=== PATIENT | male | born 1945 | race Caucasian/White ===

== ENCOUNTER → 2018-11-08 | Outpatient (CLI) | payer MEDICARE, SELFPAY ==
[2018-11-08 08:32] LABS: Hematocrit 43.3 % (40-54); Hemoglobin 13.7 g/dL (13.0-16.5); Mean Corp Hgb Conc 31.6 g/dL (32-36); Mean Corpuscular Hgb 28.1 pg (27.0-32.0); Mean Corpuscular Volume 88.9 fL (80-94); Mean Platelet Vol. 10.3 fl (6.2-12.0); Platelet Count 269 K/mm3 (150-450); RBC Distribution Width CV 13.2 % (11.6-14.6); RBC Distribution Width SD 42.9 fl (35.1-43.9); Red Blood Count 4.87 M/mm3 (4.6-6.2); White Blood Count 6.1 K/mm3 (4.4-11.0)
[2018-11-08 09:14] LABS: ALB/GLOB Ratio 0.8 RATIO (0.9-2.4); AST(SGOT) 11 U/L (15-37); Alanine Aminotransfer ALT/SGPT 16 U/L (16-61); Albumin, Serum 3.6 g/dL (3.2-5.0); Alkaline Phosphatase 157 U/L (45-117); Anion Gap 8 (5-15); BUN 9 mg/dL (7-18); BUN/Creat Ratio 9.4 RATIO (10-20); Chloride 104 mmol/L (98-107); Cholesterol 100 mg/dL (200); Creatinine, Serum 0.95 mg/dL (0.70-1.30); EST Glomerular Filtration Rate 82 mL/min (>60); Est Glom Filt Rate - Afr Amer 99 mL/min (>60); Globulin 4.6 g/dL (2.2-4.2); Glucose 142 mg/dL (74-106); High Density Lipoprotein 36 mg/dL; Protein, Total 8.2 g/dL (6.4-8.2); Sodium Level 141 mmol/L (136-145); Thyroid Stim Hormone (TSH) 1.64 uIU/mL (0.358-3.74); Triglycerides 124 mg/dL; Very Low Density Lipoprotein 25 mg/dL (5-40)
== END | disposition home or self-care (01) ==
LOC: LAB 07:23
PROVIDERS: Family Provider Family Medicine; PCP Family Medicine; Referring Provider Family Medicine; Visit Provider Family Medicine
DX: E78.00 Pure hypercholesterolemia, unspecified (principal); I10 Essential (primary) hypertension; Z93.2 Ileostomy status
CPT/HCPCS: 36415; 80053; 80061; 84153; 84443; 85027; G0103

== ENCOUNTER → 2018-11-21 | Outpatient (CLI) | payer MEDICARE, SELFPAY | END | disposition home or self-care (01) | LOC: LAB 09:51 | PROVIDERS: Family Provider Family Medicine; PCP Family Medicine; Referring Provider Family Medicine; Visit Provider Family Medicine | DX: R73.09 Other abnormal glucose (principal) | CPT/HCPCS: 36415; 83036 ==

== ENCOUNTER 2018-12-11 16:12 | Observation (INO) | payer MEDICARE, SELFPAY ==
[2018-12-11 16:13] VITALS: BP 163/94; PULSE 89; RESP 16; TEMP 36.3; O2SAT 99; BMI 27.3
--- NOTE | 2018-12-11 16:36 | CT_ITS ---
STUDY: CT ABDOMEN AND PELVIS WITH CONTRAST REASON FOR EXAM: Male, 73 years old. Pain and blood in colostomy status post partial colectomy RADIATION DOSAGE (If Supplied By Facility): CTDIvol = ( 18.95 ) mGy, DLP = ( 1312.91 ) mGycm TECHNIQUE: Transaxial images were obtained from the dome of the diaphragm to the symphysis pubis without oral contrast. 100mL IV/Oral Isovue 300 was administered. Sagittal and coronal images were reconstructed. Individualized dose optimization techniques were used for this CT. COMPARISON: March 22, 2017 FINDINGS: There is minor interstitial thickening at the lung bases.. The visualized portions of the heart are within normal limits. Normal liver. Normal gallbladder and extrahepatic biliary system. Normal spleen. Atrophic fatty infiltrated pancreas is noted. Normal bilateral adrenal glands. Normal right kidney. Normal left kidney. Normal visualized stomach. There are multiple distended loops of small bowel without transition point most consistent with ileus. Postsurgical changes status post subtotal colectomy stoma formation in the right lower quadrant. Atherosclerotic changes of the aorta without evidence for aneurysm. Normal inferior vena cava. Normal retroperitoneum. Normal urinary bladder. Small fat-containing right umbilical hernia. Lumbar spine demonstrates mild spondylosis. Right hip prosthesis is noted CT/Abdomen/Pelvis WITH Contrast IMPRESSION: Postsurgical changes status post subtotal colectomy with stoma formation in the right lower quadrant. Diffuse ileus pattern. Radionuclide tagged to red blood cell study would be helpful for further evaluation of GI bleed if clinically warranted Electronically Signed: James Alcantar MD at 19:19 EDT , Service support ,
[2018-12-11 16:53] LABS: Absolute Lymphocyte Count 0.39 X10^3/uL (0.83-4.51); Basophil# 0.03 X10^3/uL; Basophil% 0.4 % (0-1); Eosinophil# 0.01 X10^3/uL; Eosinophils% 0.1 % (0-5); Hematocrit 44.5 % (40-54); Hemoglobin 14.3 g/dL (13.0-16.5); Lymphocyte # 0.39 X10^3/ul (4.0); Mean Corp Hgb Conc 32.1 g/dL (32-36); Mean Corpuscular Hgb 28.1 pg (27.0-32.0); Mean Corpuscular Volume 87.6 fL (80-94); Mean Platelet Vol. 9.5 fl (6.2-12.0); Monocyte% 5.1 % (0-10); NRBC Flagged by Analyzer 0 % (0-5); Neutrophil # 6.96 X10^3/uL (2.7-7.7); POSITIVE DIFFERENTIAL YES; Platelet Count 260 K/mm3 (150-450); RBC Distribution Width SD 41.7 fl (35.1-43.9); Red Blood Count 5.08 M/mm3 (4.6-6.2); White Blood Count 7.8 K/mm3 (4.4-11.0)
[2018-12-11 16:56] LABS: International Normalized Ratio 1.2; Prothrombin Time (Protime)PT. 14.5 SECONDS (11.7-14.9)
[2018-12-11 16:57] LABS: Partial Thromboplast Time 31.1 Seconds (24.1-36.2)
--- NOTE | 2018-12-11 17:13 | ED.VISSUMM ---
- ER Visit Summary Date of Service: 12/11/18 Chief Complaint: Blood in colostomy bag History of Present Illness: The patient is a 73 M presenting with blood in colostomy bag. Patient noticed this today. He states earlier today he had mild diffuse abdominal pain. He has nausea with no vomiting. Denies fever. He is on aspirin, no other anticoagulants. He has a history of partial colectomy secondary to perforated bowel. Denies other complaints. Physical Examination: Vitals are stable. Patient is afebrile. Alert no acute distress. HEENT exam is unremarkable. Neck is supple. Lungs are clear and equal bilaterally. Heart is regular rate and rhythm. Abdomen is soft mild diffuse tenderness with no guarding or rebound. Colostomy, blood in colostomy bag. Extremities are unremarkable. Skin is warm and dry. No focal neurologic deficit. Remainder of exam is unremarkable. Emergency Department Course and Treatment: Patient was given Zofran IV. CBC, chemistries unremarkable other than glucose 186. INR 1.2. CT abdomen pelvis with IV and oral contrast shows postsurgical changes status post subtotal colectomy with stoma formation in the right lower quadrant. Diffuse ileus pattern. Radionuclide tagged to red blood cell study would be helpful for further evaluation of GI bleed if clinically warranted. Discussed with Dr. Estrella and the hospitalist. Patient will be admitted. Disposition: Admission Impression: GI bleed This note was generated with [employer] dictation software. It may contain incorrect words, spelling, and punctuation that were not noted in review of the chart prior to signing ED Disposition - Plan for ED Patient: Referrals: Dustin Thacker MD [Primary Care Provider] -
[2018-12-11 17:16] LABS: Anion Gap 7 (5-15); BUN 10 mg/dL (7-18); BUN/Creat Ratio 9.3 RATIO (10-20); Calcium,Total 9.2 mg/dL (8.5-10.1); Chloride 98 mmol/L (98-107); Creatinine, Serum 1.08 mg/dL (0.70-1.30); EST Glomerular Filtration Rate 71 mL/min (>60); Est Glom Filt Rate - Afr Amer 86 mL/min (>60); Estimated Creatinine Clearance 65.86 ml/min; Glucose 186 mg/dL (74-106); Potassium 3.7 mmol/L (3.5-5.1); Sodium Level 135 mmol/L (136-145)
[2018-12-11 17:27] LABS: Differential Indicated SCAN CRITERIA MET
[2018-12-11 17:29] LABS: Platelet Estimate ADEQUATE (ADEQ); Red Cell Morphology NORM C+C NORMAL (NORM C&C)
[2018-12-11] MEDS: Ondansetron 4 MG/2 ML Vial IV (19:12)
[2018-12-11 19:13] VITALS: RESP 17
[2018-12-11 19:26] VITALS: BP 133/70; PULSE 88; RESP 17
--- NOTE | 2018-12-11 20:27 | PCM.HP.STD ---
Problem List (1) GI bleed Status: Acute (2) Severe malnutrition Status: Inactive History of Present Illness Date of Admission: 12/11/18 Chief Complaint: Blood in colostomy. The patient is a 73 year old M with a significant history of CAD status post stent; congestive heart failure; Parkinson disease; colectomy with colostomy who presented to emergency department because of blood in his colostomy. His symptoms started on the same day of presentation. His symptoms started with right lower quadrant abdominal pain. His colostomy is located at his right lower quadrant too. He describes his pain as a pressure-like with intensity 5 out of 10. There are no aggravating or ameliorating factor to his pain. His pain is constant. Associated with symptoms is poor appetite. Before hospitalization he had a decreased output in his colostomy but he attributed that to decrease intake. At the emergency department he noticed an increase in the output in his colostomy bag after he is received IVF with contrast for CT. Emergency department doctor discussed the case with Dr. Estrella General surgery who recommended that lactic acid should be checked. Past Medical History Past Medical History (Chronic Problems): Chronic Problems Parkinsons disease (Chronic) Left inguinal hernia (Chronic) Hypertension (Chronic) Dysphagia (Chronic) Insomnia (Chronic) Thrombocytosis (Chronic) Anemia in chronic illness (Chronic) Hyperlipidemia (Chronic) History of colectomy (Chronic) for toxic megacolon Failure to thrive (Chronic) History of coronary artery bypass graft x 6 (Chronic) CAD (coronary artery disease) (Chronic) Allergies No Known Allergies Allergy (Verified 12/11/18 16:13) Home Medications: Ambulatory Orders Medication Instructions Recorded Nitroglycerin (INPATIENT USE) 0.4 mg SUBLINGUAL Q5M PRN 06/25/14 [Nitrostat] Metoprolol Tartrate 50 mg PO BID 06/02/16 Acetaminophen [Tylenol] 500 mg GT Q6H PRN PRN 03/20/17 Carbidopa/Levodopa 25/100 [Sinemet 2 tablet PO TIDAC 03/20/17 25/100] Aspirin [Aspirin, Baby] 81 mg PO QHS 12/11/18 Atorvastatin Calcium [Lipitor] 20 mg PO QHS 12/11/18 Furosemide [Lasix] 40 mg PO DAILY 12/11/18 Potassium Chloride 15 ml PO DAILY 12/11/18 Surgical History: coronary bypass surgery - X 6., herniorrhaphy, total hip arthroplasty - Right., - - Exploratory lap with 8 foot bowel resection, ileostomy. Psychiatric History: Depression Lives: Spouse/ Significant Other Smoking Status: Never smoker Tobacco Use: Non-smoker - *Family History Maternal History Items: Cancer - Pancreatic CA 60s. Paternal History Items: Heart Disease Sibling History Items: Heart Disease Review of Systems Constitutional: Reports: Anorexia. Denies: Chills, Fever, Weight Change HEENT: Denies: Head Aches, Sinus Congestion, Sinus Drainage Cardiovascular: Denies: Chest Pain, Palpitations Respiratory: Denies: Cough, Shortness of breath at rest, Sputum production Gastrointestinal: Reports: Abdominal Pain. Denies: Nausea, Vomiting Genitourinary: Denies: Dysuria Musculoskeletal: Denies: Joint Pain, Joint Tenderness Skin: Denies: Rash, Wounds Neurological: Denies: Numbness, Tingling, Focal weakness Psychiatric: Denies: Anxiety, Depression, Homicidal Ideations, Suicidal Ideations Hematologic/ Lymphatic: Denies: Easy Bruising, Easy Bleeding VTE Information - Inpt Only VTE Present on Admission: No VTE Mechan Device Prophylaxis: SCD's VTE Pharm Prophylaxis ordered?: No Patient Problems: Active and Suspected Problems GI bleed (Acute) - Physical Exam General: Alert, Oriented x3, Cooperative HEENT: Atraumatic, PERRLA, EOMI, Normocephalic Neck: Supple, No JVD, Negative Carotid Bruits Lungs: Clear to auscultation, Normal air movement Cardiovascular: Regular rate, No murmurs Abdomen: Bowel Sounds Present, Soft, Tender - Right lower quadrant, - - Colostomy with liquid green stool with no gross blood seen. Extremities: No edema, Capillary Refill Less than 3 Seconds Skin: No rashes, No breakdown Musculoskeletal: No Tenderness to Palpation of Joints or Extremities Neurological: Cranial nerves II-XII grossly intact Psych/Mental Status: Normal Affect, Appropriate Vital Signs Temp Pulse Resp BP Pulse Ox 97.4 F L 88 17 133/70 H 99 12/11/18 16:13 12/11/18 19:26 12/11/18 19:26 12/11/18 19:26 12/11/18 16:13 Oxygen Delivery Method Room Air Weight: 91.4 kg Body Mass Index (BMI) 27.3 Laboratory Tests Past 24 Hrs 12/11/18 12/11/18 12/11/18 16:36 16:36 16:36 WBC 7.8 RBC 5.08 Hgb 14.3 Hct 44.5 MCV 87.6 MCH 28.1 MCHC 32.1 RDW Std Deviation 41.7 RDW Coeff of Jed 13.0 Plt Count 260 MPV 9.5 Immature Gran % (Auto) 0.400 Neut % (Auto) 89.0 H Lymph % (Auto) 5.0 L [place] % (Auto) 5.1 Eos % (Auto) 0.1 Baso % (Auto) 0.4 Absolute Neuts (auto) 7.0 Absolute Lymphs (auto) 0.39 L Nucleated RBC % 0 Platelet Estimate ADEQUATE RBC Morphology NORM C+C PT 14.5 INR 1.2 APTT 31.1 Sodium 135 L Potassium 3.7 Chloride 98 Carbon Dioxide 30.0 Anion Gap 7 BUN 10 Creatinine 1.08 Estim Creat Clear Calc 65.86 Est GFR (MDRD) Af Amer 86 Est GFR (MDRD) Non-Af 71 BUN/Creatinine Ratio 9.3 L Glucose 186 H Calcium 9.2 Assessment/Plan All Active Problems GI bleed (Acute) CAP (community acquired pneumonia) (Ruled-out) Abdominal pain (Acute) Dehydration (Acute) Toxic megacolon (Resolved) Bowel perforation (Resolved) Aspiration pneumonia (Resolved) HCAP (healthcare-associated pneumonia) (Resolved) Left inguinal hernia (Resolved) The patient is a 73 year old M with a significant history of CAD status post stent; congestive heart failure; Parkinson disease; colectomy with colostomy who presented to emergency department because of blood in his colostomy and also with right lower quadrant pain and found to have an ileus on CT of abdomen and pelvis Acute GI bleed We will keep patient n.p.o. Because of his history of Parkinson's disease we will give his medications including Sinemet. He reported he takes medication with applesauce. Will allow n.p.o.; but meds to be given with applesauce. Hold aspirin. No chemical thromboprophylaxis. Protonix 40 mg IV twice daily. H&H every [address] Estrella consult Ileus N.p.o. as above General surgery consult. PRN morphine for pain Noted to have lactic acid of 2.8 which trended down to 2.0. Hypertension On presentation his blood pressure was not within goal Metoprolol and Lasix continued Trend blood pressure and adjust blood pressure medications Parkinson's disease Carbidopa levodopa continued Hyperlipidemia Lipitor continued DVT prophylaxis SCD Code Visit Inpatient E&M: 21572 Init Hosp L3
[2018-12-11 21:26] LABS: Lactic Acid 2.8 mmol/L (0.4-2.0)
--- NOTE | 2018-12-11 21:27 | ED.RN ---
notified Dr. Mueller of lactic acid 2.8
[2018-12-11 21:36] VITALS: BMI 27.2
[2018-12-11 21:57] VITALS: BMI 27.3
[2018-12-11 22:07] VITALS: BP 123/69; PULSE 89; RESP 20; TEMP 37.3; O2SAT 98
[2018-12-11 22:22] LABS: Hemoglobin A1c 7.8 % (4.2-6.3)
[2018-12-11 23:20] VITALS: PULSE 87
[2018-12-11] MEDS: Atorvastatin Calcium 20 MG Tablet PO (23:20)
[2018-12-11] MEDS: Metoprolol Tartrate 50 MG Tablet PO (23:20)
[2018-12-11] MEDS: 0.9% NaCl Peripheral Flush Adult/Peds IV (23:23)
[2018-12-12 00:11] LABS: Bedside Glucose 153 mg/dL (70-110)
[2018-12-12 00:38] LABS: Hematocrit 43.3 % (40-54)
[2018-12-12 00:53] LABS: Reflex Lactate? Y
[2018-12-12 02:50] VITALS: BP 112/76; PULSE 90; RESP 16; TEMP 36.8; O2SAT 96
[2018-12-12] MEDS: Carbidopa/Levodopa 25/100 Tablet PO ×2 (06:16→12:05)
[2018-12-12 06:35] LABS: Hematocrit 46.7 % (40-54)
[2018-12-12 06:36] LABS: Bedside Glucose 173 mg/dL (70-110)
[2018-12-12 07:43] VITALS: O2SAT 95
[2018-12-12 09:21] VITALS: BP 118/68; PULSE 79; RESP 18; TEMP 36.5; O2SAT 97
[2018-12-12 09:33] VITALS: PULSE 79
[2018-12-12] MEDS: Furosemide 40 MG Tablet PO (09:33)
[2018-12-12] MEDS: Metoprolol Tartrate 50 MG Tablet PO (09:33)
--- NOTE | 2018-12-12 10:21 | PN_ITS ---
Patient Problems: Active and Suspected Problems GI bleed (Acute) Subjective: No further bleeding. Had blood in colostomy, no clots. No prior episode of LGIB. Vitals/I&O's: Vital Signs Temp Pulse Resp BP Pulse Ox 36.5 C L 79 18 118/68 97 12/12/18 09:21 12/12/18 09:33 12/12/18 09:21 12/12/18 09:21 12/12/18 09:21 Oxygen Delivery Method Room Air Weight: 88.7 kg Body Mass Index (BMI) 27.2 Intake and Output for Last 24 Hours 12/10/18 12/11/18 12/12/18 23:59 23:59 23:59 Intake Total 110 / 110 Output Total 1475 / 1475 Balance 110 / -390 -1475 / -1475 General: Alert, No apparent distress HEENT: Atraumatic, Normocephalic Oral: Moist Mucosa, No Gingival or Mucosal Lesions/ Ulcerations Neck: No Nodes, Thyroid Normal Size and Texture Lungs: Clear to auscultation, Normal air movement, No rhonchi, No wheeze, No rales Cardiovascular: Regular rate, Regular Rhythm, Normal S1, Normal S2, No murmurs Abdomen: Bowel Sounds Present, Soft, Non Tender, Non-Distended, - - colostomy in RLQ with dark liquid stool Extremities: No edema, No Calf Tenderness Skin: No rashes, No breakdown Psych/Mental Status: Normal Affect, Appropriate Laboratory Results 12/11/18 16:36: WBC 7.8, RBC 5.08, Hgb 14.3, Hct 44.5, MCV 87.6, MCH 28.1, MCHC 32.1, RDW Std Deviation 41.7, RDW Coeff of Jed 13.0, Plt Count 260, MPV 9.5, Immature Gran % (Auto) 0.400, Neut % (Auto) 89.0 H, Lymph % (Auto) 5.0 L, [place] % (Auto) 5.1, Eos % (Auto) 0.1, Baso % (Auto) 0.4, Absolute Neuts (auto) 7.0, Absolute Lymphs (auto) 0.39 L, Nucleated RBC % 0, Platelet Estimate ADEQUATE, RBC Morphology NORM C+C 12/11/18 16:36: PT 14.5, INR 1.2, APTT 31.1 12/11/18 16:36: Sodium 135 L, Potassium 3.7, Chloride 98, Carbon Dioxide 30.0, Anion Gap 7, BUN 10, Creatinine 1.08, Estim Creat Clear Calc 65.86, Est GFR (MDRD) Af Amer 86, Est GFR (MDRD) Non-Af 71, BUN/Creatinine Ratio 9.3 L, Glucose 186 H, Calcium 9.2 12/11/18 16:36: Hemoglobin A1c 7.8 H 12/11/18 20:46: Lactic Acid 2.8 H 12/12/18 00:04: POC Glucose 153 H 12/12/18 00:21: Hgb 14.0, Hct 43.3 12/12/18 01:22: Lactic Acid 2.0 12/12/18 06:22: POC Glucose 173 H 12/12/18 06:24: Hgb 15.0, Hct 46.7 Current Medications Acetaminophen (Tylenol) 500 mg PO Q6H PRN PRN PRN Reason: MILD PAIN (-06/04) Atorvastatin Calcium (Lipitor) 20 mg PO QHS [facility] Last Admin: 12/11/18 23:20 Dose: 20 mg Documented by: Carbidopa/Levodopa (Sinemet) 2 tablet PO TIDAC [facility] Last Admin: 12/12/18 06:16 Dose: 2 tablet Documented by: Dextrose (D50w Syringe) 0 gm IV X1 PRN; Protocol PRN Reason: Hypoglycemia Furosemide (Lasix) 40 mg PO DAILY [facility] Last Admin: 12/12/18 09:33 Dose: 40 mg Documented by: Glucagon () 1 mg IM .X1 PRN PRN Reason: Hypoglycemia Pantoprazole Sodium 40 mg/ (Sodium Chloride) 110 mls @ 330 mls/hr IV Q12 [facility] Last Infusion: 12/11/18 23:49 Dose: Infused Documented by: Metoprolol Tartrate (Lopressor (Beta Alpesh)) 50 mg PO BID [facility] Last Admin: 12/12/18 09:33 Dose: 50 mg Documented by: Morphine Sulfate () 2 mg IV Q3H PRN PRN PRN Reason: moderate to severe pain Ondansetron HCl (Zofran) 4 mg IV Q8H PRN PRN PRN Reason: NAUSEA/VOMITING Potassium Chloride (Potassium Chl Soln) 20 meq GT LUNCH SOCO Sodium Chloride () 10 - 40 ml IV UD PRN PRN Reason: SALINE FLUSH Last Admin: 12/11/18 23:23 Dose: 10 ml Documented by: Medical Necessity - Tobacco Use Smoking Status: Never smoker Tobacco Use: Non-smoker Assessment/Plan All Active Problems GI bleed (Acute) CAP (community acquired pneumonia) (Ruled-out) Abdominal pain (Acute) Dehydration (Acute) Toxic megacolon (Resolved) Bowel perforation (Resolved) Aspiration pneumonia (Resolved) HCAP (healthcare-associated pneumonia) (Resolved) Left inguinal hernia (Resolved) 1. 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 * Question if he had a transient bleed from his stoma 2. Ileus * noted on CT * appears to be asymptomatic at this time. 3. lactic acidosis * resolved * unclear etiology 4. DM2 * fair control * A1c on 12/11 was 7.8 * add SSI * consider metformin on DC 5. Parkinson's dz * continue carbidopa/levo 6. VTE prophylaxis: SSI. Code Visit Inpatient E&M: 34251 Subs Hosp L2
--- NOTE | 2018-12-12 10:30 | CASEMGMT ---
RN DELGADO Face to Face with patient for initial transition planning/care coordination assessment. RN CM introduced self and role at [facility]. Patient sitting in chair, alert and oriented. Patient willing to participate in assessment and is able to answer all questions appropriately. Care providers, pharmacy, and demographics verified. Patient wishes to discharge home, denies need for home health at this time. Patient states he has no further needs or concerns at this time. CM to follow for discharge planning needs that may arise. PCP: Kirstie Specialists: none Preferred Pharmacy: [facility] Insurance: [facility] Prescription Benefit: yes Living Will/HPOA: yes, Adele Thompson LNOK: Living Arrangements: [facility] step to enter the home. Patient is independent at home. Transportation: DME/HHC: Patient has shower chair, cane, walker, grab bars, and raised toilet at home. Patient has had [facility] HHC in the past. Disposition Plan: Patient to discharge home with family support and follow-up plans in place. Katya DEAL, RN, CM
[2018-12-12] MEDS: Insulin Lispro 100 UNIT/ML INSULN.PEN SC (12:14)
[2018-12-12] MEDS: 0.9% NaCl Peripheral Flush Adult/Peds IV (12:16)
[2018-12-12 12:24] LABS: Hematocrit 47.7 % (40-54); Hemoglobin 15.2 g/dL (13.0-16.5)
--- NOTE | 2018-12-12 13:18 | CON.PCM_ITS ---
Reason for Consult Date of Consultation: 12/12/18 Reason for Consultation: blood in stoma bag History of Present Illness: The patient is a 73 year old M I am seeing for surgical consultation in conjunction with Dr. Kimmie Estrella. Patient has history of [place] syndrome for which he previously underwent exploratory laparotomy and subtotal colectomy with right lower quadrant end ileostomy at [facility] in [place]. Patient recalls that he has about 5-8 inches of remaining sigmoid stump with the rest of the colon removed. Patient states he had been doing well from a GI standpoint since that surgery. He states yesterday he developed some mild bloating in his lower abdomen but no other complaints at that time. Notes when his went to empty his stoma bag after 3 pm yesterday afternoon he was noted to have a small amount of blood in the back, both some fresher-appearing blood as well as some clots, prompting him to go to the emergency department. He had a CBC in the emergency department which was unremarkable. CT scan showed postsurgical changes status post subtotal colectomy with stoma formation in the right lower quadrant, and diffuse ileus pattern. He was admitted for further evaluation. General surgery was consulted. Patient had lactic acid level of 2.8 on 12/11 which has since decreased to 2.0. Patient's past medical history in addition to above mentioned [place] syndrome and subtotal colectomy is significant for coronary artery disease, history CABG x 6, hypertension, Parkinson's disease. Patient resting comfortably in bed at time of visit today. He notes no further blood in his stoma output and states the abdominal bloating/pressure has mostly resolved. Had some mild nausea earlier without emesis. Denies new complaints today. Past Medical History Past Medical History (Chronic Problems): Chronic Problems Parkinsons disease (Chronic) Left inguinal hernia (Chronic) Hypertension (Chronic) Dysphagia (Chronic) Insomnia (Chronic) Thrombocytosis (Chronic) Anemia in chronic illness (Chronic) Hyperlipidemia (Chronic) History of colectomy (Chronic) for toxic megacolon Failure to thrive (Chronic) History of coronary artery bypass graft x 6 (Chronic) CAD (coronary artery disease) (Chronic) Allergies No Known Allergies Allergy (Verified 12/11/18 16:13) Home Medications: Ambulatory Orders Medication Instructions Recorded Nitroglycerin (INPATIENT USE) 0.4 mg SUBLINGUAL Q5M PRN 06/25/14 [Nitrostat] Metoprolol Tartrate 50 mg PO BID 06/02/16 Acetaminophen [Tylenol] 500 mg GT Q6H PRN PRN 03/20/17 Carbidopa/Levodopa 25 [Sinemet 2 tablet PO TIDAC 03/20/17] Aspirin [Aspirin, Baby] 81 mg PO QHS 12/11/18 Atorvastatin Calcium [Lipitor] 20 mg PO QHS 12/11/18 Furosemide [Lasix] 40 mg PO DAILY 12/11/18 Potassium Chloride 15 ml PO DAILY 12/11/18 Surgical History: coronary bypass surgery - X 6., herniorrhaphy, total hip arthroplasty - Right., - - Exploratory lap with 8 foot bowel resection, ileostomy. Psychiatric History: Depression Lives: Spouse/ Significant Other Smoking Status: Never smoker Tobacco Use: Non-smoker - *Family History Maternal History Items: Cancer - Pancreatic CA 60s. Paternal History Items: Heart Disease Sibling History Items: Heart Disease Review of Systems Constitutional: Denies: Anorexia, Chills, Fever, Malaise, Weakness Eyes: Denies: Vision Change HEENT: Denies: Difficulty Hearing, Difficulty Swallowing, Visual Changes Cardiovascular: Denies: Chest Pain, Chest Pressure Respiratory: Denies: Cough, Shortness of Breath Gastrointestinal: Reports: Hematochezia - notes history of blood with stoma output and some abdominal bloating, Nausea. Denies: Abdominal Pain, Vomiting Skin: Denies: Skin Changes Hematologic/ Lymphatic: Denies: Easy Bruising, Easy Bleeding Patient Problems: Active and Suspected Problems GI bleed (Acute) - Physical Exam General: Alert, Oriented x3, Cooperative, No apparent distress HEENT: Atraumatic, PERRLA Oral: Moist Mucosa Neck: Supple Lungs: Clear to auscultation, Normal air movement Cardiovascular: Regular rate, Regular Rhythm Abdomen: Bowel Sounds Present, Soft, Non Tender, - - stoma present in right lower quadrant with green stool in stoma bag, no obvious blood noted Extremities: No clubbing, No cyanosis, No edema Skin: No rashes, No breakdown Musculoskeletal: No Tenderness to Palpation of Joints or Extremities Psych/Mental Status: Normal Affect, Appropriate Vital Signs Temp Pulse Resp BP Pulse Ox 97.7 F L 79 18 118/68 97 12/12/18 09:21 12/12/18 09:33 12/12/18 09:21 12/12/18 09:21 12/12/18 09:21 Oxygen Delivery Method Room Air Weight: 195 lb 8.8 oz Body Mass Index (BMI) 27.2 Intake and Output for Last 24 Hours 12/10/18 12/11/18 12/12/18 23:59 23:59 23:59 Intake Total 110 / 110 Output Total 1475 / 1475 Balance 110 / -390 -1475 / -1475 Laboratory Tests Past 24 Hrs 12/11/18 12/11/18 12/11/18 16:36 16:36 16:36 WBC 7.8 RBC 5.08 Hgb 14.3 Hct 44.5 MCV 87.6 MCH 28.1 MCHC 32.1 RDW Std Deviation 41.7 RDW Coeff of Jed 13.0 Plt Count 260 MPV 9.5 Immature Gran % (Auto) 0.400 Neut % (Auto) 89.0 H Lymph % (Auto) 5.0 L [place] % (Auto) 5.1 Eos % (Auto) 0.1 Baso % (Auto) 0.4 Absolute Neuts (auto) 7.0 Absolute Lymphs (auto) 0.39 L Nucleated RBC % 0 Platelet Estimate ADEQUATE RBC Morphology NORM C+C PT 14.5 INR 1.2 APTT 31.1 Sodium 135 L Potassium 3.7 Chloride 98 Carbon Dioxide 30.0 Anion Gap 7 BUN 10 Creatinine 1.08 Estim Creat Clear Calc 65.86 Est GFR (MDRD) Af Amer 86 Est GFR (MDRD) Non-Af 71 BUN/Creatinine Ratio 9.3 L Glucose 186 H Hemoglobin A1c Lactic Acid Calcium 9.2 12/11/18 12/11/18 12/12/18 16:36 20:46 00:21 WBC RBC Hgb 14.0 Hct 43.3 MCV MCH MCHC RDW Std Deviation RDW Coeff of Jed Plt Count MPV Immature Gran % (Auto) Neut % (Auto) Lymph % (Auto) [place] % (Auto) Eos % (Auto) Baso % (Auto) Absolute Neuts (auto) Absolute Lymphs (auto) Nucleated RBC % Platelet Estimate RBC Morphology PT INR APTT Sodium Potassium Chloride Carbon Dioxide Anion Gap BUN Creatinine Estim Creat Clear Calc Est GFR (MDRD) Af Amer Est GFR (MDRD) Non-Af BUN/Creatinine Ratio Glucose Hemoglobin A1c 7.8 H Lactic Acid 2.8 H Calcium 12/12/18 12/12/18 12/12/18 01:22 06:24 12:10 WBC RBC Hgb 15.0 15.2 Hct 46.7 47.7 MCV MCH MCHC RDW Std Deviation RDW Coeff of Jed Plt Count MPV Immature Gran % (Auto) Neut % (Auto) Lymph % (Auto) [place] % (Auto) Eos % (Auto) Baso % (Auto) Absolute Neuts (auto) Absolute Lymphs (auto) Nucleated RBC % Platelet Estimate RBC Morphology PT INR APTT Sodium Potassium Chloride Carbon Dioxide Anion Gap BUN Creatinine Estim Creat Clear Calc Est GFR (MDRD) Af Amer Est GFR (MDRD) Non-Af BUN/Creatinine Ratio Glucose Hemoglobin A1c Lactic Acid 2.0 Calcium POC Glucose 12/12/18 12/12/18 06:22 00:04 POC Glucose 173 H 153 H Assessment/Plan All Active Problems GI bleed (Acute) CAP (community acquired pneumonia) (Ruled-out) Abdominal pain (Acute) Dehydration (Acute) Toxic megacolon (Resolved) Bowel perforation (Resolved) Aspiration pneumonia (Resolved) HCAP (healthcare-associated pneumonia) (Resolved) Left inguinal hernia (Resolved) I have reviewed my findings with Dr. Estrella, who will also independently evaluate the patient and give further recommendations Blood in stoma, resolved. H/H stable. Suspect stomal irritation. History of subtotal colectomy with approximately 8 inches of remaining sigmoid stump per patient. CT findings suggestive of diffuse ileus, patient currently asymptomatic. Will continue to monitor
[2018-12-12 13:35] LABS: Bedside Glucose 178 mg/dL (70-110)
--- NOTE | 2018-12-12 15:07 | CHAPLAIN ---
Type of Pastoral Visit _x__ Initial Visit ___ Follow-up Visit ___ On-call Visit ___ General Patient Visit ___ Spiritual Assessment ___ Family Conference ___ Bereavement ___ Rapid Response ___ Code Blue ___ Other (describe below) Pastoral Care Referral From _x__ Patient ___ Family ___ Nurse ___ Physician ___ Endless Track Vehicle Supervisor ___ Rfid Systems Engineer ___ Other (describe below) Sacrament/Intervention _x__ Active listening ___ Anointing ___ Protestant ___ Bereavement ___ Communion ___ Leslie exploration ___ _x__ Life review _x__ Prayer ___ Reconciliation ___ Sacrament of Sick _x__ Supportive presence ___ Wedding ___ Other (describe below) Pastoral Comments
--- NOTE | 2018-12-12 17:01 | DCINST_ITS ---
- Discharge Diagnoses Current Active Problems: Current Active and Chronic Problems GI bleed (Acute) You will use the following diet at home:: No restrictions Your food should be the consistency of: Regular Your liquids should be the consistency of: Regular/Thin Call your doctor if you observe: - - recurrent blood in stool Allergies/Adverse Reactions: Allergies No Known Allergies Allergy (Verified 12/11/18 16:13) Medications to take at Discharge Nitroglycerin (INPATIENT USE) [Nitrostat] 0.4 mg SUBLINGUAL Q5M PRN 06/25/14 Metoprolol Tartrate 50 mg PO BID 06/02/16 Acetaminophen [Tylenol] 500 mg GT Q6H PRN PRN 03/20/17 Carbidopa/Levodopa 25/100 [Sinemet 25/100] 2 tablet PO TIDAC 03/20/17 Aspirin [Aspirin, Baby] 81 mg PO QHS 12/11/18 Atorvastatin Calcium [Lipitor] 20 mg PO QHS 12/11/18 Furosemide [Lasix] 40 mg PO DAILY 12/11/18 Potassium Chloride 15 ml PO DAILY 12/11/18 Primary Care Physician: Dustin Thacker MD [Primary Care Provider] - Within 2 Weeks Test Results: Test results from this visit will be discussed in further detail at your follow- up appointment, if applicable. Proposed Discharge Date: 12/12/18
--- NOTE | 2018-12-12 17:03 | DS.PCM_ITS ---
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 Resolve spontaneously. Hemoglobin remained stable. Seen by general surgery felt that the bleeding was related with mucosal bleeding. No intervention is warranted at this time. Patient stable to return home. [] Patient Problems: Active and Suspected Problems GI bleed (Acute) - Physical Exam Vital Signs Temp Pulse Resp BP Pulse Ox 36.5 C L 79 18 118/68 97 12/12/18 09:21 12/12/18 09:33 12/12/18 09:21 12/12/18 09:21 12/12/18 09:21 Oxygen Delivery Method Room Air Weight: 88.7 kg Body Mass Index (BMI) 27.2 Intake and Output for Last 24 Hours 12/10/18 12/11/18 12/12/18 23:59 23:59 23:59 Intake Total 110 / 110 110 / 110 Output Total 1800 / 1800 Balance 110 / -390 -1690 / -1690 Laboratory Tests Past 24 Hrs 12/11/18 12/11/18 12/11/18 16:36 16:36 16:36 WBC 7.8 RBC 5.08 Hgb 14.3 Hct 44.5 MCV 87.6 MCH 28.1 MCHC 32.1 RDW Std Deviation 41.7 RDW Coeff of Jed 13.0 Plt Count 260 MPV 9.5 Immature Gran % (Auto) 0.400 Neut % (Auto) 89.0 H Lymph % (Auto) 5.0 L [place] % (Auto) 5.1 Eos % (Auto) 0.1 Baso % (Auto) 0.4 Absolute Neuts (auto) 7.0 Absolute Lymphs (auto) 0.39 L Nucleated RBC % 0 Platelet Estimate ADEQUATE RBC Morphology NORM C+C PT 14.5 INR 1.2 APTT 31.1 Sodium 135 L Potassium 3.7 Chloride 98 Carbon Dioxide 30.0 Anion Gap 7 BUN 10 Creatinine 1.08 Estim Creat Clear Calc 65.86 Est GFR (MDRD) Af Amer 86 Est GFR (MDRD) Non-Af 71 BUN/Creatinine Ratio 9.3 L Glucose 186 H Hemoglobin A1c Lactic Acid Calcium 9.2 12/11/18 12/11/18 12/12/18 16:36 20:46 00:21 WBC RBC Hgb 14.0 Hct 43.3 MCV MCH MCHC RDW Std Deviation RDW Coeff of Jed Plt Count MPV Immature Gran % (Auto) Neut % (Auto) Lymph % (Auto) [place] % (Auto) Eos % (Auto) Baso % (Auto) Absolute Neuts (auto) Absolute Lymphs (auto) Nucleated RBC % Platelet Estimate RBC Morphology PT INR APTT Sodium Potassium Chloride Carbon Dioxide Anion Gap BUN Creatinine Estim Creat Clear Calc Est GFR (MDRD) Af Amer Est GFR (MDRD) Non-Af BUN/Creatinine Ratio Glucose Hemoglobin A1c 7.8 H Lactic Acid 2.8 H Calcium 12/12/18 12/12/18 12/12/18 01:22 06:24 12:10 WBC RBC Hgb 15.0 15.2 Hct 46.7 47.7 MCV MCH MCHC RDW Std Deviation RDW Coeff of Jed Plt Count MPV Immature Gran % (Auto) Neut % (Auto) Lymph % (Auto) [place] % (Auto) Eos % (Auto) Baso % (Auto) Absolute Neuts (auto) Absolute Lymphs (auto) Nucleated RBC % Platelet Estimate RBC Morphology PT INR APTT Sodium Potassium Chloride Carbon Dioxide Anion Gap BUN Creatinine Estim Creat Clear Calc Est GFR (MDRD) Af Amer Est GFR (MDRD) Non-Af BUN/Creatinine Ratio Glucose Hemoglobin A1c Lactic Acid 2.0 Calcium POC Glucose 12/12/18 12/12/18 12/12/18 12:11 06:22 00:04 POC Glucose 178 H 173 H 153 H Discharge Diet: No Restrictions Call your doctor if you observe: - - recurrent blood in stool Home Medications: Medications to take at Discharge Nitroglycerin (INPATIENT USE) [Nitrostat] 0.4 mg SUBLINGUAL Q5M PRN 06/25/14 Metoprolol Tartrate 50 mg PO BID 06/02/16 Acetaminophen [Tylenol] 500 mg GT Q6H PRN PRN 03/20/17 Carbidopa/Levodopa 25/100 [Sinemet 25/100] 2 tablet PO TIDAC 03/20/17 Aspirin [Aspirin, Baby] 81 mg PO QHS 12/11/18 Atorvastatin Calcium [Lipitor] 20 mg PO QHS 12/11/18 Furosemide [Lasix] 40 mg PO DAILY 12/11/18 Potassium Chloride 15 ml PO DAILY 12/11/18 Primary Care Physician: Dustin Thacker MD [Primary Care Provider] - Within 2 Weeks Disposition: Home Minutes spent on discharge:: 26 Patient Condition:: Good Medical Necessity - Tobacco Use Smoking Status: Never smoker Tobacco Use: Non-smoker Meaningful Use Info Meaningful Use Diagnoses (Choose all that apply): None applicable Code Visit OBSV E&M: 16800 Observation care discharge
[2018-12-12 17:13] VITALS: BP 121/70; PULSE 84; RESP 18; TEMP 36.7; O2SAT 95
== END 2018-12-12 17:30 | disposition home or self-care (01) ==
LOC: ED 16:39 → MS3 12-12 00:02
PROVIDERS: Admitting Provider Hospitalist; Emergency Provider Emergency Medicine; Family Provider Family Medicine; PCP Family Medicine; Referring Provider Hospitalist
DX: K92.2 Gastrointestinal hemorrhage, unspecified (principal); G20 Parkinson's disease; E78.5 Hyperlipidemia, unspecified; I25.10 Atherosclerotic heart disease of native coronary artery without angina pectoris; D63.8 Anemia in other chronic diseases classified elsewhere; I50.9 Heart failure, unspecified; I11.0 Hypertensive heart disease with heart failure; K56.7 Ileus, unspecified; E11.9 Type 2 diabetes mellitus without complications; E87.2 Acidosis; Z95.1 Presence of aortocoronary bypass graft; Z79.899 Other long term (current) drug therapy; Z79.82 Long term (current) use of aspirin; Z93.3 Colostomy status; Z90.49 Acquired absence of other specified parts of digestive tract
CPT/HCPCS: 36415; 74177; 80048; 82962; 83036; 83605; 85014; 85018; 85025; 85610; 85730; 96365; 96366; 96375; 97162; 97165; 99218; 99284; Q9967; A4216; G0378; J2405

== ENCOUNTER → 2019-03-26 07:20 | Outpatient (CLI) | payer MEDICARE, SELFPAY ==
[2019-03-26 08:12] LABS: Hematocrit 42.5 % (40-54); Hemoglobin 13.2 g/dL (13.0-16.5); Mean Corp Hgb Conc 31.1 g/dL (32-36); Mean Corpuscular Hgb 27.7 pg (27.0-32.0); Mean Corpuscular Volume 89.1 fL (80-94); Mean Platelet Vol. 9.8 fl (6.2-12.0); Platelet Count 269 K/mm3 (150-450); RBC Distribution Width CV 13.4 % (11.6-14.6); RBC Distribution Width SD 43.8 fl (35.1-43.9); Red Blood Count 4.77 M/mm3 (4.6-6.2); White Blood Count 5.7 K/mm3 (4.4-11.0)
[2019-03-26 08:36] LABS: Hemoglobin A1c 7.1 % (4.2-6.3)
[2019-03-26 08:45] LABS: ALB/GLOB Ratio 0.8 RATIO (0.9-2.4); AST(SGOT) 15 U/L (15-37); Alanine Aminotransfer ALT/SGPT 22 U/L (16-61); Albumin, Serum 3.7 g/dL (3.2-5.0); Alkaline Phosphatase 126 U/L (45-117); Anion Gap 2 (5-15); BUN 10 mg/dL (7-18); BUN/Creat Ratio 10.8 RATIO (10-20); Calcium,Total 9.1 mg/dL (8.5-10.1); Chloride 103 mmol/L (98-107); Cholesterol 90 mg/dL (200); Creatinine, Serum 0.93 mg/dL (0.70-1.30); EST Glomerular Filtration Rate 84 mL/min (>60); Est Glom Filt Rate - Afr Amer 102 mL/min (>60); Globulin 4.4 g/dL (2.2-4.2); Glucose 133 mg/dL (74-106); High Density Lipoprotein 35 mg/dL; Potassium 4.1 mmol/L (3.5-5.1); Protein, Total 8.1 g/dL (6.4-8.2); Sodium Level 137 mmol/L (136-145); Triglycerides 97 mg/dL; Very Low Density Lipoprotein 19 mg/dL (5-40)
== END ==
PROVIDERS: Family Provider Family Medicine; PCP Family Medicine; Referring Provider Family Medicine; Visit Provider Family Medicine
DX: E11.9 Type 2 diabetes mellitus without complications (principal); I25.10 Atherosclerotic heart disease of native coronary artery without angina pectoris
CPT/HCPCS: 36415; 80053; 80061; 83036; 85027

== ENCOUNTER → 2019-10-05 | Outpatient (CLI) | payer MEDICARE, SELFPAY ==
[2019-10-05 07:51] LABS: Hematocrit 44.8 % (40-54); Hemoglobin 13.9 g/dL (13.0-16.5); Mean Corpuscular Hgb 27.9 pg (27.0-32.0); Mean Platelet Vol. 9.4 fl (6.2-12.0); Platelet Count 276 K/mm3 (150-450); RBC Distribution Width CV 13.5 % (11.6-14.6); RBC Distribution Width SD 43.8 fl (35.1-43.9); Red Blood Count 4.98 M/mm3 (4.6-6.2)
[2019-10-05 08:20] LABS: Hemoglobin A1c 6.3 % (3.8-5.6)
[2019-10-05 08:28] LABS: Anion Gap 4 (5-15); BUN 11 mg/dL (7-18); BUN/Creat Ratio 10.8 RATIO (10-20); Calcium,Total 9.3 mg/dL (8.5-10.1); Chloride 103 mmol/L (98-107); Cholesterol 103 mg/dL (200); Creatinine, Serum 1.02 mg/dL (0.70-1.30); EST Glomerular Filtration Rate 76 mL/min (>60); Est Glom Filt Rate - Afr Amer 92 mL/min (>60); Glucose 142 mg/dL (74-106); High Density Lipoprotein 37 mg/dL; Potassium 4.1 mmol/L (3.5-5.1); Sodium Level 137 mmol/L (136-145); Thyroid Stim Hormone (TSH) 1.83 uIU/mL (0.358-3.74); Triglycerides 125 mg/dL; Very Low Density Lipoprotein 25 mg/dL (5-40)
== END | disposition home or self-care (01) ==
LOC: LAB 07:30
PROVIDERS: PCP Family Medicine; Referring Provider Family Medicine; Visit Provider Family Medicine
DX: E11.9 Type 2 diabetes mellitus without complications (principal); I25.10 Atherosclerotic heart disease of native coronary artery without angina pectoris
CPT/HCPCS: 36415; 80048; 80061; 83036; 84443; 85027

== ENCOUNTER → 2020-06-30 07:24 | Outpatient (CLI) | payer MEDICARE, SELFPAY ==
[2020-06-30 08:08] LABS: Hematocrit 43.2 % (40-54); Hemoglobin 13.9 g/dL (13.0-16.5); Mean Corp Hgb Conc 32.2 g/dL (32-36); Mean Platelet Vol. 9.6 fl (6.2-12.0); Platelet Count 260 K/mm3 (150-450); RBC Distribution Width CV 13.2 % (11.6-14.6); RBC Distribution Width SD 43.6 fl (35.1-43.9); White Blood Count 5.8 K/mm3 (4.4-11.0)
[2020-06-30 08:26] LABS: Hemoglobin A1c 6.3 % (3.8-5.6)
[2020-06-30 08:49] LABS: AST(SGOT) 16 U/L (15-37); Alanine Aminotransfer ALT/SGPT 23 U/L (16-61); Albumin, Serum 3.8 g/dL (3.2-5.0); Alkaline Phosphatase 106 U/L (45-117); Anion Gap 6 (5-15); BUN 9 mg/dL (7-18); BUN/Creat Ratio 9.9 RATIO (10-20); Calcium,Total 8.9 mg/dL (8.5-10.1); Chloride 102 mmol/L (98-107); Cholesterol 100 mg/dL (200); EST Glomerular Filtration Rate 87 mL/min (>60); Est Glom Filt Rate - Afr Amer 105 mL/min (>60); Glucose 125 mg/dL (74-106); High Density Lipoprotein 40 mg/dL; PSA,Total- Diagnostic 0.77 ng/mL (0.0-4.0); Phosphorus 3.2 mg/dL (2.5-4.9); Potassium 3.9 mmol/L (3.5-5.1); Protein, Total 7.8 g/dL (6.4-8.2); Sodium Level 138 mmol/L (136-145); Thyroid Stim Hormone (TSH) 1.76 uIU/mL (0.358-3.74); Triglycerides 96 mg/dL; Very Low Density Lipoprotein 19 mg/dL (5-40)
[2020-06-30 09:37] LABS: Vitamin D,25 Hydroxy 24.4 ng/mL
== END ==
PROVIDERS: PCP Family Medicine; Referring Provider Family Medicine; Visit Provider Family Medicine
DX: Z00.00 Encounter for general adult medical examination without abnormal findings (principal); E11.9 Type 2 diabetes mellitus without complications; E55.9 Vitamin D deficiency, unspecified; E78.00 Pure hypercholesterolemia, unspecified; Z12.5 Encounter for screening for malignant neoplasm of prostate
CPT/HCPCS: 36415; 80053; 80061; 82306; 83036; 83735; 84100; 84153; 84443; 85027

== ENCOUNTER 2020-11-22 17:13 | Observation (INO) | payer MEDICARE, SELFPAY ==
[2020-11-22] VITALS (10 sets, daily range): BP systolic 125–165; BP diastolic 69–88; PULSE 81–98; RESP 14–18; TEMP 36.6–37.1; O2SAT 96–100; BMI 24.4; BMI 25.6
--- NOTE | 2020-11-22 17:50 | EKG12_ITS ---
Test Reason : ABD PAIN Blood Pressure : / mmHG Vent. Rate : 071 BPM Atrial Rate : 071 BPM P-R Int : 162 ms QRS Dur : 134 ms QT Int : 438 ms P-R-T Axes : 074 075 033 degrees QTc Int : 475 ms Sinus rhythm with occasional Premature ventricular complexes Right bundle branch block Abnormal ECG Confirmed by PATRICIA VALENTINE, CELIA ([id number]), slot editor OZZY NEVAREZ ([id number]) on 11/24/2020 12:33:02 PM Referred By: FADY Confirmed By:CELIA GOMEZ MD
[2020-11-22 18:18] LABS: Absolute Neutrophil Count 10.2 X10^3/uL (2.0-7.7); Basophil# 0.05 X10^3/uL; Basophil% 0.4 % (0-1); Eosinophil# 0.07 X10^3/uL; Eosinophils% 0.6 % (0-5); Hematocrit 43.2 % (40-54); Hemoglobin 14.4 g/dL (13.0-16.5); Lymphocyte % 5.9 % (19-41); Mean Corp Hgb Conc 33.3 g/dL (32-36); Mean Corpuscular Hgb 29.3 pg (27.0-32.0); Mean Corpuscular Volume 87.8 fL (80-94); Mean Platelet Vol. 9.9 fl (6.2-12.0); Monocyte# 0.71 X10^3/uL; NRBC Flagged by Analyzer 0 % (0-5); Neutrophil # 10.24 X10^3/uL (2.7-7.7); Neutrophil % 86.5 % (47-70); Platelet Count 254 K/mm3 (150-450); RBC Distribution Width CV 13.2 % (11.6-14.6); RBC Distribution Width SD 42.6 fl (35.1-43.9); Red Blood Count 4.92 M/mm3 (4.6-6.2); White Blood Count 11.8 K/mm3 (4.4-11.0)
--- NOTE | 2020-11-22 18:24 | EDS_ITS ---
HPI HPI - GI History of Present Illness Chief Complaint: Abd Pain Informant: patient and spouse/S.O. Abdominal Pain/Flank Pain Onset: Hours (First noted at 12 noon) Context: Sudden Onset Timing: Continuous Quality: Aching Location: RLQ (Per ) Current Severity: Gone Maximum Severity: Mild Worsened by: Nothing Relieved by: Nothing Nausea/Vomiting/Emesis GI Symptom: Positive for Nausea; Negative for Vomiting Diarrhea/Melena/Hematochezia GI Symptom: Positive for Hematochezia (Per ileostomy) Onset: Hours (First noted at 12 noon) Stool Quality: Positive for - (Bloody mucus from ileostomy. There is no stool.) Severity: Mild Associated Symptoms Associated Symptoms: Negative for Dysuria, Frequency and Hematuria Narrative Narrative: Patient is an elderly male. He has history of coronary disease, hypertension, hypercholesterolemia, Parkinson disease who presents because of bright red blood noted in the ileostomy bag. Patient is on a baby aspirin. He is on no anticoagulant. He has no history of GI bleed. He denies vomiting. He denies abdominal distention or discomfort. He does report bruising easily. He denies blood in his urine. Denies bleeding from his gums. He denies chest pain, dyspnea, Lee exertion. He denies orthostatic symptoms. Prior similar symptoms: No Recent Illness/Hospitalization: No PFSH PFSH Medical History Diabetes Home Medications nitroglycerin 0.4 mg SUBLINGUAL Q5M PRN 06/25/14 [History Last Taken Unknown] metoprolol tartrate 50 mg PO BID 06/02/16 [History Last Taken 12/11/18] acetaminophen 500 mg G-TUBE Q6H PRN PRN 03/20/17 [History Last Taken 12/11/18] carbidopa-levodopa 2 tab PO TIDAC 03/20/17 [History Last Taken 12/11/18] aspirin 81 mg PO QHS 12/11/18 [History Last Taken 12/10/18] atorvastatin 20 mg PO QHS 12/11/18 [History Last Taken 12/10/18] furosemide 40 mg PO DAILY 12/11/18 [History Last Taken 12/11/18] potassium chloride 15 ml PO DAILY 12/11/18 [History Last Taken 09/16/19] cholecalciferol (vitamin D3) [Vitamin D3] 25 mcg PO DAILY 11/22/20 [History Last Taken Unknown] metformin 500 mg PO BID 11/22/20 [History Last Taken Unknown] Allergy/AdvReac Type Severity Reaction Status Date / Time No Known Allergies Allergy Verified 12/11/18 16:13 Surgical History H/O hernia repair History of cholecystectomy History of colostomy History of total right hip replacement Hx of CABG Social History (Updated 11/22/20 @ 18:[address] Phill Tan MD) household members: spouse housing: house Smoking Status: Never smoker alcohol intake: current alcohol intake frequency: holidays/special occasions only substance use type: does not use ROS ROS ED Constitutional Constitutional ED: Denies chills, fever(s), subjective or sweats ENT ENT ED: Denies rhinorrhea or sore throat Cardiovascular Cardiovascular: Denies chest pain, orthopnea, palpitations or racing heartbeat Respiratory/Chest Respiratory/Chest: Denies cough, dyspnea, dyspnea on exertion or orthopnea Gastrointestinal Gastrointestinal: Reports abdominal pain, nausea and other Details: Blood from ileostomy ; Denies constipation, diarrhea, melena or vomiting Genitourinary Genitourinary ED: Denies dysuria, hematuria or urinary frequency Musculoskeletal Musculoskeletal: Denies arthralgias, myalgias or neck pain Integumentary Denies rash Neurologic Neurologic: Denies headache(s) or weakness Hematologic/Lymphatic Hematologic/Lymphatic: Reports easy bruising; Denies easy bleeding or lymphadenopathy EXAM Physical Exam Const Vital Signs: 11/22/20 17:14 11/22/20 17:48 Temperature 98.8 F 98.8 F Temperature Source Temporal Temporal Pulse Rate 86 86 Respiratory Rate 18 18 Blood Pressure 152/85 H 152/88 H Blood Pressure Mean 107 109 Pulse Ox 100 100 Oxygen Delivery Method Room Air Room Air Positive well nourished and well developed General Appearance ED: well developed and NAD HEENT Reports TM's clear and moist mucous membranes normocephalic and atraumatic Tympanic Membrane ED: Yes TM's clear Eyes PERRL and EOMs intact bilaterally General Eye ED: Negative for pale conjunctiva or scleral icterus Neck no lymphadenopathy, supple and no JVD Resp normal respiratory effort and clear to auscultation bilaterally Cardio regular rate, regular rhythm, S1 normal heart sound and no murmurs GI non-tender, non-distended and no masses Auscultation: hyperactive bowel sounds; Negative for normoactive bowel sounds Palpation: soft Back/Spine no CVA tenderness Cervical Spine: Negative for cervical spine tenderness Thoracic Spine / Upper Back: Negative for thoracic spinal tenderness Lumbar Spine / Lower Back: Negative for lumbar spinal tenderness Extremity full ROM General Extremety ED: Negative for edema or tenderness General Extremity: Negative for edema Neuro CN's II-XII intact bilaterally and no sensory deficits noted Sensorium / Orientation: alert, oriented to person, oriented to place and oriented to time Motor Exam: strength 5/5 throughout Psych mental status grossly normal and thought process normal Skin no wounds Lesions: no lesions Rashes: no rashes MDM MDM MDM Narrative Medical decision making narrative: Patient has a GI bleed. Coags were obtained since he is complaining of bruising easily. CBC to assess H&H. Electrolyte panel to assess BUN to creatinine ratio and renal function. Type and screen was ordered. EKG to rule out cardiac ischemia. Patient was informed he will require admission to the hospital. Lab Data Attestation: I reviewed the patient's lab results. Labs: Laboratory Results - last 24 hr 11/22/20 11/22/20 11/22/20 18:00 18:00 18:00 WBC 11.8 H RBC 4.92 Hgb 14.4 Hct 43.2 MCV 87.8 MCH 29.3 MCHC 33.3 RDW Std Deviation 42.6 RDW Coeff of Jed 13.2 Plt Count 254 MPV 9.9 Immature Gran % (Auto) 0.600 Neut % (Auto) 86.5 H Lymph % (Auto) 5.9 L [place] % (Auto) 6.0 Eos % (Auto) 0.6 Baso % (Auto) 0.4 Absolute Neuts (auto) 10.2 H Absolute Lymphs (auto) 0.70 L Nucleated RBC % 0 PT 13.8 INR 1.1 APTT 28.3 Sodium 133 L Potassium 4.0 Chloride 95 L Carbon Dioxide 31.0 Anion Gap 7 BUN 11 Creatinine 0.88 Estim Creat Clear Calc 78.38 Est GFR (MDRD) Af Amer 108 Est GFR (MDRD) Non-Af 89 BUN/Creatinine Ratio 12.5 Glucose 129 H Lactic Acid Calcium 9.3 Total Bilirubin 0.90 AST 15 ALT 10 L Alkaline Phosphatase 79 Total Protein 7.9 Albumin 4.1 Globulin 3.8 Albumin/Globulin Ratio 1.1 11/22/20 18:00 WBC RBC Hgb Hct MCV MCH MCHC RDW Std Deviation RDW Coeff of Jed Plt Count MPV Immature Gran % (Auto) Neut % (Auto) Lymph % (Auto) [place] % (Auto) Eos % (Auto) Baso % (Auto) Absolute Neuts (auto) Absolute Lymphs (auto) Nucleated RBC % PT INR APTT Sodium Potassium Chloride Carbon Dioxide Anion Gap BUN Creatinine Estim Creat Clear Calc Est GFR (MDRD) Af Amer Est GFR (MDRD) Non-Af BUN/Creatinine Ratio Glucose Lactic Acid 1.4 Calcium Total Bilirubin AST ALT Alkaline Phosphatase Total Protein Albumin Globulin Albumin/Globulin Ratio EKG Initial EKG: Attestation: I personally reviewed and interpreted this EKG as follows: Interpretation: Sinus Rhythm (Sinus rhythm with premature ventricular beats noted. Ventricular rate is 71. AL interval is 262 ms per cures duration 134 ms and correct morphology is consistent with right bundle branch block. QT interval is 438 ms. [place] is normal.) Discharge Plan Dx/Rx/DC Orders Clinical Impression: GI bleed Disposition Disposition: Acute Care Hospital [facility]
[2020-11-22 18:30] LABS: International Normalized Ratio 1.1; Prothrombin Time (Protime)PT. 13.8 SECONDS (11.7-14.9)
[2020-11-22 18:31] LABS: Partial Thromboplast Time 28.3 Seconds (24.1-36.2)
[2020-11-22 18:36] LABS: ALB/GLOB Ratio 1.1 RATIO (0.9-2.4); AST(SGOT) 15 U/L (15-37); Alanine Aminotransfer ALT/SGPT 10 U/L (16-61); Albumin, Serum 4.1 g/dL (3.2-5.0); Alkaline Phosphatase 79 U/L (45-117); Anion Gap 7 (5-15); BUN 11 mg/dL (7-18); BUN/Creat Ratio 12.5 RATIO (10-20); Calcium,Total 9.3 mg/dL (8.5-10.1); Chloride 95 mmol/L (98-107); Creatinine, Serum 0.88 mg/dL (0.70-1.30); EST Glomerular Filtration Rate 89 mL/min (>60); Est Glom Filt Rate - Afr Amer 108 mL/min (>60); Estimated Creatinine Clearance 78.38 ml/min; Globulin 3.8 g/dL (2.2-4.2); Glucose 129 mg/dL (74-106); Protein, Total 7.9 g/dL (6.4-8.2); Sodium Level 133 mmol/L (136-145)
[2020-11-22 18:42] LABS: Lactic Acid 1.4 mmol/L (0.4-1.9)
--- NOTE | 2020-11-22 18:59 | CT_ITS ---
INDICATION: pain and gi bleed EXAMINATION: CT Abdomen And Pelvis W/ Contrast Injection TECHNIQUE: Helically acquired images were obtained of the abdomen and pelvis after IV contrast. A radiation dose optimization technique was used for this scan. IV Contrast dosage and agent: IV 100mL [id number] Oral contrast: None. COMPARISON: 12/11/2018. FINDINGS: Visualized lung bases: Unremarkable Liver: Unremarkable Gallbladder: Few small intraluminal stones seen. Spleen: Unremarkable Pancreas: Unremarkable Adrenal Glands: Unremarkable Kidneys: Unremarkable Vasculature: Moderate aortoiliac atherosclerotic disease. GI Tract: Postsurgical changes status post subtotal colectomy with stoma formation in the right lower quadrant. Similar appearance of multiple distended loops of small bowel without transition point most consistent with ileus. Lymphadenopathy: None Peritoneum: No ascites. Bladder: Unremarkable Reproductive organs: The prostate is moderately enlarged. Bones/Soft tissues: Small fat-containing right umbilical hernia. Lumbar spine spondylosis. Right hip prosthesis. CT/Abdomen/Pelvis W IV Cont ONLY IMPRESSION: Postsurgical changes status post subtotal colectomy with stoma formation in the right lower quadrant with diffuse ileus, similar in appearance to prior CT on 12/11/2018. Radionuclide tagged to red blood cell study would be a more sensitive examination for GI bleed. Moderate prostatomegaly. Correlate with PSA levels. Cholelithiasis. Electronically Signed: Cristo Shah MD at 20:46 EDT Tel , Service support ,
--- NOTE | 2020-11-22 19:26 | PCM.HP.STD ---
HPI - General General Date of Admission: 11/22/20 Date of Service: 11/22/20 Chief Complaint: RLQ abdominal pain, bleeding. 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 He ended up taking nap following and attempted to go out with his lateral in the day. Upon returning home his took down his ostomy and they noted dark-bright red blood and mucus with no food outpatient ongoing without marked nausea or emesis or abdominal distention sensation. He rates is pain as 7/10 in severity since onset and notes it has continued unabated. Work-up in the ED included T 98.8, HR 86, BP 152/88, RR 18, 100% on RA, CBC w/ WBC 11.8, Hgb 14.4, Plts 254 with L shift and lymphopenia, unremarkable coags, CMP w/ Na 133, Chl 95, glucose 129, LA 1.4, unremarkable hepatic profile otherwise, rapid COVID negative, pending T+S, EKG was sinus rhythm with PVCs with no acute evidence of ischemia, pending CT A/P per Dr. Goff, General surgery request prior to consideration of admission [facility]. [facility] Medical History (Updated 11/22/20 @ 19:[address] Concetta Rose MD) CAD (coronary artery disease) Depression Diabetes GI bleed Hyperlipidemia Hypertension Parkinsons disease Home Medications nitroglycerin 0.4 mg SUBLINGUAL Q5M PRN 06/25/14 [History Last Taken Unknown] metoprolol tartrate 50 mg PO BID 06/02/16 [History Last Taken 12/11/18] acetaminophen 500 mg G-TUBE Q6H PRN PRN 03/20/17 [History Last Taken 12/11/18] carbidopa-levodopa 2 tab PO TIDAC 03/20/17 [History Last Taken 12/11/18] aspirin 81 mg PO QHS 12/11/18 [History Last Taken 12/10/18] atorvastatin 20 mg PO QHS 12/11/18 [History Last Taken 12/10/18] furosemide 40 mg PO DAILY 12/11/18 [History Last Taken 12/11/18] potassium chloride 15 ml PO DAILY 12/11/18 [History Last Taken 12/11/18] cholecalciferol (vitamin D3) [Vitamin D3] 25 mcg PO DAILY 11/22/20 [History Last Taken Unknown] metformin 500 mg PO BID 11/22/20 [History Last Taken Unknown] Allergy/AdvReac Type Severity Reaction Status Date / Time No Known Allergies Allergy Verified 12/11/18 16:13 Family History (Updated 11/22/20 @ 19:[address] Concetta Rose MD) Father Heart disease Mother Cancer Pancreatic cancer in her 60s. Surgical History (Updated 11/22/20 @ 19:[address] Concetta Rose MD) H/O hernia repair History of cholecystectomy History of colectomy History of colostomy History of total right hip replacement Hx of CABG Social History (Updated 11/22/20 @ 18:[address] Phill Tan MD) household members: spouse housing: house Smoking Status: Never smoker alcohol intake: current alcohol intake frequency: holidays/special occasions only substance use type: does not use ROS ROS Narrative Admission Review of Systems: CONSTITUTIONAL: No weight loss, fever, chills, + weakness or fatigue. HEENT: Eyes: No visual loss, blurred vision, double vision or yellow sclerae. Ears, Nose, Throat: No hearing loss, sneezing, congestion, runny nose or sore throat. SKIN: No rash or itching, lesions, wounds. CARDIOVASCULAR: No chest pain, chest pressure or chest discomfort, palpitations, edema, orthopnea, syncopal events. RESPIRATORY: No shortness of breath, cough or sputum, wheezing, hemoptysis. GASTROINTESTINAL: + Right lower quadrant pain around the patient's colostomy, mucous and blood out of the ostomy, lack of any food output, anorexia, No nausea, vomiting. GENITOURINARY: No dysuria, frequency, urgency or retention. NEUROLOGICAL: + Parkinson's disease. No headache, dizziness, syncope, paralysis, ataxia, numbness or tingling in the extremities, focal weakness, change in bowel or bladder control, seizure. MUSCULOSKELETAL: + muscle, back pain, joint pain or stiffness. HEMATOLOGIC: + anemia, bleeding or bruising. LYMPHATICS: No enlarged nodes. No history of splenectomy. PSYCHIATRIC: + history of depression or anxiety. ENDOCRINOLOGIC: No reports of sweating, cold or heat intolerance. No polyuria or polydipsia. ALLERGIES: No history of asthma, hives, eczema or rhinitis. Vital Signs Vital Signs Vital Signs: 11/22/20 17:14 11/22/20 17:48 Temperature 98.8 F 98.8 F Temperature Source Temporal Temporal Pulse Rate 86 86 Respiratory Rate 18 18 Blood Pressure 152/85 H 152/88 H Blood Pressure Mean 107 109 Pulse Ox 100 100 Oxygen Delivery Method Room Air Room Air Weight Weight: 180 lb Body Mass Index (BMI) 24.4 Physical Exam Narrative Physical Examination: General: Awake, alert, oriented x 3 and cooperative, seated upright in the ED bed, mildly uncomfortable appearing, no acute distress. Skin: Normal color, normal turgor, no icterus, no cyanosis. HEENT: AT/NC, EOMI, PERRLA, dry MM, no carotid bruits or JVD noted. Lungs: Mildly diminished, decreased effort, greater decreased bases, no rales, ronchi or wheezing. Heart: Regular rate and rhythm; no gallop, rub audible. Abdomen: Soft, right lower quadrant generalized discomfort with palpation, no specific rebound or guarding, inferior to the colostomy laterally a moderate bulge with tenderness with palpation, no obvious other distention, decreased bowel sounds, difficult assess HSM secondary to pain and ostomy but no obvious finding. Extremities: No cyanosis, clubbing, or edema. Neurological: Patient awake, alert, oriented x 3, cognitive function intact; pupils equally reactive to light and accommodation, cranial nerves II-XII grossly normal, moving all 4 extremities, no focal deficits, strength moderately to severely global decrease secondary to acute presentation, evident tremors consistent with patient underlying history of Parkinson's disease. Psychiatric: Affect appears fatigued, flat affect, mildly uncomfortable appearing, no acute evidence of depressive or anxiety feelings. Results Lab / Micro Data Result Diagrams: 11/22/20 18:00 11/22/20 18:00 Labs: Laboratory Results - last 24 hr 11/22/20 18:00: WBC 11.8 H, RBC 4.92, Hgb 14.4, Hct 43.2, MCV 87.8, MCH 29.3, MCHC 33.3, RDW Std Deviation 42.6, RDW Coeff of Jed 13.2, Plt Count 254, MPV 9.9, Immature Gran % (Auto) 0.600, Neut % (Auto) 86.5 H, Lymph % (Auto) 5.9 L, [place] % (Auto) 6.0, Eos % (Auto) 0.6, Baso % (Auto) 0.4, Absolute Neuts (auto) 10.2 H, Absolute Lymphs (auto) 0.70 L, Nucleated RBC % 0 11/22/20 18:00: PT 13.8, INR 1.1, APTT 28.3 11/22/20 18:00: Sodium 133 L, Potassium 4.0, Chloride 95 L, Carbon Dioxide 31.0, Anion Gap 7, BUN 11, Creatinine 0.88, Estim Creat Clear Calc 78.38, Est GFR (MDRD) Af Amer 108, Est GFR (MDRD) Non-Af 89, BUN/Creatinine Ratio 12.5, Glucose 129 H, Calcium 9.3, Total Bilirubin 0.90, AST 15, ALT 10 L, Alkaline Phosphatase 79, Total Protein 7.9, Albumin 4.1, Globulin 3.8, Albumin/Globulin Ratio 1.1 11/22/20 18:00: Lactic Acid 1.4 Micro: Microbiology 11/22/20 18:10 Nasal Secretion SARS-CoV-2 Antigen (Rapid) - Final Assessment & Plan Assessment/Plan (1) GI bleed: QUALIFIERS: GI bleed type/associated pathology: unspecified gastrointestinal hemorrhage type Qualified Code(s): K92.2 - Gastrointestinal hemorrhage, unspecified PLAN: The patient is a 75 y/o M w/ PMHx: CAD s/p CABG x 6 02/2004, HTN, HLD, Parkinson's disease, 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 1. Acute GI Bleed w/ resultant Acute Blood Loss complicated by underlying chronic anemia: Given patient presentation, prior surgical intervention and concern for additional ongoing process per discussion with general surgery will obtain CT abdomen and pelvis prior to consideration for admission. If patient is appropriate for admission, will admit to medical surgical floor, maintain on IV fluids, obtain serial H&H's, type and screen already performed per ED, maintain on IV PPI, general surgery would continue to follow. 2. History of toxic megacolon with bowel perforation: Patient status post colectomy with eventual right lower quadrant colostomy at [facility] March 2011, complicates presentation as noted above. 3. CAD: Status post CABG x6 02/2004, no PCI concurrent history, holding aspirin given presentation, continue atorvastatin, metoprolol, not on BEHZAD inhibitor or ARB, hold parameters as needed. 4. Hypertension: Continue home regimen including metoprolol, Lasix with hold parameters as needed, PRN hydralazine. 5. Hyperlipidemia: Continue patient on statin therapy. 6. Diabetes mellitus type II: Hold oral home regimen, given presentation n.p.o. status, accu checks w/ ISS every 6 hours while n.p.o. 7. Parkinson's disease: We will continue patient home Sinemet regimen, maintain on fall precautions, PT/OT/case management consultation for discharge planning. 8. DVT prophylaxis: SCDs, defer chemoprophylaxis given acute presentation as noted above. Charges/Coding Visit Charges OBSV E&M: 42527 Initial observation care L3
[2020-11-22] MEDS: Morphine 4 MG/ML Syringe IV (19:53)
--- NOTE | 2020-11-22 20:25 | CON.PCM.SX_ITS ---
Assessment & Plan Assessment/Plan (1) Parastomal hernia with obstruction, without gangrene: PLAN: Patient's parastomal hernia was able to be reduced with conscious sedation in the ER. Patient taught procedure well. Patient did have stool from the ileostomy no gross blood. Did discuss with the patient and his that he would be at risk of having a recurrent parastomal hernia so he does notice a bulge to let us know. Also discussed surgery to relocate the hernia can still have a higher risk of herniation. No plans for surgery currently. Okay for clears patient is stable overnight plan advance diet morning and DC home. Erika Goff M.D. Pager: [phone] [facility] [address] [place] [address], Outpatient [place], [address] [place] [address] Office: [phone] HPI Consult Data Date of Consult: 11/23/20 HPI Narrative HPI Narrative: TOSHIA SCOTT, is a 75 M who presents to the ER due to blood per ileostomy new at noon and no stool. Patient also had a new lump near the ostomy. Patient does state there is off-and-on pain currently does admit to pain near the ostomy. Patient CT abdomen pelvis did show incarceration of a separate loop of small bowel and a parastomal hernia. Patient denies any nausea or vomiting. Patient last had food at lunch had something to drink at 4:00. Patient previously had a total colectomy due to toxic megacolon at [facility] in about 2014. [facility] Medical History CAD (coronary artery disease) Depression Diabetes GI bleed Hyperlipidemia Hypertension Parkinsons disease Home Medications nitroglycerin 0.4 mg SUBLINGUAL Q5M PRN 06/25/14 [History Last Taken Unknown] metoprolol tartrate 50 mg PO BID 06/02/16 [History Last Taken 12/11/18] acetaminophen 500 mg G-TUBE Q6H PRN PRN 03/20/17 [History Last Taken 12/11/18] carbidopa-levodopa 2 tab PO TIDAC 03/20/17 [History Last Taken 12/11/18] aspirin 81 mg PO QHS 12/11/18 [History Last Taken 12/10/18] atorvastatin 20 mg PO QHS 12/11/18 [History Last Taken 12/10/18] furosemide 40 mg PO DAILY 12/11/18 [History Last Taken 12/11/18] potassium chloride 15 ml PO DAILY 12/11/18 [History Last Taken 12/11/18] cholecalciferol (vitamin D3) [Vitamin D3] 25 mcg PO DAILY 11/22/20 [History Last Taken Unknown] metformin 500 mg PO BID 11/22/20 [History Last Taken Unknown] Allergy/AdvReac Type Severity Reaction Status Date / Time No Known Allergies Allergy Verified 12/11/18 16:13 Family History (Updated 11/22/20 @ 19:[address] Concetta Rose MD) Father Heart disease Mother Cancer Pancreatic cancer in her 60s. 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 Social History (Updated 11/22/20 @ 18:[address] Phill Tan MD) household members: spouse housing: house Smoking Status: Never smoker alcohol intake: current alcohol intake frequency: holidays/special occasions only substance use type: does not use ROS ROS Narrative Review of Systems: CONSTITUTIONAL: No fever, chills, + weakness or fatigue. HEENT: No blurred vision SKIN: No rash or itching CARDIOVASCULAR: No chest pain RESPIRATORY: No shortness of breath, cough GASTROINTESTINAL: + Right lower quadrant pain around the patient's colostomy, mucous and blood out of the ostomy, lack of any food output, anorexia, No nausea, vomiting. GENITOURINARY: No dysuria NEUROLOGICAL: + Parkinson's disease. No headache MUSCULOSKELETAL: +back pain HEMATOLOGIC: + anemia, bleeding or bruising. PSYCHIATRIC: + history of depression or anxiety. Physical Exam Const alert, oriented x3 and no apparent distress HEENT normocephalic and head/scalp atraumatic Resp normal respiratory effort Cardio regular rate GI soft to palpation; Negative for non-distended GI Narrative: Parastomal hernia on exam?bloody drainage from ileostomy, unable to reduce just with morphine. Patient did receive conscious sedation per the ER doctor and where the able to get the bowel to reduce. And did have output of stool. No further bleeding seen. Palpation: tender RLQ; Negative for guarding Extremity no clubbing, cyanosis or edema Neuro CN's II-XII intact bilaterally Psych mental status grossly normal Lab / Micro Data Result Diagrams: 11/23/20 05:46 11/23/20 05:46 Labs: Laboratory Results - last 24 hr 11/22/20 18:00: WBC 11.8 H, RBC 4.92, Hgb 14.4, Hct 43.2, MCV 87.8, MCH 29.3, MCHC 33.3, RDW Std Deviation 42.6, RDW Coeff of Jed 13.2, Plt Count 254, MPV 9.9, Immature Gran % (Auto) 0.600, Neut % (Auto) 86.5 H, Lymph % (Auto) 5.9 L, [place] % (Auto) 6.0, Eos % (Auto) 0.6, Baso % (Auto) 0.4, Absolute Neuts (auto) 10.2 H, Absolute Lymphs (auto) 0.70 L, Nucleated RBC % 0 11/22/20 18:00: PT 13.8, INR 1.1, APTT 28.3 11/22/20 18:00: Sodium 133 L, Potassium 4.0, Chloride 95 L, Carbon Dioxide 31.0, Anion Gap 7, BUN 11, Creatinine 0.88, Estim Creat Clear Calc 78.38, Est GFR (MDRD) Af Amer 108, Est GFR (MDRD) Non-Af 89, BUN/Creatinine Ratio 12.5, Glucose 129 H, Calcium 9.3, Total Bilirubin 0.90, AST 15, ALT 10 L, Alkaline Phosphatase 79, Total Protein 7.9, Albumin 4.1, Globulin 3.8, Albumin/Globulin Ratio 1.1 11/22/20 18:00: Lactic Acid 1.4 11/22/20 18:00: Blood Type O POSITIVE, Antibody Screen NEGATIVE Micro: Microbiology 11/22/20 18:10 Nasal Secretion SARS-CoV-2 Antigen (Rapid) - Final Charges/Coding Visit Charges Inpatient E&M: 42140 Init Hosp L3
[2020-11-22] MEDS: 0.9% Saline Lock 10 ML Syringe IV (22:05)
[2020-11-22] MEDS: 0.9% Normal Saline 1,000 ML 100 ML IV (22:05)
[2020-11-22] MEDS: Metoprolol Tartrate 50 MG Tablet PO (22:06)
[2020-11-22] MEDS: Atorvastatin Calcium 20 MG Tablet PO (22:06)
[2020-11-22 22:15] LABS: Bedside Glucose 134 mg/dL (70-110)
[2020-11-22 22:32] LABS: Hematocrit 45.6 % (40-54); Hemoglobin 14.9 g/dL (13.0-16.5)
[2020-11-23] VITALS (12 sets, daily range): BP systolic 74–131; BP diastolic 42–64; PULSE 66–100; RESP 16; TEMP 36.7–37.4; O2SAT 94–98
[2020-11-23 03:14] LABS: Hematocrit 44.3 % (40-54); Hemoglobin 14.5 g/dL (13.0-16.5)
[2020-11-23 06:34] LABS: Absolute Neutrophil Count 15.7 X10^3/uL (2.0-7.7); Basophil# 0.05 X10^3/uL; Basophil% 0.3 % (0-1); Hematocrit 44.1 % (40-54); Hemoglobin 14.7 g/dL (13.0-16.5); Lymphocyte % 1.8 % (19-41); Mean Corp Hgb Conc 33.3 g/dL (32-36); Mean Corpuscular Hgb 29.6 pg (27.0-32.0); Mean Corpuscular Volume 88.7 fL (80-94); Monocyte# 0.97 X10^3/uL; Monocyte% 5.7 % (0-10); NRBC Flagged by Analyzer 0 % (0-5); Neutrophil # 15.67 X10^3/uL (2.7-7.7); Neutrophil % 91.9 % (47-70); POSITIVE DIFFERENTIAL YES; POSITIVE MORPHOLOGY YES; Platelet Count 240 K/mm3 (150-450); RBC Distribution Width CV 13.4 % (11.6-14.6); RBC Distribution Width SD 43.6 fl (35.1-43.9); Red Blood Count 4.97 M/mm3 (4.6-6.2)
[2020-11-23 06:35] LABS: Bedside Glucose 153 mg/dL (70-110)
[2020-11-23] MEDS: Carbidopa/Levodopa 25/100 Tablet PO ×2 (06:36→10:41)
[2020-11-23] MEDS: Acetaminophen 325 MG Tablet 650 MG PO ×2 (06:36→10:37)
[2020-11-23] MEDS: Insulin Lispro 100 UNIT/ML INSULN.PEN SC ×2 (06:36→12:05)
[2020-11-23 06:38] LABS: Differential Indicated SCAN CRITERIA MET
[2020-11-23 07:18] LABS: AST(SGOT) 13 U/L (15-37); Alanine Aminotransfer ALT/SGPT 18 U/L (16-61); Albumin, Serum 3.4 g/dL (3.2-5.0); Alkaline Phosphatase 68 U/L (45-117); Anion Gap 7 (5-15); BUN 10 mg/dL (7-18); BUN/Creat Ratio 13.4 RATIO (10-20); Calcium,Total 8.5 mg/dL (8.5-10.1); Chloride 101 mmol/L (98-107); Creatinine, Serum 0.75 mg/dL (0.70-1.30); EST Glomerular Filtration Rate 108 mL/min (>60); Est Glom Filt Rate - Afr Amer 131 mL/min (>60); Estimated Creatinine Clearance 68.98 ml/min; Globulin 3.3 g/dL (2.2-4.2); Glucose 152 mg/dL (74-106); Protein, Total 6.7 g/dL (6.4-8.2); Sodium Level 134 mmol/L (136-145)
--- NOTE | 2020-11-23 07:51 | PCM.PN.SRG ---
Subjective Subjective Patient is having good output from his ileostomy. Denies abdominal pain. Patient white blood count is elevated at 17. Objective Data Objective Data Vital Signs: Vital Signs Temp Pulse Resp BP Pulse Ox 99.4 F H 100 16 131/54 H 95 11/23/20 03:13 11/23/20 03:13 11/23/20 03:13 11/23/20 03:13 11/23/20 03:13 Oxygen Flow Rate (L/min) [4] 15 Oxygen Flow Rate (L/min) [1 ( 15 Initial Baseline)] Oxygen Delivery Method [4] Non-Rebreather Oxygen Delivery Method [3] Non-Rebreather Oxygen Delivery Method [1 ( Non-Rebreather Initial Baseline)] Oxygen Delivery Method Room Air Weight: 183 lb 6.793 oz Body Mass Index (BMI) 25.6 Intake & Output: Intake and Output for Last 24 Hours 11/21/20 11/22/20 11/23/20 23:59 23:59 23:59 Intake Total 610 / 810 350 / 350 Output Total 1525 / 1525 Balance 610 / -40 -1175 / -1175 Lab / Micro Data Result Diagrams: 11/23/20 05:46 11/23/20 05:46 Labs: Laboratory Results - last 24 hr 11/22/20 18:00: WBC 11.8 H, RBC 4.92, Hgb 14.4, Hct 43.2, MCV 87.8, MCH 29.3, MCHC 33.3, RDW Std Deviation 42.6, RDW Coeff of Jed 13.2, Plt Count 254, MPV 9.9, Immature Gran % (Auto) 0.600, Neut % (Auto) 86.5 H, Lymph % (Auto) 5.9 L, [place] % (Auto) 6.0, Eos % (Auto) 0.6, Baso % (Auto) 0.4, Absolute Neuts (auto) 10.2 H, Absolute Lymphs (auto) 0.70 L, Nucleated RBC % 0 11/22/20 18:00: PT 13.8, INR 1.1, APTT 28.3 11/22/20 18:00: Sodium 133 L, Potassium 4.0, Chloride 95 L, Carbon Dioxide 31.0, Anion Gap 7, BUN 11, Creatinine 0.88, Estim Creat Clear Calc 78.38, Est GFR (MDRD) Af Amer 108, Est GFR (MDRD) Non-Af 89, BUN/Creatinine Ratio 12.5, Glucose 129 H, Calcium 9.3, Total Bilirubin 0.90, AST 15, ALT 10 L, Alkaline Phosphatase 79, Total Protein 7.9, Albumin 4.1, Globulin 3.8, Albumin/Globulin Ratio 1.1 11/22/20 18:00: Lactic Acid 1.4 11/22/20 18:00: Blood Type O POSITIVE, Antibody Screen NEGATIVE 11/22/20 22:03: POC Glucose 134 H 11/22/20 22:16: Hgb 14.9, Hct 45.6 11/23/20 02:55: Hgb 14.5, Hct 44.3 11/23/20 05:46: WBC 17.0 H, RBC 4.97, Hgb 14.7, Hct 44.1, MCV 88.7, MCH 29.6, MCHC 33.3, RDW Std Deviation 43.6, RDW Coeff of Jed 13.4, Plt Count 240, MPV 10.0, Immature Gran % (Auto) 0.300, Neut % (Auto) 91.9 H, Lymph % (Auto) 1.8 L, [place] % (Auto) 5.7, Eos % (Auto) 0.0, Baso % (Auto) 0.3, Absolute Neuts (auto) 15.7 H, Absolute Lymphs (auto) 0.30 L, Nucleated RBC % 0 11/23/20 05:46: Sodium 134 L, Potassium 4.0, Chloride 101, Carbon Dioxide 26.0, Anion Gap 7, BUN 10, Creatinine 0.75, Estim Creat Clear Calc 68.98, Est GFR (MDRD) Af Amer 131, Est GFR (MDRD) Non-Af 108, BUN/Creatinine Ratio 13.4, Glucose 152 H, Calcium 8.5, Total Bilirubin 1.20 H, AST 13 L, ALT 18, Alkaline Phosphatase 68, Total Protein 6.7, Albumin 3.4, Globulin 3.3, Albumin/Globulin Ratio 1.0 11/23/20 06:26: POC Glucose 153 H Micro: Microbiology 11/22/20 18:10 Nasal Secretion SARS-CoV-2 Antigen (Rapid) - Final Radiography Diagnostic Testing: Radiology Impression Abdomen/Pelvis CT 11/22/20 18:59 IMPRESSION: Postsurgical changes status post subtotal colectomy with stoma formation in the right lower quadrant with diffuse ileus, similar in appearance to prior CT on 12/11/2018. Radionuclide tagged to red blood cell study would be a more sensitive examination for GI bleed. Moderate prostatomegaly. Correlate with PSA levels. Cholelithiasis. Electronically Signed: Cristo Shah MD at 20:46 EDT Tel , Service support , Physical Exam Const no apparent distress Resp normal respiratory effort Cardio regular rate GI soft to palpation GI Narrative: Ileostomy with good output, ileostomy easily irritated superiorly but does appear to be viable. No peristomal hernia on exam. Inspection: Negative for abdominal distention Palpation: tender other (Near ileostomy) Assessment & Plan Assessment/Plan (1) Parastomal hernia with obstruction, without gangrene: PLAN: Will advance patient's diet. However would like a repeat CBC prior to DC later today-patient is able to tolerate diet. Good output from ileostomy. Some irritation to the ileostomy superiorly recommend the stoma appliance be made a little bit bigger than previously to the second [place] instead of the first until this area has been able to adequately heal. Erika Goff M.D. Pager: [phone] [facility] [address] [place] [address], [facility], [address] [place] [address] Office: [phone] Charges/Coding Visit Charges Inpatient E&M: 04072 Subs Hosp L3
[2020-11-23] MEDS: 0.9% Normal Saline 1,000 ML 100 ML IV (08:38)
[2020-11-23] MEDS: 0.9% Normal Saline 1,000 ML 999 ML IV ×2 (10:38→13:41)
[2020-11-23] MEDS: Furosemide 40 MG Tablet PO (10:41)
[2020-11-23 11:51] LABS: Bedside Glucose 191 mg/dL (70-110)
--- NOTE | 2020-11-23 12:14 | PCM.DC ---
Discharge Instructions Diet Discharge Diet: Light diet - advance as tolerated Activity Discharge Activity: Return to Normal Activity Dressing / Incision Call your doctor if you observe: Inability to have a bowel movement, Shortness of breath, Dizziness, Chest pain and Uncontrolled pain Follow Up Care Test Results: Test results from this visit will be discussed in further detail at your follow-up appointment, if applicable. Discharge Plan Admission Admit Date/Time: 11/22/20 19:49 Primary Reason for Your Visit: Parastomal hernia with obstruction Attending Provider: Jade Phillip Primary Care Provider: Dustin Thacker Consulting Providers: Erika Goff Discharge Orders/Prescriptions Prescriptions: Continued nitroglycerin 0.4 MG tablet 0.4 mg sublingual Q5M PRN (Reason: Chest Pain) RF: 0 metoprolol tartrate 75 MG tablet 50 mg PO BID RF: 0 acetaminophen 500 MG tablet 500 mg G-tube Q6H PRN PRN (Reason: Pain) RF: 0 carbidopa-levodopa 1 TABLET tablet 2 tab PO TIDAC RF: 0 furosemide 40 MG tablet 40 mg PO DAILY RF: 0 atorvastatin 20 MG tablet 20 mg PO QHS RF: 0 aspirin 81 MG tablet,chewable 81 mg PO QHS RF: 0 potassium chloride 20 MEQ/15 ML liquid 15 ml PO DAILY RF: 0 metformin 500 mg tablet 500 mg PO BID RF: 0 cholecalciferol (vitamin D3) [Vitamin D3] 25 mcg (1,000 unit) Tablet 25 mcg PO DAILY RF: 0 Referrals / Follow Up: Dustin Thacker MD [Primary Care Provider] - In 1 Week Erika Goff MD [STAFF PHYSICIAN] - In 1 Week Disposition Disposition (needs filled in before D/C Order can be placed): Home, Self Care
--- NOTE | 2020-11-23 12:18 | DS.PCM_ITS ---
Documented by User: Maria Del Rosario Kang NP, [employer]ATOR-C 11/23/20 12:30 Providers Date of Admission: 11/22/20 Date of Discharge: 11/23/20 Primary Care Physician: Dr. Dustin Thacker MD Consultations 11/22/20 21:38 Consult: General Surgery Routine Consulting Provider: Erika Goff Reason for Consult: GI bleed EMERGENT Consult: No MD Notified: Yes Date Notified: 11/22/20 Time Notified: 19:49 Method of Notification: called Reason For Visit: GI BLEED Diagnosis Discharge Diagnosis (1) Parastomal hernia with obstruction, without gangrene: Status: Resolved Code(s): K43.3 - Parastomal hernia with obstruction, without gangrene Medications at Discharge Home Medications nitroglycerin 0.4 mg SUBLINGUAL Q5M PRN 06/25/14 metoprolol tartrate 50 mg PO BID 06/02/16 acetaminophen 500 mg G-TUBE Q6H PRN PRN 03/20/17 carbidopa-levodopa 2 tab PO TIDAC 03/20/17 aspirin 81 mg PO QHS 12/11/18 atorvastatin 20 mg PO QHS 12/11/18 furosemide 40 mg PO DAILY 12/11/18 potassium chloride 15 ml PO DAILY 12/11/18 cholecalciferol (vitamin D3) [Vitamin D3] 25 mcg PO DAILY 11/22/20 metformin 500 mg PO BID 11/22/20 Hospital Course Operations None Procedures None Summary of Care Provided Minutes Spent on Discharge: 35 Hospital Course: Patient is a 75-year-old male admitted 11/22/2020 due to abdominal pain. 1. Parastomal hernia with obstruction, associated GI bleed-hernia reduced in ER by general surgery. Patient tolerating advanced diet. Ileostomy with good output, no gross blood. Patient taught procedure to reduce hernia if he does have recurrence or instructed to return if unable to self reduce. Follow-up with primary surgeon or Dr. Goff for routine follow up. 2. Leukocytosis-suspect reactive. No evidence of infection. 3. 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 4. CAD with history of CABG-on aspirin, statin, metoprolol. 5. Hypertension-stable, continue metoprolol. 6. Hyperlipidemia-continue statin. 7. Type 2 diabetes mellitus-continue home regimen. 8. Parkinson's disease-on Sinemet. Patient seen and examined prior to discharge. Physical assessment as noted below. Patient is stable for discharge with follow up recommendations as noted above. This patient was seen by CHRISSY Byers under the supervision of Dr. Phillip. Physical Exam Const alert, oriented x3 and no apparent distress Orientation / Consciousness: awake, oriented to person, oriented to place and oriented to time HEENT normocephalic and moist oral mucous membranes Eyes PERRL, EOMs intact bilaterally and conjunctivae normal Neck no lymphadenopathy Resp normal respiratory effort and clear to auscultation bilaterally Cardio regular rate, regular rhythm and no murmurs Peripheral Pulses: pulses 2+ throughout GI normal to inspection, nondistended, normoactive bowel sounds, non-tender and no n-distended GI Narrative: Ileostomy intact, good output. Generalized tenderness related to hernia reduction. Extremity normal to inspection Skin no rashes or lesions noted Lesions: no lesions Rashes: no rashes Trauma: no lacerations or abrasions Neuro CN's II-XII intact bilaterally, no focal motor deficits, no sensory deficits noted and deep tendon reflexes 2+ bilaterally Psych mental status grossly normal and affect normal Weight / BMI Weight Weight: 183 lb 6.793 oz Body Mass Index (BMI) 25.6 ABG / Lab / Microbiology Data Result Diagrams: 11/23/20 12:30 11/23/20 05:46 Laboratory: Laboratory Results - last 24 hr 11/22/20 18:00: WBC 11.8 H, RBC 4.92, Hgb 14.4, Hct 43.2, MCV 87.8, MCH 29.3, MCHC 33.3, RDW Std Deviation 42.6, RDW Coeff of Jed 13.2, Plt Count 254, MPV 9 .9, Immature Gran % (Auto) 0.600, Neut % (Auto) 86.5 H, Lymph % (Auto) 5.9 L, Coleman % (Auto) 6.0, Eos % (Auto) 0.6, Baso % (Auto) 0.4, Absolute Neuts (auto) 10.2 H, Absolute Lymphs (auto) 0.70 L, Nucleated RBC % 0 11/22/20 18:00: PT 13.8, INR 1.1, APTT 28.3 11/22/20 18:00: Sodium 133 L, Potassium 4.0, Chloride 95 L, Carbon Dioxide 31.0, Anion Gap 7, BUN 11, Creatinine 0.88, Estim Creat Clear Calc 78.38, Est GFR (M DRD) Af Amer 108, Est GFR (MDRD) Non-Af 89, BUN/Creatinine Ratio 12.5, Glucose 129 H, Calcium 9.3, Total Bilirubin 0.90, AST 15, ALT 10 L, Alkaline Phosphatase 79, Total Protein 7.9, Albumin 4.1, Globulin 3.8, Albumin/Globulin Ratio 1.1 11/22/20 18:00: Lactic Acid 1.4 11/22/20 18:00: Blood Type O POSITIVE, Antibody Screen NEGATIVE 11/22/20 22:03: POC Glucose 134 H 11/22/20 22:16: Hgb 14.9, Hct 45.6 11/23/20 02:55: Hgb 14.5, Hct 44.3 11/23/20 05:46: WBC 17.0 H, RBC 4.97, Hgb 14.7, Hct 44.1, MCV 88.7, MCH 29.6, MCHC 33.3, RDW Std Deviation 43.6, RDW Coeff of Jed 13.4, Plt Count 240, MPV 10.0, Immature Gran % (Auto) 0.300, Neut % (Auto) 91.9 H, Lymph % (Auto) 1.8 L, Coleman % (Auto) 5.7, Eos % (Auto) 0.0, Baso % (Auto) 0.3, Absolute Neuts (auto) 15.7 H, Absolute Lymphs (auto) 0.30 L, Nucleated RBC % 0 11/23/20 05:46: Sodium 134 L, Potassium 4.0, Chloride 101, Carbon Dioxide 26.0, Anion Gap 7, BUN 10, Creatinine 0.75, Estim Creat Clear Calc 68.98, Est GFR (MDRD) Af Amer 131, Est GFR (MDRD) Non-Af 108, BUN/Creatinine Ratio 13.4, Glucose 152 H, Calcium 8.5, Total Bilirubin 1.20 H, AST 13 L, ALT 18, Alkaline Phosphatase 68, Total Protein 6.7, Albumin 3.4, Globulin 3.3, Albumin/Globulin Ratio 1.0 11/23/20 06:26: POC Glucose 153 H 11/23/20 11:35: POC Glucose 191 H Microbiology: Microbiology 11/22/20 18:10 Nasal Secretion SARS-CoV-2 Antigen (Rapid) - Final Radiography Diagnostic Testing: Radiology Impression Abdomen/Pelvis CT 11/22/20 18:59 IMPRESSION: Postsurgical changes status post subtotal colectomy with stoma formation in the right lower quadrant with diffuse ileus, similar in appearance to prior CT on 12/11/2018. Radionuclide tagged to red blood cell study would be a more sensitive examination for GI bleed. Moderate prostatomegaly. Correlate with PSA levels. Cholelithiasis. Electronically Signed: Cristo Shah MD at 20:46 EDT Tel , Service support , D/C Instructions Discharge Diet: Light diet - advance as tolerated Call your doctor if you observe: Inability to have a bowel movement, Shortness of breath, Dizziness, Chest pain and Uncontrolled pain Meaningful Use Info Meaningful Use Diagnoses (Choose all that apply): None applicable Discharge Plan Admission Admit Date/Time: 11/22/20 19:49 Primary Reason for Your Visit: Parastomal hernia with obstruction Attending Provider: Jade Phillip Primary Care Provider: Dustin Thacker Consulting Providers: Erika Goff Discharge Orders/Prescriptions Prescriptions: Continued nitroglycerin 0.4 MG tablet 0.4 mg sublingual Q5M PRN (Reason: Chest Pain) RF: 0 metoprolol tartrate 75 MG tablet 50 mg PO BID RF: 0 acetaminophen 500 MG tablet 500 mg G-tube Q6H PRN PRN (Reason: Pain) RF: 0 carbidopa-levodopa 1 TABLET tablet 2 tab PO TIDAC RF: 0 furosemide 40 MG tablet 40 mg PO DAILY RF: 0 atorvastatin 20 MG tablet 20 mg PO QHS RF: 0 aspirin 81 MG tablet,chewable 81 mg PO QHS RF: 0 potassium chloride 20 MEQ/15 ML liquid 15 ml PO DAILY RF: 0 metformin 500 mg tablet 500 mg PO BID RF: 0 cholecalciferol (vitamin D3) [Vitamin D3] 25 mcg (1,000 unit) Tablet 25 mcg PO DAILY RF: 0 Referrals / Follow Up: Dustin Thacker MD [Primary Care Provider] - In 1 Week Erika Goff MD [STAFF PHYSICIAN] - In 1 Week Disposition Disposition (needs filled in before D/C Order can be placed): Home, Self Care Documented by User: Dr. Jade Phillip DO 11/23/20 15:45 Providers Date of Admission: 11/22/20 Reason For Visit: GI BLEED Medications at Discharge Home Medications nitroglycerin 0.4 mg SUBLINGUAL Q5M PRN 06/25/14 metoprolol tartrate 50 mg PO BID 06/02/16 acetaminophen 500 mg G-TUBE Q6H PRN PRN 03/20/17 carbidopa-levodopa 2 tab PO TIDAC 03/20/17 aspirin 81 mg PO QHS 12/11/18 atorvastatin 20 mg PO QHS 12/11/18 furosemide 40 mg PO DAILY 12/11/18 potassium chloride 15 ml PO DAILY 12/11/18 cholecalciferol (vitamin D3) [Vitamin D3] 25 mcg PO DAILY 11/22/20 metformin 500 mg PO BID 11/22/20 Hospital Course Summary of Care Provided Minutes Spent on Discharge: 39 Hospital Course: Mr. Thompson is a 75-year-old white male presented to the emergency department at [facility] on 11/22/2020 with a chief complaint of right lower quadrant abdominal pain and bleeding. The patient evid ently developed right lower quadrant abdominal pain that he described aching and focal to that region with decreased output from his ostomy and a small bulge noted inferior and lateral of his ostomy. He took a nap and attempted to go out with his later in the day but upon returning home his took down his ostomy and they noted some bright red blood and mucus with no food output from his ostomy site. On presentation he denied any nausea or emesis and had no significant abdominal distention noted. He was rating his pain is 7 out of 10 and the symptoms have been constant. His vital signs were stable in the emergency room. His CBC showed a leukocytosis with a left shift. His coags were normal. His CMP was unremarkable and he had a normal lactic acid. A CT of his abdomen pelvis was performed and showed incarceration of a separate loop of small bowel and a parastomal hernia. This was reduced with conscious sedation in the emergency department by general surgery. After reduction the patient did have stool from the ileostomy site with no gross blood. The general surgeon did discuss with the patient and his that he would be at increased risk for recurrent parastomal hernias and if his bulging recurs that this needs to be addressed. No surgical plans were made. His hemoglobin remained stable throughout his course. He was tolerating oral diet prior to discharge. Orthostatic vitals were accessed and were positive he was given hydration with repeat of orthostatic vitals which remained positive but the patient remained asymptomatic throughout the entire course. I suspect his orthostasis is most likely related to his advanced Parkinson's. He is able to be discharged home in stable condition on 11/23/2020. We recommend he follow-up with his PCP in [address] Goldberg for his parastomal hernia. Discharge diagnoses: Incarcerated small bowel Parastomal hernia History of toxic megacolon with bowel perforation status post colectomy and ileostomy placement March 2011 at [facility] Leukocytosis-resolving Mild hyponatremia CAD Hypertension Hyperlipidemia DM-2 Parkinson's disease Physical Exam Const alert, oriented x3 and no apparent distress Constitutional Narrative: Normal weight elderly white male lying in bed, appears older than stated age, nontoxic-appearing, bradykinesia is noted General Appearance: cooperative, comfortable, well kempt, well developed and appears older than stated age Orientation / Consciousness: awake Exam Limitations: no limitations HEENT normocephalic, head/scalp atraumatic, hearing grossly normal bilaterally and moist oral mucous membranes Eyes PERRL, EOMs intact bilaterally and conjunctivae normal Neck no lymphadenopathy, supple and no JVD Neck Narrative: Trachea midline, no thyroid enlargement noted Resp normal respiratory effort, no retractions, no use of accessory muscles and clear to auscultation bilaterally Auscultation: Negative for crackles, rales, rhonchi or wheezes Cardio regular rate, regular rhythm, S1 normal heart sound, S2 normal heart sound, no murmurs, no rub, no gallops, no clicks and no JVD GI normal to inspection, nondistended, normoactive bowel sounds, soft to palpation, non-tender and non-distended GI Narrative: Right lower quadrant ostomy noted-bag in place with good stool output, no blood noted Extremity no clubbing, cyanosis or edema Skin no rashes or lesions noted, no wounds, skin turgor normal and no jaundice Skin Narrative: Skin is pale Neuro oriented x3 and CN's II-XII intact bilaterally Neuro Narrative: Bradykinesia Sensorium / Orientation: awake and alert Psych Psych Narrative: Affect is flat with masked facies but pleasant and appropriately interactive ABG / Lab / Microbiology Data Result Diagrams: 11/23/20 12:30 11/23/20 05:46 Discharge Plan Admission Admit Date/Time: 11/22/20 19:49 Primary Reason for Your Visit: Parastomal hernia with obstruction Attending Provider: Jade Phillip Primary Care Provider: Dustin Thacker Consulting Providers: Erika Goff Discharge Orders/Prescriptions Prescriptions: Continued nitroglycerin 0.4 MG tablet 0.4 mg sublingual Q5M PRN (Reason: Chest Pain) RF: 0 metoprolol tartrate 75 MG tablet 50 mg PO BID RF: 0 acetaminophen 500 MG tablet 500 mg G-tube Q6H PRN PRN (Reason: Pain) RF: 0 carbidopa-levodopa 1 TABLET tablet 2 tab PO TIDAC RF: 0 furosemide 40 MG tablet 40 mg PO DAILY RF: 0 atorvastatin 20 MG tablet 20 mg PO QHS RF: 0 aspirin 81 MG tablet,chewable 81 mg PO QHS RF: 0 potassium chloride 20 MEQ/15 ML liquid 15 ml PO DAILY RF: 0 metformin 500 mg tablet 500 mg PO BID RF: 0 cholecalciferol (vitamin D3) [Vitamin D3] 25 mcg (1,000 unit) Tablet 25 mcg PO DAILY RF: 0 Referrals / Follow Up: Dustin Thacker MD [Primary Care Provider] - In 1 Week Erika Goff MD [STAFF PHYSICIAN] - In 1 Week Disposition Disposition (needs filled in before D/C Order can be placed): Home, Self Care Charges/Coding Visit Charges Inpatient E&M: 27201 Disch Hosp
[2020-11-23 12:39] LABS: Absolute Lymphocyte Count 0.45 X10^3/uL (0.83-4.51); Absolute Neutrophil Count 12.2 X10^3/uL (2.0-7.7); Basophil# 0.04 X10^3/uL; Basophil% 0.3 % (0-1); Eosinophil# 0.01 X10^3/uL; Eosinophils% 0.1 % (0-5); Hematocrit 43.1 % (40-54); Hemoglobin 13.9 g/dL (13.0-16.5); Lymphocyte # 0.45 X10^3/ul (0.83-4.51); Lymphocyte % 3.4 % (19-41); Mean Corp Hgb Conc 32.3 g/dL (32-36); Mean Corpuscular Hgb 29.4 pg (27.0-32.0); Mean Corpuscular Volume 91.1 fL (80-94); Mean Platelet Vol. 9.6 fl (6.2-12.0); Monocyte# 0.64 X10^3/uL; Monocyte% 4.8 % (0-10); NRBC Flagged by Analyzer 0 % (0-5); Neutrophil % 91.2 % (47-70); POSITIVE DIFFERENTIAL YES; Platelet Count 218 K/mm3 (150-450); RBC Distribution Width CV 13.6 % (11.6-14.6); RBC Distribution Width SD 45.3 fl (35.1-43.9); Red Blood Count 4.73 M/mm3 (4.6-6.2); White Blood Count 13.4 K/mm3 (4.4-11.0)
[2020-11-23 12:40] LABS: Differential Indicated SCAN CRITERIA MET
== END 2020-11-23 16:15 | disposition home or self-care (01) ==
LOC: ED 18:46 → MS3 20:23
PROVIDERS: Nurse Practitioner Family; Admitting Provider Family Medicine; Emergency Provider Emergency Medicine; PCP Family Medicine; Referring Provider Family Medicine; Visit Provider Internal Medicine
DX: K43.3 Parastomal hernia with obstruction, without gangrene (principal); G20 Parkinson's disease; I10 Essential (primary) hypertension; I25.10 Atherosclerotic heart disease of native coronary artery without angina pectoris; E78.5 Hyperlipidemia, unspecified; E11.9 Type 2 diabetes mellitus without complications; Z95.1 Presence of aortocoronary bypass graft; Z93.3 Colostomy status; Z79.899 Other long term (current) drug therapy; Z79.82 Long term (current) use of aspirin; Z79.84 Long term (current) use of oral hypoglycemic drugs
CPT/HCPCS: 36415; 74177; 80053; 82962; 83605; 85014; 85018; 85025; 85610; 85730; 86850; 86900; 86901; 87426; 93005; 96361; 96365; 96366; 96375; 97162; 97165; 99152; 99218; 99251; 99285; J7030; J7040; Q9967; A4216; G0378; G0463

== ENCOUNTER 2020-12-06 19:17 | Emergency (ER) | payer MEDICARE, SELFPAY ==
[2020-12-06 19:18] VITALS: BP 123/84; PULSE 78; RESP 20; TEMP 36.2; O2SAT 100; BMI 25.1
--- NOTE | 2020-12-06 21:14 | EX.ED.DYSGE1 ---
HPI History of Present Illness Chief Complaint: General Illness Informant: patient and spouse/S.O. Narrative Narrative: Patient had an episode of shaking earlier this evening. He states it was like his Parkinson's but it seemed to be more. They checked his temperature several times during this and he did not ever have a fever. It seems to be better now. He did just start Nuplazid as a new medicine on Tuesday. But he had no symptoms other than this but they are not sure of the origin of. They called their neurologist who recommended he come to the emergency department to be evaluated. He feels well now. He has not had any symptoms of infections. He was recently in with a parastomal hernia but that is doing well and is draining normally and does not hurt at all. He has no cough or congestion or difficulty urinating. No rashes. PFSH PFSH Medical History CAD (coronary artery disease) Depression Diabetes GI bleed Hyperlipidemia Hypertension Parkinsons disease Home Medications nitroglycerin 0.4 mg SUBLINGUAL Q5M PRN 06/25/14 [History Last Taken Unknown] metoprolol tartrate 50 mg PO BID 06/02/16 [History Last Taken 12/11/18] acetaminophen 500 mg G-TUBE Q6H PRN PRN 03/20/17 [History Last Taken 12/11/18] carbidopa-levodopa 2 tab PO TIDAC 03/20/17 [History Last Taken 12/11/18] aspirin 81 mg PO QHS 12/11/18 [History Last Taken 12/10/18] atorvastatin 20 mg PO QHS 12/11/18 [History Last Taken 12/10/18] furosemide 40 mg PO DAILY 12/11/18 [History Last Taken 12/11/18] potassium chloride 15 ml PO DAILY 12/11/18 [History Last Taken 12/11/18] cholecalciferol (vitamin D3) [Vitamin D3] 25 mcg PO DAILY 11/22/20 [History Last Taken Unknown] metformin 500 mg PO BID 11/22/20 [History Last Taken Unknown] Allergy/AdvReac Type Severity Reaction Status Date / Time No Known Allergies Allergy Verified 12/03/20 12:57 Family History Father Heart disease Mother Cancer Pancreatic cancer in her 60s. 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 Social History household members: spouse housing: house Smoking Status: Never smoker alcohol intake: current alcohol intake frequency: holidays/special occasions only substance use type: does not use ROS ROS ED Constitutional Constitutional ED: Reports subjective; Denies fever(s) Eyes Eyes: Denies change in vision ENT ENT ED: Denies rhinorrhea or sore throat Cardiovascular Cardiovascular: Denies chest pain or palpitations Respiratory/Chest Respiratory/Chest: Denies cough, dyspnea or sputum Gastrointestinal Gastrointestinal: Denies abdominal pain, diarrhea, nausea or vomiting Genitourinary Genitourinary ED: Denies dysuria, hematuria or urinary frequency Musculoskeletal Musculoskeletal: Denies arthralgias or myalgias Integumentary Denies rash Neurologic Neurologic: Denies headache(s), paresthesias or weakness Endocrine Endocrinology: Denies polyuria Allergic/Immunologic Allergic/Immunologic ED: Denies mouth swelling or urticaria EXAM Physical Exam Const Vital Signs: 12/06/20 19:18 12/06/20 21:00 Temperature 97.2 F L Temperature Source Temporal Pulse Rate 78 Respiratory Rate 20 H Respiratory Pattern Normal Blood Pressure 123/84 H Blood Pressure Mean 97 Pulse Ox 100 Oxygen Delivery Method Room Air Positive well developed Constitutional Narrative: Patient is awake alert and good informant. General Appearance ED: well developed and NAD HEENT Reports moist mucous membranes Negative for trauma or tenderness Eyes Negative for EOMs intact bilaterally Neck no lymphadenopathy Resp normal respiratory effort and clear to auscultation bilaterally Auscultation: Negative for rales, rhonchi or wheezes Cardio regular rate, regular rhythm and no murmurs GI normal to inspection, nondistended, normoactive bowel sounds and non-tender Palpation: soft Back/Spine no CVA tenderness Extremity normal to inspection General Extremety ED: Negative for edema or tenderness General Extremity: Negative for edema Neuro oriented x3 Sensorium / Orientation: alert Psych mental status grossly normal Skin no rashes or lesions noted and no wounds MDM MDM MDM Narrative Medical decision making narrative: Patient CBC, electrolytes, urinalysis, chest x-ray, Covid show no acute process. Patient's had no further symptoms. He and his would like to go home. I think this is a reasonable option. We still discussed returning if he develops fevers or any other concerning symptoms. They will follow up with their private physician and neurologist. Lab Data Attestation: I reviewed the patient's lab results. Labs: Laboratory Results - last 24 hr 12/06/20 12/06/20 12/06/20 21:36 21:36 21:42 WBC 8.6 RBC 4.49 L Hgb 12.9 L Hct 41.3 MCV 92.0 MCH 28.7 MCHC 31.2 L RDW Std Deviation 44.5 H RDW Coeff of Jed 13.2 Plt Count 299 MPV 9.0 Immature Gran % (Auto) 0.800 Neut % (Auto) 81.9 H Lymph % (Auto) 8.4 L [place] % (Auto) 7.3 Eos % (Auto) 1.0 Baso % (Auto) 0.6 Absolute Neuts (auto) 7.0 Absolute Lymphs (auto) 0.72 L Nucleated RBC % 0 Sodium 139 Potassium 4.1 Chloride 102 Carbon Dioxide 31.0 Anion Gap 6 BUN 11 Creatinine 0.82 Estim Creat Clear Calc 84.12 Est GFR (MDRD) Af Amer 117 Est GFR (MDRD) Non-Af 97 BUN/Creatinine Ratio 13.3 Glucose 115 H Calcium 9.0 Urine Color Yellow Urine Clarity Clear Urine pH 6.5 Ur Specific [place] 1.010 Urine Protein Negative Urine Glucose (UA) Normal Urine Ketones Negative Urine Occult Blood Negative Urine Nitrite Negative Urine Bilirubin Negative Urine Urobilinogen Normal Ur Leukocyte Esterase Negative Urine RBC 0 SEEN Urine WBC 0 SEEN Ur Squamous Epith Cells 0 SEEN Urine Bacteria 0 SEEN Urine Mucus 0 SEEN Radiography Diagnostic Testing: Radiology Impression Chest X-Ray 12/06/20 21:52 IMPRESSION: No acute abnormal cardiopulmonary finding. Electronically Signed: Ubaldo Khan MD at 22:27 EDT Tel , Service support , Discharge Plan Triage Chief Complaint: General Illness ED Provider: Eddi Vides Dx/Rx/DC Orders Clinical Impression: History of tremor Instructions: ED FUO Adult Prescriptions: No Action nitroglycerin 0.4 MG tablet 0.4 mg sublingual Q5M PRN (Reason: Chest Pain) RF: 0 metoprolol tartrate 75 MG tablet 50 mg PO BID RF: 0 acetaminophen 500 MG tablet 500 mg G-tube Q6H PRN PRN (Reason: Pain) RF: 0 carbidopa-levodopa 1 TABLET tablet 2 tab PO TIDAC RF: 0 furosemide 40 MG tablet 40 mg PO DAILY RF: 0 atorvastatin 20 MG tablet 20 mg PO QHS RF: 0 aspirin 81 MG tablet,chewable 81 mg PO QHS RF: 0 potassium chloride 20 MEQ/15 ML liquid 15 ml PO DAILY RF: 0 metformin 500 mg tablet 500 mg PO BID RF: 0 cholecalciferol (vitamin D3) [Vitamin D3] 25 mcg (1,000 unit) Tablet 25 mcg PO DAILY RF: 0 Primary Care Provider: Dustin Thacker Referrals: Dustin Thacker MD [Primary Care Provider] - 3-5 Days if not improving Disposition Disposition: Home, Self Care
[2020-12-06 21:44] LABS: Absolute Lymphocyte Count 0.72 X10^3/uL (0.83-4.51); Basophil# 0.05 X10^3/uL; Basophil% 0.6 % (0-1); Eosinophil# 0.09 X10^3/uL; Hematocrit 41.3 % (40-54); Hemoglobin 12.9 g/dL (13.0-16.5); Lymphocyte # 0.72 X10^3/ul (0.83-4.51); Lymphocyte % 8.4 % (19-41); Mean Corp Hgb Conc 31.2 g/dL (32-36); Mean Corpuscular Hgb 28.7 pg (27.0-32.0); Monocyte# 0.63 X10^3/uL; Monocyte% 7.3 % (0-10); NRBC Flagged by Analyzer 0 % (0-5); Neutrophil # 7.02 X10^3/uL (2.7-7.7); Neutrophil % 81.9 % (47-70); Platelet Count 299 K/mm3 (150-450); RBC Distribution Width CV 13.2 % (11.6-14.6); RBC Distribution Width SD 44.5 fl (35.1-43.9); Red Blood Count 4.49 M/mm3 (4.6-6.2); White Blood Count 8.6 K/mm3 (4.4-11.0)
[2020-12-06 21:49] LABS: Bacteria 0 SEEN /hpf (None Seen); Mucous, Urine 0 SEEN /hpf (<or=2+); Red Blood Cells-Urine 0 SEEN /hpf (0-5); Squamous Epithelial Cells - UA 0 SEEN /hpf (0-5); White Blood Cells 0 SEEN /hpf (0-5)
--- NOTE | 2020-12-06 21:52 | RAD_ITS ---
STUDY: X-RAY CHEST REASON FOR EXAM: Male, 75 years old. Fever TECHNIQUE: Portable, upright, AP chest radiograph COMPARISON: 05/28/2016 FINDINGS: Sternal wires noted. The lungs are clear and expanded. There is no demonstrated pleural abnormality. Normal size heart. Normal mediastinum and del. Normal visualized pulmonary arteries. Normal visualized aortic arch and descending thoracic aorta. There are diffuse degenerative changes of the visualized thoracic spine. Normal visualized ribs, clavicles, and shoulders. There is no demonstrated abnormality of the visualized soft tissue structures of the upper abdomen. RAD/Chest 1 View (Portable) IMPRESSION: No acute abnormal cardiopulmonary finding. Electronically Signed: Ubaldo Khan MD at 22:27 EDT Tel , Service support ,
[2020-12-06 21:56] LABS: Color, Urine Yellow (Yellow); Glucose, Dipstick Normal (Normal); Ketone-Dipstick Negative (Negative); Leukocyte Esterase-Dipstick Negative /ul (Negative); Nitrite-Dipstick Negative (Negative); Occult Blood-Urine Negative /ul (Negative); Protein-Dipstick Negative (Negative); Urine Bilirubin Dipstick Negative (Negative); Urine Clarity Clear (Clear); Urine Urobilinogen Normal (Normal); Urine pH 6.5 (5.0 - 8.0)
[2020-12-06 22:03] LABS: Anion Gap 6 (5-15); BUN 11 mg/dL (7-18); BUN/Creat Ratio 13.3 RATIO (10-20); Chloride 102 mmol/L (98-107); Creatinine, Serum 0.82 mg/dL (0.70-1.30); EST Glomerular Filtration Rate 97 mL/min (>60); Est Glom Filt Rate - Afr Amer 117 mL/min (>60); Estimated Creatinine Clearance 84.12 ml/min; Glucose 115 mg/dL (74-106); Potassium 4.1 mmol/L (3.5-5.1); Sodium Level 139 mmol/L (136-145)
== END 2020-12-06 23:29 | disposition home or self-care (01) ==
PROVIDERS: Emergency Provider Emergency Medicine; PCP Family Medicine
DX: G20 Parkinson's disease (principal); I25.10 Atherosclerotic heart disease of native coronary artery without angina pectoris; E11.9 Type 2 diabetes mellitus without complications; E78.5 Hyperlipidemia, unspecified; I10 Essential (primary) hypertension; Z79.84 Long term (current) use of oral hypoglycemic drugs; Z79.899 Other long term (current) drug therapy
CPT/HCPCS: 71045; 80048; 81001; 85025; 87426; 99282; A4216

== ENCOUNTER 2021-07-04 07:24 | Outpatient (CLI) | payer MEDICARE, SELFPAY ==
[2021-07-04 07:47] LABS: Hematocrit 42.8 % (40-54); Mean Corp Hgb Conc 32.7 g/dL (32-36); Mean Corpuscular Volume 88.8 fL (80-94); Mean Platelet Vol. 9.4 fl (6.2-12.0); Platelet Count 239 K/mm3 (150-450); RBC Distribution Width CV 13.5 % (11.6-14.6); RBC Distribution Width SD 43.9 fl (35.1-43.9); Red Blood Count 4.82 M/mm3 (4.6-6.2); White Blood Count 5.8 K/mm3 (4.4-11.0)
[2021-07-04 08:12] LABS: ALB/GLOB Ratio 1.1 RATIO (0.9-2.4); AST(SGOT) 11 U/L (15-37); Alanine Aminotransfer ALT/SGPT 24 U/L (16-61); Alkaline Phosphatase 76 U/L (45-117); Anion Gap 4 (5-15); BUN 11 mg/dL (7-18); BUN/Creat Ratio 11.8 RATIO (10-20); Calcium,Total 9.1 mg/dL (8.5-10.1); Chloride 103 mmol/L (98-107); Cholesterol 92 mg/dL (200); Creatinine, Serum 0.93 mg/dL (0.70-1.30); EST Glomerular Filtration Rate 83 mL/min (>60); Est Glom Filt Rate - Afr Amer 101 mL/min (>60); Globulin 3.8 g/dL (2.2-4.2); Glucose 111 mg/dL (74-106); High Density Lipoprotein 39 mg/dL; Potassium 4.2 mmol/L (3.5-5.1); Protein, Total 7.8 g/dL (6.4-8.2); Sodium Level 138 mmol/L (136-145); Thyroid Stim Hormone (TSH) 1.69 uIU/mL (0.358-3.74); Triglycerides 91 mg/dL; Very Low Density Lipoprotein 18 mg/dL (5-40)
== END 2021-07-04 23:59 | disposition home or self-care (01) ==
LOC: LAB 07:26
PROVIDERS: PCP Family Medicine; Referring Provider Family Medicine; Visit Provider Family Medicine
DX: E11.9 Type 2 diabetes mellitus without complications (principal); E78.00 Pure hypercholesterolemia, unspecified; I10 Essential (primary) hypertension; Z12.5 Encounter for screening for malignant neoplasm of prostate
CPT/HCPCS: 36415; 80053; 80061; 84153; 84443; 85027; G0103

== ENCOUNTER 2021-08-17 16:37 | Emergency (ER) | payer MEDICARE, SELFPAY ==
[2021-08-17 16:38] VITALS: BP 160/94; BP 164/79; PULSE 80; PULSE 90; RESP 16; TEMP 36.6; O2SAT 96; BMI 25.7
--- NOTE | 2021-08-17 17:03 | CT_ITS ---
STUDY: CT ABDOMEN AND PELVIS WITH CONTRAST REASON FOR EXAM: Male, 75 years old. Pain, blood in stool RADIATION DOSAGE (If Supplied By Facility): CTDIvol = ( 18.53 ) mGy, DLP = ( 1312.33 ) mGycm TECHNIQUE: Transaxial images were obtained from the dome of the diaphragm to the symphysis pubis without oral contrast. IV 100mL Isovue-300 was administered. Sagittal and coronal images were reconstructed. Individualized dose optimization techniques were used for this CT. COMPARISON: 11/22/2020 FINDINGS: Minimal bibasilar dependent atelectasis. Coronary artery calcifications. Unremarkable liver, spleen, pancreas, adrenals, and bilateral kidneys. Tiny layering stones in the gallbladder. Status post near total colectomy and right-sided ileostomy. Para-ostomal hernia is noted containing fecaloid material. Small bowel loops proximal to the hernia are somewhat fluid-filled and dilated, suspicious for partial small bowel obstruction. No free air or free fluid. No adenopathy. Vascular calcification. No abdominal aortic aneurysm. Sections through the pelvis demonstrate an enlarged prostate. Correlation with rectal examination and serum PSA levels recommended. Urinary bladder incompletely distended. Fat-containing inguinal hernias, larger on the right. Multilevel thoracolumbar spondylosis. Old compression fracture of L2 noted. 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 Status post right total hip arthroplasty. CT/Abdomen/Pelvis W IV Cont ONLY IMPRESSION: Status post near-total colectomy and right-sided ileostomy. Findings suggestive of partial small bowel obstruction secondary to a paraostomal hernia. Electronically Signed: Matthias Coffey MD at 18:35 EDT ,
--- NOTE | 2021-08-17 17:06 | EDS_ITS ---
HPI History of Present Illness Chief Complaint: GI Bleed Informant: patient and spouse/S.O. Narrative Narrative: Patient presents with decreased ostomy output and some bleeding. and patient states he had the same issue occur back in October. He was seen prior to me back then. I then did conscious sedation on this patient. He states that this is the exact same thing that happened. He had normal ostomy output this morning. But he has not had ostomy after lunch or dinner. He has mild discomfort at the area but no real pain. No fevers or chills. No nausea or vomiting. He has also noted some blood coming from the ostomy. Only anticoagulation is aspirin. 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 They have discussed reversing this but was told that he would likely have stool urgency and may be incontinence so he is happy with the ostomy. [facility] Medical History CAD (coronary artery disease) Depression Diabetes GI bleed Hyperlipidemia Hypertension Parkinsons disease Home Medications nitroglycerin 0.4 mg SUBLINGUAL Q5M PRN 06/25/14 [History Last Taken Unknown] acetaminophen 500 mg PO DAILY 03/20/17 [History Last Taken 12/11/18] atorvastatin 20 mg PO QHS 12/11/18 [History Last Taken 12/10/18] furosemide 40 mg PO DAILY 12/11/18 [History Last Taken 12/11/18] potassium chloride 15 ml PO DAILY 12/11/18 [History Last Taken 12/11/18] cholecalciferol (vitamin D3) [Vitamin D3] 25 mcg PO DAILY 11/22/20 [History Last Taken Unknown] metformin 500 mg PO BID 11/22/20 [History Last Taken Unknown] aspirin 81 mg PO DAILY 08/17/21 [History Last Taken Unknown] carbidopa-levodopa 2 tab PO TID 08/17/21 [History Last Taken Unknown] metoprolol tartrate 50 mg PO BID 08/17/21 [History Last Taken Unknown] quetiapine 25 mg PO QHS 08/17/21 [History Last Taken Unknown] Allergy/AdvReac Type Severity Reaction Status Date / Time No Known Allergies Allergy Verified 08/17/21 16:40 Family History Father Heart disease Mother Cancer Pancreatic cancer in her 60s. 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 Social History household members: spouse housing: house Smoking Status: Never smoker alcohol intake: current alcohol intake frequency: holidays/special occasions only substance use type: does not use ROS ROS ED Constitutional Constitutional ED: Denies chills or fever(s) ENT ENT ED: Denies rhinorrhea Cardiovascular Cardiovascular: Denies chest pain or palpitations Respiratory/Chest Respiratory/Chest: Denies cough or dyspnea Gastrointestinal Gastrointestinal: Reports other Details: See history of present illness peer ; Denies diarrhea, nausea or vomiting Genitourinary Genitourinary ED: Denies hematuria Musculoskeletal Musculoskeletal: Denies arthralgias Integumentary Denies rash Neurologic Neurologic: Denies headache(s) Endocrine Endocrinology: Denies polydipsia or polyuria Allergic/Immunologic Allergic/Immunologic ED: Denies mouth swelling or urticaria EXAM Physical Exam Const Vital Signs: 08/17/21 16:38 08/17/21 18:26 Temperature 97.8 F Temperature Source Temporal Pulse Rate 80 82 Respiratory Rate 16 16 Blood Pressure 164/79 H 143/75 H Blood Pressure Mean 107 97 Pulse Ox 96 98 Oxygen Delivery Method Room Air Room Air Positive well nourished and well developed General Appearance ED: well developed and NAD HEENT Reports moist mucous membranes Eyes General Eye ED: Negative for pale conjunctiva or scleral icterus Neck no JVD Chest Wall inspection of chest normal Resp normal respiratory effort and clear to auscultation bilaterally Cardio regular rate GI normal to inspection, nondistended, normoactive bowel sounds and non-tender GI Narrative: Bowel sounds are mildly increased. Abdomen is not distended. Ostomy looks healthy. But there is some blood and small amounts of stool in the bag. No significant stool amount. When I feel around the base of the ostomy it does feel firm and full. But I do not express any stool. This really does not cause him any notable discomfort. Auscultation: hyperactive bowel sounds Palpation: soft Back/Spine no CVA tenderness Extremity General Extremety ED: Negative for tenderness Neuro oriented x3 Neuro Narrative: Mild flat affect consistent with Parkinson's. Sensorium / Orientation: alert Psych mental status grossly normal Skin no rashes or lesions noted MDM MDM MDM Narrative Medical decision making narrative: We had initially discussed trying to gently open the ostomy to see if stool came out based on the 's history. However, I then recalled this patient and the unique presentation. 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 For this reason we are doing CT scan and further work- up at this time. We had attempt to reduce this hernia a little bit at the bedside. But I did not seem to get any motion while doing this. There was no discomfort at all. Patient then went to the bathroom to urinate. While he was there he thinks it opened up because the bag is now full of stool. In the meantime I have talked to Dr. Kincaid on for surgery. He came down to see the patient and stated that his hernia is now reduced. He is okay with him going home. I discussed this again with the patient and his . The firm area that I had felt is now resolved so I think the hernia is reduced. They are comfortable going home and we discussed specific reasons to return. They will follow-up with her surgeon to consider outpatient revision in the future Lab Data Attestation: I reviewed the patient's lab results. Labs: Laboratory Results - last 24 hr 08/17/21 08/17/21 08/17/21 17:07 17:07 17:07 WBC 11.0 RBC 4.76 Hgb 13.8 Hct 43.1 MCV 90.5 MCH 29.0 MCHC 32.0 RDW Std Deviation 43.6 RDW Coeff of Jed 13.2 Plt Count 240 MPV 10.2 Immature Gran % (Auto) 0.400 Neut % (Auto) 88.8 H Lymph % (Auto) 4.5 L Hardy % (Auto) 5.5 Eos % (Auto) 0.3 Baso % (Auto) 0.5 Absolute Neuts (auto) 9.8 H Absolute Lymphs (auto) 0.50 L Nucleated RBC % 0 Differential Comment SCANNED PT 14.3 INR 1.1 APTT 28.1 Sodium 138 Potassium 4.1 Chloride 102 Carbon Dioxide 30.0 Anion Gap 6 BUN 12 Creatinine 0.94 Estim Creat Clear Calc 73.38 Est GFR (MDRD) Af Amer 100 Est GFR (MDRD) Non-Af 82 BUN/Creatinine Ratio 12.7 Glucose 163 H Lactic Acid Calcium 9.2 Total Bilirubin 0.80 AST 14 L ALT 8 L Alkaline Phosphatase 87 Total Protein 7.9 Albumin 3.9 Globulin 4.0 Albumin/Globulin Ratio 1.0 08/17/21 17:07 WBC RBC Hgb Hct MCV MCH MCHC RDW Std Deviation RDW Coeff of Jed Plt Count MPV Immature Gran % (Auto) Neut % (Auto) Lymph % (Auto) Hardy % (Auto) Eos % (Auto) Baso % (Auto) Absolute Neuts (auto) Absolute Lymphs (auto) Nucleated RBC % Differential Comment PT INR APTT Sodium Potassium Chloride Carbon Dioxide Anion Gap BUN Creatinine Estim Creat Clear Calc Est GFR (MDRD) Af Amer Est GFR (MDRD) Non-Af BUN/Creatinine Ratio Glucose Lactic Acid 2.1 H* Calcium Total Bilirubin AST ALT Alkaline Phosphatase Total Protein Albumin Globulin Albumin/Globulin Ratio Radiography Diagnostic Testing: Clinical Impression(s) from Imaging Studies Abdomen/Pelvis CT 08/17/21 17:03 IMPRESSION: Status post near-total colectomy and right-sided ileostomy. Findings suggestive of partial small bowel obstruction secondary to a paraostomal hernia. Electronically Signed: Matthias Coffey MD at 18:35 EDT , Discharge Plan Triage Chief Complaint: GI Bleed ED Provider: Eddi Vides Dx/Rx/DC Orders Clinical Impression: Parastomal hernia, Blood in stool Instructions: ED Lower GI Bleeding (Stable) Prescriptions: No Action nitroglycerin 0.4 MG tablet 0.4 mg sublingual Q5M PRN (Reason: Chest Pain) RF: 0 acetaminophen 500 MG tablet 500 mg PO DAILY RF: 0 furosemide 40 MG tablet 40 mg PO DAILY RF: 0 atorvastatin 20 MG tablet 20 mg PO QHS RF: 0 potassium chloride 20 MEQ/15 ML liquid 15 ml PO DAILY RF: 0 metformin 500 mg tablet 500 mg PO BID RF: 0 cholecalciferol (vitamin D3) [Vitamin D3] 25 mcg (1,000 unit) Tablet 25 mcg PO DAILY RF: 0 quetiapine 25 mg Tablet 25 mg PO QHS RF: 0 metoprolol tartrate 50 mg Tablet 50 mg PO BID RF: 0 carbidopa-levodopa 25-100 mg Tablet 2 tab PO TID RF: 0 aspirin 81 mg Capsule 81 mg PO DAILY RF: 0 Primary Care Provider: Dustin Thacker Referrals: Dustin Thacker MD [Primary Care Provider] - Erika Goff MD [STAFF PHYSICIAN] - As soon as possible Disposition Disposition: Home, Self Care
[2021-08-17 17:39] LABS: AST(SGOT) 14 U/L (15-37); Alanine Aminotransfer ALT/SGPT 8 U/L (16-61); Albumin, Serum 3.9 g/dL (3.2-5.0); Alkaline Phosphatase 87 U/L (45-117); Anion Gap 6 (5-15); BUN 12 mg/dL (7-18); BUN/Creat Ratio 12.7 RATIO (10-20); Calcium,Total 9.2 mg/dL (8.5-10.1); Chloride 102 mmol/L (98-107); Creatinine, Serum 0.94 mg/dL (0.70-1.30); EST Glomerular Filtration Rate 82 mL/min (>60); Est Glom Filt Rate - Afr Amer 100 mL/min (>60); Estimated Creatinine Clearance 73.38 ml/min; Glucose 163 mg/dL (74-106); Potassium 4.1 mmol/L (3.5-5.1); Protein, Total 7.9 g/dL (6.4-8.2); Sodium Level 138 mmol/L (136-145)
[2021-08-17 17:45] LABS: Absolute Neutrophil Count 9.8 X10^3/uL (2.0-7.7); Basophil# 0.05 X10^3/uL; Basophil% 0.5 % (0-1); Eosinophil# 0.03 X10^3/uL; Eosinophils% 0.3 % (0-5); Hematocrit 43.1 % (40-54); Hemoglobin 13.8 g/dL (13.0-16.5); Lymphocyte % 4.5 % (19-41); Mean Corpuscular Volume 90.5 fL (80-94); Mean Platelet Vol. 10.2 fl (6.2-12.0); Monocyte# 0.61 X10^3/uL; Monocyte% 5.5 % (0-10); NRBC Flagged by Analyzer 0 % (0-5); Neutrophil # 9.77 X10^3/uL (2.7-7.7); Neutrophil % 88.8 % (47-70); POSITIVE DIFFERENTIAL YES; Platelet Count 240 K/mm3 (150-450); RBC Distribution Width CV 13.2 % (11.6-14.6); RBC Distribution Width SD 43.6 fl (35.1-43.9); Red Blood Count 4.76 M/mm3 (4.6-6.2)
[2021-08-17 17:52] LABS: Differential Indicated SCAN CRITERIA MET
[2021-08-17 18:26] VITALS: BP 143/75; PULSE 82; RESP 16; O2SAT 98
[2021-08-17 18:27] LABS: Differential Comment SCANNED; Lactic Acid 2.1 mmol/L (0.4-1.9)
[2021-08-17 18:30] LABS: International Normalized Ratio 1.1; Prothrombin Time (Protime)PT. 14.3 SECONDS (11.7-14.9)
[2021-08-17 18:31] LABS: Partial Thromboplast Time 28.1 Seconds (24.1-36.2)
[2021-08-17 19:49] VITALS: BP 153/77; PULSE 92; RESP 16; O2SAT 96
[2021-08-17 21:19] LABS: Reflex Lactate? Y
== END 2021-08-17 19:50 | disposition home or self-care (01) ==
PROVIDERS: Emergency Provider Emergency Medicine; PCP Family Medicine; Visit Provider Emergency Medicine
DX: K43.5 Parastomal hernia without obstruction or gangrene (principal); G20 Parkinson's disease; E11.9 Type 2 diabetes mellitus without complications; K92.1 Melena; I25.10 Atherosclerotic heart disease of native coronary artery without angina pectoris; F32.A Depression, unspecified; Z87.19 Personal history of other diseases of the digestive system; E78.5 Hyperlipidemia, unspecified; I10 Essential (primary) hypertension; Z79.82 Long term (current) use of aspirin; Z79.84 Long term (current) use of oral hypoglycemic drugs; Z79.899 Other long term (current) drug therapy; Z95.1 Presence of aortocoronary bypass graft
CPT/HCPCS: 74177; 80053; 83605; 85025; 85610; 85730; 99284; Q9967; A4216

== ENCOUNTER → 2022-01-23 | Outpatient (CLI) | payer MEDICARE, SELFPAY ==
[2022-01-23 08:23] LABS: Hemoglobin 14.5 g/dL (13.0-16.5); Mean Corpuscular Hgb 30.2 pg (27.0-32.0); Mean Corpuscular Volume 91.7 fL (80-94); Mean Platelet Vol. 9.8 fl (6.2-12.0); Platelet Count 215 K/mm3 (150-450); RBC Distribution Width CV 13.5 % (11.6-14.6); RBC Distribution Width SD 46.1 fl (35.1-43.9); White Blood Count 5.3 K/mm3 (4.4-11.0)
[2022-01-23 16:49] LABS: ALB/GLOB Ratio 1.1 RATIO (0.9-2.4); AST(SGOT) 16 U/L (15-37); Alanine Aminotransfer ALT/SGPT 28 U/L (16-61); Albumin, Serum 3.9 g/dL (3.2-5.0); Alkaline Phosphatase 90 U/L (45-117); Anion Gap 6 (5-15); BUN 15 mg/dL (7-18); BUN/Creat Ratio 17.5 RATIO (10-20); Calcium,Total 9.1 mg/dL (8.5-10.1); Chloride 102 mmol/L (98-107); Creatinine, Serum 0.86 mg/dL (0.70-1.30); EST Glomerular Filtration Rate 92 mL/min (>60); Est Glom Filt Rate - Afr Amer 111 mL/min (>60); Globulin 3.6 g/dL (2.2-4.2); Glucose 110 mg/dL (74-106); Protein, Total 7.5 g/dL (6.4-8.2); Sodium Level 139 mmol/L (136-145); Thyroid Stim Hormone (TSH) 1.52 uIU/mL (0.358-3.74)
[2022-01-23 20:43] LABS: Hemoglobin A1c 6.4 % (3.8-5.6)
== END | disposition home or self-care (01) ==
LOC: LAB 07:48
PROVIDERS: PCP Family Medicine; Referring Provider Family Medicine; Visit Provider Family Medicine
DX: E11.9 Type 2 diabetes mellitus without complications (principal); I25.10 Atherosclerotic heart disease of native coronary artery without angina pectoris; E78.5 Hyperlipidemia, unspecified
CPT/HCPCS: 36415; 80053; 83036; 84443; 85027

== ENCOUNTER 2022-02-01 07:05 | Emergency (ER) | payer MEDICARE, SELFPAY ==
[2022-02-01 07:06] VITALS: BP 153/88; PULSE 78; RESP 16; TEMP 36.4; O2SAT 97; BMI 25.4
--- NOTE | 2022-02-01 07:27 | EDS_ITS ---
HPI HPI - GI History of Present Illness Chief Complaint: Abd Pain Narrative Narrative: 76-year-old female presents with his because of pain in his right lower quadrant of his abdomen with history of colostomy. They state that the patient has had previous bowel obstruction within the last year in which Dr. Nelson Bean was able to untwist his ostomy. They were told that if he gets more frequent obstructions, that he may need revision of his ostomy. Colostomy was originally placed remotely secondary to perforated viscus. Patient noticed pain in his right lower quadrant of his abdomen and around 2 or 3:00 this morning, 4 to 5 hours ago. While he is due for an ostomy bag change, they noticed a small amount of stool, less air and dark red blood in the ostomy bag. This feels similar to when he had a previous bowel obstruction. He denies any fevers or chills. No nausea or vomiting, no dysuria or hematuria. No other symptoms. [facility] Medical History CAD (coronary artery disease) Depression Diabetes GI bleed Hyperlipidemia Hypertension Parkinsons disease Home Medications nitroglycerin 0.4 mg sublingual tablet 0.4 mg sublingual Q5M PRN Chest Pain 06/25/14 [History Last Taken Unknown] acetaminophen 500 mg tablet 500 mg PO DAILY 03/20/17 [History Last Taken 11/26 09/13] atorvastatin 20 mg tablet 20 mg PO QHS cholesterol 12/11/18 [History Last Taken 12/10/18] furosemide 40 mg tablet 40 mg PO DAILY fluid 12/11/18 [History Last Taken 12/11/18] potassium chloride 20 mEq/15 mL oral liquid 15 ml PO DAILY supplement 12/11/18 [History Last Taken 12/11/18] cholecalciferol (vitamin D3) 25 mcg (1,000 unit) tablet (Vitamin D3) 25 mcg PO DAILY 11/22/20 [History Last Taken Unknown] metformin 500 mg tablet 500 mg PO BID 11/22/20 [History Last Taken Unknown] aspirin 81 mg capsule 81 mg PO DAILY 08/17/21 [History Last Taken Unknown] carbidopa 25 mg-levodopa 100 mg tablet 2 tab PO TID 08/17/21 [History Last Taken Unknown] metoprolol tartrate 50 mg tablet 50 mg PO BID 08/17/21 [History Last Taken Unknown] quetiapine 25 mg tablet 25 mg PO QHS 08/17/21 [History Last Taken Unknown] Allergy/AdvReac Type Severity Reaction Status Date / Time No Known Allergies Allergy Verified 02/01/22 07:08 Family History Father Heart disease Mother Cancer Pancreatic cancer in her 60s. 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 Social History household members: spouse housing: house Smoking Status: Never smoker alcohol intake: current alcohol intake frequency: holidays/special occasions only substance use type: does not use ROS ROS ED ROS Narrative Constitutional: No fever, no chills. HEENT: No sore throat. No neck pain. No loss of vision. No rhinorrhea. Cardiovascular: No chest pain. No palpitations. No pedal edema. Respiratory: No cough, no shortness of breath. Abdominal: Right lower quadrant abdominal pain. No nausea. No vomiting. Less air in ostomy and only small amount of stool with dark red blood. Genitourinary: No dysuria. No hematuria. Musculoskeletal: No myalgias. No arthralgias. Neurologic: No headaches. No dizziness. No lightheadedness. Skin: No rash. No change in color. Psychiatric: No depression. No anxiety. EXAM Physical Exam Narrative Exam Narrative: Afebrile. Vital signs noted. HEENT: Normocephalic. Atraumatic. PERRL, EOMI. Neck soft and supple. No point tenderness or step off. Cardiovascular: Regular rate and rhythm. No murmurs, rubs, or gallops appreciated. Respiratory: No tachypnea. Lungs clear to auscultation bilaterally. Gastrointestinal: Abdomen soft, mild tenderness to palpation in right lower quadrant near her ostomy site, with normoactive bowel sounds. No rebound or guarding. Noted colostomy bag with small amount of dark red blood and small piece of brown stool, minimal air contained within. No active hemorrhage. Neurological: Awake. Alert. Nonfocal, nonlateralizing. Skin: No rash. Normal color. No pallor. Musculoskeletal: No pedal edema. Full range of motion extremities. Const Vital Signs: 02/01/22 07:06 Temperature 97.6 F L Temperature Source Temporal Pulse Rate 78 Respiratory Rate 16 Blood Pressure 153/88 H Blood Pressure Mean 109 Pulse Ox 97 Oxygen Delivery Method Room Air MDM MDM MDM Narrative Medical decision making narrative: Comprehensive work-up was pursued. I will obtain CBC and CMP and bolused the patient IV fluids in preparation for CT of the abdomen and pelvis with IV contrast. Med review of the patient's record, in August of this year he was diagnosed with parastomal hernia. It was reduced and he was reportedly taught how to attempt to reduce it to himself but was told to come to the emergency department if he was unsuccessful. Dr. Goff had recommended that he see a hernia specialist closer to [facility]. Patient has slightly elevated white count of 12.7. Hemoglobin normal at 14.3, hematocrit 44.4, platelet count normal at 210. Glucose appropriately elevated at 141 with a normal anion gap of 5. Other electrolytes grossly unremarkable. CT of the abdomen pelvis shows ostomy in mid right lower quadrant with parastomal hernia. There is a dilated small bowel loop adjacent/herniated with more proximal simple bowel loops slightly dilated. I discussed the patient with Dr. Kincaid who has seen the patient in the emergency department and reduce the hernia. There is now output from his stoma. It was felt that the patient can follow-up with Dr. Goff as an outpatient and can arrange to see a hernia specialist should he require revision/repair. Patient is feeling improved. I feel he can be discharged safely home with follow-up. Return instructions to the emergency department were reviewed. Disposition is discharged home in stable condition. Lab Data Attestation: I reviewed the patient's lab results. Labs: Laboratory Results - last 24 hr 02/01/22 02/01/22 07:30 07:30 WBC 12.7 H RBC 4.86 Hgb 14.3 Hct 44.4 MCV 91.4 MCH 29.4 MCHC 32.2 RDW Std Deviation 44.5 H RDW Coeff of Jed 13.3 Plt Count 210 MPV 10.0 Immature Gran % (Auto) 0.400 Neut % (Auto) 90.8 H Lymph % (Auto) 3.8 L Gaston % (Auto) 4.2 Eos % (Auto) 0.5 Baso % (Auto) 0.3 Absolute Neuts (auto) 11.6 H Absolute Lymphs (auto) 0.49 L Nucleated RBC % 0 Sodium 138 Potassium 4.7 Chloride 103 Carbon Dioxide 30.0 Anion Gap 5 BUN 15 Creatinine 0.92 Estim Creat Clear Calc 73.80 Est GFR (MDRD) Af Amer 102 Est GFR (MDRD) Non-Af 85 BUN/Creatinine Ratio 16.3 Glucose 141 H Calcium 9.4 Total Bilirubin 1.00 AST 23 ALT 25 Alkaline Phosphatase 86 Total Protein 7.6 Albumin 3.9 Globulin 3.7 Albumin/Globulin Ratio 1.1 Radiography Diagnostic Testing: Clinical Impression(s) from Imaging Studies Abdomen/Pelvis CT 02/01/22 07:27 IMPRESSION: Ostomy seen in the mid right lower quadrant containing slightly dilated small bowel loops. Small bowel loops proximal to this are slightly dilated. Small layering gallstones in the gallbladder lumen. Electronically Signed: Daryn Zambrano MD at 8:53 EST , Discharge Plan Triage Chief Complaint: Abd Pain ED Provider: Marques Sen Dx/Rx/DC Orders Clinical Impression: Abdominal pain, Parastomal hernia Instructions: ED Hernia (Adult) Prescriptions: No Action nitroglycerin 0.4 MG tablet 0.4 mg sublingual Q5M PRN (Reason: Chest Pain) Label Comments: CHEST PAIN acetaminophen 500 MG tablet 500 mg PO DAILY furosemide 40 MG tablet 40 mg PO DAILY atorvastatin 20 MG tablet 20 mg PO QHS potassium chloride 20 MEQ/15 ML liquid 15 ml PO DAILY metformin 500 mg tablet 500 mg PO BID Label Comments: Take 1 tablet by mouth 2 times a Day cholecalciferol (vitamin D3) [Vitamin D3] 25 mcg (1,000 unit) Tablet 25 mcg PO DAILY quetiapine 25 mg Tablet 25 mg PO QHS metoprolol tartrate 50 mg Tablet 50 mg PO BID carbidopa-levodopa 25-100 mg Tablet 2 tab PO TID aspirin 81 mg Capsule 81 mg PO DAILY Primary Care Provider: Dustin Thacker Referrals: Dustin Thacker MD [Primary Care Provider] - Erika Goff MD [Med Staff - Active Staff] - As soon as possible Activity Restrictions/Additional Instructions: Extra strength Tylenol as needed for analgesia as directed. Follow-up with Dr. Goff as soon as possible. Call the office today for an appointment. Disposition Disposition: Home, Self Care Discharge Date/Time: 02/01/22 09:57
--- NOTE | 2022-02-01 07:27 | CT_ITS ---
STUDY: CT ABDOMEN AND PELVIS WITH CONTRAST REASON FOR EXAM: Male, 76 years old. Abdominal Pain. History of colostomy. Colostomy is not draining. Prior hernia repair. RADIATION DOSAGE (If Supplied By Facility): CTDIvol = ( 14.79 ) mGy, DLP = ( 1076.08 ) mGycm TECHNIQUE: Transaxial images were obtained from the dome of the diaphragm to the symphysis pubis without oral contrast. IV 100mL Isovue-300 was administered. Sagittal and coronal images were reconstructed. Individualized dose optimization techniques were used for this CT. COMPARISON: Comparison is made with prior study dated 08/17/2021. FINDINGS: Stable minimal linear atelectasis and/or scarring at the lung bases. Coronary artery calcification. Prior CABG. There is decreased attenuation of the liver consistent with steatosis. There is evidence of a small layering gallstones along the dependent portion of the gallbladder lumen. Normal spleen. Normal pancreas. Normal bilateral adrenal glands. Normal right kidney. Normal left kidney. Normal visualized stomach. Normal small intestine. An ostomy is seen in the right anterior mid abdomen. There is evidence of herniation of a fluid-filled small bowel loop within the stoma. There is a mild degree of small bowel dilatation proximal to the stoma. The patient is status post total colectomy. There is non-visualization of the appendix. There is diffuse atherosclerotic calcification of the abdominal aorta and its major visceral branches, without a demonstrated aneurysm. Normal inferior vena cava. Normal retroperitoneum. Normal urinary bladder. Stable prostatic enlargement with indentation at the bladder base. Small bilateral renal arteries containing fat is slightly worse on the right side. There are degenerative changes of the visualized lumbar spine. Stable loss of height of the superior endplate of the L2 vertebrae. The patient is status post right total hip replacement. There is deformity of the left femoral neck. CT/Abdomen/Pelvis W IV Cont ONLY IMPRESSION: Ostomy seen in the mid right lower quadrant containing slightly dilated small bowel loops. Small bowel loops proximal to this are slightly dilated. Small layering gallstones in the gallbladder lumen. Electronically Signed: Daryn Zambrano MD at 8:53 EST ,
[2022-02-01 07:44] LABS: Absolute Lymphocyte Count 0.49 X10^3/uL (0.83-4.51); Absolute Neutrophil Count 11.6 X10^3/uL (2.0-7.7); Basophil# 0.04 X10^3/uL; Basophil% 0.3 % (0-1); Eosinophil# 0.06 X10^3/uL; Eosinophils% 0.5 % (0-5); Hematocrit 44.4 % (40-54); Hemoglobin 14.3 g/dL (13.0-16.5); Lymphocyte # 0.49 X10^3/ul (0.83-4.51); Lymphocyte % 3.8 % (19-41); Mean Corp Hgb Conc 32.2 g/dL (32-36); Mean Corpuscular Hgb 29.4 pg (27.0-32.0); Mean Corpuscular Volume 91.4 fL (80-94); Monocyte# 0.53 X10^3/uL; Monocyte% 4.2 % (0-10); NRBC Flagged by Analyzer 0 % (0-5); Neutrophil # 11.56 X10^3/uL (2.7-7.7); Neutrophil % 90.8 % (47-70); POSITIVE DIFFERENTIAL YES; Platelet Count 210 K/mm3 (150-450); RBC Distribution Width CV 13.3 % (11.6-14.6); RBC Distribution Width SD 44.5 fl (35.1-43.9); Red Blood Count 4.86 M/mm3 (4.6-6.2); White Blood Count 12.7 K/mm3 (4.4-11.0)
[2022-02-01] MEDS: 0.9% Normal Saline 1,000 ML 1000 ML IV (07:44)
[2022-02-01 08:08] LABS: ALB/GLOB Ratio 1.1 RATIO (0.9-2.4); AST(SGOT) 23 U/L (15-37); Alanine Aminotransfer ALT/SGPT 25 U/L (16-61); Albumin, Serum 3.9 g/dL (3.2-5.0); Alkaline Phosphatase 86 U/L (45-117); Anion Gap 5 (5-15); BUN 15 mg/dL (7-18); BUN/Creat Ratio 16.3 RATIO (10-20); Calcium,Total 9.4 mg/dL (8.5-10.1); Chloride 103 mmol/L (98-107); Creatinine, Serum 0.92 mg/dL (0.70-1.30); EST Glomerular Filtration Rate 85 mL/min (>60); Est Glom Filt Rate - Afr Amer 102 mL/min (>60); Globulin 3.7 g/dL (2.2-4.2); Glucose 141 mg/dL (74-106); Potassium 4.7 mmol/L (3.5-5.1); Protein, Total 7.6 g/dL (6.4-8.2); Sodium Level 138 mmol/L (136-145)
== END 2022-02-01 09:57 | disposition home or self-care (01) ==
PROVIDERS: Emergency Provider Emergency Medicine; PCP Family Medicine; Visit Provider Emergency Medicine
DX: K43.5 Parastomal hernia without obstruction or gangrene (principal); Z93.3 Colostomy status; E11.9 Type 2 diabetes mellitus without complications; R10.31 Right lower quadrant pain; I25.10 Atherosclerotic heart disease of native coronary artery without angina pectoris; E78.5 Hyperlipidemia, unspecified; I10 Essential (primary) hypertension
CPT/HCPCS: 74177; 80053; 85025; 96360; 99283; J7030; Q9967; A4216

== ENCOUNTER 2022-05-05 02:19 | Emergency (ER) | payer MEDICARE, SELFPAY ==
[2022-05-05 02:20] VITALS: BP 160/61; PULSE 68; RESP 17; TEMP 37.9; O2SAT 97; BMI 25.9
[2022-05-05 03:14] VITALS: O2SAT 95
--- NOTE | 2022-05-05 03:14 | RAD_ITS ---
EXAM: XR CHEST, 2 VIEWS CLINICAL INDICATION: cough fever cough fever TECHNIQUE: Frontal and lateral views of the chest. This report was created using [employer] report generation technology. COMPARISON: 05/08/2020. FINDINGS: LUNGS AND PLEURAL SPACES: Unremarkable. No consolidation or edema. No pneumothorax. No effusion. HEART: Unremarkable. Cardiac silhouette not enlarged. MEDIASTINUM: Central airways and mediastinal contour are unremarkable. BONES/JOINTS: There are sternotomy wires. SOFT TISSUES: Unremarkable. VASCULATURE: There is atherosclerotic calcification of the aortic arch. RAD/Chest PA and Lateral IMPRESSION: No acute findings in the chest. Electronically Signed: Carson Jaquez MD at 4:17 EST Reading Location ID and State: [facility] / [place] , Service support ,
--- NOTE | 2022-05-05 03:14 | EKG12_ITS ---
Test Reason : DYSRHYTHMIA Blood Pressure : / mmHG Vent. Rate : 083 BPM Atrial Rate : 083 BPM P-R Int : 204 ms QRS Dur : 132 ms QT Int : 394 ms P-R-T Axes : 022 082 017 degrees QTc Int : 462 ms Normal sinus rhythm Right bundle branch block Abnormal ECG Confirmed by PATRICIA VALENTINE, CELIA ([id number]), visual effects editor OZZY NEVAREZ ([id number]) on 05/07/2022 11:16:23 AM Referred By: BB Confirmed By:CELIA GOMEZ MD
--- NOTE | 2022-05-05 03:16 | EX.ED.DYSGE1 ---
HPI History of Present Illness Chief Complaint: General Illness Informant: patient and spouse/S.O. Onset/Context/Timing Onset: Hours (1) Context: - (awoke w/ sx) Timing: Continuous Narrative Narrative: Patient awoke with a fever and feeling weak. He has had a mild nonproductive cough. He denies any other new symptoms. No sick contacts that he knows of. He was vaccinated against COVID but not influenza. He denies any issues urinating, dyspnea, GI symptoms, sore throat, headache, neck stiffness or pain. No confusion. No recent chemotherapy or travel out of the area. [facility] Medical History CAD (coronary artery disease) Depression Diabetes GI bleed Hyperlipidemia Hypertension Parkinsons disease Home Medications nitroglycerin 0.4 mg sublingual tablet 0.4 mg sublingual Q5M PRN Chest Pain 06/25/14 [History Last Taken Unknown] acetaminophen 500 mg tablet 500 mg PO DAILY 03/20/17 [History Last Taken 12/11/18] atorvastatin 20 mg tablet 20 mg PO QHS cholesterol 12/11/18 [History Last Taken 12/10/18] furosemide 40 mg tablet 40 mg PO DAILY fluid 12/11/18 [History Last Taken 12/11/18] potassium chloride 20 mEq/15 mL oral liquid 15 ml PO DAILY supplement 12/11/18 [History Last Taken 12/11/18] cholecalciferol (vitamin D3) 25 mcg (1,000 unit) tablet (Vitamin D3) 25 mcg PO DAILY 11/22/20 [History Last Taken Unknown] metformin 500 mg tablet 500 mg PO BID 11/22/20 [History Last Taken Unknown] aspirin 81 mg capsule 81 mg PO DAILY 08/17/21 [History Last Taken Unknown] carbidopa 25 mg-levodopa 100 mg tablet 2 tab PO TID 08/17/21 [History Last Taken Unknown] metoprolol tartrate 50 mg tablet 50 mg PO BID 08/17/21 [History Last Taken Unknown] quetiapine 25 mg tablet 25 mg PO QHS 08/17/21 [History Last Taken Unknown] Allergy/AdvReac Type Severity Reaction Status Date / Time No Known Allergies Allergy Verified 05/05/22 02:27 Family History Father Heart disease Mother Cancer Pancreatic cancer in her 60s. 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 Social History household members: spouse housing: house Smoking Status: Never smoker alcohol intake: current alcohol intake frequency: holidays/special occasions only substance use type: does not use ROS ROS ED Constitutional Constitutional ED: Reports chills, fever(s) and weakness Eyes Eyes: Denies change in vision or diplopia ENT ENT ED: Denies rhinorrhea or sore throat Cardiovascular Cardiovascular: Reports leg edema and other Details: Leg edema no worse than usual ; Denies chest pain or palpitations Respiratory/Chest Respiratory/Chest: Reports cough; Denies dyspnea or sputum Gastrointestinal Gastrointestinal: Denies abdominal pain, diarrhea, nausea or vomiting Genitourinary Genitourinary ED: Denies dysuria or hematuria Musculoskeletal Musculoskeletal: Denies back pain or neck pain Integumentary Denies abscess or rash Neurologic Neurologic: Denies headache(s), paresthesias or weakness Psychiatric Psychiatric: Denies anxiety or suicidal thoughts EXAM Physical Exam Const Vital Signs: 05/05/22 02:20 05/05/22 03:14 05/05/22 05:16 Temperature 100.3 F H 99.1 F Temperature Source Temporal Oral Pulse Rate 68 78 Respiratory Rate 17 18 Respiratory Effort Respiratory Pattern Blood Pressure 160/61 H 136/63 H Blood Pressure Mean 94 87 Pulse Ox 97 95 93 Oxygen Delivery Method Room Air Room Air 05/05/22 05:16 05/05/22 05:20 Temperature 99.1 F Temperature Source Oral Pulse Rate Respiratory Rate Respiratory Effort Normal Non-Labored Respiratory Pattern Normal Blood Pressure Blood Pressure Mean Pulse Ox Oxygen Delivery Method Positive well nourished and well developed General Appearance ED: well developed and NAD HEENT Reports moist mucous membranes HEENT Narrative: Posterior oropharynx clear normocephalic and atraumatic Eyes PERRL and EOMs intact bilaterally Neck full ROM, no lymphadenopathy and supple Resp normal respiratory effort and clear to auscultation bilaterally Cardio regular rate, regular rhythm and no murmurs GI non-tender and non-distended Auscultation: normoactive bowel sounds Palpation: soft Back/Spine no CVA tenderness General Back: other FROM Extremity normal to inspection General Extremety ED: Yes edema; Negative for pulses abnormal or tenderness General Extremity: edema bilateral lower extremity Details: mild; Negative for pulses abnormal Neuro oriented x3, CN's II-XII intact bilaterally and no sensory deficits noted Sensorium / Orientation: awake and alert Motor Exam: strength 5/5 throughout Skin no rashes or lesions noted and no wounds MDM MDM MDM Narrative Medical decision making narrative: Patient's work-up is negative including labs, urinalysis, chest x-ray, swabs for COVID, and influenza. We gave him Tylenol to bring his temperature down, which was successful and as a result he was less weak and able to walk with little assistance. He is not hypoxic, his vital signs are normal, and he felt better and is ambulatory. We did blood cultures because I ordered a septic work-up, there is no specific reason for him to have bacteremia, nor do I think he needs antibiotics right now. His white blood count is in the normal range at 9.1, there is a trend toward leftward shift there is no significant bandemia, he has no chest pain to suggest myocarditis, and at this time I think it would be safe to assume with the normal work-up and lack of other symptoms that this is viral in etiology unless these cultures come back positive, I would not treat him with antibiotics. Discharged home to follow-up with his doctor, he is comfortable with that plan. Lab Data Attestation: I reviewed the patient's lab results. Labs: Laboratory Results - last 24 hr 05/05/22 05/05/22 05/05/22 03:00 03:00 03:00 WBC 9.1 RBC 4.76 Hgb 14.2 Hct 43.5 MCV 91.4 MCH 29.8 MCHC 32.6 RDW Std Deviation 44.5 H RDW Coeff of Jed 13.3 Plt Count 209 MPV 9.8 Immature Gran % (Auto) 0.400 Neut % (Auto) 89.2 H Lymph % (Auto) 3.0 L [place] % (Auto) 5.8 Eos % (Auto) 1.1 Baso % (Auto) 0.5 Absolute Neuts (auto) 8.1 H Absolute Lymphs (auto) 0.27 L Nucleated RBC % 0 PT 13.7 INR 1.1 APTT 27.2 Sodium 139 Potassium 3.9 Chloride 101 Carbon Dioxide 31.0 Anion Gap 7 BUN 20 H Creatinine 1.02 Estim Creat Clear Calc 66.57 Est GFR (MDRD) Af Amer 91 Est GFR (MDRD) Non-Af 75 BUN/Creatinine Ratio 19.6 Glucose 142 H Lactic Acid Calcium 9.2 Total Bilirubin 0.80 AST 13 L ALT 18 Alkaline Phosphatase 84 Total Protein 8.0 Albumin 4.2 Globulin 3.8 Albumin/Globulin Ratio 1.1 Urine Color Urine Clarity Urine pH Ur Specific Duarte Urine Protein Urine Glucose (UA) Urine Ketones Urine Occult Blood Urine Nitrite Urine Bilirubin Urine Urobilinogen Ur Leukocyte Esterase Urine RBC Urine WBC Ur Squamous Epith Cells Urine Bacteria Urine Mucus 05/05/22 05/05/22 03:00 05:13 WBC RBC Hgb Hct MCV MCH MCHC RDW Std Deviation RDW Coeff of Jed Plt Count MPV Immature Gran % (Auto) Neut % (Auto) Lymph % (Auto) [place] % (Auto) Eos % (Auto) Baso % (Auto) Absolute Neuts (auto) Absolute Lymphs (auto) Nucleated RBC % PT INR APTT Sodium Potassium Chloride Carbon Dioxide Anion Gap BUN Creatinine Estim Creat Clear Calc Est GFR (MDRD) Af Amer Est GFR (MDRD) Non-Af BUN/Creatinine Ratio Glucose Lactic Acid 1.5 Calcium Total Bilirubin AST ALT Alkaline Phosphatase Total Protein Albumin Globulin Albumin/Globulin Ratio Urine Color Yellow Urine Clarity Clear Urine pH 5.0 Ur Specific Duarte 1.020 Urine Protein 30 H Urine Glucose (UA) Normal Urine Ketones 5 H Urine Occult Blood Negative Urine Nitrite Negative Urine Bilirubin Negative Urine Urobilinogen 1 H Ur Leukocyte Esterase 25 H Urine RBC 0-5 SEEN Urine WBC 0 SEEN Ur Squamous Epith Cells 0 SEEN Urine Bacteria 0 SEEN Urine Mucus 0 SEEN Radiography Chest X-Ray - ED: 2 View, Read by ED Physician, No Acute Disease and No Infiltrates Diagnostic Testing: Clinical Impression(s) from Imaging Studies Chest X-Ray 05/05/22 03:14 IMPRESSION: No acute findings in the chest. Electronically Signed: Carson Jaquez MD at 4:17 EST Reading Location ID and State: [facility] / [place] , Service support , Rhythm Strip Rhythm Strip: Sinus Rhythm Rate: 83 Ectopy: None EKG Initial EKG: Attestation: I personally reviewed and interpreted this EKG as follows: Interpretation: Sinus Rhythm, No Acute Injury Pattern and RBBB Prior EKG tracings: available for review Prior: Unchanged Discharge Plan Triage Chief Complaint: General Illness ED Provider: Grey Small Dx/Rx/DC Orders Clinical Impression: Fever Instructions: ED FUO Adult Prescriptions: No Action nitroglycerin 0.4 MG tablet 0.4 mg sublingual Q5M PRN (Reason: Chest Pain) Label Comments: CHEST PAIN acetaminophen 500 MG tablet 500 mg PO DAILY furosemide 40 MG tablet 40 mg PO DAILY atorvastatin 20 MG tablet 20 mg PO QHS potassium chloride 20 MEQ/15 ML liquid 15 ml PO DAILY metformin 500 mg tablet 500 mg PO BID Label Comments: Take 1 tablet by mouth 2 times a Day cholecalciferol (vitamin D3) [Vitamin D3] 25 mcg (1,000 unit) Tablet 25 mcg PO DAILY quetiapine 25 mg Tablet 25 mg PO QHS metoprolol tartrate 50 mg Tablet 50 mg PO BID carbidopa-levodopa 25-100 mg Tablet 2 tab PO TID aspirin 81 mg Capsule 81 mg PO DAILY Primary Care Provider: Dustin Thacker Referrals: Dustin Thacker MD [Primary Care Provider] - 3-5 Days if not improving Activity Restrictions/Additional Instructions: Although we are not seeing high levels of COVID or influenza right now, it is possible to test too early and get a false negative test. If you are still feeling poorly and having fevers in 2 or 3 days, consider retesting at least for COVID. Disposition Disposition: Home, Self Care
[2022-05-05] MEDS: Acetaminophen 500 MG Tablet 1000 MG PO (03:27)
[2022-05-05] MEDS: 0.9% Normal Saline 1,000 ML 150 ML IV (03:28)
[2022-05-05 03:33] LABS: Absolute Lymphocyte Count 0.27 X10^3/uL (0.83-4.51); Absolute Neutrophil Count 8.1 X10^3/uL (2.0-7.7); Basophil# 0.05 X10^3/uL; Basophil% 0.5 % (0-1); Eosinophils% 1.1 % (0-5); Hematocrit 43.5 % (40-54); Hemoglobin 14.2 g/dL (13.0-16.5); Lymphocyte # 0.27 X10^3/ul (0.83-4.51); Mean Corp Hgb Conc 32.6 g/dL (32-36); Mean Corpuscular Hgb 29.8 pg (27.0-32.0); Mean Corpuscular Volume 91.4 fL (80-94); Mean Platelet Vol. 9.8 fl (6.2-12.0); Monocyte# 0.53 X10^3/uL; Monocyte% 5.8 % (0-10); NRBC Flagged by Analyzer 0 % (0-5); Neutrophil # 8.14 X10^3/uL (2.7-7.7); Neutrophil % 89.2 % (47-70); POSITIVE DIFFERENTIAL YES; Platelet Count 209 K/mm3 (150-450); RBC Distribution Width CV 13.3 % (11.6-14.6); RBC Distribution Width SD 44.5 fl (35.1-43.9); Red Blood Count 4.76 M/mm3 (4.6-6.2); White Blood Count 9.1 K/mm3 (4.4-11.0)
[2022-05-05 03:34] LABS: Differential Indicated SCAN CRITERIA MET
[2022-05-05 03:41] LABS: International Normalized Ratio 1.1; Partial Thromboplast Time 27.2 Seconds (24.1-36.2); Prothrombin Time (Protime)PT. 13.7 SECONDS (11.7-14.9)
[2022-05-05 03:57] LABS: Lactic Acid 1.5 mmol/L (0.4-1.9)
[2022-05-05 04:17] LABS: ALB/GLOB Ratio 1.1 RATIO (0.9-2.4); AST(SGOT) 13 U/L (15-37); Alanine Aminotransfer ALT/SGPT 18 U/L (16-61); Albumin, Serum 4.2 g/dL (3.2-5.0); Alkaline Phosphatase 84 U/L (45-117); Anion Gap 7 (5-15); BUN 20 mg/dL (7-18); BUN/Creat Ratio 19.6 RATIO (10-20); Calcium,Total 9.2 mg/dL (8.5-10.1); Chloride 101 mmol/L (98-107); Creatinine, Serum 1.02 mg/dL (0.70-1.30); EST Glomerular Filtration Rate 75 mL/min (>60); Est Glom Filt Rate - Afr Amer 91 mL/min (>60); Estimated Creatinine Clearance 66.57 ml/min; Globulin 3.8 g/dL (2.2-4.2); Glucose 142 mg/dL (74-106); Potassium 3.9 mmol/L (3.5-5.1); Sodium Level 139 mmol/L (136-145)
[2022-05-05 05:16] VITALS: BP 136/63; PULSE 78; RESP 18; TEMP 37.3; O2SAT 93
[2022-05-05 05:18] LABS: Color, Urine Yellow (Yellow); Glucose, Dipstick Normal (Normal); Ketone-Dipstick 5 mg/dl (Negative); Leukocyte Esterase-Dipstick 25 /ul (Negative); Nitrite-Dipstick Negative (Negative); Occult Blood-Urine Negative /ul (Negative); Protein-Dipstick 30 mg/dl (Negative); Urine Bilirubin Dipstick Negative (Negative); Urine Clarity Clear (Clear); Urine Urobilinogen 1 mg/dl (Normal)
[2022-05-05 05:19] LABS: Bacteria 0 SEEN /hpf (None Seen); Mucous, Urine 0 SEEN /hpf (<or=2+); Squamous Epithelial Cells - UA 0 SEEN /hpf (0-5); White Blood Cells 0 SEEN /hpf (0-5)
[2022-05-05 05:24] LABS: Red Blood Cells-Urine 0-5 SEEN /hpf (0-5)
[2022-05-05 06:13] VITALS: BP 142/67; PULSE 78; RESP 18; TEMP 37.2; O2SAT 95
== END 2022-05-05 06:13 | disposition home or self-care (01) ==
PROVIDERS: Emergency Provider Emergency Medicine; PCP Family Medicine; Visit Provider Emergency Medicine
DX: R50.9 Fever, unspecified (principal); E11.9 Type 2 diabetes mellitus without complications; I25.10 Atherosclerotic heart disease of native coronary artery without angina pectoris; E78.5 Hyperlipidemia, unspecified; I10 Essential (primary) hypertension; Z20.822 Contact with and (suspected) exposure to COVID-19
CPT/HCPCS: 71046; 80053; 81001; 83605; 85025; 85610; 85730; 87040; 87086; 87428; 93005; 96360; 96361; 99285; J7030; A4216

== ENCOUNTER 2022-07-17 19:53 | Emergency (ER) | payer MEDICARE, SELFPAY ==
[2022-07-17 19:54] VITALS: BP 189/92; PULSE 71; RESP 16; TEMP 36.6; O2SAT 99; BMI 26.2
--- NOTE | 2022-07-17 20:24 | EDS_ITS ---
HPI History of Present Illness Chief Complaint: Other, Pain/Inj Informant: patient and spouse/S.O. Narrative Narrative: Patient presents with some herniation/fullness inferior and lateral to his ostomy. He has had this happen multiple times. He is coming here several times for this. In the past he has had to have sedation and reduction. Other times it reduces easily. Sometimes the is able to reduce his at home when she first notices it. She states she was just a little concerned because this 1 felt a little firmer than what she normally reduces. Patient states his ostomy output is still been good. He is not having pain nausea or vomiting. He thinks this just happened. He has been told that he may need surgery. They made calls to contact his original surgeon at [facility] but they found out that he . They have seen Dr. Goff before also. No traumas. No fall. He has been eating and drinking normally. Patient states he feels fine [facility] Medical History CAD (coronary artery disease) Depression Diabetes GI bleed Hyperlipidemia Hypertension Parkinsons disease Home Medications nitroglycerin 0.4 mg sublingual tablet 0.4 mg sublingual Q5M PRN Chest Pain 06/25/14 [History Last Taken Unknown] acetaminophen 500 mg tablet 500 mg PO DAILY 03/20/17 [History Last Taken 12/11/18] atorvastatin 20 mg tablet 20 mg PO QHS cholesterol 12/11/18 [History Last Taken 12/10/18] furosemide 40 mg tablet 40 mg PO DAILY fluid 12/11/18 [History Last Taken 12/11/18] potassium chloride 20 mEq/15 mL oral liquid 15 ml PO DAILY supplement 12/11/18 [History Last Taken 12/11/18] cholecalciferol (vitamin D3) 25 mcg (1,000 unit) tablet (Vitamin D3) 25 mcg PO DAILY 11/22/20 [History Last Taken Unknown] metformin 500 mg tablet 500 mg PO BID 11/22/20 [History Last Taken Unknown] aspirin 81 mg capsule 81 mg PO DAILY 08/17/21 [History Last Taken Unknown] carbidopa 25 mg-levodopa 100 mg tablet 2 tab PO TID 08/17/21 [History Last Taken Unknown] metoprolol tartrate 50 mg tablet 50 mg PO BID 08/17/21 [History Last Taken Unknown] quetiapine 25 mg tablet 25 mg PO QHS 08/17/21 [History Last Taken Unknown] Allergy/AdvReac Type Severity Reaction Status Date / Time No Known Allergies Allergy Verified 07/17/22 19:58 Family History Father Heart disease Mother Cancer Pancreatic cancer in her 60s. 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 Patient has fullness below his ostomy but he has no symptoms of pain nausea vomiting diarrhea. He feels fine. ; Denies abdominal pain, constipation, diarrhea, melena, nausea or vomiting Musculoskeletal Musculoskeletal: Denies back pain Integumentary Denies rash Hematologic/Lymphatic Hematologic/Lymphatic: Denies easy bleeding or easy bruising EXAM Physical Exam Narrative Exam Narrative: CONSTITUTIONAL: Patient is nontoxic in appearance. The patient looks comfortable. He is laying back in bed with no sign of discomfort. HEENT: No notable trauma. Mucous membranes moist. EYES: No conjunctival injection. CARDIOVASCULAR: Regular rate. Regular rhythm. No notable murmur. No JVD. RESPIRATORY: No respiratory distress. Breathing is unlabored. No wheezes. No rhonchi. No rales. No pain with a deep breath. GASTROINTESTINAL: Not distended. Bowel sounds are normal. No tenderness. No guarding. No rebound. Patient has a ostomy toward the right mid quadrant area. It is pink and healthy appearing. Below and may be a little lateral to this ostomy is an area of fullness that is firm. This is the area that is different per patient and . But patient states is not hurting. GENITOURINARY: No tenderness over the bladder. No CVA tenderness. MUSCULOSKELETAL: Atraumatic. NEUROLOGICAL: Patient is alert and appropriate. No focal deficit noted. SKIN: No noted rashes. No diaphoresis. PSYCHIATRIC: Patient is calm. Mood is appropriate. Const Vital Signs: 07/17/22 19:54 07/17/22 20:29 Temperature 97.8 F Temperature Source Temporal Pulse Rate 71 Respiratory Rate 16 Respiratory Effort Normal Non-Labored Respiratory Pattern Normal Blood Pressure 189/92 H Blood Pressure Mean 124 Pulse Ox 99 Oxygen Delivery Method Room Air [facility] Narrative Medical decision making narrative: Procedure: Reduction of parastomal hernia: The firm area below in her lateral to the ostomy was supported from the side. This was compressed toward the center and then back toward the abdomen. With about 30 seconds to a minute of just firm steady holding pressure, this did start to reduce. There was bubbling gurgling and easy reduction. Patient states he felt me pressing on it but it did not hurt. It went back to just minimal fullness at the lower edge of the hernia. But I had the feel this since she states it always feels that way. For her this is back to normal. And she feels this hernia all the time every day. She is the one who changes the bags and the dressings. About 10 minutes after reduction, patient started passing a lot more liquid stool. He passed some gas. This is typical. I checked the patient again. He has no swelling below the area and firmness. His is very happy. She states it feels and is acting completely normally. They would like to go home at this time. We will get them home. I have encouraged them to follow-up with her surgeon. This will likely be a recurrent issue. Procedures Other Procedures Procedure(s): Parastomal hernia reduction. Please see [facility] Discharge Plan Triage Chief Complaint: Other, Pain/Inj ED Provider: Eddi Vides Dx/Rx/DC Orders Clinical Impression: Parastomal hernia Instructions: What Is a Hernia? Prescriptions: No Action nitroglycerin 0.4 MG tablet 0.4 mg sublingual Q5M PRN (Reason: Chest Pain) Label Comments: CHEST PAIN acetaminophen 500 MG tablet 500 mg PO DAILY furosemide 40 MG tablet 40 mg PO DAILY atorvastatin 20 MG tablet 20 mg PO QHS potassium chloride 20 MEQ/15 ML liquid 15 ml PO DAILY metformin 500 mg tablet 500 mg PO BID Label Comments: Take 1 tablet by mouth 2 times a Day cholecalciferol (vitamin D3) [Vitamin D3] 25 mcg (1,000 unit) Tablet 25 mcg PO DAILY quetiapine 25 mg Tablet 25 mg PO QHS metoprolol tartrate 50 mg Tablet 50 mg PO BID carbidopa-levodopa 25-100 mg Tablet 2 tab PO TID aspirin 81 mg Capsule 81 mg PO DAILY Primary Care Provider: Dustin Thacker Referrals: Dustin Thacker MD [Primary Care Provider] - Erika Goff MD [Med Staff - Active Staff] - As soon as possible Disposition Disposition: Home, Self Care
== END 2022-07-17 21:14 | disposition home or self-care (01) ==
PROVIDERS: Emergency Provider Emergency Medicine; PCP Family Medicine; Visit Provider Emergency Medicine
DX: K43.5 Parastomal hernia without obstruction or gangrene (principal); E11.9 Type 2 diabetes mellitus without complications; I25.10 Atherosclerotic heart disease of native coronary artery without angina pectoris; I10 Essential (primary) hypertension; E78.5 Hyperlipidemia, unspecified
CPT/HCPCS: 99282

== ENCOUNTER → 2022-07-29 | Outpatient (CLI) | payer MEDICARE, SELFPAY ==
[2022-07-29 08:00] LABS: Hematocrit 42.4 % (40-54); Hemoglobin 14.1 g/dL (13.0-16.5); Mean Corp Hgb Conc 33.3 g/dL (32-36); Mean Corpuscular Volume 90.2 fL (80-94); Mean Platelet Vol. 9.5 fl (6.2-12.0); Platelet Count 232 K/mm3 (150-450); RBC Distribution Width CV 13.6 % (11.6-14.6); RBC Distribution Width SD 44.8 fl (35.1-43.9); White Blood Count 5.9 K/mm3 (4.4-11.0)
[2022-07-29 08:58] LABS: AST(SGOT) 16 U/L (15-37); Alanine Aminotransfer ALT/SGPT 28 U/L (16-61); Albumin, Serum 3.9 g/dL (3.2-5.0); Alkaline Phosphatase 73 U/L (45-117); Anion Gap 7 (5-15); BUN 12 mg/dL (7-18); BUN/Creat Ratio 13.1 RATIO (10-20); Calcium,Total 9.3 mg/dL (8.5-10.1); Chloride 103 mmol/L (98-107); Cholesterol 101 mg/dL (200); Creatinine, Serum 0.92 mg/dL (0.70-1.30); EST Glomerular Filtration Rate 85 mL/min (>60); Est Glom Filt Rate - Afr Amer 103 mL/min (>60); Globulin 3.9 g/dL (2.2-4.2); Glucose 142 mg/dL (74-106); High Density Lipoprotein 47 mg/dL; PSA,Total - Annual Screen 0.59 ng/mL (0.00-4.00); Potassium 4.3 mmol/L (3.5-5.1); Protein, Total 7.8 g/dL (6.4-8.2); Sodium Level 140 mmol/L (136-145); Thyroid Stim Hormone (TSH) 1.77 uIU/mL (0.358-3.74); Triglycerides 92 mg/dL; Very Low Density Lipoprotein 18 mg/dL (5-40)
[2022-07-29 11:37] LABS: Microalbumin,Random Urine 35.8 mg/L (NO RANGE EST.)
== END | disposition home or self-care (01) ==
LOC: LAB 07:39
PROVIDERS: PCP Family Medicine; Referring Provider Family Medicine; Visit Provider Family Medicine
DX: E11.9 Type 2 diabetes mellitus without complications (principal); I25.10 Atherosclerotic heart disease of native coronary artery without angina pectoris
CPT/HCPCS: 36415; 80053; 80061; 82043; 84153; 84443; 85027; G0103

== ENCOUNTER 2022-10-12 09:40 | Outpatient (RCR) | payer MEDICARE, SELFPAY | END 2022-10-25 23:59 | disposition home or self-care (01) | LOC: WC 09:40 | PROVIDERS: PCP Family Medicine; Visit Provider Surgery | DX: Z09 Encounter for follow-up examination after completed treatment for conditions other than malignant neoplasm (principal) ==

== ENCOUNTER → 2023-01-19 | Outpatient (CLI) | payer MEDICARE, SELFPAY ==
--- NOTE | 2023-01-19 07:50 | RAD_ITS ---
STUDY: X-RAY - RIGHT WRIST REASON FOR EXAM: Male, 77 years old. RIGHT WRIST PAIN following a fall. Swelling. TECHNIQUE: 3 view(s) of the wrist were obtained. COMPARISON: None. FINDINGS: Normal visualized distal radius and ulna. Normal radiocarpal articulation. Normal distal radioulnar articulation. Normal carpal bones. Normal carpal articulations. Normal carpometacarpal articulation of the thumb. Normal second through fifth carpometacarpal articulations. Normal visualized metacarpal bones. Soft tissue swelling. Vascular calcification. RAD/Wrist min 3 Views IMPRESSION: Soft tissue swelling. Vascular calcification. Electronically Signed: Daryn Zambrano MD at 8:39 EDT ,
[2023-01-19 08:09] LABS: Hemoglobin 13.1 g/dL (13.0-16.5); Mean Corpuscular Volume 93.8 fL (80-94); Mean Platelet Vol. 9.8 fl (6.2-12.0); Platelet Count 212 K/mm3 (150-450); RBC Distribution Width CV 13.3 % (11.6-14.6); RBC Distribution Width SD 45.9 fl (35.1-43.9); Red Blood Count 4.37 M/mm3 (4.6-6.2); White Blood Count 6.6 K/mm3 (4.4-11.0)
[2023-01-19 08:40] LABS: ALB/GLOB Ratio 0.8 RATIO (0.9-2.4); AST(SGOT) 13 U/L (15-37); Alanine Aminotransfer ALT/SGPT 21 U/L (16-61); Albumin, Serum 3.5 g/dL (3.2-5.0); Alkaline Phosphatase 77 U/L (45-117); Anion Gap 3 (5-15); BUN 13 mg/dL (7-18); Calcium,Total 9.2 mg/dL (8.5-10.1); Chloride 106 mmol/L (98-107); Cholesterol 93 mg/dL (200); Creatinine, Serum 0.93 mg/dL (0.70-1.30); EST Glomerular Filtration Rate 84 mL/min (>60); Est Glom Filt Rate - Afr Amer 102 mL/min (>60); Globulin 4.3 g/dL (2.2-4.2); Glucose 135 mg/dL (74-106); High Density Lipoprotein 52 mg/dL; Potassium 4.3 mmol/L (3.5-5.1); Protein, Total 7.8 g/dL (6.4-8.2); Sodium Level 140 mmol/L (136-145); Triglycerides 67 mg/dL; Very Low Density Lipoprotein 13 mg/dL (5-40)
== END | disposition home or self-care (01) ==
PROVIDERS: PCP Family Medicine; Referring Provider Family Medicine; Visit Provider Family Medicine
DX: M25.531 Pain in right wrist (principal); E11.9 Type 2 diabetes mellitus without complications
CPT/HCPCS: 36415; 73110; 80053; 80061; 83036; 85027

== ENCOUNTER → 2023-07-25 | Outpatient (CLI) | payer MEDICARE, SELFPAY ==
[2023-07-25 07:38] LABS: Hematocrit 41.8 % (40-54); Hemoglobin 13.7 g/dL (13.0-16.5); Mean Corp Hgb Conc 32.8 g/dL (32-36); Mean Corpuscular Hgb 30.3 pg (27.0-32.0); Mean Corpuscular Volume 92.5 fL (80-94); Mean Platelet Vol. 9.6 fl (6.2-12.0); Platelet Count 228 K/mm3 (150-450); RBC Distribution Width CV 13.6 % (11.6-14.6); RBC Distribution Width SD 46.1 fl (35.1-43.9); Red Blood Count 4.52 M/mm3 (4.6-6.2); White Blood Count 6.8 K/mm3 (4.4-11.0)
[2023-07-25 08:17] LABS: ALB/GLOB Ratio 1.1 RATIO (0.9-2.4); AST(SGOT) 14 U/L (15-37); Alanine Aminotransfer ALT/SGPT 26 U/L (16-61); Albumin, Serum 3.9 g/dL (3.2-5.0); Alkaline Phosphatase 70 U/L (45-117); Anion Gap 4 (5-15); BUN 17 mg/dL (7-18); BUN/Creat Ratio 17.5 RATIO (10-20); Calcium,Total 9.2 mg/dL (8.5-10.1); Chloride 107 mmol/L (98-107); Cholesterol 109 mg/dL (200); Creatinine, Serum 0.97 mg/dL (0.70-1.30); EST Glomerular Filtration Rate 79 mL/min (>60); Est Glom Filt Rate - Afr Amer 96 mL/min (>60); Globulin 3.5 g/dL (2.2-4.2); Glucose 121 mg/dL (74-106); High Density Lipoprotein 46 mg/dL; Potassium 4.2 mmol/L (3.5-5.1); Protein, Total 7.4 g/dL (6.4-8.2); Sodium Level 140 mmol/L (136-145); Triglycerides 91 mg/dL; Very Low Density Lipoprotein 18 mg/dL (5-40)
[2023-07-25 09:03] LABS: Hemoglobin A1c 6.1 % (3.8-5.6)
== END | disposition home or self-care (01) ==
LOC: LAB 07:16
PROVIDERS: PCP Family Medicine; Visit Provider Family Medicine
DX: I25.10 Atherosclerotic heart disease of native coronary artery without angina pectoris (principal); E11.9 Type 2 diabetes mellitus without complications
CPT/HCPCS: 36415; 80053; 80061; 83036; 85027

== ENCOUNTER 2023-08-05 22:28 | Observation (INO) | payer MEDICARE, SELFPAY ==
[2023-08-05 22:28] VITALS: BP 175/79; PULSE 64; RESP 16; TEMP 36.6; O2SAT 100
[2023-08-05 22:30] VITALS: BMI 25.4
--- NOTE | 2023-08-05 23:20 | CT_ITS ---
We are attempting to reach an attending provider to discuss findings. An addendum with communication details will be sent when the communication is complete. EXAM: CT Abdomen And Pelvis W/O Contrast Injection HISTORY: bowel obstruction TECHNIQUE: Routine protocol CT abdomen and pelvis. IV Contrast: None.. Oral contrast: None. RADIATION DOSAGE (If Supplied By Facility): CTDIvol = ( 8.08 ) mGy, DLP = ( 482.23 ) mGycm Individualized dose optimization techniques were used for this CT. COMPARISON: Report of CT abdomen and pelvis 02/01/2022, images are not available. LIMITATIONS: None. FINDINGS: LOWER CHEST: Dependent atelectasis in the lung bases. Coronary artery calcifications are noted. LIVER: Grossly unremarkable. GALLBLADDER AND BILIARY TREE: Small gallstones in the gallbladder. PANCREAS: Grossly unremarkable. SPLEEN: Grossly unremarkable. ADRENAL GLANDS: Grossly unremarkable. KIDNEYS AND URETERS: No calculi demonstrated. No hydronephrosis. PERITONEUM: No free air. No free fluid. BOWEL: Ostomy in the right midabdomen. Parastomal hernia containing short segment of small bowel which is moderately dilated, with transition at the entrance and exit points of the hernia. This configuration raises the possibility of closed loop obstruction within the hernia. There is mild stranding and small amount of fluid in the hernia sac. Small bowel proximal to the hernia is dilated, and the distal small bowel is decreased caliber. Surgical clips in the pelvis. APPENDIX: Not identified. VESSELS: Abdominal aorta is normal caliber. REPRODUCTIVE ORGANS: Prostate mildly enlarged. URINARY BLADDER: Grossly unremarkable. ABDOMINAL WALL: Unremarkable. BONES: No acute abnormalities. Surgical hardware in the right hip. Degenerative changes of the left hip and lumbar spine. CT/Abdomen/Pelvis without Cont IMPRESSION: Parastomal hernia containing small bowel with findings that may be consistent with incarceration and possible strangulation. Secondary small bowel obstruction. Surgical consultation recommended. Electronically Signed: Marjorie Ojeda MD at 0:42 EDT ,
--- NOTE | 2023-08-05 23:21 | EX.ED.DYSGE1 ---
HPI History of Present Illness Chief Complaint: Abd Pain Informant: patient and spouse/S.O. Onset/Context/Timing Onset: Today Narrative Narrative: Patient presents with concern for ostomy blockage. He has a colostomy in place for several years. states that he had some output from it this morning and has a small bit before dinner. He has not had any output since that time. She is concerned that it is blocked with stool and unable to drain. Patient denies fever or chills. No vomiting. PFSH [facility] Medical History CAD (coronary artery disease) Depression Diabetes GI bleed Hyperlipidemia Hypertension Parkinsons disease Home Medications nitroglycerin 0.4 mg sublingual tablet 0.4 mg sublingual Q5M PRN Chest Pain 06/25/14 [History Last Taken Unknown] acetaminophen 500 mg tablet 500 mg PO DAILY 03/20/17 [History Last Taken 12/11/18] atorvastatin 20 mg tablet 20 mg PO QHS cholesterol 12/11/18 [History Last Taken 12/10/18] furosemide 40 mg tablet 40 mg PO DAILY fluid 12/11/18 [History Last Taken 12/11/18] potassium chloride 20 mEq/15 mL oral liquid 15 ml PO DAILY supplement 12/11/18 [History Last Taken 12/11/18] cholecalciferol (vitamin D3) 25 mcg (1,000 unit) tablet (Vitamin D3) 25 mcg PO DAILY 11/22/20 [History Last Taken Unknown] metformin 500 mg tablet 500 mg PO BID 11/22/20 [History Last Taken Unknown] aspirin 81 mg capsule 81 mg PO DAILY 08/17/21 [History Last Taken Unknown] carbidopa 25 mg-levodopa 100 mg tablet 2 tab PO TID 08/17/21 [History Last Taken Unknown] metoprolol tartrate 50 mg tablet 50 mg PO BID 08/17/21 [History Last Taken Unknown] quetiapine 25 mg tablet 25 mg PO QHS 08/17/21 [History Last Taken Unknown] potassium chloride 20 mEq tablet,extended release(part/cryst) 20 meq PO DAILY 08/06/23 [History Last Taken Unknown] timolol maleate 0.5 % eye drops 1 drp ophthalmic (eye) BID 08/06/23 [History Last Taken Unknown] Allergy/AdvReac Type Severity Reaction Status Date / Time No Known Allergies Allergy Verified 08/05/23 22:30 Family History Father Heart disease Mother Cancer Pancreatic cancer in her 60s. 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 Social History household members: spouse housing: house Smoking Status: Never smoker alcohol intake: current alcohol intake frequency: holidays/special occasions only substance use type: does not use ROS ROS ED Constitutional Constitutional ED: Denies chills or fever(s) Eyes Eyes: Denies discharge from eye(s) ENT ENT ED: Denies discharge from eye(s), rhinorrhea or sore throat Cardiovascular Cardiovascular: Denies chest pain or palpitations Respiratory/Chest Respiratory/Chest: Denies cough or dyspnea Gastrointestinal Gastrointestinal: Reports abdominal pain and constipation; Denies nausea or vomiting Genitourinary Genitourinary ED: Denies dysuria Musculoskeletal Musculoskeletal: Denies back pain or extremity pain Integumentary Denies Abrasions or rash Neurologic Neurologic: Denies headache(s) or weakness Psychiatric Psychiatric: Denies anxiety or depression Allergic/Immunologic Allergic/Immunologic ED: Denies lip swelling or urticaria EXAM Physical Exam Const Vital Signs: 08/05/23 22:28 08/06/23 00:28 08/06/23 02:00 Temperature 97.9 F Temperature Source Temporal Pulse Rate 64 81 88 Respiratory Rate 16 14 16 Blood Pressure 175/79 H 169/73 H 155/70 H Blood Pressure Mean 111 105 98 Pulse Ox 100 98 94 Oxygen Delivery Method Room Air Room Air Room Air Positive well nourished and well developed General Appearance ED: well developed HEENT Reports moist mucous membranes Eyes EOMs intact bilaterally Chest Wall inspection of chest normal and palpation of chest normal Resp normal respiratory effort and clear to auscultation bilaterally Cardio regular rate and regular rhythm GI GI Narrative: Ostomy in place in the right lower quadrant. Tissue was edematous and slightly protruding. No obvious stool at the opening. Resistance noted when trying to reduce the protrusion. Patient does have fullness with apical mass along the inferolateral aspect of the ostomy. Active bowel sounds are noted. Extremity normal to inspection Neuro oriented x3 MDM MDM MDM Narrative Medical decision making narrative: Due to concern for potential bowel obstruction, CT scan of the abdomen pelvis is obtained. IV line will be initiated and screening labs obtained as well. History & Record Review Discussion w/independent historian: Patient and Significant other Additional record(s) reviewed:: Prior ED visit and Prior labs Lab Data Attestation: I reviewed the patient's lab results. Labs: Laboratory Results - last 24 hr 08/05/23 23:29 WBC 8.9 RBC 4.75 Hgb 14.0 Hct 43.7 MCV 92.0 MCH 29.5 MCHC 32.0 RDW Std Deviation 45.2 H RDW Coeff of Jed 13.3 Plt Count 216 MPV 9.7 Immature Gran % (Auto) 0.600 Neut % (Auto) 87.0 H Lymph % (Auto) 5.3 L [place] % (Auto) 5.7 Eos % (Auto) 0.7 Baso % (Auto) 0.7 Absolute Neuts (auto) 7.7 Absolute Lymphs (auto) 0.47 L Nucleated RBC % 0 Sodium 139 Potassium 4.3 Chloride 101 Carbon Dioxide 33.0 H Anion Gap 5 BUN 20 H Creatinine 1.07 Est GFR (MDRD) Af Amer 86 Est GFR (MDRD) Non-Af 71 BUN/Creatinine Ratio 18.7 Glucose 163 H Calcium 9.6 Radiography Diagnostic Testing: Clinical Impression(s) from Imaging Studies Abdomen/Pelvis CT 08/05/23 23:20 IMPRESSION: Parastomal hernia containing small bowel with findings that may be consistent with incarceration and possible strangulation. Secondary small bowel obstruction. Surgical consultation recommended. Electronically Signed: Marjorie Ojeda MD at 0:42 EDT , ADDENDUM: 08/06/23 0051 IMPRESSION: Parastomal hernia containing small bowel with findings that may be consistent with incarceration and possible strangulation. Secondary small bowel obstruction. Surgical consultation recommended. N.B. : The above Results were Read Back by Marjorie Ojeda MD to Kait Barger MD, and understanding confirmed on 08/06/2023 00:44:08 (ET). Electronically Signed: Marjorie Ojeda MD at 0:42 EDT , Treatment and Re-Evaluation :: CBC was normal white count 8.9 with 87% neutrophils. Hemoglobin is 14. Chemistry studies remarkable only for glucose of 163. CT scan of the abdomen pelvis reveals a parastomal hernia containing small bowel with findings that may be consistent with incarceration and possible strangulation. Secondary small bowel obstruction noted. I spoke with Dr. Ellington who presented to the emergency room and evaluated patient. He has reduced the hernia as best as he can. In review of prior records it appears patient has had similar findings on previous scans and he thinks this is likely a chronic issue. Patient be admitted to his service for close observation. Discharge Plan Triage Chief Complaint: Abd Pain Other Complaint: Constipation ED Provider: Kait Barger Dx/Rx/DC Orders Clinical Impression: Parastomal hernia, Small bowel obstruction Prescriptions: No Action nitroglycerin 0.4 MG tablet 0.4 mg sublingual Q5M PRN (Reason: Chest Pain) Patient Comments: CHEST PAIN acetaminophen 500 MG tablet 500 mg PO DAILY furosemide 40 MG tablet 40 mg PO DAILY atorvastatin 20 MG tablet 20 mg PO QHS potassium chloride 20 MEQ/15 ML liquid 15 ml PO DAILY metformin 500 mg tablet 500 mg PO BID Patient Comments: Take 1 tablet by mouth 2 times a Day cholecalciferol (vitamin D3) [Vitamin D3] 25 mcg (1,000 unit) Tablet 25 mcg PO DAILY quetiapine 25 mg Tablet 25 mg PO QHS metoprolol tartrate 50 mg Tablet 50 mg PO BID carbidopa-levodopa 25-100 mg Tablet 2 tab PO TID aspirin 81 mg Capsule 81 mg PO DAILY potassium chloride 20 mEq tablet,ER particles/crystals 20 meq PO DAILY timolol maleate 0.5 % drops 1 drp ophthalmic (eye) BID Primary Care Provider: Dustin Thacker Referrals: Dustin Thacker MD [Primary Care Provider] - Disposition Disposition: Acute Care Hospital [facility]
[2023-08-05 23:39] LABS: Absolute Lymphocyte Count 0.47 X10^3/uL (0.83-4.51); Absolute Neutrophil Count 7.7 X10^3/uL (2.0-7.7); Basophil# 0.06 X10^3/uL; Basophil% 0.7 % (0-1); Eosinophil# 0.06 X10^3/uL; Eosinophils% 0.7 % (0-5); Hematocrit 43.7 % (40-54); Lymphocyte # 0.47 X10^3/ul (0.83-4.51); Lymphocyte % 5.3 % (19-41); Mean Corpuscular Hgb 29.5 pg (27.0-32.0); Mean Platelet Vol. 9.7 fl (6.2-12.0); Monocyte# 0.51 X10^3/uL; Monocyte% 5.7 % (0-10); NRBC Flagged by Analyzer 0 % (0-5); Neutrophil # 7.72 X10^3/uL (2.7-7.7); POSITIVE DIFFERENTIAL YES; Platelet Count 216 K/mm3 (150-450); RBC Distribution Width CV 13.3 % (11.6-14.6); RBC Distribution Width SD 45.2 fl (35.1-43.9); Red Blood Count 4.75 M/mm3 (4.6-6.2); White Blood Count 8.9 K/mm3 (4.4-11.0)
[2023-08-05 23:53] LABS: Anion Gap 5 (5-15); BUN 20 mg/dL (7-18); BUN/Creat Ratio 18.7 RATIO (10-20); Calcium,Total 9.6 mg/dL (8.5-10.1); Chloride 101 mmol/L (98-107); Creatinine, Serum 1.07 mg/dL (0.70-1.30); EST Glomerular Filtration Rate 71 mL/min (>60); Est Glom Filt Rate - Afr Amer 86 mL/min (>60); Glucose 163 mg/dL (74-106); Potassium 4.3 mmol/L (3.5-5.1); Sodium Level 139 mmol/L (136-145)
[2023-08-06] VITALS (10 sets, daily range): BP systolic 110–169; BP diastolic 56–73; PULSE 81–110; RESP 14–18; TEMP 36.6–37.2; O2SAT 94–99; BMI 25.4
--- NOTE | 2023-08-06 03:04 | CON.PCM.HO_ITS ---
Assessment & Plan Assessment/Plan (1) Parastomal hernia: QUALIFIERS: Obstruction and gangrene presence: with obstruction but without gangrene Qualified Code(s): K43.3 - Parastomal hernia with obstruction, without gangrene (2) Small bowel obstruction: (3) Essential (primary) hypertension: (4) Parkinsons disease: QUALIFIERS: Dyskinesia presence: unspecified whether dyskinesia Fluctuating manifestations: unspecified whether manifestations fluctuate Cosmo lified Code(s): G20.A1 - Parkinson's disease without dyskinesia, without mention of fluctuations PLAN: Plan 1. Possible closed-loop obstruction at the parastomal hernia with possible strangulation given simple fluid within the hernia sac resulting in patient being admitted to general surgery and with subsequent hospitalist consultation for medical management with the patient okay to have clear liquids and medications - Give IV fluids and IV Zofran as needed for GI upset. Agree with reevaluation in a.m. to monitor for output and reevaluate for consideration of possible elective parastomal hernia repair. Otherwise, continue home medications as previous and monitor for improvement. 2. History of chronic incarcerated parastomal hernia; previously evaluated October [address] Evangelista with subsequent reduction and recommendation to follow-up with a hernia specialist at a tertiary care hospital with another recurrence in July 2021; complicated by the fact that his primary surgeon in early January 2022 and he then consulted with his remaining partner and discussed surgery versus simply wearing an ostomy belt and had settled on an ostomy belt given his advanced age and multiple comorbidities with a belt in use for the past year with little difficulty from the hernia apart from manually reducing it nightly complicating #1 - Noted. 3. History of toxic megacolon; status post total colectomy at [facility] in [place] with Dr. Lanier (2017) - Stable. 4. History of dysphagia; status post PEG placement - Noted. 5. History of left inguinal hernia; status post repair - Noted. 6. History of severe protein calorie malnutrition with adult failure to thrive - Noted. Check albumin and prealbumin levels this admission. 7. Essential hypertension - Resume home regimen plus give as needed IV hydralazine for systolic blood pressure greater than 160 mmHg. 8. Hyperlipidemia - Resume statin. 9. Diabetes mellitus type 2; of unknown control on metformin - Patient to have clear liquid diet and medications as previous except hold metformin. Check fingerstick blood sugars q. AC/HS + lowest intensity sliding scale insulin. Finally, we will check hemoglobin A1c to objectively assess quality of diabetic control. 10. CAD; status post CABG x 6 (2003) - Noted. 11. Parkinson's disease; on Sinemet 2 tabs p.o. 3 times daily - Resume Sinemet as previous. 12. History of GI bleed - Noted. 13. History of small bowel obstruction - Noted. 14. History of cholecystectomy - Noted. 15. Anemia of chronic disease - Stable with hemoglobin of 14 g/dL present on admission. 16. Glaucoma - Continue timolol eyedrops as previous. 17. History of depression - Stable. 18. Osteoarthritis; with history of Right total hip replacement - Stable. 19. DVT prophylaxis - SCD's only at this time with possible impending surgery for parastomal hernia repair. Total time: Approximately 45 minutes. HPI Consult Data Date of Consult: 08/06/23 Attending Care Provider: Dr. Mario Ellington MD HPI Narrative Reason for Consultation: Medical Management in patient with Parastomal Hernia HPI Narrative: TOSHIA THOMPSON, is a 77 M with a past medical history of essential hypertension, hyperlipidemia, diabetes mellitus type 2; of unknown control on metformin, CAD; status post CABG x 6 (2003), Parkinson's disease; on Sinemet 2 tabs p.o. 3 times daily, history of GI bleed, history of small bowel obstruction, history of left inguinal hernia; status post repair, history of toxic megacolon; status post total colectomy at [facility] in [place] with Dr. Lanier (2017), history of bowel perforation; status post colostomy, history of dysphagia; status post PEG placement, history of cholecystectomy, history of severe protein calorie malnutrition with adult failure to thrive, anemia of chronic disease, glaucoma, depression, osteoarthritis; with history of Right total hip replacement and history of chronic incarcerated parastomal hernia; previously evaluated October [address] Evangelista with subsequent reduction and recommendation to follow-up with a hernia specialist at a tertiary care hospital with another recurrence in July 2021; complicated by the fact that his primary surgeon in early January 2022 and he then consulted with his remaining partner and discussed francisco j lisa versus simply wearing an ostomy belt and had settled on an ostomy belt given his advanced age and multiple comorbidities with a belt in use for the past year with little difficulty from the hernia apart from manually reducing it nightly who presents to [facility] ER concern for ostomy blockage. Mr. Thompson reports he has had a colostomy in place for several years and it has apparently become blocked with stool and able to drain in the past and he was afraid this problem may have been recurring. His informed the ER that he had some output from his ostomy this morning and then a small bit before dinner but none since that time. His was not then unable to easily reduce his known parastomal hernia so she decided to bring him into the ER for further evaluation and treatment. His ostomy is in the right lower quadrant and his tissue was noted to be edematous and slightly protruding with no obvious stool at the opening and resistance noted when trying to reduce the protrusion with fullness and suspected apical mass along the inferolateral aspect of the ostomy with active bowel sounds noted. There is no report of fever, chills, nausea, vomiting, diarrhea, chest pain, shortness of breath or palpitations but he does admit to generalized cramping abdominal pain and constipation. In the ER CT scan of the abdomen pelvis was read as concerning for possible closed-loop obstruction at the parastomal hernia with possible strangulation given simple fluid within the hernia sac resulting in patient being admitted to general surgery and with subsequent hospitalist consultation for medical management. The patient then had his ostomy appliance taken down with digital palpation through the os of his stoma with initial tenderness but then he began to pass b oth flatus and stool through his ostomy along with evidence of improved perfusion and likely element of chronic small bowel incarceration within his parastomal hernia so he was recommended for observation overnight and reevaluation in the a.m. to monitor for output and reevaluate for consideration of elective parastomal hernia repair. General surgeon agrees patient should continue his medications as he is on a clear liquid diet at this time. Thank you for allowing us to participate in the care of your patient. [facility] Medical History (Updated 08/06/23 @ 05:[address] Josué Bell DO) CAD (coronary artery disease) Depression Diabetes GI bleed Hyperlipidemia Hypertension Parkinsons disease Home Medications nitroglycerin 0.4 mg sublingual tablet 0.4 mg sublingual Q5M PRN Chest Pain 06/25/14 [History Last Taken Unknown] acetaminophen 500 mg tablet 500 mg PO PRN pain 03/20/17 [History Last Taken 12/11/18] atorvastatin 20 mg tablet 20 mg PO QHS cholesterol 12/11/18 [History Last Taken 12/10/18] furosemide 40 mg tablet 40 mg PO DAILY fluid 12/11/18 [History Last Taken 12/11/18] cholecalciferol (vitamin D3) 25 mcg (1,000 unit) tablet (Vitamin D3) 25 mcg PO DAILY 11/22/20 [History Last Taken Unknown] metformin 500 mg tablet 500 mg PO BID 11/22/20 [History Last Taken Unknown] aspirin 81 mg capsule 81 mg PO DAILY 08/17/21 [History Last Taken Unknown] carbidopa 25 mg-levodopa 100 mg tablet 2 tab PO TID 08/17/21 [History Last Taken Unknown] metoprolol tartrate 50 mg tablet 50 mg PO BID 08/17/21 [History Last Taken Unknown] quetiapine 25 mg tablet See Rx Instructions PO QHS 08/17/21 [History Last Taken Unknown] potassium chloride 20 mEq tablet,extended release(part/cryst) 20 meq PO DAILY 08/06/23 [History Last Taken Unknown] timolol maleate 0.5 % eye drops 1 drp ophthalmic (eye) BID 08/06/23 [History Last Taken Unknown] Allergy/AdvReac Type Severity Reaction Status Date / Time No Known Allergies Allergy Verified 08/05/23 22:30 Family History Father Heart disease Mother Cancer Pancreatic cancer in her 60s. 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 Social History household members: spouse housing: house Smoking Status: Never smoker alcohol intake: current alcohol intake frequency: holidays/special occasions only substance use type: does not use ROS ROS Narrative Review of systems: General: Patient denies fever or chills. HENT: Denies headache, denies stuffy nose, denies sore throat EYES: Denies changes in vision or discharge from eyes. Resp: Denies cough, denies shortness of breath Cardiac: Denies chest pain, palpitations or heart racing. GI: Patient admits to constipation with hardening around his ostomy accompanied by generalized cramping abdominal pain as per HPI. : Denies changes in urination Extremity: Denies swelling Musculoskeletal: Feels somewhat generally weak and unwell but denies arthralgias or myalgias. Neuro: Patient denies headache, paresthesias or focal neurologic weakness. Heme: Denies any bleeding or bruising Skin: Denies rashes Psychiatric: No complaints voiced related to uncontrolled depression or anxiety Endocrine: No polyuria, polydipsia or polyphagia. The rest of the 14 point ROS was negative except for positives in HPI. Physical Exam Const alert, oriented x3, no apparent distress, average body habitus and healthy appearing General Appearance: cooperative HEENT normocephalic, head/scalp atraumatic and hearing grossly normal bilaterally HEENT Narrative: Mucous membranes dry Eyes PERRL, EOMs intact bilaterally and conjunctivae normal Eyes Narrative: Patient has what appears to be of small chronic cyst in the lowest region of his Right-middle upper eyelid with no signs of active infection. Neck no lymphadenopathy and supple Resp normal respiratory effort, no retractions, no use of accessory muscles and clear to auscultation bilaterally Cardio regular rate and regular rhythm GI normal to inspection, nondistended, normoactive bowel sounds, soft to palpation, non-tender and non-distended GI Narrative: Patient's ostomy has been filled brown liquid stool with no abdominal pain, no signs of vascular compromise and good bowel sounds. Palpation: hernia Extremity normal to inspection, full ROM and no clubbing, cyanosis or edema Skin Skin Narrative: Patient has no evidence of rash. Neuro oriented x3, CN's II-XII intact bilaterally, moves all extremities, no focal motor deficits and no sensory deficits noted Sensorium / Orientation: awake, alert, oriented to person, oriented to place and oriented to time Speech: speech normal Motor Exam: strength 5/5 throughout Psych affect normal Medical Records Data Attestation: I reviewed the patient's medical records Lab / Micro Data Attestation: I reviewed the patient's lab results. 08/06/23 05:15 08/05/23 23:29 Labs: Laboratory Results - last 24 hr 08/05/23 23:29: WBC 8.9, RBC 4.75, Hgb 14.0, Hct 43.7, MCV 92.0, MCH 29.5, MCHC 32.0, RDW Std Deviation 45.2 H, RDW Coeff of Jed 13.3, Plt Count 216, MPV 9.7, Immature Gran % (Auto) 0.600, Neut % (Auto) 87.0 H, Lymph % (Auto) 5.3 L, [place] % (Auto) 5.7, Eos % (Auto) 0.7, Baso % (Auto) 0.7, Absolute Neuts (auto) 7.7, Absolute Lymphs (auto) 0.47 L, Nucleated RBC % 0, Sodium 139, Potassium 4.3, Chloride 101, Carbon Dioxide 33.0 H, Anion Gap 5, BUN 20 H, Creatinine 1.07, Est GFR (MDRD) Af Amer 86, Est GFR (MDRD) Non-Af 71, BUN/Creatinine Ratio 18.7, Glucose 163 H, Calcium 9.6 Imaging Radiology Impression Abdomen/Pelvis CT 08/05/23 23:20 IMPRESSION: Parastomal hernia containing small bowel with findings that may be consistent with incarceration and possible strangulation. Secondary small bowel obstruction. Surgical consultation recommended. Electronically Signed: Marjorie Ojeda MD at 0:42 EDT Reading Location ID and State: [address] [place] [address] Tel , Service support , ADDENDUM: 08/06/23 0051 IMPRESSION: Parastomal hernia containing small bowel with findings that may be consistent with incarceration and possible strangulation. Secondary small bowel obstruction. Surgical consultation recommended. N.B. : The above Results were Read Back by Marjorie Ojeda MD to Kait Barger MD, and understanding confirmed on 08/06/2023 00:44:08 (ET). Electronically Signed: Marjorie Ojeda MD at 0:42 EDT , Charges/Coding Visit Charges Office Visits / Consults: [id number] IP Consult L3
--- NOTE | 2023-08-06 03:05 | HP.PCM_ITS ---
HPI - General General Date of Admission: 08/06/23 HPI Narrative TOSHIA THOMPSON, is a 77 M who presents to [facility] at the urging of his after she was unable to easily reduce his known parastomal hernia. She also noticed decreased output from the stoma and shares that she normally would have had to empty his appliance after dinner but found it largely empty upon her examination patient's ER workup was notable for CBC with mild neutrophil predominance but otherwise unremarkable. CT imaging of the abdomen pelvis was read as concerning for possible closed-loop obstruction at the parastomal hernia with possible strangulation given some simple fluid within the hernia sac. 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 Lanier after he was initially evaluated at this hospital by Dr. Spangler. Subsequently he was evaluated October [address] Goff for concern of a incarcerated parastomal hernia and she was reportedly able to fully reduce the hernia and recommended tertiary care follow- up. This presentation recurred again July 2021 and again patient followed up with Dr. Goff in August 2021 who maintained a recommendation for hernia specialist follow-up. Mrs. Thompson shares that she found out that her 's primary surgeon in early January 2022 and she thus consulted with his partner. They discussed surgery versus simply wearing a ostomy belt and settled on the latter given her 's advanced age. She estimates that he has been using his belt for the last 1 year with little difficulty from the hernia apart from manually reducing it nightly. [facility] Medical History CAD (coronary artery disease) Depression Diabetes GI bleed Hyperlipidemia Hypertension Parkinsons disease Home Medications nitroglycerin 0.4 mg sublingual tablet 0.4 mg sublingual Q5M PRN Chest Pain 06/25/14 [History Last Taken Unknown] acetaminophen 500 mg tablet 500 mg PO DAILY 03/20/17 [History Last Taken 12/11/18] atorvastatin 20 mg tablet 20 mg PO QHS cholesterol 12/11/18 [History Last Taken 12/10/18] furosemide 40 mg tablet 40 mg PO DAILY fluid 12/11/18 [History Last Taken 12/11/18] cholecalciferol (vitamin D3) 25 mcg (1,000 unit) tablet (Vitamin D3) 25 mcg PO DAILY 11/22/20 [History Last Taken Unknown] metformin 500 mg tablet 500 mg PO BID 11/22/20 [History Last Taken Unknown] aspirin 81 mg capsule 81 mg PO DAILY 08/17/21 [History Last Taken Unknown] carbidopa 25 mg-levodopa 100 mg tablet 2 tab PO TID 08/17/21 [History Last Taken Unknown] metoprolol tartrate 50 mg tablet 50 mg PO BID 08/17/21 [History Last Taken Unknown] quetiapine 25 mg tablet See Rx Instructions PO QHS 08/17/21 [History Last Taken Unknown] potassium chloride 20 mEq tablet,extended release(part/cryst) 20 meq PO DAILY 08/06/23 [History Last Taken Unknown] timolol maleate 0.5 % eye drops 1 drp ophthalmic (eye) BID 08/06/23 [History L ast Taken Unknown] Allergy/AdvReac Type Severity Reaction Status Date / Time No Known Allergies Allergy Verified 08/05/23 22:30 Family History Father Heart disease Mother Cancer Pancreatic cancer in her 60s. 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 Social History household members: spouse housing: house Smoking Status: Never smoker alcohol intake: current alcohol intake frequency: holidays/special occasions only substance use type: does not use ROS Gastrointestinal Gastrointestinal: Reports abdominal pain and constipation Vital Signs Vital Signs Vital Signs: 08/05/23 22:28 08/06/23 00:28 08/06/23 02:00 Temperature 97.9 F Temperature Source Temporal Pulse Rate 64 81 88 Respiratory Rate 16 14 16 Blood Pressure 175/79 H 169/73 H 155/70 H Blood Pressure Mean 111 105 98 Pulse Ox 100 98 94 Oxygen Delivery Method Room Air Room Air Room Air Physical Exam Const alert and oriented x3 Constitutional Narrative: Mild distress from abdominal discomfort General Appearance: cooperative Resp normal respiratory effort GI GI Narrative: Mildly distended with scant blood in ostomy appliance as well as overlying stoma mucosa. No significant output in ostomy appliance?including air. There is a visible bulge lateral to patient's ostomy which is moderately firm with palpation. Results Lab / Micro Data 08/05/23 23:29 08/05/23 23:29 Labs: Laboratory Results - last 24 hr 08/05/23 23:29: WBC 8.9, RBC 4.75, Hgb 14.0, Hct 43.7, MCV 92.0, MCH 29.5, MCHC 32.0, RDW Std Deviation 45.2 H, RDW Coeff of Jed 13.3, Plt Count 216, MPV 9.7, Immature Gran % (Auto) 0.600, Neut % (Auto) 87.0 H, Lymph % (Auto) 5.3 L, [place] % (Auto) 5.7, Eos % (Auto) 0.7, Baso % (Auto) 0.7, Absolute Neuts (auto) 7.7, Absolute Lymphs (auto) 0.47 L, Nucleated RBC % 0, Sodium 139, Potassium 4.3, Chloride 101, Carbon Dioxide 33.0 H, Anion Gap 5, BUN 20 H, Creatinine 1.07, Est GFR (MDRD) Af Amer 86, Est GFR (MDRD) Non-Af 71, BUN/Creatinine Ratio 18.7, Glucose 163 H, Calcium 9.6 Imaging Radiology Impression Abdomen/Pelvis CT 08/05/23 23:20 IMPRESSION: Parastomal hernia containing small bowel with findings that may be consistent with incarceration and possible strangulation. Secondary small bowel obstruction. Surgical consultation recommended. Electronically Signed: Marjorie Ojeda MD at 0:42 EDT , ADDENDUM: 08/06/23 0051 IMPRESSION: Parastomal hernia containing small bowel with findings that may be consistent with incarceration and possible strangulation. Secondary small bowel obstruction. Surgical consultation recommended. N.B. : The above Results were Read Back by Marjorie Ojeda MD to Kait Barger MD, and understanding confirmed on 08/06/2023 00:44:08 (ET). Electronically Signed: Marjorie Ojeda MD at 0:42 EDT , Assessment & Plan Assessment/Plan (1) Parastomal hernia: PLAN: Patient is a 77-year-old male with a known history of a parastomal hernia following subtotal colectomy for history of megacolon managed operatively in 2017 who presents with signs and symptoms of small bowel obstruction within this parastomal hernia. Upon evaluation patient had mild oozing within his ostomy appliance as well as a firm bulge laterally. I attempted to simply place manual traction on this bulge initially with little result. Therefore I took down patient's ostomy appliance and digitally palpated through the os of his stoma. Patient had some initial tenderness with this but gradually I felt the lateral bulge soften and patient began to pass both flatus and stool through his ostomy. I repeatedly tried to insert my finger beyond the level of the patient's fascia but found it simply wanting to track laterally above the fascia within the loop of small bowel. I attempted to continue manual reduction through the stoma as well as with traction from lateral to medial to try to encourage this loop of bowel to return to the peritoneal domain but a small loop persisted in this space. 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 challenge and will monitor patient closely for ongoing ostomy output. I did recommend that, should he be discharged without further event, he should be reevaluated for consideration of elective parastomal hernia repair. Patient and his are understanding. Will admit for observational stay and provide clear liquids. Hospitalist service consulted for comanagement given patient's comorbidities. Appreciate their involvement. Mario Ellington MD General Surgery Endocrine Surgery Pager: [facility] [address] [place] [address], [facility], [address] [place] [id number] Office: [phone] (2) Small bowel obstruction: PLAN: Patient with return of bowel function during attempts at reduction of parastomal hernia. Will continue to monitor for ongoing bowel activity and diet is resumed with clear liquids. Charges/Coding Visit Charges Inpatient E&M: 21187 Init Hosp L2
[2023-08-06] MEDS: 0.9% Normal Saline (1000mL) 1,000 ML 25 ML IV (05:15)
[2023-08-06 05:24] LABS: Absolute Lymphocyte Count 0.47 X10^3/uL (0.83-4.51); Absolute Neutrophil Count 10.7 X10^3/uL (2.0-7.7); Basophil# 0.06 X10^3/uL; Basophil% 0.5 % (0-1); Eosinophil# 0.03 X10^3/uL; Eosinophils% 0.2 % (0-5); Hemoglobin 14.3 g/dL (13.0-16.5); Lymphocyte # 0.47 X10^3/ul (0.83-4.51); Lymphocyte % 3.9 % (19-41); Mean Corp Hgb Conc 32.5 g/dL (32-36); Mean Corpuscular Hgb 29.6 pg (27.0-32.0); Mean Corpuscular Volume 91.1 fL (80-94); Monocyte# 0.77 X10^3/uL; Monocyte% 6.4 % (0-10); NRBC Flagged by Analyzer 0 % (0-5); Neutrophil # 10.72 X10^3/uL (2.7-7.7); Neutrophil % 88.6 % (47-70); POSITIVE DIFFERENTIAL YES; Platelet Count 219 K/mm3 (150-450); RBC Distribution Width CV 13.3 % (11.6-14.6); RBC Distribution Width SD 44.5 fl (35.1-43.9); Red Blood Count 4.83 M/mm3 (4.6-6.2); White Blood Count 12.1 K/mm3 (4.4-11.0)
[2023-08-06 05:45] LABS: Anion Gap 5 (5-15); BUN 19 mg/dL (7-18); BUN/Creat Ratio 23.4 RATIO (10-20); Calcium,Total 9.5 mg/dL (8.5-10.1); Chloride 104 mmol/L (98-107); Creatinine, Serum 0.81 mg/dL (0.70-1.30); EST Glomerular Filtration Rate 97 mL/min (>60); Est Glom Filt Rate - Afr Amer 118 mL/min (>60); Glucose 152 mg/dL (74-106); Magnesium 1.9 mg/dL (1.6-2.6); Phosphorus 3.4 mg/dL (2.5-4.9); Sodium Level 138 mmol/L (136-145)
[2023-08-06 05:48] LABS: Lactic Acid 1.5 mmol/L (0.4-1.9)
[2023-08-06 06:51] LABS: Prealbumin 25.1 mg/dL (20.0-40.0)
[2023-08-06] MEDS: Carbidopa/Levodopa 25/100 Tablet PO ×3 (07:02→17:23)
--- NOTE | 2023-08-06 10:01 | PCM.PN.SRG ---
Subjective Subjective Patient seen and examined during AM rounds. He is found resting in bed but appears more confused. His confirms this much. She also shares that she emptied his ostomy appliance approximately 1 hour prior to my arrival and there was a substantial amount of both gas and liquid in the bag. He has not had the opportunity to try much in the way of liquids at this point. Objective Data Objective Data Vital Signs: Vital Signs Temp Pulse Resp BP Pulse Ox O2 Del Method 98 F 83 18 127/65 H 96 Room Air 08/06/23 04:05 08/06/23 04:05 08/06/23 04:05 08/06/23 04:05 08/06/23 04:05 08/06/23 04:05 Oxygen Delivery Method Room Air Weight: 187 lb 9.814 oz Body Mass Index (BMI) 25.4 Intake & Output: Intake and Output for Last 24 Hours 08/04/23 08/05/23 08/06/23 23:59 23:59 23:59 Output Total 100 / 100 Balance -100 / -100 Lab / Micro Data 08/06/23 05:15 08/06/23 05:15 Labs: Laboratory Results - last 24 hr 08/05/23 23:29: WBC 8.9, RBC 4.75, Hgb 14.0, Hct 43.7, MCV 92.0, MCH 29.5, MCHC 32.0, RDW Std Deviation 45.2 H, RDW Coeff of Jed 13.3, Plt Count 216, MPV 9.7, Immature Gran % (Auto) 0.600, Neut % (Auto) 87.0 H, Lymph % (Auto) 5.3 L, [place] % (Auto) 5.7, Eos % (Auto) 0.7, Baso % (Auto) 0.7, Absolute Neuts (auto) 7.7, Absolute Lymphs (auto) 0.47 L, Nucleated RBC % 0, Sodium 139, Potassium 4.3, Chloride 101, Carbon Dioxide 33.0 H, Anion Gap 5, BUN 20 H, Creatinine 1.07, Est GFR (MDRD) Af Amer 86, Est GFR (MDRD) Non-Af 71, BUN/Creatinine Ratio 18.7, Glucose 163 H, Calcium 9.6 08/06/23 05:15: WBC 12.1 H, RBC 4.83, Hgb 14.3, Hct 44.0, MCV 91.1, MCH 29.6, MCHC 32.5, RDW Std Deviation 44.5 H, RDW Coeff of Jed 13.3, Plt Count 219, MPV 10.0, Immature Gran % (Auto) 0.400, Neut % (Auto) 88.6 H, Lymph % (Auto) 3.9 L, [place] % (Auto) 6.4, Eos % (Auto) 0.2, Baso % (Auto) 0.5, Absolute Neuts (auto) 10.7 H, Absolute Lymphs (auto) 0.47 L, Nucleated RBC % 0, Sodium 138, Potassium 4.0, Chloride 104, Carbon Dioxide 29.0, Anion Gap 5, BUN 19 H, Creatinine 0.81, Estim Creat Clear Calc 82.50, Est GFR (MDRD) Af Amer 118, Est GFR (MDRD) Non-Af 97, BUN/Creatinine Ratio 23.4 H, Glucose 152 H, Hemoglobin A1c 6.0 H, Lactic Acid 1.5, Calcium 9.5, Phosphorus 3.4, Magnesium 1.9, Prealbumin 25.1 Radiography Diagnostic Testing: Radiology Impression Abdomen/Pelvis CT 08/05/23 23:20 IMPRESSION: Parastomal hernia containing small bowel with findings that may be consistent with incarceration and possible strangulation. Secondary small bowel obstruction. Surgical consultation recommended. Electronically Signed: Marjorie Ojeda MD at 0:42 EDT Reading Location ID and State: [address] [place] [address] Tel , Service support , ADDENDUM: 08/06/23 0051 IMPRESSION: Parastomal hernia containing small bowel with findings that may be consistent with incarceration and possible strangulation. Secondary small bowel obstruction. Surgical consultation recommended. N.B. : The above Results were Read Back by Marjorie Ojeda MD to Kait Barger MD, and understanding confirmed on 08/06/2023 00:44:08 (ET). Electronically Signed: Marjorie Ojeda MD at 0:42 EDT Reading Location ID and State: [facility] [place] Tel , Service support , Physical Exam Const Constitutional Narrative: Oriented to person Resp normal respiratory effort GI GI Narrative: Nondistended, soft, right lower quadrant ileostomy appears well-perfused. There is maroon?colored thin output and patient's ostomy appliance. There is no significant gas in the ostomy appliance. Parastomal hernia contents appear present but soft and minimal. Assessment & Plan Assessment/Plan (1) Parastomal hernia: QUALIFIERS: Obstruction and gangrene presence: with obstruction but without gangrene Qualified Code(s): K43.3 - Parastomal hernia with obstruction, without gangrene PLAN: Patient is a 77-year-old male with a known history of a parastomal hernia following subtotal colectomy for history of megacolon managed operatively in 2017 who presents with signs and symptoms of small bowel obstruction within this parastomal hernia. He is now hospital day 2 with ongoing output from his ileostomy, however, he appears more confused today and there is not a lot of gas in his ostomy appliance. Labs showed mild elevation of his WBC but otherwise unremarkable?including lactic acid. I would like to see him cognitively at his baseline and surely tolerating liquid diet before considering discharge. Will plan to reevaluate later today. Mario Ellington MD General Surgery Endocrine Surgery Pager: [facility] [place] [facility] [address] [place] [address], [address] [place] [address] Office: [phone] (2) Small bowel obstruction: PLAN: Patient with return of bowel function during attempts at reduction of parastomal hernia. Will continue to monitor for ongoing bowel activity and diet is resumed with clear liquids. Charges/Coding Visit Charges Inpatient E&M: 16813 Subs Hosp L2
[2023-08-06] MEDS: Metoprolol Tartrate 50 MG Tablet PO (10:20)
[2023-08-06] MEDS: Potassium Chloride Oral Soln 20 MEQ/15 ML UDC PO (10:20)
[2023-08-06] MEDS: Aspirin 81 MG TAB.CHEW PO (10:20)
[2023-08-06] MEDS: Timolol 0.5% 5ML OPTH.BTL 1 DRP OPHTHALMIC (10:20)
[2023-08-06] MEDS: Pantoprazole Sodium 40 MG in 0.9% Normal Saline (100mL MB+) 100 ML 330 MG IV (10:48)
--- NOTE | 2023-08-06 11:40 | CASEMGMT ---
RN DELGADO Face to Face with patient for initial transition planning/care coordination assessment. RN CM introduced self and role at [facility]. Patient lying in bed, alert and oriented, at bedside. Patient willing to participate in assessment and is able to answer all questions appropriately. Care providers, pharmacy, and demographics verified. PCP: Kirstie Specialists: [place], drama professor Garrett Monteiro, neurologist Preferred Pharmacy: [facility] Insurance: [facility] Prescription Benefit: yes Living Will/HPOA: yes, Adele Thompson LNOK: , son Living Arrangements: Patient lives with in a split level home with 8 steps and railing between levels. Patient is independent and able to ambulate stairs. Transportation: DME/HHC: Patient has shower chair, raised toilet, cane, grab bars, walker, and colostomy supplies at home. Patient has had [facility] in the past. No previous SNF Patient wishes to discharge home, denies need for home health at this time. Patient and states they have no further needs or concerns at this time. CM to follow for discharge planning needs that may arise. Disposition Plan: Patient to discharge home with family support and follow-up plans in place. Katya DEAL, RN, CM
--- NOTE | 2023-08-06 15:00 | CASEMGMT ---
MARTA NATARAJAN in to complete CLARK Form with patient and . MARTA NATARAJAN explained CLARK Form, patient and voiced understanding. Patient had sign CLARK. Copy provided to patient. Patient and had no further questions or concerns.
--- NOTE | 2023-08-06 15:36 | NURSING ---
Pt has not voided all day. Dr. Ellington aware. This RN bladder scanned pt for 205cc then assisted in standing up and used urinal. voided 100cc. Will continue to monitor.
--- NOTE | 2023-08-06 15:49 | DCINST_ITS ---
Discharge Instructions Diet Discharge Diet: Soft diet (Thicker liquids to soft diet) Activity Discharge Activity: No Restrictions and May Shower Dressing / Incision Call your doctor if you observe: Inability to have a bowel movement, Prolonged hiccupping, Uncontrolled pain and - (Decreased ostomy output with gas or stool) Follow Up Care Test Results: Test results from this visit will be discussed in further detail at your follow- up appointment, if applicable. Discharge Plan Admission Admit Date/Time: 08/06/23 02:57 Primary Reason for Your Visit: Incarcerated parastomal hernia Attending Provider: Mario Ellington Primary Care Provider: Dustin Thacker Instructions Additional Instructions / Restrictions: Recommend outpatient evaluation by colorectal surgery versus hernia explosive technician for elective parastomal hernia repair Discharge Orders/Prescriptions Prescriptions: Continued nitroglycerin 0.4 MG tablet 0.4 mg sublingual Q5M PRN (Reason: Chest Pain) Patient Comments: CHEST PAIN acetaminophen 500 MG tablet 500 mg PO PRN furosemide 40 MG tablet 40 mg PO DAILY atorvastatin 20 MG tablet 20 mg PO QHS metformin 500 mg tablet 500 mg PO BID Patient Comments: Take 1 tablet by mouth 2 times a Day cholecalciferol (vitamin D3) [Vitamin D3] 25 mcg (1,000 unit) Tablet 25 mcg PO DAILY quetiapine 25 mg Tablet See Rx Instructions PO QHS Rx Instructions: 1 and 1/2 tablet in the morning and 1 tablet in the evening orally at bedtime; metoprolol tartrate 50 mg Tablet 50 mg PO BID carbidopa-levodopa 25-100 mg Tablet 2 tab PO TID aspirin 81 mg Capsule 81 mg PO DAILY potassium chloride 20 mEq tablet,ER particles/crystals 20 meq PO DAILY timolol maleate 0.5 % drops 1 drp ophthalmic (eye) BID Referrals / Follow Up: Dustin Thacker MD [Primary Care Provider] - Disposition Disposition (needs filled in before D/C Order can be placed): Home, Self Care
--- NOTE | 2023-08-06 15:52 | DS.PCM_ITS ---
Providers Date of Admission: 08/06/23 Primary Care Physician: Dr. 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 He is now hospital day 2 with ongoing output from his ileostomy, however, he appears more confused today and there is not a lot of gas in his ostomy appliance. Labs showed mild elevation of his WBC but otherwise unremarkable?including lactic acid. I would like to see him cognitively at his baseline and surely tolerating liquid diet before considering discharge. Will plan to reevaluate later today. Mario Ellington MD General Surgery Endocrine Surgery Pager: [facility] [address] [place] [address], [address] [place] [address] Office: [phone] (2) Small bowel obstruction: Status: Acute Code(s): K56.609 - Unspecified intestinal obstruction, unspecified as to partial versus complete obstruction Plan: Patient with return of bowel function during attempts at reduction of parastomal hernia. Will continue to monitor for ongoing bowel activity and diet is resumed with clear liquids. Medications at Discharge Home Medications nitroglycerin 0.4 mg sublingual tablet 0.4 mg sublingual Q5M PRN Chest Pain 06/25/14 acetaminophen 500 mg tablet 500 mg PO PRN pain 03/20/17 atorvastatin 20 mg tablet 20 mg PO QHS cholesterol 12/11/18 furosemide 40 mg tablet 40 mg PO DAILY fluid 12/11/18 cholecalciferol (vitamin D3) 25 mcg (1,000 unit) tablet (Vitamin D3) 25 mcg PO DAILY 11/22/20 metformin 500 mg tablet 500 mg PO BID 11/22/20 aspirin 81 mg capsule 81 mg PO DAILY 08/17/21 carbidopa 25 mg-levodopa 100 mg tablet 2 tab PO TID 08/17/21 metoprolol tartrate 50 mg tablet 50 mg PO BID 08/17/21 quetiapine 25 mg tablet See Rx Instructions PO QHS 08/17/21 potassium chloride 20 mEq tablet,extended release(part/cryst) 20 meq PO DAILY 08/06/23 timolol maleate 0.5 % eye drops 1 drp ophthalmic (eye) BID 08/06/23 Hospital Course Operations None Procedures None Summary of Care Provided Hospital Course: Patient is a 77-year-old male with 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 Patient was evaluated in the ER and manual reduction was undertaken at bedside. Overall the procedure was well-tolerated and patient began to have i ncreased output from his ostomy. Given the evidence of air-fluid levels and desire to see patient tolerate a diet prior to discharge home he was admitted for observational stay. He initially had just a small amount of additional output but again his hernia was manipulated and this resulted in more significant regular output. Patient also tolerated advancement of liquid diet. Serial abdominal exams remain benign. Patient's confirmed that he was at his baseline and that she was comfortable with discharge to home. Recommendation reiterated for outpatient follow-up with evaluation for elective parastomal hernia repair. Patient's expressed understanding. Patient advised to continue full liquid to soft diet for first couple days following hospital stay. Physical Exam Const alert, oriented x3 and no apparent distress Resp normal respiratory effort GI GI Narrative: Nondistended, soft, nontender to palpation, right lower quadrant ileostomy appears well-perfused and there is presently gas and liquid within the bag but previously pasty brown stool was eliminated Weight / BMI Weight Weight: 187 lb 9.814 oz Body Mass Index (BMI) 25.4 ABG / Lab / Microbiology Data 08/06/23 05:15 08/06/23 05:15 Laboratory: Laboratory Results - last 24 hr 08/05/23 23:29: WBC 8.9, RBC 4.75, Hgb 14.0, Hct 43.7, MCV 92.0, MCH 29.5, MCHC 32.0, RDW Std Deviation 45.2 H, RDW Coeff of Ejd 13.3, Plt Count 216, MPV 9.7, Immature Gran % (Auto) 0.600, Neut % (Auto) 87.0 H, Lymph % (Auto) 5.3 L, [place] % (Auto) 5.7, Eos % (Auto) 0.7, Baso % (Auto) 0.7, Absolute Neuts (auto) 7.7, Absolute Lymphs (auto) 0.47 L, Nucleated RBC % 0, Sodium 139, Potassium 4.3, Chloride 101, Carbon Dioxide 33.0 H, Anion Gap 5, BUN 20 H, Creatinine 1.07, Est GFR (MDRD) Af Amer 86, Est GFR (MDRD) Non-Af 71, BUN/Creatinine Ratio 18.7, Glucose 163 H, Calcium 9.6 08/06/23 05:15: WBC 12.1 H, RBC 4.83, Hgb 14.3, Hct 44.0, MCV 91.1, MCH 29.6, MCHC 32.5, RDW Std Deviation 44.5 H, RDW Coeff of Jed 13.3, Plt Count 219, MPV 10.0, Immature Gran % (Auto) 0.400, Neut % (Auto) 88.6 H, Lymph % (Auto) 3.9 L, [place] % (Auto) 6.4, Eos % (Auto) 0.2, Baso % (Auto) 0.5, Absolute Neuts (auto) 10.7 H, Absolute Lymphs (auto) 0.47 L, Nucleated RBC % 0, Sodium 138, Potassium 4.0, Chloride 104, Carbon Dioxide 29.0, Anion Gap 5, BUN 19 H, Creatinine 0.81, Estim Creat Clear Calc 82.50, Est GFR (MDRD) Af Amer 118, Est GFR (MDRD) Non-Af 97, BUN/Creatinine Ratio 23.4 H, Glucose 152 H, Hemoglobin A1c 6.0 H, Lactic Acid 1.5, Calcium 9.5, Phosphorus 3.4, Magnesium 1.9, Prealbumin 25.1 Radiography Diagnostic Testing: Radiology Impression Abdomen/Pelvis CT 08/05/23 23:20 IMPRESSION: Parastomal hernia containing small bowel with findings that may be consistent with incarceration and possible strangulation. Secondary small bowel obstruction. Surgical consultation recommended. Electronically Signed: Marjorie Ojeda MD at 0:42 EDT , ADDENDUM: 08/06/23 0051 IMPRESSION: Parastomal hernia containing small bowel with findings that may be consistent with incarceration and possible strangulation. Secondary small bowel obstruction. Surgical consultation recommended. N.B. : The above Results were Read Back by Marjorie Ojeda MD to Kait Barger MD, and understanding confirmed on 08/06/2023 00:44:08 (ET). Electronically Signed: Marjorie Ojeda MD at 0:42 EDT , D/C Instructions Discharge Diet: Soft diet (Thicker liquids to soft diet) Call your doctor if you observe: Inability to have a bowel movement, Prolonged hiccupping, Uncontrolled pain and - (Decreased ostomy output with gas or stool) Meaningful Use Info Meaningful Use Meaningful Use Diagnoses (Choose all that apply): None applicable Ischemic Stroke Statin Dosing Therapy Reference: STATIN DOSE THERAPY REFERENCE: * Patients > 75 years receive moderate or high dose statin therapy. * Patients 75 years or YOUNGER should receive HIGH intensity statin dose unless contraindicated. You will be required to document reason for non-treatment if statin daily dose does not meet guidelines. HIGH DOSE STATIN THERAPY DAILY Atorvastatin > than or = to 40 mg Rosuvastatin > than or = to 20 mg Amlodipine + Atorvastatin > than or = to 2.5/40 mg Ezetimibe + Simvastatin 10/80 mg Simvastatin 80mg Discharge Plan Admission Admit Date/Time: 08/06/23 02:57 Primary Reason for Your Visit: Incarcerated parastomal hernia Attending Provider: Mario Ellington Primary Care Provider: Dustin Thacker Instructions Additional Instructions / Restrictions: Recommend outpatient evaluation by colorectal surgery versus hernia functional tester typewriters for elective parastomal hernia repair Discharge Orders/Prescriptions Prescriptions: Continued nitroglycerin 0.4 MG tablet 0.4 mg sublingual Q5M PRN (Reason: Chest Pain) Patient Comments: CHEST PAIN acetaminophen 500 MG tablet 500 mg PO PRN furosemide 40 MG tablet 40 mg PO DAILY atorvastatin 20 MG tablet 20 mg PO QHS metformin 500 mg tablet 500 mg PO BID Patient Comments: Take 1 tablet by mouth 2 times a Day cholecalciferol (vitamin D3) [Vitamin D3] 25 mcg (1,000 unit) Tablet 25 mcg PO DAILY quetiapine 25 mg Tablet See Rx Instructions PO QHS Rx Instructions: 1 and 1/2 tablet in the morning and 1 tablet in the evening orally at bedtime; metoprolol tartrate 50 mg Tablet 50 mg PO BID carbidopa-levodopa 25-100 mg Tablet 2 tab PO TID aspirin 81 mg Capsule 81 mg PO DAILY potassium chloride 20 mEq tablet,ER particles/crystals 20 meq PO DAILY timolol maleate 0.5 % drops 1 drp ophthalmic (eye) BID Referrals / Follow Up: Dustin Thacker MD [Primary Care Provider] - Disposition Disposition (needs filled in before D/C Order can be placed): Home, Self Care Charges/Coding Visit Charges Inpatient E&M: 22688 Disch Hosp
== END 2023-08-06 18:42 | disposition home or self-care (01) ==
LOC: ED 08-06 03:06 → MS3 08-06 14:29
PROVIDERS: Internal Medicine; Admitting Provider Surgery; Emergency Provider Emergency Medicine; PCP Family Medicine; Visit Provider Surgery
DX: K43.3 Parastomal hernia with obstruction, without gangrene (principal); Z93.1 Gastrostomy status; G20.A1 Parkinson's disease without dyskinesia, without mention of fluctuations; E11.9 Type 2 diabetes mellitus without complications; I25.10 Atherosclerotic heart disease of native coronary artery without angina pectoris; I10 Essential (primary) hypertension; E78.5 Hyperlipidemia, unspecified; Z79.84 Long term (current) use of oral hypoglycemic drugs; Z79.899 Other long term (current) drug therapy; Z79.82 Long term (current) use of aspirin; R13.10 Dysphagia, unspecified; E43 Unspecified severe protein-calorie malnutrition; R62.7 Adult failure to thrive; Z68.25 Body mass index [BMI] 25.0-25.9, adult
CPT/HCPCS: 36415; 74176; 80048; 83036; 83605; 83735; 84100; 84134; 85025; 96365; 99221; 99285; J7030; G0378

== ENCOUNTER → 2024-01-19 | Outpatient (CLI) | payer MEDICARE, SELFPAY ==
--- OUTSIDE RECORDS SUMMARY | 2024-01-19 07:37 | XMS RPT_ITS | CCD ---
Author Organization [facility] Care Team Providers Care Road Cleaner Name Role Phone Carmen, Eddi S Unavailable Unavailable Boutsicaris, Eddi S Unavailable Unavailable Boutsicaris, Eddi S Unavailable Unavailable Boutsicaris, Eddi Julien Unavailable Unavailable EagleDustin Unavailable Unavailable DUSTIN THACKER Primary Care Unavailab le TEMPEL, OMID Referring Unavailable TEMPEL, OMID Referring Unavailable DUSTIN THACKER Primary Care Unavailab le TEMPEL, OMID Referring Unavailable DUSTIN THACKER Primary Care Unavailab Patrick VALENTINE, Dustin Nassar Primary Care Provider POLI WESTBROOK Attending Unavailable AMRITA THAO Attending Unavailable POLI WESTBROOK Attending Dustin Nichole MD Primary Care Provider OMID OHARA Attending Unavailable DUSTIN THACKER Primary Care Unavailab le Medications Current Medications Medication Drug Class(es) Dates Sig (Normalized) Sig (Original) aspirin 81 mg delayed release oral tablet (5 sources) Platelet Aggregation Inhibitor, Nonsteroidal Anti-inflammatory Drug take 1 tablet by mouth once daily aspirin, enteric coated (ASPIRIN, ENTERIC COATED) 81 mg EC tablet Take 81 mg by mouth once daily. 0 Active Comment on above: Take 81 mg by mouth once daily. atorvastatin 20 mg oral tablet (5 sources) HMG-CoA Reductase Inhibitor Start: 01-08-2017 take 1 tablet by mouth once daily atorvastatin (LIPITOR) 20 mg tablet Take 20 mg by mouth once daily. 5 01/08/2017 Active Comment on above: Take 20 mg by mouth once daily. carbidopa 25 mg / levodopa 100 mg oral tablet (5 sources) Aromatic Amino Acid Decarboxylation Inhibitor, Aromatic Amino Acid Start: 01-08-2017 take 2 tablets by mouth three times daily carbidopa-levodopa (SINEMET 25-100) 25-100 mg per tablet Take 2 tablets by mouth three times daily. 5 01/08/2017 Active Comment on above: Take 2 tablets by [facility] three times daily. furosemide 40 mg oral tablet (5 sources) Loop Diuretic Start: 01-08-2017 take 1 tablet by mouth once daily furosemide (LASIX) 40 mg tablet Take 40 mg by mouth once daily. 6 01/08/2017 Active Comment on above: Take 40 mg by mouth once daily. mesalamine 66.7 mg/ml enema (10 sources) Aminosalicylate Start: 12-15-2016 mesalamine (ROWASA) 4 gram/60 mL enema insert 1 (ONE) enema RECTALLY NIGHTLY 0 01/08/2017 Active Comment on above: insert 1 (ONE) enema RECTALLY NIGHTLY metFORMIN hydrochloride 500 mg oral tablet (5 sources) Biguanide Start: 07-30-2022 take 1 tablet by mouth twice daily metFORMIN (GLUCOPHAGE) 500 mg tablet Take 500 mg by mouth twice daily. 0 07/30/2022 Active Comment on above: Take 500 mg by mouth twice daily. metoprolol tartrate 50 mg oral tablet (5 sources) beta-Adrenergic Alpesh Start: 01-08-2017 take 1 tablet by mouth twice daily metoprolol tartrate, short acting, (LOPRESSOR) 50 mg tablet Take 50 mg by mouth twice daily. 5 01/08/2017 Active Comment on above: Take 50 mg by mouth twice daily. nitroglycerin 0.4 mg sublingual tablet (5 sources) Nitrate Vasodilator nitroglyceri n sublingual (NITROQUICK) 0.4 mg SL tablet Dissolve 0.4 mg under the tongue every 5 minutes as needed. 0 Active Comment on above: Dissolve 0.4 mg unde r the tongue every 5 minutes as needed. potassium chloride 1.33 meq/ml oral solution (5 sources) Start: 01-08-2017 take 15 mL by mouth once daily potassium chloride 20 mEq/15 mL solution Take 15ml BY MOUTH EVERY DAY 3 01/08/2017 Active Comment on above: Take 15ml BY MOUTH E VERY DAY QUEtiapine 25 mg oral tablet (5 sources) Atypical Antipsychotic Start: 07-30-2022 take 1 tablet by mouth once daily at bedtime QUEtiapine (SEROQUEL) 25 mg tablet Take 25 mg by mouth daily at bedtime. 0 07/30/2022 Active Comment on above: Take 25 mg by mouth daily at bedtime. 12 hr timolol 5 mg/ml ophthalmic solution (5 sources) beta-Adrenergic Alpesh Start: 05-01-2022 timolol maleate (TIMOPTIC) 0.5 % ophthalmic solution Use 1 Drop in both eyes twice daily. 0 05/01/2022 Active Start: 05-01-2022 timolol maleat e (TIMOPTIC) 0.5 % ophthalmic solution Use 1 Drop in both eyes twice daily. 0 05/01/2022 Active Comment on above: Use 1 Drop in both e yes twice daily. Problems Active Problems Problem Classification Problem Date Documented Da te Episodic/Chronic Unclassified (1 source) Unknown / UNK(Unknown) Onset: 02-14-2017 Past or Other Problems Problem Classification Problem Date Documented Da te Episodic/Chronic Abdominal hernia (4 sources) Parastomal hernia without obstruction or gangrene; Translations: [Parastomal hernia] Onset: 08-30-2022 Episodic Other nutritional; endocrine; and metabolic disorders (5 sources) Adult failure to thrive syndrome; Translations: [Adult failure to thrive] Onset: 06-05-2016 06-05-2016 Episodic Unclassified (1 source) FU ON TESTING Onset: 02-14-2017 Results Test Name Value Interpretation Reference Range Facility [facility] 10-20-2022 [facility] Telephone ([id number]) WOLF THOMPSON ([id number]) 1945 M Date Time Provider Department 10/20/22 OMID OHARA [id number] During your visit today, we recorded the following information about you: Janet Carlos MA 10/20/2022 8:57 AM Signed Patient and have opted out of surgery for the time being. 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 Allergies As of Date: 10/20/2022 (No Known Allergies) Date Reviewed: 09/22/2022 Reviewed by: Mandy Noguera MA - Fully Assessed Reason for Visit: Patient Update [1234] Prescriptions as of 08/26/2023 - QUEtiapine (SEROQUEL) 25 mg tablet Take 25 mg by mouth daily at bedtime. - timolol maleate (TIMOPTIC) 0.5 % ophthalmic solution Use 1 Drop in both eyes twice daily. - metFORMIN (GLUCOPHAGE) 500 mg tablet Take 500 mg by mouth twice daily. - aspirin, enteric coated (ASPIRIN, ENTERIC COATED) 81 mg EC tablet Take 81 mg by mouth once daily. - nitroglycerin sublingual (NITROQUICK) 0.4 mg SL tablet Dissolve 0.4 mg under the tongue every 5 minutes as needed. - atorvastatin (LIPITOR) 20 mg tablet Take 20 mg by mouth once daily. - carbidopa-levodopa (SINEMET 25-100) 25-100 mg per tablet Take 2 tablets by mouth three times daily. - furosemide (LASIX) 40 mg tablet Take 40 mg by mouth once daily. - mesalamine (ROWASA) 4 gram/60 mL enema insert 1 (ONE) enema RECTALLY NIGHTLY - Mesalamine-Cleansing Wipes 4 gram/60 mL enkt insert 1 (ONE) enema RECTALLY NIGHTLY - metoprolol tartrate, short acting, (LOPRESSOR) 50 mg tablet Take 50 mg by mouth twice daily. 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] 08/18/2022 Encounter Status:Closed by JANET CARLOS on 08/26/23 [facility] Pan 09-22-2022 [facility] Office Visit ([id number]) WOLF THOMPSON ([id number]) 1945 M Date Time Provider Department 09/22/22 2:20 PM OMID OHARA [id number] During your visit today, we recorded the following information about you: Pulse Blood pressure Weight 84/minute 146/70 85.7 kg Omid Ohara MD 09/22/2022 5:50 PM Signed [facility] MEDICAL OFFICE BUILDING [facility] SURG[facility] [id number] Wolf Thompson 1945 September 22, 2022 Office Visit-Establish Patient Visit CC: Follow Up (Review CT/ poss surgery) History of Present Illness: He follows up today with his . CT scan reviewed with the patient. He does have a parastomal hernia, there is no obstruction. The defect is not officially measured but on my measurement it is approximately at least 2 cm. I reiterated the symptoms with the patient. He does not have any pain but it gets in the way when he bends over. PAST MEDICAL HISTORY Diagnosis Date CAD (coronary artery disease) HTN (hypertension) Hyperlipidemia Inguinal hernia Parkinson disease (HCC) PAST SURGICAL HISTORY Procedure Laterality Date COLOSTOMY/SKIN LEVEL CECOSTOMY EGD PERCUTANEOUS PLACEMENT GASTROSTOMY TUBE 05/31/2016 History reviewed. No pertinent family history. Social History Tobacco Use Smoking status: Never Substance Use Topics Alcohol use: Yes Comment: rarely Drug use: No REVIEW OF SYSTEMS: EYES/ENT:Denies blurring or double vision, ear aches, hearing loss or ringing, nose bleeds, dental problems and sore throat/hoarseness. CV: Denies swelling of feet/ankle and pain with walking GI:Denies abdominal pain, nausea, vomiting, diarrhea, constipation, blood in BM's, indigestion/heartburn, dysphagia and odynophagia. HEME: Denies slow to heal, anemia, bleeding/bruising and swollen glands. MS:Denies cold extremities. SKIN/BREAST:Denies rash/itching, breast pain, breast lump, nipple discharge, nipple bleeding and breast enlarged. The review of systems is negative for General, Resp, Derm, Neur, Psych, Endo and Current Outpatient Medications Medication Sig Dispense Refill QUEtiapine (SEROQUEL) 25 mg tablet Take 25 mg by mouth daily at bedtime. timolol maleate (TIMOPTIC) 0.5 % ophthalmic solution Use 1 Drop in both eyes twice daily. metFORMIN (GLUCOPHAGE) 500 mg tablet Take 500 mg by mouth twice daily. aspirin, enteric coated (ASPIRIN, ENTERIC COATED) 81 mg EC tablet Take 81 mg by mouth once daily. nitroglycerin sublingual (NITROQUICK) 0.4 mg SL tablet Dissolve 0.4 mg under the tongue every 5 minutes as needed. atorvastatin (LIPITOR) 20 mg tablet Take 20 mg by mouth once daily. 5 carbidopa-levodopa (SINEMET 25-100) 25-100 mg per tablet Take 2 tablets by mouth three times daily. 5 furosemide (LASIX) 40 mg tablet Take 40 mg by mouth once daily. 6 mesalamine (ROWASA) 4 gram/60 mL enema insert 1 (ONE) enema RECTALLY NIGHTLY 0 Mesalamine-Cleansing Wipes 4 gram/60 mL enkt insert 1 (ONE) enema RECTALLY NIGHTLY 0 metoprolol tartrate, short acting, (LOPRESSOR) 50 mg tablet Take 50 mg by mouth twice daily. 5 potassium chloride 20 mEq/15 mL solution Take 15ml BY MOUTH EVERY DAY 3 No current facility-administered medications for this visit. ALLERGIES No Known Allergies PHYSICAL EXAM: BP 146/70 Pulse 84 Wt 189 lb (85.7kg) SpO2 99% GENERAL: Alert, no distress, cooperative SKIN: Skin color, texture, turgor normal. No rashes or lesions. LUNGS: No respiratory distress CARDIAC: Deferred ABDOMEN: Deferred The remainder of the physical exam is noncontributory. IMPRESSION AND RECOMMENDATIONS ASSESSMENT/PLAN: 1. Parastomal hernia without obstruction or gangrene - ICD9: 569.69, ICD10: K43.5 I spent 25 to 30 minutes discussing options with the patient. He understands he has several comorbid conditions that place him at risk of the surgery. He understands that if he were to proceed to surgery this would be in an open fashion. He may or may not have extensive adhesions which need to be lysed. I would use mesh to repair the hernia as well. It does not seem like it is bothering him that much, and there is no clinical indication at least at this point, that this needs to be repaired. I am going to send him to the wound center at his local hospital to see if they can do any procedures where his ostomy appliance can be changed. Additionally, I am going to see if he is a candidate for possible hernia belt that can reduce the hernia. Again there is no obstruction on CT scan and it does not seem to be causing him very much pain. I will see him again after he sees the wound center at his local hospital. - CONSULT TO WOUND CENTER (AG) Omid Ohara MD Please Note: This office note has been created using [employer], a speech recognition software program, and may contain errors including punctuation, (more content not included)... [facility] 09-07-2022 [facility] Telephone ([id number]) WOLF THOMPSON ([id number]) 1945 M Date Time Provider Department 09/07/22 OMID OHARA [id number] During your visit today, we recorded the following information about you: Janet Carlos MA 09/07/2022 9:43 AM Signed ----- Message from Omid Ohara MD sent at 09/02/2022 1:40 PM EDT ----- Please have him come in to discuss CT scan and potential surgery Janet Carlos MA 09/07/2022 9:44 AM Signed Called patient and set up appointment for next available. Allergies As of Date: 09/07/2022 (No Known Allergies) Date Reviewed: 08/30/2022 Reviewed by: Demi Charles, RT(R) - Fully Assessed Reason for Visit: Results [95] Prescriptions as of 08/26/2023 - QUEtiapine (SEROQUEL) 25 mg tablet Take 25 mg by mouth daily at bedtime. - timolol maleate (TIMOPTIC) 0.5 % ophthalmic solution Use 1 Drop in both eyes twice daily. - metFORMIN (GLUCOPHAGE) 500 mg tablet Take 500 mg by mouth twice daily. - aspirin, enteric coated (ASPIRIN, ENTERIC COATED) 81 mg EC tablet Take 81 mg by mouth once daily. - nitroglycerin sublingual (NITROQUICK) 0.4 mg SL tablet Dissolve 0.4 mg under the tongue every 5 minutes as needed. - atorvastatin (LIPITOR) 20 mg tablet Take 20 mg by mouth once daily. - carbidopa-levodopa (SINEMET 25-100) 25-100 mg per tablet Take 2 tablets by mouth three times daily. - furosemide (LASIX) 40 mg tablet Take 40 mg by mouth once daily. - mesalamine (ROWASA) 4 gram/60 mL enema insert 1 (ONE) enema RECTALLY NIGHTLY - Mesalamine-Cleansing Wipes 4 gram/60 mL enkt insert 1 (ONE) enema RECTALLY NIGHTLY - metoprolol tartrate, short acting, (LOPRESSOR) 50 mg tablet Take 50 mg by mouth twice daily. 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 0530 - CT ABD/PEL W IVCON / PROCEDURE REASON: Parastomal hernia without obstruction or gangrene * * * * Physician Interpretation * * * * EXAMINATION: CT ABDOMEN AND PELVIS WITH IV CONTRAST CLINICAL HISTORY: Colectomy. Parastomal hernia TECHNIQUE: CT of the abdomen and pelvis was performed using standard technique, scanning from just above the dome of the diaphragm to the symphysis pubis. MQ: CTAP_3 Contrast: IV: 100 ml of Omnipaque 300 Oral: 50 ml of Omni 240 10-25ml diluted with water CT Radiation dose: Integrated Dose-length product (DLP) for this visit = 557 mGy*cm. CT Dose Reduction Employed: Automated exposure control(AEC) and iterative recon COMPARISON: Ultrasound of 04/04/2017. RESULT: Liver: No mass. Diffuse fatty infiltration Biliary: No bile duct dilation. Small stones and/or gravel within the gallbladder Spleen: No mass. No splenomegaly. Pancreas: No mass or duct dilation. Adrenals: No mass. Kidneys: No suspicious mass or gross obstructive uropathy GI tract: No dilation or wall thickening. Right lower quadrant ileostomy with parastomal hernia. No obstruction. Lymph nodes: No abdominal or pelvic lymphadenopathy. Mesentery/Peritoneum: No ascites or mass. Retroperitoneum: No mass. Vasculature: - Abdominal aorta and iliac arteries: No aneurysm. - Celiac and SMA: Patent without stenosis. - Portal venous system (SMV, splenic vein, portal vein and branches): Patent. - Hepatic veins: Patent. Pelvis: No mass, ascites or fluid collection. Bones/Soft Tissues: Right hip prosthesis causes streak artifact. This limits visualization in the pelvis to some degree. Severe degenerative change involving the left hip Lower thorax: Unremarkable. Seasonal Delivery Driver (topogram) images: No additional findings. IMPRESSION: No evidence of suspicious mass or adenopathy Right lower quadrant ostomy with parastomal hernia. Fatty liver Small stones and/or gravel within the gallbladder Assistant Superintendent: JORI Transcribe Date/Time: Sep 02 2022 1:06P Dictated by : JORGE CONTI MD This examination was interpreted and the report reviewed and electronically signed by: JORGE CONTI MD on Sep 02 2022 1:15PM EST [id number] Normal [facility] CREATININE Don 08-25-2022 Creatinine [Mass/Vol] 0.94 mg/dL Normal 0.73-1.22 [facility] Comment on above: Order Comment: Sim peterson Type: BLOOD SPECIMEN Ordering Facility: [facility] Address: [address] [place] [address] Performed By: #### C RET1 #### [facility] CLIA [id number] [address] [place] [address] [place] ESTIMATED GLOMERULAR FILTRATION RATE 83 mL/min/1.73m??? Normal >=60 [facility] Comment on above: Order Comment: Sim peterson Type: BLOOD SPECIMEN Ordering Facility: [facility] Address: [address] [place] [address] Result Comment: Jaye mated Glomerular Filtration Rate (eGFR) is calculated using the 2020 CKD-EPI creatinine equation. This equation utilizes serum creatinine, sex, and age as parameters. The creatinine assay has traceable calibration to isotope dilution-mass spectrometry. Refer to KDIGO guidelines for clinical interpretation. In patients with unstable renal function, e.g. those with acute kidney injury, the eGFR may not accurately reflect actual GFR. Performed By: #### C RET1 #### [facility] CLIA [id number] [id number] [place] [address] [place] GEon 10-21-2016 GASTROENTEROLOGY REPORT This is a preliminary report only, as the practitioner review and authentication has not occurred. 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 The patient desiring to consider surgery to havethe ileum reconnected to the rectum for re-establishment of normal bowel function andelimination of his existing ostomy.POSTOPERATIVE DIAGNOSIS: Normal distal and terminal ileum, 20 cm long rectal stumpwith patchy red infiltrative changes.PROCEDURE PERFORMED: Ileoscopy of terminal and distal ileum and colonoscopy to 20 cmwith biopsy x3 of inflammatory changes of rectal stump.SURGEON: Eddi Morales MDASSISTANT: None.ANESTHESIA: IV sedation.HISTORY: The patient is a 71-year-old white male who underwent an emergency subtotalcolectomy for ischemic colitis with perforation and severe sepsis. He required asignificant stay in the Intensive Care Unit. He has had a long course of physicaltherapy and rehabilitation. He is plagued with Parkinson that is progressive innature but does not want to continue to have his ileostomy and wishes to have theconsideration for re-establishment and re-anastomosis of his normal GI function by anileorectal anastomosis. I discussed the patient the higher risks for him to considerthis surgery. The patient still wants to proceed. His agrees. I advised tamiko at least consider first doing an endoscopy to evaluate the quality of thebowel that is present to see if there are any difficulties or concerns we need toconsider. He agreed to have a colonoscopy with evaluation of his terminal ileum aswell as his rectal stump. Informed consent was obtained.PROCEDURE IN DETAIL: With the patient first in supine position on the table,following satisfactory administration of IV sedation including 50 mcg of fentanyl aswell as 4 mg of Versed, the colonoscope was inserted in the terminal ileum and passedup through the terminal ileum into the distal ileum. The bowel was healthy appearing,pink with no inflammatory changes, no deformities and no areas of stricture thatwould compromise anastomosis. There was no ostium, it was healthy and pink as well.The scope was then placed in the rectum. There were no anal lesions noted orhemorrhoids. The scope was passed up to the rectal stump for a total of 20 cm untilthe end was reached. There were patchy red changes throughout, photographs of whichwere taken and biopsies x3 were taken, random biopsies to determine the source ofthese changes. The underlying mucosa, it was pink in color, and this did not appearto be an ischemic change. The scope was removed. The patient tolerated theprocedure quite well. His was informed of the findings and given a copy of the [facility] PATIENT NAME: WOLF THOMPSON C[address] [facility] [address] [facility] REC #: [id number] [address] DATE:DISCHARGE DATE:GASTROENTEROLOGY REPORT ATTENDING PHY: Eddi Moralesictluis carlos taken. The patient was discharged from the endoscopy suite in goodcondition. We will await the pathology report and assess whether he would be areasonable candidate to proceed with a laparotomy for re-anastomosis of his ileum tohis rectum. YANIRA Field/[id number]: 10/21/2016 09:54DT: 10/21/2016 14:02SSI File#: [id number] #: [id number] [facility] PATIENT NAME: WOLF THOMPSON C13[address] [facility] [address] MEDICAL REC #: [id number] [address] DATE:DISCHARGE DATE:GASTROENTEROLOGY REPORT ATTENDING PHY: Eddi Morales MD [facility] [place] SURGon 10-21-2016 SURG --- Patient: WLOF THOMPSON C SPECIMEN: [id number] Collection Date: 10/21/16 Received: 10/21/16 Status: KAREN Hairston Dr.: Eddi Morales MD Ph# Othr. DrAndres: Dustin Thacker Material for Examination: A RANDOM COLON BX, PROCTITIS PRE-OP DIAGNOSIS: SCREENING POST-OP DIAGNOSIS: SAME SURGICAL PROCEDURE: COLONOSCOPY DIAGNOSIS A. Random colon biopsy: Chronic active colitis with with cryptitis, crypt abscesses, lamina propria lymphoplasmacytic infiltrate, reactive epithelial changes and reactive lymphoid aggregates. No granulomas, no ulceration and no dysplasia are found.COMMENT The morphologic features are suggestive of inflammatory bowel disease. Clinicalcorrelation with endoscopic findings and exclusion of other etiologies like acuteself-limited/infec tious colitis is suggested.GROSS DESCRIPTION The specimen is received in formalin and labeled with the patient's name, ID and designatedrandom colon biopsy proctitis, are three silva portions of tissue, 0.6 x 0.1 x 0.1 cm to 0.8x 0.1 x 0.1 cm. Entirely submitted in cassette A1.MICROSCOPIC DESCRIPTION Two Edgar stained slides examined.COPIES TO: Eddi Morales MD, Benjamin JSigned Verified/Reviewed by BEAU HACKETT MD 10/24/16 This dictation was created using voice recognition software. Phonetic and/or minor grammatical errors may exist. ------DIRECTOR: Vicki Colon M.D. NAME: WOLF THOMPSON [facility]: UNIT#: [id number] LOC: .REINA Cruz M.D. ROOM/BED: Beau Hackett Jr. M.D. : 43 AGE/SEX: 71/M ORD.Eddi Watson MD END OF REPORT [facility] Vital Signs Date Time Vital Sign Value Performing Clinician Troy tena 09-22-2022 14:16-0400 Body weight 85.73 kg Omid Ohara MD Work Phone: [facility] 09-22-2022 14:16-0400 Diastolic blood pressure 70 mm[Hg] Omid Ohara MD Work Phone: [facility] 09-22-2022 14:16-0400 Heart rate 84 /min Omid Ohara MD Work Phone: [facility] 09-22-2022 14:16-0400 SaO2% (BldA) [Mass fraction] 99 % Omid Ohara MD Work Phone: [facility] 09-22-2022 14:16-0400 Systolic blood pressure 146 mm[Hg] Omid Ohara MD Work Phone: [facility] Encounters Encounter Date Encounter Type Care Provider Facility Start: 05-17-2023 End: 05-17-2023 ambulatory AMRITA THAO Not Available Start: 04-21-2023 End: 04-21-2023 ambulatory POLI WESTBROOK Not Available Start: 03-04-2023 End: 03-04-2023 ambulatory POLI WESTBROOK Not Available Start: 10-20-2022 Telephone encounter Omid Ohara MD Work Phone: [facility] Comment on above: Patient Update Start: 09-22-2022 End: 09-22-2022 Patient encounter procedure Omid Ohara MD Work Phone: [facility] Comment on above: Parastomal hernia wi thout obstruction or gangrene (Primary Dx) Start: 09-22-2022 End: 09-22-2022 ambulatory OMID OHARA Facility:[id number] Start: 09-07-2022 Telephone encounter Omid Ohara MD Work Phone: [facility] Comment on above: Results Start: 08-30-2022 End: 08-30-2022 ambulatory DUSTIN THACKER Facility:[facility] Start: 08-30-2022 End: 08-30-2022 Subsequent hospital visit by physician [facility] Cat Scan Comment on above: Parastomal hernia wi thout obstruction or gangrene [K43.5] Start: 08-25-2022 End: 08-26-2022 ambulatory OMID OHARA Facility:[facility] Start: 02-14-2017 Ambulatory Eddi S Karenicaris Fac ility:[facility] Start: 11-17-2016 Ambulatory Peter S Karenicaris Fac ility:[facility] Start: 10-21-2016 Evaluation and management of inpatient Eddi S Karenicaris Facility:[facility] Procedures Date Procedure Procedure Detail Performing Clinician Start: 08-30-2022 Ct abdomen & pelvis w/contrast material Omid Ohara MD Work Phone: Start: 08-18-2022 H/O: ileostomy Ileostomy status Geoff Ohara MD Work Phone: Plan of Treatment Date Care Activity Detail Author Start: 11-27-2023 Influenza vaccination Influenz a Vaccine (Season Ended) [facility] Start: 03-28-2023 Advance Directive Discussion Advance Directive Discussion [facility] Start: 03-28-2023 Behavioral Health Screening Behavioral Health Screening [facility] Start: 11-26-2022 Covid-19 Vaccine ( season) Covid-19 Vaccine ( season) [facility] Start: 11-26-2022 Influenza vaccination [facility] Start: 03-28-2022 ADVANCE DIRECTIVE DISCUSSION ADVANCE DIRECTIVE DISCUSSION [facility] Start: 03-28-2022 DEPRESSION ASSESSMENT DEPRESSION ASS ESSMENT [facility] Start: 04-11-2021 COVID-19 VACCINE (5 - Booster for Moderna series) COVID-19 VACCINE (5 - Booster for Moderna series) [facility] Start: 05-05-2017 Pneumococcal Vaccine : 65+ (2 - PPSV23 or PCV20) Pneumococcal Vaccine: 65+ (2 - PPSV23 or PCV20) [facility] Start: 05-05-2017 Pneumococcal Vaccine : 65+ (2 of 2 - PPSV23 or PCV20) Pneumococcal Vaccine: 65+ (2 of 2 - PPSV23 or PCV20) [facility] Start: 2009 PNEUMOCOCCAL: 65+ (1 - PCV) PNEUMOCOCCAL: 65+ (1 - PCV) [facility] Start: 2004 RSV Vaccine (1 - 1-d ose 60+ series) RSV Vaccine (1 - 1-dose 60+ series) [facility] Start: 1994 SHINGRIX VACCINE (1 of 2) SHINGRIX V ACCINE (1 of 2) [facility] Start: 1989 DIABETES SCREEN DIABETES SCREEN [facility] Start: 1989 Diabetes Screening Diabetes Screenin g [facility] Start: 10-09-1963 Urine microalbumin profile [facility] Start: 1962 HEPATITIS C SCREENING HEPATITIS C [facility] Start: 1962 Hepatitis C screening Hepatitis C [facility] Payers Date Payer Category Payer Medicare [id number] 2013 Medicare A[employer]NA MEDICARE A ETNA MEDICARE PPO [id number] 2013-Present [phone] [address] [place] [address] PPO [id number] 2013 Medicare [id number] 1945 Unknown [id number] 1945 Unknown [id number] 1945 Unknown [id number] Social History Date Type Detail Facility Start: 08-18-2022 Tobacco smoking stat us [facility]IS Never smoked tobacco [facility] Start: 08-18-2022 End: 09-22-2022 Alcohol intake Current drinker of alcohol (finding) [facility] Start: 02-15-2017 Alcohol Comment rarely [facility] Start: 1945 Sex Assigned At Not on file [facility] Start: 08-18-2022 End: 09-22-2022 History of Social function [facility] Start: 08-18-2022 End: 09-22-2022 Tobacco use panel [facility] National Score (1-10 0), lower number is lower risk 48 [facility] Clinical Notes 08-30-2022 to 10-20-2022 Telephone Encounter - Janet Carlos MA - 10/20/2022 8:55 AM EDTTelephone Encounter - Janet Carlos MA - 10/20/2022 8:55 AM Mihir Ohara MD - 09/22/2022 5:47 PM EDT Note Date & Type Note Facility 10-20-2022 Telephone encounter Note Patient and have opted out of surgery for the time being. 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 [facility] 10-20-2022 Miscellaneous Notes Patient and have opted out of surgery for the time being. 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 documented in this encounter [facility] 09-22-2022 History of Presen t illness Narrative [facility] MEDICAL OFFICE BUILDING [facility] [address] [facility] [address] Wolf Nichole Donna 1945 September 22, 2022 Office Visit-Establish Patient Visit CC: Follow Up (Review CT/ poss surgery) History of Present Illness: He follows up today with his . CT scan reviewed with the patient. He does have a parastomal hernia, there is no obstruction. The defect is not officially measured but on my measurement it is approximately at least 2 cm. I reiterated the symptoms with the patient. He does not have any pain but it gets in the way when he bends over. PAST MEDICAL HISTORY Diagnosis Date CAD (coronary artery disease) HTN (hypertension) Hyperlipidemia Inguinal hernia Parkinson disease (HCC) PAST SURGICAL HISTORY Procedure Laterality Date COLOSTOMY/SKIN LEVEL CECOSTOMY EGD PERCUTANEOUS PLACEMENT GASTROSTOMY TUBE 05/31/2016 History reviewed. No pertinent family history. Social History Tobacco Use Smoking status: Never Substance Use Topics Alcohol use: Yes Comment: rarely Drug use: No REVIEW OF SYSTEMS: EYES/ENT:Denies blurring or double vision, ear aches, hearing loss or ringing, nose bleeds, dental problems and sore throat/hoarseness. CV: Denies swelling of feet/ankle and pain with walking GI:Denies abdominal pain, nausea, vomiting, diarrhea, constipation, blood in BM's, indigestion/heartburn, dysphagia and odynophagia. HEME: Denies slow to heal, anemia, bleeding/bruising and swollen glands. MS:Denies cold extremities. SKIN/BREAST:Denies rash/itching, breast pain, breast lump, nipple discharge, nipple bleeding and breast enlarged. The review of systems is negative for General, Resp, Derm, Neur, Psych, Endo and Current Outpatient Medications Medication Sig Dispense Refill QUEtiapine (SEROQUEL) 25 mg tablet Take 25 mg by mouth daily at bedtime. timolol maleate (TIMOPTIC) 0.5 % ophthalmic solution Use 1 Drop in both eyes twice daily. metFORMIN (GLUCOPHAGE) 500 mg tablet Take 500 mg by mouth twice daily. aspirin, enteric coated (ASPIRIN, ENTERIC COATED) 81 mg EC tablet Take 81 mg by mouth once daily. nitroglycerin sublingual (NITROQUICK) 0.4 mg SL tablet Dissolve 0.4 mg under the tongue every 5 minutes as needed. atorvastatin (LIPITOR) 20 mg tablet Take 20 mg by mouth once daily. 5 carbidopa-levodopa (SINEMET 25-100) 25-100 mg per tablet Take 2 tablets by mouth three times daily. 5 furosemide (LASIX) 40 mg tablet Take 40 mg by mouth once daily. 6 mesalamine (ROWASA) 4 gram/60 mL enema insert 1 (ONE) enema RECTALLY NIGHTLY 0 Mesalamine-Cleansing Wipes 4 gram/60 mL enkt insert 1 (ONE) enema RECTALLY NIGHTLY 0 metoprolol tartrate, short acting, (LOPRESSOR) 50 mg tablet Take 50 mg by mouth twice daily. 5 potassium chloride 20 mEq/15 mL solution Take 15ml BY MOUTH EVERY DAY 3 No current facility-administered medications for this visit. ALLERGIES No Known Allergies PHYSICAL EXAM: BP 146/70 Pulse 84 Wt 189 lb (85.7kg) SpO2 99% GENERAL: Alert, no distress, cooperative SKIN: Skin color, texture, turgor normal. No rashes or lesions. LUNGS: No respiratory distress CARDIAC: Deferred ABDOMEN: Deferred The remainder of the physical exam is noncontributory. IMPRESSION & RECOMMENDATIONS ASSESSMENT/PLAN: 1. Parastomal hernia without obstruction or gangrene - ICD9: 569.69, ICD10: K43.5 I spent 25 to 30 minutes discussing options with the patient. He understands he has several comorbid conditions that place him at risk of the surgery. He understands that if he were to proceed to surgery this would be in an open fashion. He may or may not have extensive adhesions which need to be lysed. I would use mesh to repair the hernia as well. It does not seem like it is bothering him that much, and there is no clinical indication at least at this point, that this needs to be repaired. I am going to send him to the wound center at his local hospital to see if they can do any procedures where his ostomy appliance can be changed. Additionally, I am going to see if he is a candidate for possible hernia belt that can reduce the hernia. Again there is no obstruction on CT scan and it does not seem to be causing him very much pain. I will see him again after he sees the wound center at his local hospital. - CONSULT TO WOUND CENTER (AG) Omid Ohara MD Please Note: This office note has been created using [employer], a speech recognition software program, and may contain errors including punctuation, grammar, spelling, gender, and inappropriate words or phrases that pertain to the system. documented in this encounter [facility] 09-22-2022 Note HNO ID: [id number] Author: Omid Ohara MD Service: ? Author Type: Physician Type: Progress Notes Filed: 09/22/2022 5:50 PM Note Text: [facility] MEDICAL OFFICE BUILDING [facility] SURGERY [facility] [address] Wolf Thompson 1945 September 22, 2022 Office Visit-Establish Patient Visit CC: Follow Up (Review CT/ poss surgery) History of Present Illness: He follows up today with his . CT scan reviewed with the patient. He does have a parastomal hernia, there is no obstruction. The defect is not officially measured but on my measurement it is approximately at least 2 cm. I reiterated the symptoms with the patient. He does not have any pain but it gets in the way when he bends over. PAST MEDICAL HISTORY Diagnosis Date CAD (coronary artery disease) HTN (hypertension) Hyperlipidemia Inguinal hernia Parkinson disease (HCC) PAST SURGICAL HISTORY Procedure Laterality Date COLOSTOMY/SKIN LEVEL CECOSTOMY EGD PERCUTANEOUS PLACEMENT GASTROSTOMY TUBE 05/31/2016 History reviewed. No pertinent family history. Social History Tobacco Use Smoking status: Never Substance Use Topics Alcohol use: Yes Comment: rarely Drug use: No REVIEW OF SYSTEMS: EYES/ENT:Denies blurring or double vision, ear aches, hearing loss or ringing, nose bleeds, dental problems and sore throat/hoarseness. CV: Denies swelling of feet/ankle and pain with walking GI:Denies abdominal pain, nausea, vomiting, diarrhea, constipation, blood in BM's, indigestion/heartburn, dysphagia and odynophagia. HEME: Denies slow to heal, anemia, bleeding/bruising and swollen glands. MS:Denies cold extremities. SKIN/BREAST:Denies rash/itching, breast pain, breast lump, nipple discharge, nipple bleeding and breast enlarged. The review of systems is negative for General, Resp, Derm, Neur, Psych, Endo and Current Outpatient Medications Medication Sig Dispense Refill QUEtiapine (SEROQUEL) 25 mg tablet Take 25 mg by mouth daily at bedtime. timolol maleate (TIMOPTIC) 0.5 % ophthalmic solution Use 1 Drop in both eyes twice daily. metFORMIN (GLUCOPHAGE) 500 mg tablet Take 500 mg by mouth twice daily. aspirin, enteric coated (ASPIRIN, ENTERIC COATED) 81 mg EC tablet Take 81 mg by mouth once daily. nitroglycerin sublingual (NITROQUICK) 0.4 mg SL tablet Dissolve 0.4 mg under the tongue every 5 minutes as needed. atorvastatin (LIPITOR) 20 mg tablet Take 20 mg by mouth once daily. 5 carbidopa-levodopa (SINEMET 25-100) 25-100 mg per tablet Take 2 tablets by mouth three times daily. 5 furosemide (LASIX) 40 mg tablet Take 40 mg by mouth once daily. 6 mesalamine (ROWASA) 4 gram/60 mL enema insert 1 (ONE) enema RECTALLY NIGHTLY 0 Mesalamine-Cleansing Wipes 4 gram/60 mL enkt insert 1 (ONE) enema RECTALLY NIGHTLY 0 metoprolol tartrate, short acting, (LOPRESSOR) 50 mg tablet Take 50 mg by mouth twice daily. 5 potassium chloride 20 mEq/15 mL solution Take 15ml BY MOUTH EVERY DAY 3 No current facility-administered medications for this visit. ALLERGIES No Known Allergies PHYSICAL EXAM: BP 146/70 Pulse 84 Wt 189 lb (85.7kg) SpO2 99% GENERAL: Alert, no distress, cooperative SKIN: Skin color, texture, turgor normal. No rashes or lesions. LUNGS: No respiratory distress CARDIAC: Deferred ABDOMEN: Deferred The remainder of the physical exam is noncontributory. IMPRESSION AND RECOMMENDATIONS ASSESSMENT/PLAN: 1. Parastomal hernia without obstruction or gangrene - ICD9: 569.69, ICD10: K43.5 I spent 25 to 30 minutes discussing options with the patient. He understands he has several comorbid conditions that place him at risk of the surgery. He understands that if he were to proceed to surgery this would be in an open fashion. He may or may not have extensive adhesions which need to be lysed. I would use mesh to repair the hernia as well. It does not seem like it is bothering him that much, and there is no clinical indication at least at this point, that this needs to be repaired. I am going to send him to the wound center at his local hospital to see if they can do any procedures where his ostomy appliance can be changed. Additionally, I am going to see if he is a candidate for possible hernia belt that can reduce the hernia. Again there is no obstruction on CT scan and it does not seem to be causing him very much pain. I will see him again after he sees the wound center at his local hospital. - CONSULT TO WOUND CENTER (AG) Omid Ohara MD Please Note: This office note has been created using [employer], a speech recognition software program, and may contain errors including punctuation, grammar, spelling, gender, and inappropriate words or phrases that pertain to the system. [facility] 09-07-2022 Telephone encounter Note Called patient and set up appointment for next available. [facility] 09-07-2022 Miscellaneous Notes Called patient and set up appointment for next available. ----- Message from Omid Ohara MD sent at 09/02/2022 1:40 PM EDT ----- Please have him come in to discuss CT scan and potential surgery documented in this encounter [facility] 09-07-2022 Telephone encounter Note ----- Message from mOid Ohara MD sent at 09/02/2022 1:40 PM EDT ----- Please have him come in to discuss CT scan and potential surgery [facility] 08-30-2022 Note HNO ID: [id number] Author: RT Makayla(R) Service: ? Author Type: Blood Collector Type: Progress Notes Filed: 08/30/2022 3:50 PM Note Text: Radiology Service Progress Note DATE OF SERVICE: August 30, 2022 TIME: 3:49 PM PATIENT IDENTITY VERIFICATION COMPLETED USING TWO (2) STANDARD IDENTIFIERS: Name and Date of confirmed by patient verbally. FALL SCREENING: Has the patient had 2 falls in the last year or 1 fall with injury or currently using an Ambulatory Assistive Device (Walker, Cane, Wheelchair, Crutches, etc.)? No PATIENT GENDER DATA: Male PATIENT RELEVANT IMPLANT DATA REVIEWED: Yes ALLERGIES: Reviewed and unchanged CONTRAST ALLERGY: NO. EXAM: CT -CONTRAST INDUCED NEPHROPATHY RISK FACTORS: Patient age > 60 years CREATININE: Creatinine Date Value Ref Range Status 08/25/2022 0.94 0.73 - 1.22 mg/dL Final Estimated Glomerular Filtration Rate Date Value Ref Range Status 08/25/2022 83 >=60 mL/min/1.73m? Final Comment: Estimated Glomerular Filtration Rate (eGFR) is calculated using the 2020 CKD-EPI creatinine equation. This equation utilizes serum creatinine, sex, and age as parameters. The creatinine assay has traceable calibration to isotope dilution-mass spectrometry. Refer to KDIGO guidelines for clinical interpretation. In patients with unstable renal function, e.g. those with acute kidney injury, the eGFR may not accurately reflect actual GFR. P.O.C.T. RESULTS: POC done: Yes, See Lab Tab August 30, 2022 TREATMENT: N/A PERIPHERAL IV DATA: Ambulatory: A peripheral IV was started in the Left antecubital site with a Angio cath: 22 gauge. RADIOLOGY DEPARTMENT: CT; Exam(s) Completed: Abdomen/Pelvis SIGNATURE: RT Lan(R) PATIENT NAME: Wolf Thompson DATE: August 30, 2022 TIME: 3:49 PM [facility] 08-30-2022 History of Presen t illness Narrative Radiology Service Progress Note DATE OF SERVICE: August 30, 2022 TIME: 3:49 PM PATIENT IDENTITY VERIFICATION COMPLETED USING TWO (2) STANDARD IDENTIFIERS: Name and Date of confirmed by patient verbally. FALL SCREENING: Has the patient had 2 falls in the last year or 1 fall with injury or currently using an Ambulatory Assistive Device (Walker, Cane, Wheelchair, Crutches, etc.)? No PATIENT GENDER DATA: Male PATIENT RELEVANT IMPLANT DATA REVIEWED: Yes ALLERGIES: Reviewed and unchanged CONTRAST ALLERGY: NO. EXAM: CT -CONTRAST INDUCED NEPHROPATHY RISK FACTORS: Patient age > 60 years CREATININE: Creatinine Date Value Ref Range Status 08/25/2022 0.94 0.73 - 1.22 mg/dL Final Estimated Glomerular Filtration Rate Date Value Ref Range Status 08/25/2022 83 >=60 mL/min/1.73m Final Comment: Estimated Glomerular Filtration Rate (eGFR) is calculated using the 2020 CKD-EPI creatinine equation. This equation utilizes serum creatinine, sex, and age as parameters. The creatinine assay has traceable calibration to isotope dilution-mass spectrometry. Refer to KDIGO guidelines for clinical interpretation. In patients with unstable renal function, e.g. those with acute kidney injury, the eGFR may not accurately reflect actual GFR. P.O.C.T. RESULTS: POC done: Yes, See Lab Tab August 30, 2022 TREATMENT: N/A PERIPHERAL IV DATA: Ambulatory: A peripheral IV was started in the Left antecubital site with a Angio cath: 22 gauge. RADIOLOGY DEPARTMENT: CT; Exam(s) Completed: Abdomen/Pelvis SIGNATURE: RT Lan(R) PATIENT NAME: Wolf Thompson DATE: August 30, 2022 TIME: 3:49 PM documented in this encounter [facility] Evaluation note Diagnosis Parastomal hernia without obstruction or gangrene- Primary Hernia of unspecified site of abdominal cavity without mention of obstruction or gangrene [facility] Parastomal hernia without obstruction or gangrene Hernia of unspecified site of abdominal cavity without mention of obstruction or gangrene documented in this encounter [facility] Summary Purpose Family History No Family History Records FoundNo Family History Records FoundNo Family History Records FoundNo Family History Records Found Advance Directives No Advanced Directives Records FoundNo Advanced Directives Records FoundNo Advanced Directives Records FoundNo Advanced Directives Records Found Reason for Referral Specialty Diagnoses / Procedures Referred By Contac t Referred To Contact Diagnoses Parastomal hernia without obstruction or gangrene Procedures CONSULT TO WOUND CENTER (AG) Omid Ohara MD [address] [place] [address] Referral ID Status Reason Start Date Expiration Date Visits Requested Visits Authorized [id number] Ref Not Required PCP Requested Referral 09/22/2022 12/21/2022 1 1 Specialty Diagnoses / Procedures Referred By Contac t Referred To Contact CT IMAGING Diagnoses Parastomal hernia without obstruction or gangrene Procedures CT ABD/PEL W IVCON CT ABD & PELVIS W/CONTRAST Omid Ohara MD [address] [place] [address] [place] [id number] Referral ID Status Reason Start Date Expiration Date V isits Requested Visits Authorized [id number] Closed Auto-Generate d Referral 08/18/2022 09/17/2023 1 1 Additional Source Comments (unrecognized sect ion and content) No Status Records FoundNo Status Records FoundNo Status Records FoundNo Status Records Found INFORMATION SOURCE (unrecogn ized section and content) DATE CREATED AUTHOR 09/20/2017 [facility] [place] DATE CREATED AUTHOR AUTHOR'S ORGANIZ ATION 09/07/2022 [facility] DATE CREATED AUTHOR AUTHOR'S ORGANIZ ATION 05/18/2023 [facility] DATE CREATED AUTHOR AUTHOR'S ORGANIZ ATION 08/27/2023 [facility] Alexandra nter Source Comments (unrecognize d section and content) In the event this informatio n is protected by the Federal Confidentiality of Alcohol and Drug Abuse Patient Records regulations: The Federal rules restrict any use of the information to criminally investigate or prosecute any alcohol or drug abuse patient.[facility] the event this information is protected by the Federal Confidentiality of Alcohol and Drug Abuse Patient Records regulations: The Federal rules restrict any use of the information to criminally investigate or prosecute any alcohol or drug abuse patient.[facility] the event this information is protected by the Federal Confidentiality of Alcohol and Drug Abuse Patient Records regulations: The Federal rules restrict any use of the information to criminally investigate or prosecute any alcohol or drug abuse patient.[facility] the event this information is protected by the Federal Confidentiality of Alcohol and Drug Abuse Patient Records regulations: The Federal rules restrict any use of the information to criminally investigate or prosecute any alcohol or drug abuse patient.[facility] the event this information is protected by the Federal Confidentiality of Alcohol and Drug Abuse Patient Records regulations: The Federal rules restrict any use of the information to criminally investigate or prosecute any alcohol or drug abuse patient.[facility] Reason for Visit (unrecogniz ed section and content) Reason Comments Follow Up Review CT/ poss surg blessing Reason Comments Radiology CT Specialty Diagnoses / Procedures Referred By Contac t Referred To Contact CT IMAGING Diagnoses Parastomal hernia without obstruction or gangrene Procedures CT ABD/PEL W IVCON CT ABD & PELVIS W/CONTRAST mOid Ohara MD [address] [facility] [address] [place] [address] [place] [id number] Referral ID Status Reason Start Date Expiration Date V isits Requested Visits Authorized [id number] Closed Auto-Generate d Referral 08/18/2022 09/17/2023 1 1 Reason Comments Results Reason Comments Patient Update Care Teams (unrecognized sec tion and content) Road Cleaner Relationship Specialty Start Date End Date Dustin Thacker MD [address] [place] [address] PCP - General Family Medicine 04/01/17 Road Cleaner Relationship Specialty Start Date End Date Dustin Thacker MD [address] [facility] [address] [place] [address] PCP - General Family Medicine 04/01/17 Road Cleaner Relationship Specialty Start Date End Date Dustin Thacker MD [address] [address] PCP - General Family Medicine 04/01/17 Road Cleaner Relationship Specialty Start Date End Date Dustin Thacker MD [address] [address] PCP - General Family Medicine 04/01/17 Road Cleaner Relationship Specialty Start Date End Date Dustin Thacker MD [address] [address] [place] [address] PCP - General Family Medicine 04/01/17 FOR RECORDS PERTAINING TO PATIENTS WHO ARE OR HAVE BEEN ENROLLED IN A CHEMICAL DEPENDENCY/SUBSTANCEABUSE PROGRAM, SOME INFORMATION MAY BE OMITTED. This clinical summary was aggregated from multiple sources. Caution should be exercised in using it in the provision of clinical care. This summary normalizes information from multiple sources, and as a consequence, information in this document may materially change the coding, format and clinical context of patient data. In addition, data may be omitted in some cases. CLINICAL DECISIONS SHOULD BE BASED ON THE PRIMARY CLINICAL RECORDS. [employer] provides no warranty or guarantee of the accuracy or completeness of information in this document.
[2024-01-19 08:37] LABS: Hematocrit 42.1 % (40-54); Hemoglobin 13.1 g/dL (13.0-16.5); Mean Corp Hgb Conc 31.1 g/dL (32-36); Mean Corpuscular Hgb 28.6 pg (27.0-32.0); Mean Corpuscular Volume 91.9 fL (80-94); Mean Platelet Vol. 9.8 fl (6.2-12.0); Platelet Count 261 K/mm3 (150-450); RBC Distribution Width CV 13.5 % (11.6-14.6); RBC Distribution Width SD 45.6 fl (35.1-43.9); Red Blood Count 4.58 M/mm3 (4.6-6.2); White Blood Count 6.1 K/mm3 (4.4-11.0)
[2024-01-19 14:30] LABS: Hemoglobin A1c 6.3 % (3.8-5.6)
[2024-01-19 14:54] LABS: AST(SGOT) 15 U/L (15-37); Alanine Aminotransfer ALT/SGPT 25 U/L (16-61); Albumin, Serum 3.6 g/dL (3.2-5.0); Alkaline Phosphatase 67 U/L (45-117); Anion Gap 6 (5-15); BUN 12 mg/dL (7-18); BUN/Creat Ratio 14.5 RATIO (10-20); Calcium,Total 9.3 mg/dL (8.5-10.1); Chloride 104 mmol/L (98-107); Cholesterol 95 mg/dL (200); Creatinine, Serum 0.83 mg/dL (0.70-1.30); EST Glomerular Filtration Rate 95 mL/min (>60); Est Glom Filt Rate - Afr Amer 115 mL/min (>60); Globulin 3.6 g/dL (2.2-4.2); Glucose 110 mg/dL (74-106); High Density Lipoprotein 45 mg/dL; Potassium 4.4 mmol/L (3.5-5.1); Protein, Total 7.2 g/dL (6.4-8.2); Sodium Level 137 mmol/L (136-145); Triglycerides 99 mg/dL; Very Low Density Lipoprotein 20 mg/dL (5-40)
== END | disposition home or self-care (01) ==
PROVIDERS: PCP Family Medicine; Referring Provider Family Medicine; Visit Provider Family Medicine
DX: E11.9 Type 2 diabetes mellitus without complications (principal); I25.10 Atherosclerotic heart disease of native coronary artery without angina pectoris; E78.5 Hyperlipidemia, unspecified; Z12.5 Encounter for screening for malignant neoplasm of prostate
CPT/HCPCS: 36415; 80053; 80061; 83036; 84153; 84443; 85027; G0103

== ENCOUNTER 2024-03-26 18:11 | Observation (INO) | payer MEDICARE, SELFPAY ==
[2024-03-26 18:12] VITALS: BP 112/74; PULSE 93; RESP 18; TEMP 37.1; O2SAT 93
--- NOTE | 2024-03-26 18:19 | EKG12_ITS ---
Test Reason : GEN ILL Blood Pressure : */* mmHG Vent. Rate : 68 BPM Atrial Rate : 68 BPM P-R Int : 196 ms QRS Dur : 132 ms QT Int : 420 ms P-R-T Axes : * 72 12 degrees QTcB Int : 446 ms Normal sinus rhythm Right bundle branch block Abnormal ECG Confirmed by CELIA GOMEZ MD ([id number]), technical editor ORTIZ COOPER ([id number]) on 03/27/2024 8:03:44 AM Referred By: Confirmed By: CELIA GOMEZ MD
[2024-03-26 18:39] LABS: Absolute Lymphocyte Count 0.23 X10^3/uL (0.83-4.51); Absolute Neutrophil Count 6.4 X10^3/uL (2.0-7.7); Basophil# 0.03 X10^3/uL; Basophil% 0.4 % (0-1); Eosinophil# 0.01 X10^3/uL; Eosinophils% 0.1 % (0-5); Hematocrit 37.1 % (40-54); Lymphocyte # 0.23 X10^3/ul (0.83-4.51); Lymphocyte % 3.1 % (19-41); Mean Corp Hgb Conc 32.3 g/dL (32-36); Mean Corpuscular Hgb 29.3 pg (27.0-32.0); Mean Corpuscular Volume 90.5 fL (80-94); Mean Platelet Vol. 9.9 fl (6.2-12.0); Monocyte# 0.65 X10^3/uL; Monocyte% 8.8 % (0-10); NRBC Flagged by Analyzer 0 % (0-5); Neutrophil # 6.44 X10^3/uL (2.7-7.7); Neutrophil % 86.9 % (47-70); POSITIVE DIFFERENTIAL YES; Platelet Count 184 K/mm3 (150-450); RBC Distribution Width CV 13.3 % (11.6-14.6); RBC Distribution Width SD 44.1 fl (35.1-43.9); White Blood Count 7.4 K/mm3 (4.4-11.0)
--- NOTE | 2024-03-26 18:50 | RAD_ITS ---
STUDY: X-RAY CHEST REASON FOR EXAM: Male, 78 years old. COUGH TECHNIQUE: PA and lateral COMPARISON: May 05, 2022 FINDINGS: There is prominence of the interstitial markings in both lower lobes There is no demonstrated pleural abnormality. Normal size heart. Normal mediastinum and del. Normal visualized pulmonary arteries. Mildly calcified aortic arch and descending thoracic aorta. Dorsal spine demonstrates degenerative change. Normal visualized ribs, clavicles, and shoulders. There is no demonstrated abnormality of the visualized soft tissue structures of the upper abdomen The interstitial thickening in left lower lobe is new finding since prior exam and may represent inflammatory change. Right basilar interstitial thickening is not changed appreciably. RAD/Chest PA and Lateral IMPRESSION: Mildly increased interstitial thickening in the left lower lobe since prior exam possibly representing focal inflammatory change. Electronically Signed: James Alcantar MD at 20:04 EST ,
[2024-03-26 18:56] LABS: Anion Gap 6 (5-15); BUN 15 mg/dL (7-18); BUN/Creat Ratio 19.3 RATIO (10-20); Calcium,Total 8.6 mg/dL (8.5-10.1); Chloride 105 mmol/L (98-107); Creatinine, Serum 0.78 mg/dL (0.70-1.30); EST Glomerular Filtration Rate 103 mL/min (>60); Est Glom Filt Rate - Afr Amer 124 mL/min (>60); Glucose 145 mg/dL (74-106); Potassium 4.1 mmol/L (3.5-5.1); Sodium Level 135 mmol/L (136-145)
[2024-03-26 21:17] VITALS: BMI 25.3
[2024-03-26 21:18] VITALS: BP 117/57; PULSE 71; RESP 18; TEMP 37.6; O2SAT 94
--- NOTE | 2024-03-26 22:44 | EX.ED.DYSGE1 ---
HPI History of Present Illness Chief Complaint: General Illness Narrative Narrative: Patient is a 78-year-old male with past medical history of Parkinson's disease, hypertension, depression, CAD with CABG who presented to the emergency department with a chief complaint of generalized weakness. According to the patient's at bedside she noted that today and he could not get up out of bed he was very weak. States that he tried to get up out of bed to use the restroom and was very unsteady and she decided to call EMS before he fell and anything else happened. She notes that they were around a significant mount of people with the past several days and is unsure if he is coming down with something from the republican. [facility] Medical History Diabetes GI bleed Depression Parkinsons disease Hypertension Hyperlipidemia CAD (coronary artery disease) Home Medications ?Medication ?Instructions ?Recorded ?Last Taken ?Type nitroglycerin 0.4 mg sublingual 0.4 mg sublingual Q5M PRN Chest 06/25/14 Unknown History tablet Pain acetaminophen 500 mg tablet 500 mg PO PRN pain 03/20/17 12/11/18 History atorvastatin 20 mg tablet 20 mg PO QHS cholesterol 12/11/18 12/10/18 History furosemide 40 mg tablet 40 mg PO DAILY fluid 12/11/18 12/11/18 History cholecalciferol (vitamin D3) 25 25 mcg PO DAILY 11/22/20 Unknown History mcg (1,000 unit) tablet (Vitamin D3) metformin 500 mg tablet 500 mg PO BID 11/22/20 Unknown History aspirin 81 mg capsule 81 mg PO DAILY 08/17/21 Unknown History carbidopa 25 mg-levodopa 100 mg 2 tab PO TID 08/17/21 Unknown History tablet metoprolol tartrate 50 mg tablet 50 mg PO BID 08/17/21 Unknown History quetiapine 25 mg tablet See Rx Instructions PO QHS 08/17/21 Unknown History potassium chloride 20 mEq 20 meq PO DAILY 08/06/23 Unknown History tablet,extended release(part/cryst) timolol maleate 0.5 % eye drops 1 drp ophthalmic (eye) BID 08/06/23 Unknown History Allergy/AdvReac Type Severity Reaction Status Date / Time No Known Allergies Allergy Verified 03/26/24 18:32 Family History Father Heart disease Mother Cancer Pancreatic cancer in her 60s. Surgical History History of cholecystectomy History of total right hip replacement H/O hernia repair Hx of CABG History of colostomy History of colectomy Social History household members: spouse housing: house Smoking Status: Never smoker alcohol intake: current alcohol intake frequency: holidays/special occasions only substance use type: does not use ROS ROS ED ROS Narrative Constitutional: Complains of fever, chills, diffuse bodyaches Cardiovascular: Denies chest pain or palpitations Respiratory:'s denies coughing wheezing shortness of breath Abdomen: Denies abdominal pain nausea vomiting : Denies any urinary symptoms Neurological: Complains of generalized weakness as noted above denies any numbness, tingling Skin: Denies rashes or lesions EXAM Physical Exam Narrative Exam Narrative: General: Patient lying in bed rest comfortably did not appear to be in acute distress Head: Atraumatic, normocephalic Eyes: PERRL bilaterally, EOMI bilaterally, no conjunctival injection noted Neck: Soft, supple, trach midline Cardiovascular: Regular rate and rhythm Respiratory: Clear to auscultation bilaterally Abdomen: Soft, nondistended, no tenderness palpation, bowel sounds present x 4 Extremities: +4/5 strength noted in the bilateral upper and lower extremities Neurological: Patient following commands knew that he was at [facility] years 2023 Skin: Warm, dry, tact Const Vital Signs: 03/26/24 18:12 03/26/24 21:00 03/26/24 21:00 Temperature 98.7 F Temperature Source Oral Pulse Rate 93 Respiratory Rate 18 Respiratory Effort Respiratory Pattern Blood Pressure 112/74 Blood Pressure Mean 86 Pulse Ox 93 Oxygen Delivery Method Room Air Room Air Room Air 03/26/24 21:18 03/26/24 21:19 Temperature 99.6 F H Temperature Source Oral Pulse Rate 71 Respiratory Rate 18 Respiratory Effort Normal Non-Labored Respiratory Pattern Normal Blood Pressure 117/57 L Blood Pressure Mean 77 Pulse Ox 94 Oxygen Delivery Method Room Air MDM MDM MDM Narrative Medical decision making narrative: Patient is a 78-year-old male who presented to the emergency department with a chief complaint of generalized weakness not feeling well. Patient will have a workup performed here on the differential diagnose includes Melamin to upper respiratory infection secondary to viral etiology, pneumonia, ACS, electrolyte imbalance. Once workup is obtained reviewed he will be reevaluated. Patient given IV fluids. Patient's CBC reviewed and showed no evidence leukocytosis white blood count normal 7.4, hemoglobin stable 12, platelet count was noted be 184. Patient sodium was 135, potassium normal at 4.1, creatinine normal at 0.78. Patient's chest x-ray reviewed by myself and by radiology showed mild increase in interstitial thickening in the lower lobes since prior exam possibly representing focal inflammatory change. Patient tested positive for COVID-19. Patient is too weak to get up and ambulate. He was a two-person assist from the wheelchair to the bed. Did discuss this with patient and at bedside and they are agreeable to potential placement. Patient's case will be discussed with hospitalist. Discussed case with hospitalist Dr. Phillip who accept the patient for admission. Patient was notified as well as significant other all question concerns answered. Lab Data Labs: Laboratory Results - last 24 hr 03/26/24 18:24 WBC 7.4 RBC 4.10 L Hgb 12.0 L Hct 37.1 L MCV 90.5 MCH 29.3 MCHC 32.3 RDW Std Deviation 44.1 H RDW Coeff of Jed 13.3 Plt Count 184 MPV 9.9 Immature Gran % (Auto) 0.700 Neut % (Auto) 86.9 H Lymph % (Auto) 3.1 L Kingfisher % (Auto) 8.8 Eos % (Auto) 0.1 Baso % (Auto) 0.4 Absolute Neuts (auto) 6.4 Absolute Lymphs (auto) 0.23 L Nucleated RBC % 0 Sodium 135 L Potassium 4.1 Chloride 105 Carbon Dioxide 24.0 Anion Gap 6 BUN 15 Creatinine 0.78 Est GFR (MDRD) Af Amer 124 Est GFR (MDRD) Non-Af 103 BUN/Creatinine Ratio 19.3 Glucose 145 H Calcium 8.6 Radiography Diagnostic Testing: Clinical Impression(s) from Imaging Studies Chest X-Ray 03/26/24 18:50 IMPRESSION: Mildly increased interstitial thickening in the left lower lobe since prior exam possibly representing focal inflammatory change. Electronically Signed: James Alcantar MD at 20:04 EST , Discharge Plan Triage Chief Complaint: General Illness ED Provider: Miguel Cunningham Dx/Rx/DC Orders Clinical Impression: COVID-19, Generalized weakness Prescriptions: No Action nitroglycerin 0.4 MG tablet 0.4 mg sublingual Q5M PRN (Reason: Chest Pain) Patient Comments: CHEST PAIN acetaminophen 500 MG tablet 500 mg PO PRN furosemide 40 MG tablet 40 mg PO DAILY atorvastatin 20 MG tablet 20 mg PO QHS metformin 500 mg tablet 500 mg PO BID Patient Comments: Take 1 tablet by mouth 2 times a Day cholecalciferol (vitamin D3) [Vitamin D3] 25 mcg (1,000 unit) Tablet 25 mcg PO DAILY quetiapine 25 mg Tablet See Rx Instructions PO QHS Rx Instructions: 1 and 1/2 tablet in the morning and 1 tablet in the evening orally at bedtime; metoprolol tartrate 50 mg Tablet 50 mg PO BID carbidopa-levodopa 25-100 mg Tablet 2 tab PO TID aspirin 81 mg Capsule 81 mg PO DAILY potassium chloride 20 mEq tablet,ER particles/crystals 20 meq PO DAILY timolol maleate 0.5 % drops 1 drp ophthalmic (eye) BID Primary Care Provider: Dustin Thacker Referrals: Dustin Thacker MD [Primary Care Provider] - Print Language: Wolof Disposition Disposition: Acute Care [facility]
--- NOTE | 2024-03-26 22:52 | PCM.HP.STD ---
HPI - General General Date of Admission: 03/26/24 Date of Service: 03/26/24 Chief Complaint: Weakness HPI Narrative TOSHIA SCOTT, is a 78 M who presented to the emergency department [facility] on 03/26/2024 with a chief complaint of generalized weakness. Patient has Parkinson's at baseline and ambulates with a walker. His is his primary caregiver at home and she reports over the last 2 days he is gotten significantly weaker to the point she is not able to manage to get him out of bed independently and help him use the bathroom. In the emergency department it took 2 people to help get him out of bed. He reported that he started having some chills and his took his temperature and was found to be febrile to 100.6. He has had no respiratory symptoms, no diarrhea, no nausea or vomiting and no nasal congestion or drainage. His reports his p.o. intake of fluids and food his been good. His did admit to having some nasal drainage and a mild cough with some alteration in her voice due to drainage. Vital signs on presentation showed temperature of 98.7 with a Tmax in the emergency department of 99.6, heart rate 93, blood pressure 112/74, respiratory rate of 18 and pulse ox has been between 93 and 95% on room air. CBC was overtly unremarkable. He did have a left shift with an 86.9% neutrophilia. Chemistry panel shows mild hyponatremia with a sodium of 135 but is otherwise unremarkable. Blood glucose is 145 nonfasting. He had a recent hemoglobin A1c done on 01/19/2024 which was 6.3. Chest x-ray showed mild increased interstitial thickening in the left lower lobe since previous exam but no significant acute findings were noted. Patient was found to be COVID-19 positive in the emergency department. [facility] Medical History Diabetes GI bleed Depression Parkinsons disease Hypertension Hyperlipidemia CAD (coronary artery disease) Home Medications ?Medication ?Instructions ?Recorded ?Last Taken ?Type nitroglycerin 0.4 mg sublingual 0.4 mg sublingual Q5M PRN Chest 06/25/14 Unknown History tablet Pain atorvastatin 20 mg tablet 20 mg PO QHS cholesterol 12/11/18 12/10/18 History furosemide 40 mg tablet 40 mg PO DAILY fluid 12/11/18 12/11/18 History metformin 500 mg tablet 500 mg PO BID 11/22/20 Unknown History aspirin 81 mg capsule 81 mg PO DAILY 08/17/21 Unknown History carbidopa 25 mg-levodopa 100 mg 2 tab PO TID 08/17/21 Unknown History tablet metoprolol tartrate 50 mg tablet 50 mg PO BID 08/17/21 Unknown History quetiapine 25 mg tablet See Rx Instructions PO QHS 08/17/21 Unknown History potassium chloride 20 mEq/15 mL 20 meq PO DAILY 03/26/24 Unknown History oral liquid Allergy/AdvReac Type Severity Reaction Status Date / Time No Known Allergies Allergy Verified 03/26/24 18:32 Family History Father Heart disease Mother Cancer Pancreatic cancer in her 60s. Surgical History History of cholecystectomy History of total right hip replacement H/O hernia repair Hx of CABG History of colostomy History of colectomy Social History household members: spouse housing: house Smoking Status: Never smoker alcohol intake: current alcohol intake frequency: holidays/special occasions only substance use type: does not use ROS Constitutional Constitutional: Reports chills, fatigue, fever(s), malaise and weakness; Denies anorexia, change in weight, night sweats or other Eyes Eyes: Denies blurry vision, change in eye color, change in vision, discharge from eye(s), double vision, erythema, eye pain, loss of vision or other ENT HEENT: Denies abnormal hearing, dysphagia, ear pain, epistaxis, headache(s), hearing loss, nasal congestion, nasal discharge, post nasal drip, sinus pressure, sore throat or other Cardiovascular Cardiovascular: Denies chest pain, claudication, dyspnea on exertion, edema, lightheadedness, orthopnea, palpitations, paroxysmal nocturnal dyspnea, rapid heart rate, syncope or other Respiratory/Chest Respiratory/Chest: Denies cough, dyspnea, excessive phlegm production, hemoptysis, productive cough, shortness of breath at rest, shortness of breath with exertion, wheezing or other Gastrointestinal Gastrointestinal: Denies abdominal pain, coffee ground emesis, constipation, diarrhea, dyspepsia, hematemesis, hematochezia, loose stools, melena, nausea, vomiting or other Genitourinary Genitourinary: Denies burning urination, difficulty urinating, dysuria, hematuria, nocturia, urinary frequency, urinary hesitancy, urinary incontinence, urinary urgency or other Musculoskeletal Musculoskeletal: Reports joint pain and joint stiffness; Denies arthralgias, back pain, joint swelling, myalgias, neck pain or other Neurologic Neurologic: Reports abnormal gait and tremor(s); Denies abnormal speech, confusion, disequilibrium, dizziness, focal weakness, headache(s), numbness, paresthesias, seizure-like activity, seizures, syncope, tingling or other Psychiatric Psychiatric: Denies anxiety, depression, homicidal ideation, suicidal ideation or other Endocrine Endocrinology: Denies change in body appearance, cold intolerance, excessive sweating, heat intolerance, polydipsia, polyuria or other Hematologic/Lymphatic Hematologic/Lymphatic: Denies anemia, easy bleeding, easy bruising, lymphadenopathy or other Allergic/Immunologic Allergic/Immunologic: Denies rhinitis, hives, eczemia, asthma or other Vital Signs Vital Signs Vital Signs: 03/26/24 18:12 03/26/24 21:00 03/26/24 21:00 Temperature 98.7 F Temperature Source Oral Pulse Rate 93 Respiratory Rate 18 Respiratory Effort Respiratory Pattern Blood Pressure 112/74 Blood Pressure Mean 86 Pulse Ox 93 Oxygen Delivery Method Room Air Room Air Room Air 03/26/24 21:18 03/26/24 21:19 Temperature 99.6 F H Temperature Source Oral Pulse Rate 71 Respiratory Rate 18 Respiratory Effort Normal Non-Labored Respiratory Pattern Normal Blood Pressure 117/57 L Blood Pressure Mean 77 Pulse Ox 94 Oxygen Delivery Method Room Air Weight Weight: 84.8 kg Body Mass Index (BMI) 25.3 Physical Exam Const alert, oriented x3, no apparent distress, average body habitus and well nourished; Negative for healthy appearing Constitutional Narrative: Elderly, frail, white male, sitting up in bed, at bedside, appears comfortable, not toxic appearing General Appearance: cooperative HEENT normocephalic, head/scalp atraumatic and moist oral mucous membranes HEENT Narrative: Moderate hearing loss, Mallampati 2, no thrush present Eyes EOMs intact bilaterally and conjunctivae normal Eyes Narrative: No scleral icterus Neck no lymphadenopathy and supple Neck Narrative: Trachea midline, no thyroid enlargement noted Resp normal respiratory effort, no retractions, no use of accessory muscles and clear to auscultation bilaterally Auscultation: Negative for rales, rhonchi or wheezes Cardio regular rate, regular rhythm, S1 normal heart sound, S2 normal heart sound, no murmurs, no rub, no gallops and no clicks GI normal to inspection, nondistended, normoactive bowel sounds, soft to palpation and non-tender GI Narrative: Ostomy in right lower quadrant with good output and pink stoma Extremity Extremity Narrative: Trace bilateral lower extremity edema, pedal pulses are 2+, radial pulses are 2+ Skin skin turgor normal, no jaundice, no petechiae and no mottling Skin Narrative: Few scattered excoriations with no signs of infection, skin is mildly pale Neuro oriented x3, moves all extremities and no focal motor deficits Neuro Narrative: Generalized weakness noted, bradykinesia and delayed response time to questions secondary to Parkinson's disease, exam is nonfocal Speech: Negative for speech normal Psych Psych Narrative: Affect is flat with masked facies patient interacts appropriately Results Lab / Micro Data 03/26/24 18:24 03/26/24 18:24 Labs: Laboratory Results - last 24 hr 03/26/24 18:24: WBC 7.4, RBC 4.10 L, Hgb 12.0 L, Hct 37.1 L, MCV 90.5, MCH 29.3, MCHC 32.3, RDW Std Deviation 44.1 H, RDW Coeff of Jed 13.3, Plt Count 184, MPV 9.9, Immature Gran % (Auto) 0.700, Neut % (Auto) 86.9 H, Lymph % (Auto) 3.1 L, Kimball % (Auto) 8.8, Eos % (Auto) 0.1, Baso % (Auto) 0.4, Absolute Neuts (auto) 6.4, Absolute Lymphs (auto) 0.23 L, Nucleated RBC % 0, Sodium 135 L, Potassium 4.1, Chloride 105, Carbon Dioxide 24.0, Anion Gap 6, BUN 15, Creatinine 0.78, Est GFR (MDRD) Af Amer 124, Est GFR (MDRD) Non-Af 103, BUN/Creatinine Ratio 19.3, Glucose 145 H, Calcium 8.6 Micro: Microbiology 03/26/24 20:10 Mucosa - Nose SARS-CoV-2, Influenza & RSV (PCR) - Final SARS-CoV-2 (COVID 19) Imaging Radiology Impression Chest X-Ray 03/26/24 18:50 IMPRESSION: Mildly increased interstitial thickening in the left lower lobe since prior exam possibly representing focal inflammatory change. Electronically Signed: James Alcantar MD at 20:04 EST Reading Location ID and State: [address] [place] [address] Tel , Service support , Assessment & Plan Assessment/Plan (1) Generalized weakness: (2) COVID-19: (3) Parkinsons disease: QUALIFIERS: Dyskinesia presence: unspecified whether dyskinesia Fluctuating manifestations: unspecified whether manifestations fluctuate Qualified Code(s): G20.A1 - Parkinson's disease without dyskinesia, without mention of fluctuations PLAN: Plan Generalized weakness secondary to acute COVID-19 infection on chronic Parkinson's disease -Patient not hypoxic and having no respiratory symptoms therefore will not dose Decadron or remdesivir at this time -Continue to monitor clinically -Consult PT/OT - reports no issues with swallowing at this time but monitor closely for coughing with eating low threshold for speech therapy consultation -Case management/social work consultation for assistance with discharge planning -Patient may need placement at discharge -Has commercial Medicare with [employer] so will need pre-CERT if rehab is required prior to discharge home Acute COVID-19 infection without hypoxia -Supportive management at this time DM-2 -Hold home metformin -Most recent hemoglobin A1c was good at 6.0 in December -SSI with Accu-Cheks as ordered -Carb controlled diet History of dysphagia -Had PEG previously after CABG -Low threshold for speech therapy consult if any abnormalities noted with eating 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
[2024-03-26 23:00] VITALS: BP 126/67; O2SAT 95
[2024-03-26 23:07] VITALS: BP 126/67; PULSE 85; RESP 18; TEMP 37.5; O2SAT 92
[2024-03-26 23:29] LABS: Mucous, Urine 0 SEEN /hpf (<or=2+); Red Blood Cells-Urine 0 SEEN /hpf (0-5); Squamous Epithelial Cells - UA 0 SEEN /hpf (0-5); White Blood Cells 0 SEEN /hpf (0-5)
[2024-03-26 23:30] LABS: Color, Urine Yellow (Yellow); Glucose, Dipstick Normal (Normal); Ketone-Dipstick 5 mg/dl (Negative); Leukocyte Esterase-Dipstick 25 /ul (Negative); Nitrite-Dipstick Negative (Negative); Occult Blood-Urine 10 /ul (Negative); Protein-Dipstick 30 mg/dl (Negative); Specific Gravity, Urine 1.025 (1.002-1.030); Urine Bilirubin Dipstick Negative (Negative); Urine Clarity Clear (Clear); Urine Urobilinogen Normal (Normal)
[2024-03-26 23:49] VITALS: BP 116/61; PULSE 63; RESP 18; TEMP 36.8; O2SAT 93
[2024-03-26 23:57] LABS: Bacteria RARE /hpf (None Seen)
[2024-03-27] VITALS (8 sets, daily range): BP systolic 98–125; BP diastolic 42–61; PULSE 60–71; RESP 16–18; TEMP 36.9–38.1; O2SAT 92–96; BMI 24.6
[2024-03-27] MEDS: Timolol 0.5% 5ML OPTH.BTL 1 DRP EACH EYE ×3 (00:46→20:58)
[2024-03-27] MEDS: QUEtiapine 25 MG Tablet PO ×2 (00:47→20:58)
[2024-03-27] MEDS: Carbidopa/Levodopa 25/100 Tablet PO ×4 (00:47→20:58)
[2024-03-27] MEDS: Metoprolol Tartrate 50 MG Tablet PO ×2 (00:48→09:22)
[2024-03-27 06:35] LABS: Absolute Lymphocyte Count 0.52 X10^3/uL (0.83-4.51); Absolute Neutrophil Count 4.5 X10^3/uL (2.0-7.7); Basophil# 0.03 X10^3/uL; Basophil% 0.5 % (0-1); Hemoglobin 11.4 g/dL (13.0-16.5); Lymphocyte # 0.52 X10^3/ul (0.83-4.51); Mean Corp Hgb Conc 31.7 g/dL (32-36); Mean Corpuscular Hgb 29.3 pg (27.0-32.0); Mean Corpuscular Volume 92.5 fL (80-94); Mean Platelet Vol. 10.1 fl (6.2-12.0); Monocyte# 0.68 X10^3/uL; Monocyte% 11.8 % (0-10); NRBC Flagged by Analyzer 0 % (0-5); POSITIVE DIFFERENTIAL YES; Platelet Count 164 K/mm3 (150-450); RBC Distribution Width CV 13.6 % (11.6-14.6); RBC Distribution Width SD 46.7 fl (35.1-43.9); Red Blood Count 3.89 M/mm3 (4.6-6.2); White Blood Count 5.8 K/mm3 (4.4-11.0)
[2024-03-27 07:06] LABS: AST(SGOT) 11 U/L (15-37); Alanine Aminotransfer ALT/SGPT 8 U/L (16-61); Albumin, Serum 3.2 g/dL (3.2-5.0); Alkaline Phosphatase 59 U/L (45-117); Anion Gap 4 (5-15); BUN 15 mg/dL (7-18); BUN/Creat Ratio 17.1 RATIO (10-20); Calcium,Total 8.8 mg/dL (8.5-10.1); Chloride 102 mmol/L (98-107); Creatinine, Serum 0.88 mg/dL (0.70-1.30); EST Glomerular Filtration Rate 89 mL/min (>60); Est Glom Filt Rate - Afr Amer 108 mL/min (>60); Estimated Creatinine Clearance 74.71 ml/min; Globulin 3.3 g/dL (2.2-4.2); Glucose 101 mg/dL (74-106); Phosphorus 2.8 mg/dL (2.5-4.9); Potassium 4.1 mmol/L (3.5-5.1); Protein, Total 6.5 g/dL (6.4-8.2); Sodium Level 136 mmol/L (136-145)
[2024-03-27 07:52] LABS: Bedside Glucose 92 mg/dL (74-106)
[2024-03-27 08:36] LABS: Vitamin B12 232 pg/mL (211-911)
[2024-03-27 08:47] LABS: Ferritin 156 ng/mL (26-388); Iron 19 ug/dL (65-175); Iron Binding Capacity,Total 315 ug/dL (250-450)
[2024-03-27] MEDS: Aspirin 81 MG TAB.CHEW PO (09:21)
[2024-03-27] MEDS: Enoxaparin 40 MG/0.4 ML Syringe SC (09:21)
[2024-03-27] MEDS: QUEtiapine 25 MG Tablet 37.5 MG PO (09:21)
[2024-03-27] MEDS: Furosemide 40 MG Tablet PO (09:22)
[2024-03-27] MEDS: Cholecalciferol (VIT D3) 25 MCG TABLET (1,000 UNITS) PO (09:22)
[2024-03-27] MEDS: Acetaminophen 325 MG Tablet 650 MG PO ×2 (09:23→23:35)
[2024-03-27] MEDS: Potassium Chloride Oral Tablet 20 MEQ PO (09:23)
--- NOTE | 2024-03-27 09:38 | WOUNDNOTE ---
Was consulted on patient d/t having an ileostomy. pt is known to this nurse from previous admissions. Pt has had stoma prolapse in the past. no prolapse noted at this time. appliance emptied for approx 200 cc's unformed brown stool. appliance intact with no sign of leaks. pt does wear an ostomy belt. will monitor.
--- NOTE | 2024-03-27 11:32 | PCM.PN.HOSP ---
Reason for Visit Reason for Visit: Diagnoses Parkinson's disease without dyskinesia, without mention of fluctuations (03/26/24) Weakness (03/26/24) COVID-19 (03/26/24) Subjective Subjective Saw patient at bedside this morning. Patient had just worked with therapy when I saw him. They noted that he was weak and confused when working with them. He was sitting up in bedside chair fairly comfortably but was only alert and oriented to person on my discussion with him. He denied any acute pain or discomfort. Was not able to answer any other questions appropriately. Objective Data Objective Data Vital Signs: Vital Signs Temp Pulse Resp BP Pulse Ox O2 Del Method 100.6 F H 71 18 125/42 H 95 Room Air 03/27/24 09:14 03/27/24 09:22 03/27/24 09:14 03/27/24 09:14 03/27/24 09:14 03/27/24 09:52 Oxygen Delivery Method Room Air Weight: 82.6 kg Body Mass Index (BMI) 24.6 Intake & Output: Intake and Output for Last 24 Hours 03/25/24 03/26/24 03/27/24 23:59 23:59 23:59 Intake Total 0 / 0 440 / 440 Output Total 400 / 400 Balance 0 / 0 40 / 40 Lab / Micro Data 03/27/24 06:17 03/27/24 06:17 Labs: Laboratory Results - last 24 hr 03/26/24 18:24: WBC 7.4, RBC 4.10 L, Hgb 12.0 L, Hct 37.1 L, MCV 90.5, MCH 29.3, MCHC 32.3, RDW Std Deviation 44.1 H, RDW Coeff of Jed 13.3, Plt Count 184, MPV 9.9, Immature Gran % (Auto) 0.700, Neut % (Auto) 86.9 H, Lymph % (Auto) 3.1 L, [place] % (Auto) 8.8, Eos % (Auto) 0.1, Baso % (Auto) 0.4, Absolute Neuts (auto) 6.4, Absolute Lymphs (auto) 0.23 L, Nucleated RBC % 0, Sodium 135 L, Potassium 4.1, Chloride 105, Carbon Dioxide 24.0, Anion Gap 6, BUN 15, Creatinine 0.78, Est GFR (MDRD) Af Amer 124, Est GFR (MDRD) Non-Af 103, BUN/Creatinine Ratio 19.3, Glucose 145 H, Calcium 8.6 03/26/24 23:25: Urine Color Yellow, Urine Clarity Clear, Urine pH 5.0, Ur Specific [place] 1.025, Urine Protein 30 H, Urine Glucose (UA) Normal, Urine Ketones 5 H, Urine Occult Blood 10 H, Urine Nitrite Negative, Urine Bilirubin Negative, Urine Urobilinogen Normal, Ur Leukocyte Esterase 25 H, Urine RBC 0 SEEN, Urine WBC 0 SEEN, Ur Squamous Epith Cells 0 SEEN, Urine Bacteria RARE, Urine Mucus 0 SEEN 03/27/24 06:17: WBC 5.8, RBC 3.89 L, Hgb 11.4 L, Hct 36.0 L, MCV 92.5, MCH 29.3, MCHC 31.7 L, RDW Std Deviation 46.7 H, RDW Coeff of Jed 13.6, Plt Count 164, MPV 10.1, Immature Gran % (Auto) 0.700, Neut % (Auto) 78.0 H, Lymph % (Auto) 9.0 L, [place] % (Auto) 11.8 H, Eos % (Auto) 0.0, Baso % (Auto) 0.5, Absolute Neuts (auto) 4.5, Absolute Lymphs (auto) 0.52 L, Nucleated RBC % 0, Sodium 136, Potassium 4.1, Chloride 102, Carbon Dioxide 29.0, Anion Gap 4 L, BUN 15, Creatinine 0.88, Estim Creat Clear Calc 74.71, Est GFR (MDRD) Af Amer 108, Est GFR (MDRD) Non-Af 89, BUN/Creatinine Ratio 17.1, Glucose 101, Calcium 8.8, Phosphorus 2.8, Magnesium 2.0, Iron 19 L, TIBC 315, Iron Saturation 6.0 L, Ferritin 156, Total Bilirubin 0.70, AST 11 L, ALT 8 L, Alkaline Phosphatase 59, Total Protein 6.5, Albumin 3.2, Globulin 3.3, Albumin/Globulin Ratio 1.0, Vitamin B12 232, Folate 15.90 03/27/24 06:34: POC Glucose 92 Micro: Microbiology 03/26/24 20:10 Mucosa - Nose SARS-CoV-2, Influenza & RSV (PCR) - Final SARS-CoV-2 (COVID 19) Radiography Diagnostic Testing: Radiology Impression Chest X-Ray 03/26/24 18:50 IMPRESSION: Mildly increased interstitial thickening in the left lower lobe since prior exam possibly representing focal inflammatory change. Electronically Signed: James Alcantar MD at 20:04 EST Reading Location ID and State: [address] [place] [address] Tel , Service support , Physical Exam Const alert, no apparent distress and average body habitus Constitutional Narrative: Elderly male, fatigued and somewhat chronically ill-appearing, alert and oriented x 1 to person, making appropriate eye contact but only answering a few questions appropriately, otherwise in no acute distress. General Appearance: cooperative and comfortable HEENT normocephalic, head/scalp atraumatic, hearing grossly normal bilaterally and nasal mucous membranes and turbinates normal Eyes PERRL, EOMs intact bilaterally and conjunctivae normal Neck full ROM Chest inspection of chest normal Resp normal respiratory effort and no use of accessory muscles Resp Narrative: Breathing comfortably on room air at rest. Mild crackles noted in bilateral lung bases, otherwise good air movement throughout, no wheezing noted. Cardio regular rate, regular rhythm, no murmurs and peripheral pulses 2+ throughout GI normal to inspection, nondistended, normoactive bowel sounds, soft to palpation, non-tender and non-distended Back/Spine normal ROM Extremity normal to inspection and no pedal edema Skin no rashes or lesions noted Assessment & Plan Assessment/Plan (1) Generalized weakness: (2) COVID-19: PLAN: Plan Patient is a 78-year-old male who presented [facility] ED on 03/26/2024 with worsening weakness. 1. Acute on chronic debility in setting of Parkinson's disease with cognitive impairment ? PT/OT/case management following. Acutely worsened weakness and mild confusion presumed secondary to acute COVID infection. Patient with poor therapy scores on hospital day 2, planning for SNF placement on discharge. Continue home Sinemet. 2. Acute COVID-19 infection without hypoxia ? COVID-19 positive on admit. Chest x-ray with mildly increased interstitial thickening in left lower lobe, otherwise unremarkable. No need for steroids or remdesivir as patient is on room air. Symptomatic management as needed. Chronic medical conditions: ? History of CAD with CABG, hypertension, hyperlipidemia: Borderline low blood pressures presume secondary to poor p.o. intake. Holding home Lasix and Lopressor. Continue home aspirin and statin. ? Type 2 diabetes mellitus: Last A1c 6.3% in December. Holding home metformin and treating with sliding scale insulin with meals while inpatient. ? History of dysphagia: History of PEG placement after CABG several years ago, now removed. ? 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 ? Glaucoma: Continue home medications. ? Depression: Stable. Continue home Seroquel. DVT prophylaxis: Lovenox CODE STATUS: Full code, verified Expected disposition: SNF, 1 to 2 days Total clinical time spent by myself addressing the patient's medical issues, reviewing all the data, and collaborating with patient's care team: 35 minutes. Charges/Coding Visit Charges Inpatient E&M: 10232 Subs Hosp L2
[2024-03-27 12:01] LABS: Bedside Glucose 140 mg/dL (74-106)
--- NOTE | 2024-03-27 13:40 | CASEMGMT ---
MARTA NATARAJAN Assessment: TC to pt for initial transition planning/care coordination assessment as pt is confused per nurse and hospitalist. MARTA NATARAJAN introduced self and role at [facility], pt voices understanding and consents to assessment. Care providers, pharmacy, and demographics verified/updated. Admitting Dx: generalized weakness Strata Score: 2 PCP:Kirstie Specialists:C[place], neuro; Pt states she is currently on the computer looking for a new neurologist as a letter was sent that he is moving out of state at end of March. She states she is planning to switch to Dr. Sanders. Pt also has a [place] cardio. Preferred Pharmacy: [facility]: yes LNOK: Adele Thompson, ; Diogenes Thompson, son Living Arrangements: Pt lives with in a bilevel home with 1 step to enter. Pt then has 16 steps to get to the main living area. Pt reports that pt is typically indep in bathing and dressing, she helped a little. She states he could get his own meals but she prepares them, she does laundry and pt goes to get groceries with her and pushes the cart. Transportation: Pt provides transportation. Pt does not drive. DME:walk in shower with grab bars, walker, cane, handicap accessible bathroom with heightened commode and rails HHC/SNF: Pt has had HHC in the past but was not pleased so it was cancelled. Pt does not have a hx of SNF stays. Pt has been doing own exercises at home with elastic bands and 2# wts. reports that pt was having visual hallucinations at home and did have some confusion. Discussed pt therapy evals with pt , she became tearful and states she knows that she can't take care of him in this state. She states she tested positive for covid today too. Pt is willing to have a SNF list emailed. Explained to her the star ratings and that it will be sent according to who is in network with insurance and geographical area. She gave email of [email or web address]. She will pick her top 3 preferences. She is aware that the insurance will need to approve this stay and it may take several days to do so, especially with the holiday. She verbalizes understanding. Requested dc customer marketing assistant send list, updated SW on pt. Pt states no further concerns/needs. CM to follow. Advised pt to ask CM if any further question/concerns/needs arise, voices understanding. Pt Goal:SNF Plan: SNF pending preferences, acceptance and precert Ying LOZANO CM
--- NOTE | 2024-03-27 15:33 | NURSING ---
Talked with daughter Mariaelena and gave her an update and she said if we have any questions feel free to call her since she has a medical background.
--- NOTE | 2024-03-27 16:34 | CASEMGMT ---
Met with patient to complete CLARK form. CLARK form explained to patient who voiced understanding and signed form. Original form placed in pt?s chart and copy provided to patient. Farnaz Contreras, Discharge Planning Asst
[2024-03-27 17:08] LABS: Bedside Glucose 110 mg/dL (74-106)
[2024-03-27] MEDS: Atorvastatin Calcium 20 MG Tablet PO (20:58)
[2024-03-27 22:02] LABS: Bedside Glucose 136 mg/dL (74-106)
[2024-03-28 03:01] VITALS: BP 108/56; PULSE 61; RESP 16; TEMP 36.9; O2SAT 94
[2024-03-28 05:13] VITALS: BMI 24.8
[2024-03-28] MEDS: Carbidopa/Levodopa 25/100 Tablet PO ×3 (06:00→22:08)
[2024-03-28 06:28] LABS: Bedside Glucose 89 mg/dL (74-106)
[2024-03-28 07:45] VITALS: O2SAT 94
[2024-03-28 09:00] VITALS: BP 141/82; PULSE 81; RESP 18; TEMP 36.8; O2SAT 92
[2024-03-28] MEDS: Enoxaparin 40 MG/0.4 ML Syringe SC (09:20)
[2024-03-28] MEDS: Potassium Chloride Oral Tablet 20 MEQ PO (09:21)
[2024-03-28] MEDS: Aspirin 81 MG TAB.CHEW PO (09:21)
[2024-03-28] MEDS: QUEtiapine 25 MG Tablet 37.5 MG PO (09:22)
[2024-03-28] MEDS: Cholecalciferol (VIT D3) 25 MCG TABLET (1,000 UNITS) PO (09:23)
[2024-03-28] MEDS: Timolol 0.5% 5ML OPTH.BTL 1 DRP EACH EYE ×2 (09:23→22:08)
[2024-03-28 09:35] VITALS: RESP 18; O2SAT 92
--- NOTE | 2024-03-28 11:04 | PCM.PN.HOSP ---
Reason for Visit Reason for Visit: Diagnoses Parkinson's disease without dyskinesia, without mention of fluctuations (03/26/24) Weakness (03/26/24) COVID-19 (03/26/24) Subjective Subjective Saw patient at bedside this morning. Patient appeared slightly more awake and alert today than yesterday but was still only alert and oriented x [address]. He denied any acute pain or discomfort this morning. No other new concerns today. Objective Data Objective Data Vital Signs: Vital Signs Temp Pulse Resp BP Pulse Ox O2 Del Method 98.2 F 81 18 141/82 H 92 Room Air 03/28/24 09:00 03/28/24 09:00 03/28/24 09:35 03/28/24 09:00 03/28/24 09:35 03/28/24 09:35 Oxygen Delivery Method Room Air Weight: 83.2 kg Body Mass Index (BMI) 24.8 Intake & Output: Intake and Output for Last 24 Hours 03/26/24 03/27/24 03/28/24 23:59 23:59 23:59 Intake Total 0 / 0 830 / 830 100 / 100 Output Total 550 / 550 Balance 0 / 0 280 / 280 100 / 100 Lab / Micro Data 03/27/24 06:17 03/27/24 06:17 Labs: Laboratory Results - last 24 hr 03/27/24 11:42: POC Glucose 140 H 03/27/24 16:47: POC Glucose 110 H 03/27/24 20:51: POC Glucose 136 H 03/28/24 05:54: POC Glucose 89 Micro: Microbiology 03/26/24 20:10 Mucosa - Nose SARS-CoV-2, Influenza & RSV (PCR) - Final SARS-CoV-2 (COVID 19) Physical Exam Const alert, no apparent distress and average body habitus Constitutional Narrative: Elderly male, mildly fatigued but improved from yesterday, chronically ill-appearing, alert and oriented x [address], making appropriate eye contact but only answering a few questions appropriately, otherwise in no acute distress. General Appearance: cooperative and comfortable HEENT normocephalic, head/scalp atraumatic, hearing grossly normal bilaterally and nasal mucous membranes and turbinates normal Eyes PERRL, EOMs intact bilaterally and conjunctivae normal Neck full ROM Chest inspection of chest normal Resp normal respiratory effort and no use of accessory muscles Resp Narrative: Breathing comfortably on room air at rest. Mild crackles noted in bilateral lung bases, otherwise good air movement throughout, no wheezing noted. Stable. Cardio regular rate, regular rhythm, no murmurs and peripheral pulses 2+ throughout GI normal to inspection, nondistended, normoactive bowel sounds, soft to palpation, non-tender and non-distended Back/Spine normal ROM Extremity normal to inspection and no pedal edema Skin no rashes or lesions noted Assessment & Plan Assessment/Plan (1) Generalized weakness: (2) COVID-19: PLAN: Plan Patient is a 78-year-old male who presented [facility] ED on 03/26/2024 with worsening weakness. 1. Acute on chronic debility in setting of Parkinson's disease with cognitive impairment ? PT/OT/case management following. Acutely worsened weakness and mild confusion presumed secondary to acute COVID infection. Patient with poor therapy scores on hospital day 2, planning for SNF placement on discharge. Medically ready for discharge on 03/28, awaiting placement. Continue home Sinemet. 2. Acute COVID-19 infection without hypoxia ? COVID-19 positive on admit. Chest x-ray with mildly increased interstitial thickening in left lower lobe, otherwise unremarkable. No need for steroids or remdesivir as patient is on room air. Symptomatic management as needed. Chronic medical conditions: ? History of CAD with CABG, hypertension, hyperlipidemia: Borderline low blood pressures presume secondary to poor p.o. intake. Holding home Lasix and Lopressor. Continue home aspirin and statin. ? Type 2 diabetes mellitus: Last A1c 6.3% in December. Holding home metformin and treating with sliding scale insulin with meals while inpatient. ? History of dysphagia: History of PEG placement after CABG several years ago, now removed. ? 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 ? Glaucoma: Continue home medications. ? Depression: Stable. Continue home Seroquel. DVT prophylaxis: Lovenox CODE STATUS: Full code, verified Expected disposition: SNF, medically ready for discharge on 03/28, awaiting placement. Total clinical time spent by myself addressing the patient's medical issues, reviewing all the data, and collaborating with patient's care team: 35 minutes. Charges/Coding Visit Charges Inpatient E&M: 90243 Subs Hosp L2
[2024-03-28] MEDS: Insulin Lispro 100 UNIT/ML INSULN.PEN SC (11:22)
[2024-03-28 11:52] LABS: Bedside Glucose 178 mg/dL (74-106)
[2024-03-28 14:04] VITALS: BP 140/63; PULSE 76; RESP 18; TEMP 37.5; O2SAT 94
[2024-03-28 16:42] LABS: Bedside Glucose 142 mg/dL (74-106)
[2024-03-28 22:07] VITALS: BP 149/89; PULSE 74; RESP 18; TEMP 36.8; O2SAT 95
[2024-03-28] MEDS: Atorvastatin Calcium 20 MG Tablet PO (22:08)
[2024-03-28] MEDS: QUEtiapine 25 MG Tablet PO (22:08)
[2024-03-28 23:34] LABS: Bedside Glucose 127 mg/dL (74-106)
[2024-03-29 05:19] VITALS: BP 145/67; PULSE 67; RESP 18; TEMP 36.4; O2SAT 98
[2024-03-29 05:37] VITALS: BMI 24.9
[2024-03-29] MEDS: Carbidopa/Levodopa 25/100 Tablet PO ×3 (06:41→20:10)
[2024-03-29 06:42] LABS: Hematocrit 37.9 % (40-54); Hemoglobin 12.4 g/dL (13.0-16.5); Mean Corp Hgb Conc 32.7 g/dL (32-36); Mean Corpuscular Hgb 29.9 pg (27.0-32.0); Mean Corpuscular Volume 91.3 fL (80-94); Mean Platelet Vol. 9.7 fl (6.2-12.0); Platelet Count 197 K/mm3 (150-450); RBC Distribution Width CV 13.3 % (11.6-14.6); RBC Distribution Width SD 45.1 fl (35.1-43.9); Red Blood Count 4.15 M/mm3 (4.6-6.2); White Blood Count 4.4 K/mm3 (4.4-11.0)
[2024-03-29 07:12] LABS: Anion Gap 6 (5-15); BUN 12 mg/dL (7-18); BUN/Creat Ratio 15.2 RATIO (10-20); Calcium,Total 8.7 mg/dL (8.5-10.1); Chloride 105 mmol/L (98-107); Creatinine, Serum 0.79 mg/dL (0.70-1.30); EST Glomerular Filtration Rate 100 mL/min (>60); Est Glom Filt Rate - Afr Amer 121 mL/min (>60); Estimated Creatinine Clearance 82.18 ml/min; Glucose 115 mg/dL (74-106); Potassium 3.8 mmol/L (3.5-5.1); Sodium Level 140 mmol/L (136-145)
[2024-03-29 07:15] LABS: Bedside Glucose 115 mg/dL (74-106)
--- NOTE | 2024-03-29 08:03 | CASEMGMT ---
Addendum entered by Ofelia Linares 03/29/24 15:53: Social Work- [facility] accepted referral; precert started. JAYDE completed PASRR and transport forms. JAYDE remains available to follow. Plan: [facility]; precert pend MAN [facility] Addendum entered by Ofelia Linares 03/29/24 11:48: Social Work- [facility] declined referral. [facility] advised of declinations. [facility] and [facility] are pt alternate choices; referrals to be completed. JAYDE remains available to follow. Plan: SNF; skilled level of care MAN [facility]hta Original Note: JAYDE updated that [facility] sent a list 03/27 and pt selected [facility] as FOC. JAYDE completed referral to TCU admissions. MAN Mehta
[2024-03-29] MEDS: QUEtiapine 25 MG Tablet 37.5 MG PO (09:33)
[2024-03-29] MEDS: Cholecalciferol (VIT D3) 25 MCG TABLET (1,000 UNITS) PO (09:34)
[2024-03-29] MEDS: Timolol 0.5% 5ML OPTH.BTL 1 DRP EACH EYE ×2 (09:34→20:11)
[2024-03-29] MEDS: Aspirin 81 MG TAB.CHEW PO (09:34)
[2024-03-29] MEDS: Enoxaparin 40 MG/0.4 ML Syringe SC (09:34)
[2024-03-29] MEDS: Potassium Chloride Oral Tablet 20 MEQ PO (09:34)
--- NOTE | 2024-03-29 09:41 | CASEMGMT ---
Addendum entered by Farnaz Contreras 04/02/24 09:00: Updates sent to [facility] with request to check on status of precert. Farnaz Contreras DC Planning Asst. Addendum entered by Farnaz Contreras 03/29/24 13:32: [facility] has accepted and will submit for precert. Pts updated and is pleased. SW updated. Farnaz Contreras DC Planning Asst. Addendum entered by Farnaz Contreras 03/29/24 12:40: TCU has declined. Farnaz Contreras DC Planning Asst. Original Note: Discharge Planning Referral sent to TCU and [facility]. Farnaz Contreras DC Planning Asst.
--- NOTE | 2024-03-29 10:01 | CASEMGMT ---
Discharge Planning Per pts request, a list of SNF providers including quality and resource use data and consistent with the patient's preferred geographic region, medical needs, and insurance network was also provided via email to pts daughter ([email or web address]) from the [employer] Guide link. Farnaz Contreras, Discharge Planning Asst.
[2024-03-29 11:25] LABS: Bedside Glucose 171 mg/dL (74-106)
[2024-03-29] MEDS: Insulin Lispro 100 UNIT/ML INSULN.PEN SC (11:45)
--- NOTE | 2024-03-29 12:43 | PCM.PROGNOTE ---
Subjective Subjective Patient seen and examined. He had no active complaints. He is quite confused still. Unable to do comprehensive review of systems. On room air. Objective Data Objective Data Vital Signs: Vital Signs Temp Pulse Resp BP Pulse Ox O2 Del Method 97.5 F L 67 18 145/67 H 98 Room Air 03/29/24 05:19 03/29/24 05:19 03/29/24 05:19 03/29/24 05:19 03/29/24 05:19 03/29/24 10:46 Oxygen Delivery Method Room Air Weight: 184 lb 1.376 oz Body Mass Index (BMI) 24.9 Intake & Output: Intake and Output for Last 24 Hours 03/27/24 03/28/24 03/29/24 23:59 23:59 23:59 Intake Total 830 / 830 540 / 540 220 / 220 Output Total 550 / 550 700 / 800 500 / 500 Balance 280 / 280 -160 / -260 -280 / -280 Lab / Micro Data 03/29/24 06:29 03/29/24 06:29 Labs: Laboratory Results - last 24 hr 03/28/24 16:24: POC Glucose 142 H 03/28/24 22:12: POC Glucose 127 H 03/29/24 06:29: WBC 4.4, RBC 4.15 L, Hgb 12.4 L, Hct 37.9 L, MCV 91.3, MCH 29.9, MCHC 32.7, RDW Std Deviation 45.1 H, RDW Coeff of Jed 13.3, Plt Count 197, MPV 9.7, Sodium 140, Potassium 3.8, Chloride 105, Carbon Dioxide 29.0, Anion Gap 6, BUN 12, Creatinine 0.79, Estim Creat Clear Calc 82.18, Est GFR (MDRD) Af Amer 121, Est GFR (MDRD) Non-Af 100, BUN/Creatinine Ratio 15.2, Glucose 115 H, Calcium 8.7 03/29/24 06:38: POC Glucose 115 H 03/29/24 11:01: POC Glucose 171 H Micro: Microbiology 03/26/24 20:10 Mucosa - Nose SARS-CoV-2, Influenza & RSV (PCR) - Final SARS-CoV-2 (COVID 19) Physical Exam Const alert Orientation / Consciousness: confused HEENT normocephalic and head/scalp atraumatic HEENT Narrative: dry oral mucosa Eyes PERRL and EOMs intact bilaterally Neck no lymphadenopathy and supple Lymph Lymphatic: no lymphadenopathy noted Resp normal respiratory effort, normal air movement and clear to auscultation bilaterally Cardio regular rate, regular rhythm, S1 normal heart sound, S2 normal heart sound and no murmurs GI normal to inspection, nondistended, normoactive bowel sounds, soft to palpation and non-tender Extremity normal capillary refill, no clubbing, cyanosis or edema and no calf tenderness General Extremity: no tenderness to palpation of joints or extremities Skin General Skin Exam: no breakdown Neuro CN's II-XII intact bilaterally, no focal motor deficits and no sensory deficits noted Motor Exam: general weakness Psych Psych Narrative: confused Assessment & Plan Assessment/Plan (1) Generalized weakness: (2) COVID-19: PLAN: Plan #debility and weakness in the setting of Parkinson's disease with dementia PT/OT on board. Fall precautions. Awaiting placement. #COVID-19 infection: On room air. No need for steroids or remdesivir as he has been on room air. #Type 2 diabetes mellitus: Metformin on hold. Insulin sliding scale. Accu-Cheks ACHS #History of toxic megacolon and bowel perforation S/p right upper quadrant colostomy. Stable #History of CAD s/p CABG: on aspirin and statin. metoprolol held due to low BP. #Hypertension: On Lopressor which was held due to patient's blood pressure being low due to decreased intake #Hyperlipidemia: On statin #Glaucoma: on eye drops DVT prophylaxis: lovenox Disposition: awaiting placement. Charges/Coding Visit Charges Inpatient E&M: 79330 Subs Hosp L2
--- NOTE | 2024-03-29 13:42 | NURSING ---
Call returned to Adele. Adele wanted an update, current status provided. Denies any questions/concerns.
[2024-03-29 14:00] VITALS: BP 104/53; PULSE 59; RESP 18; TEMP 36.7; O2SAT 93
[2024-03-29 16:43] LABS: Bedside Glucose 91 mg/dL (74-106)
[2024-03-29 20:08] VITALS: BP 135/66; PULSE 87; RESP 16; TEMP 36.6; O2SAT 94
[2024-03-29] MEDS: QUEtiapine 25 MG Tablet PO (20:11)
[2024-03-29] MEDS: Atorvastatin Calcium 20 MG Tablet PO (20:11)
[2024-03-29 21:55] LABS: Bedside Glucose 153 mg/dL (74-106)
[2024-03-30 02:20] VITALS: BP 126/68; PULSE 64; RESP 16; TEMP 36.7; O2SAT 95
[2024-03-30 05:31] VITALS: BMI 25.0
[2024-03-30] MEDS: Carbidopa/Levodopa 25/100 Tablet PO ×3 (06:05→22:57)
[2024-03-30 06:28] LABS: Bedside Glucose 100 mg/dL (74-106)
[2024-03-30 06:58] LABS: Absolute Lymphocyte Count 0.55 X10^3/uL (0.83-4.51); Absolute Neutrophil Count 2.6 X10^3/uL (2.0-7.7); Basophil# 0.02 X10^3/uL; Basophil% 0.5 % (0-1); Eosinophils% 2.7 % (0-5); Hematocrit 37.2 % (40-54); Hemoglobin 11.9 g/dL (13.0-16.5); Lymphocyte # 0.55 X10^3/ul (0.83-4.51); Lymphocyte % 14.6 % (19-41); Mean Corpuscular Hgb 29.1 pg (27.0-32.0); Mean Platelet Vol. 9.8 fl (6.2-12.0); Monocyte# 0.47 X10^3/uL; Monocyte% 12.5 % (0-10); NRBC Flagged by Analyzer 0 % (0-5); Neutrophil % 69.2 % (47-70); POSITIVE DIFFERENTIAL YES; Platelet Count 205 K/mm3 (150-450); RBC Distribution Width CV 13.2 % (11.6-14.6); RBC Distribution Width SD 44.4 fl (35.1-43.9); Red Blood Count 4.09 M/mm3 (4.6-6.2); White Blood Count 3.8 K/mm3 (4.4-11.0)
[2024-03-30 07:20] LABS: Anion Gap 6 (5-15); BUN 15 mg/dL (7-18); Calcium,Total 8.9 mg/dL (8.5-10.1); Chloride 109 mmol/L (98-107); Creatinine, Serum 0.75 mg/dL (0.70-1.30); EST Glomerular Filtration Rate 107 mL/min (>60); Est Glom Filt Rate - Afr Amer 129 mL/min (>60); Estimated Creatinine Clearance 82.18 ml/min; Glucose 131 mg/dL (74-106); Potassium 4.1 mmol/L (3.5-5.1); Sodium Level 141 mmol/L (136-145)
--- NOTE | 2024-03-30 09:26 | WOUNDNOTE ---
Ostomy appliance had been changed last evening. appliance it intact. no sign of leak at this itme. appliance emptied for approx 150cc's unformed brown stool. pt denies further needs at this time. will monitor.
[2024-03-30 09:39] VITALS: BP 135/72; PULSE 85; RESP 17; TEMP 36.6; O2SAT 95
[2024-03-30] MEDS: Aspirin 81 MG TAB.CHEW PO (09:43)
[2024-03-30] MEDS: Enoxaparin 40 MG/0.4 ML Syringe SC (09:43)
[2024-03-30] MEDS: QUEtiapine 25 MG Tablet 37.5 MG PO (09:44)
[2024-03-30] MEDS: Potassium Chloride Oral Tablet 20 MEQ PO (09:44)
[2024-03-30] MEDS: Cholecalciferol (VIT D3) 25 MCG TABLET (1,000 UNITS) PO (09:44)
[2024-03-30] MEDS: Timolol 0.5% 5ML OPTH.BTL 1 DRP EACH EYE ×2 (09:45→22:57)
--- NOTE | 2024-03-30 10:41 | CASEMGMT ---
Discharge Planning [facility] notified that pt is medically ready. Unit phone number given to call should precert be obtained after hours/over weekend. Green sheet completed and given to SW. Farnaz Contreras DC Planning Asst.
--- NOTE | 2024-03-30 11:03 | CASEMGMT ---
Social Work- Green sheet and transport placed on chart in the event that pt receives precert. Pt updated on precert status. Plan: [facility]; pend precert MAN Mehta
[2024-03-30] MEDS: Insulin Lispro 100 UNIT/ML INSULN.PEN SC (11:43)
--- NOTE | 2024-03-30 11:59 | PN_ITS ---
Subjective Subjective Patient seen and examined. He was alert but still confused. He is awaiting placement. He has been hemodynamically stable. Objective Data Objective Data Vital Signs: Vital Signs Temp Pulse Resp BP Pulse Ox O2 Del Method 97.8 F 85 17 135/72 H 95 Room Air 03/30/24 09:39 03/30/24 09:39 03/30/24 09:39 03/30/24 09:39 03/30/24 09:39 03/30/24 10:00 Oxygen Delivery Method Room Air Weight: 184 lb 4.903 oz Body Mass Index (BMI) 25.0 Intake & Output: Intake and Output for Last 24 Hours 03/28/24 03/29/24 03/30/24 23:59 23:59 23:59 Intake Total 540 / 540 440 / 440 Output Total 700 / 800 700 / 1200 500 / 500 Balance -160 / -260 -260 / -760 -500 / -500 Lab / Micro Data 03/30/24 06:39 03/30/24 06:39 Labs: Laboratory Results - last 24 hr 03/29/24 16:16: POC Glucose 91 03/29/24 21:34: POC Glucose 153 H 03/30/24 06:04: POC Glucose 100 03/30/24 06:39: WBC 3.8 L, RBC 4.09 L, Hgb 11.9 L, Hct 37.2 L, MCV 91.0, MCH 29.1, MCHC 32.0, RDW Std Deviation 44.4 H, RDW Coeff of [place] 13.2, Plt Count 205, MPV 9.8, Immature Gran % (Auto) 0.500, Neut % (Auto) 69.2, Lymph % (Auto) 14.6 L , [place] % (Auto) 12.5 H, Eos % (Auto) 2.7, Baso % (Auto) 0.5, Absolute Neuts (auto) 2.6, Absolute Lymphs (auto) 0.55 L, Nucleated RBC % 0, Sodium 141, Potassium 4.1, Chloride 109 H, Carbon Dioxide 26.0, Anion Gap 6, BUN 15, Creatinine 0.75, Estim Creat Clear Calc 82.18, Est GFR (MDRD) Af Amer 129, Est GFR (MDRD) Non-Af 107, BUN/Creatinine Ratio 20.0, Glucose 131 H, Calcium 8.9 Micro: Microbiology 03/26/24 20:10 Mucosa - Nose SARS-CoV-2, Influenza & RSV (PCR) - Final SARS-CoV-2 (COVID 19) Physical Exam Const alert, no apparent distress, average body habitus and well nourished; Negative for healthy appearing General Appearance: cooperative and comfortable Orientation / Consciousness: confused HEENT normocephalic, head/scalp atraumatic, hearing grossly normal bilaterally, nasal mucous membranes and turbinates normal and moist oral mucous membranes Eyes PERRL, EOMs intact bilaterally and conjunctivae normal Neck full ROM, no lymphadenopathy and supple Lymph Lymphatic: no lymphadenopathy noted Chest inspection of chest normal Resp normal respiratory effort, normal air movement, no retractions, no use of accessory muscles and clear to auscultation bilaterally Resp Narrative: On room air. Cardio regular rate, regular rhythm, S1 normal heart sound, S2 normal heart sound, no murmurs and peripheral pulses 2+ throughout GI normal to inspection, nondistended, normoactive bowel sounds, soft to palpation, non-tender and non-distended GI Narrative: Ostomy in right lower quadrant Back/Spine normal ROM Extremity normal to inspection, normal capillary refill, no clubbing, cyanosis or edema, no calf tenderness and no pedal edema Extremity Narrative: Trace bilateral lower extremity edema, pedal pulses are 2+, radial pulses are 2+ General Extremity: no tenderness to palpation of joints or extremities Skin no rashes or lesions noted, skin turgor normal, no jaundice, no petechiae and no mottling General Skin Exam: no breakdown Neuro no focal motor deficits and no sensory deficits noted Neuro Narrative: generalised weakness, flat affect due to Parkinson's disease. Speech: Negative for speech normal Motor Exam: general weakness Psych Psych Narrative: confused Assessment & Plan Assessment/Plan (1) Generalized weakness: (2) COVID-19: PLAN: Plan #debility and weakness in the setting of Parkinson's disease with dementia * PT/OT on board. Fall precautions. * Awaiting placement. * #COVID-19 infection: On room air. No need for steroids or remdesivir as he has been on room air. #Type 2 diabetes mellitus: Metformin on hold. Insulin sliding scale. Accu- Cheks ACHS #History of toxic megacolon and bowel perforation * S/p right upper quadrant colostomy. * Stable * #History of CAD s/p CABG: on aspirin and statin. metoprolol held due to low BP. #Hypertension: On Lopressor which was held due to patient's blood pressure being low due to decreased intake #Hyperlipidemia: On statin #Glaucoma: on eye drops DVT prophylaxis: lovenox Disposition: awaiting placement. Charges/Coding Visit Charges Inpatient E&M: 83853 Subs Hosp L2
[2024-03-30 14:41] VITALS: BP 160/62; PULSE 86; RESP 18; TEMP 36.6; O2SAT 97
[2024-03-30 14:52] LABS: Bedside Glucose 159 mg/dL (74-106)
--- NOTE | 2024-03-30 15:39 | NURSING ---
daughter mariaelena ware
[2024-03-30 17:23] LABS: Bedside Glucose 102 mg/dL (74-106)
[2024-03-30 22:54] VITALS: BP 135/75; PULSE 78; RESP 16; TEMP 37; O2SAT 96
[2024-03-30] MEDS: Atorvastatin Calcium 20 MG Tablet PO (22:57)
[2024-03-30] MEDS: QUEtiapine 25 MG Tablet PO (22:57)
[2024-03-30 23:54] LABS: Bedside Glucose 135 mg/dL (74-106)
[2024-03-31 04:55] VITALS: BP 136/86; PULSE 76; RESP 16; TEMP 37.2; O2SAT 98
[2024-03-31 05:05] LABS: Absolute Lymphocyte Count 0.55 X10^3/uL (0.83-4.51); Basophil# 0.04 X10^3/uL; Basophil% 0.7 % (0-1); Eosinophil# 0.03 X10^3/uL; Eosinophils% 0.6 % (0-5); Hematocrit 36.9 % (40-54); Lymphocyte # 0.55 X10^3/ul (0.83-4.51); Lymphocyte % 10.2 % (19-41); Mean Corp Hgb Conc 32.5 g/dL (32-36); Mean Corpuscular Volume 89.1 fL (80-94); Mean Platelet Vol. 10.2 fl (6.2-12.0); Monocyte# 0.73 X10^3/uL; Monocyte% 13.6 % (0-10); NRBC Flagged by Analyzer 0 % (0-5); Neutrophil # 3.99 X10^3/uL (2.7-7.7); Neutrophil % 74.2 % (47-70); POSITIVE DIFFERENTIAL YES; Platelet Count 219 K/mm3 (150-450); RBC Distribution Width CV 13.2 % (11.6-14.6); Red Blood Count 4.14 M/mm3 (4.6-6.2); White Blood Count 5.4 K/mm3 (4.4-11.0)
[2024-03-31 05:32] LABS: Anion Gap 6 (5-15); BUN 15 mg/dL (7-18); BUN/Creat Ratio 24.6 RATIO (10-20); Calcium,Total 9.1 mg/dL (8.5-10.1); Chloride 108 mmol/L (98-107); Creatinine, Serum 0.61 mg/dL (0.70-1.30); EST Glomerular Filtration Rate 135 mL/min (>60); Est Glom Filt Rate - Afr Amer 164 mL/min (>60); Estimated Creatinine Clearance 82.18 ml/min; Glucose 133 mg/dL (74-106); Potassium 3.8 mmol/L (3.5-5.1); Sodium Level 139 mmol/L (136-145)
[2024-03-31 05:43] VITALS: BMI 24.1
[2024-03-31] MEDS: Carbidopa/Levodopa 25/100 Tablet PO ×3 (05:48→21:15)
[2024-03-31 06:08] LABS: Bedside Glucose 103 mg/dL (74-106)
[2024-03-31 09:27] VITALS: BP 136/54; PULSE 91; RESP 18; TEMP 36.6; O2SAT 94
[2024-03-31] MEDS: Enoxaparin 40 MG/0.4 ML Syringe SC (09:28)
[2024-03-31] MEDS: Potassium Chloride Oral Tablet 20 MEQ PO (09:29)
[2024-03-31] MEDS: Timolol 0.5% 5ML OPTH.BTL 1 DRP EACH EYE ×2 (09:29→21:15)
[2024-03-31] MEDS: Aspirin 81 MG TAB.CHEW PO (09:29)
[2024-03-31] MEDS: QUEtiapine 25 MG Tablet 37.5 MG PO (09:29)
[2024-03-31] MEDS: Cholecalciferol (VIT D3) 25 MCG TABLET (1,000 UNITS) PO (09:29)
--- NOTE | 2024-03-31 11:15 | PN_ITS ---
Subjective Subjective Patient seen and examined. He had no complaints. he remains confused. He is awaiting placement. Objective Data Objective Data Vital Signs: Vital Signs Temp Pulse Resp BP Pulse Ox O2 Del Method 97.8 F 91 18 136/54 H 94 Room Air 03/31/24 09:27 03/31/24 09:27 03/31/24 09:27 03/31/24 09:27 03/31/24 09:27 03/31/24 09:27 Oxygen Delivery Method Room Air Weight: 178 lb 6.4 oz Body Mass Index (BMI) 24.1 Intake & Output: Intake and Output for Last 24 Hours 03/29/24 03/30/24 03/31/24 23:59 23:59 23:59 Intake Total 440 / 440 200 / 200 Output Total 700 / 1200 1500 / 1950 500 / 500 Balance -260 / -760 -1500 / -1800 -300 / -300 Lab / Micro Data 03/31/24 04:26 03/31/24 04:26 Labs: Laboratory Results - last 24 hr 03/30/24 11:42: POC Glucose 159 H 03/30/24 16:57: POC Glucose 102 03/30/24 22:46: POC Glucose 135 H 03/31/24 04:26: WBC 5.4, RBC 4.14 L, Hgb 12.0 L, Hct 36.9 L, MCV 89.1, MCH 29.0, MCHC 32.5, RDW Std Deviation 43.0, RDW Coeff of Jed 13.2, Plt Count 219, MPV 10.2, Immature Gran % (Auto) 0.700, Neut % (Auto) 74.2 H, Lymph % (Auto) 10.2 L, [place] % (Auto) 13.6 H, Eos % (Auto) 0.6, Baso % (Auto) 0.7, Absolute Neuts (auto) 4.0, Absolute Lymphs (auto) 0.55 L, Nucleated RBC % 0, Sodium 139, Potassium 3.8, Chloride 108 H, Carbon Dioxide 25.0, Anion Gap 6, BUN 15, Creatinine 0.61 L , Estim Creat Clear Calc 82.18, Est GFR (MDRD) Af Amer 164, Est GFR (MDRD) Non- Af 135, BUN/Creatinine Ratio 24.6 H, Glucose 133 H, Calcium 9.1 03/31/24 05:40: POC Glucose 103 Micro: Microbiology 03/26/24 20:10 Mucosa - Nose SARS-CoV-2, Influenza & RSV (PCR) - Final SARS-CoV-2 (COVID 19) Physical Exam Const alert, no apparent distress, average body habitus and well nourished; Negative for healthy appearing General Appearance: cooperative Orientation / Consciousness: confused HEENT normocephalic, head/scalp atraumatic, hearing grossly normal bilaterally, nasal mucous membranes and turbinates normal and moist oral mucous membranes Eyes PERRL, EOMs intact bilaterally and conjunctivae normal Eyes Narrative: No scleral icterus Neck full ROM, no lymphadenopathy and supple Neck Narrative: Trachea midline, no thyroid enlargement noted Lymph Lymphatic: no lymphadenopathy noted Chest inspection of chest normal Resp normal respiratory effort, normal air movement, no retractions, no use of accessory muscles and clear to auscultation bilaterally Resp Narrative: On room air. Cardio regular rate, regular rhythm, S1 normal heart sound, S2 normal heart sound, no murmurs, no rub, no gallops, no clicks and peripheral pulses 2+ throughout GI normal to inspection, nondistended, normoactive bowel sounds, soft to palpation, non-tender and non-distended GI Narrative: Ostomy in right lower quadrant Back/Spine normal ROM Extremity normal to inspection, normal capillary refill, no clubbing, cyanosis or edema, no calf tenderness and no pedal edema Extremity Narrative: Trace bilateral lower extremity edema, pedal pulses are 2+, radial pulses are 2+ General Extremity: no tenderness to palpation of joints or extremities Skin no rashes or lesions noted, skin turgor normal, no jaundice, no petechiae and no mottling General Skin Exam: no breakdown Neuro CN's II-XII intact bilaterally, moves all extremities, no focal motor deficits and no sensory deficits noted Neuro Narrative: generalised weakness, flat affect due to Parkinson's disease. 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 Fall precautions. * Awaiting placement. * #COVID-19 infection: On room air. No need for steroids or remdesivir as he has been on room air. #Type 2 diabetes mellitus: Metformin on hold. Insulin sliding scale. Accu- Cheks ACHS #History of toxic megacolon and bowel perforation * S/p right upper quadrant colostomy. * Stable * #History of CAD s/p CABG: on aspirin and statin. metoprolol held due to low BP. Will resume. #Hypertension: On Lopressor which was held due to patient's blood pressure being low due to decreased intake #Hyperlipidemia: On statin #Glaucoma: on eye drops DVT prophylaxis: lovenox Disposition: awaiting placement. Charges/Coding Visit Charges Inpatient E&M: 81469 Subs Hosp L2
[2024-03-31 12:18] VITALS: PULSE 91
[2024-03-31] MEDS: Insulin Lispro 100 UNIT/ML INSULN.PEN SC (12:18)
[2024-03-31] MEDS: Metoprolol Tartrate 25 MG Tablet PO ×2 (12:18→21:11)
[2024-03-31 12:24] LABS: Bedside Glucose 178 mg/dL (74-106)
[2024-03-31 14:00] VITALS: BP 105/59; PULSE 81; RESP 18; TEMP 37.2; O2SAT 94
[2024-03-31 18:28] LABS: Bedside Glucose 133 mg/dL (74-106)
[2024-03-31 21:00] VITALS: BP 164/82; PULSE 92; RESP 18; TEMP 36.6; O2SAT 96
[2024-03-31 21:11] VITALS: BP 164/82; PULSE 92
[2024-03-31] MEDS: QUEtiapine 25 MG Tablet PO (21:11)
[2024-03-31] MEDS: Atorvastatin Calcium 20 MG Tablet PO (21:11)
[2024-03-31 21:50] LABS: Bedside Glucose 154 mg/dL (74-106)
[2024-04-01] VITALS (8 sets, daily range): BP systolic 138–169; BP diastolic 62–72; PULSE 74–91; RESP 16–18; TEMP 36.4–36.8; O2SAT 93–95; BMI 24.0
[2024-04-01] MEDS: Carbidopa/Levodopa 25/100 Tablet PO ×3 (06:25→21:25)
[2024-04-01 06:48] LABS: Bedside Glucose 131 mg/dL (74-106)
[2024-04-01 07:11] LABS: Absolute Lymphocyte Count 0.57 X10^3/uL (0.83-4.51); Absolute Neutrophil Count 5.4 X10^3/uL (2.0-7.7); Basophil# 0.02 X10^3/uL; Basophil% 0.3 % (0-1); Hemoglobin 11.1 g/dL (13.0-16.5); Lymphocyte # 0.57 X10^3/ul (0.83-4.51); Lymphocyte % 8.1 % (19-41); Mean Corp Hgb Conc 32.6 g/dL (32-36); Mean Corpuscular Hgb 29.5 pg (27.0-32.0); Mean Corpuscular Volume 90.4 fL (80-94); Mean Platelet Vol. 9.6 fl (6.2-12.0); Monocyte# 0.91 X10^3/uL; NRBC Flagged by Analyzer 0 % (0-5); POSITIVE DIFFERENTIAL YES; Platelet Count 235 K/mm3 (150-450); RBC Distribution Width CV 13.2 % (11.6-14.6); RBC Distribution Width SD 43.4 fl (35.1-43.9); Red Blood Count 3.76 M/mm3 (4.6-6.2)
[2024-04-01 07:37] LABS: Anion Gap 5 (5-15); BUN 18 mg/dL (7-18); BUN/Creat Ratio 26.3 RATIO (10-20); Calcium,Total 8.9 mg/dL (8.5-10.1); Chloride 105 mmol/L (98-107); Creatinine, Serum 0.68 mg/dL (0.70-1.30); EST Glomerular Filtration Rate 119 mL/min (>60); Est Glom Filt Rate - Afr Amer 144 mL/min (>60); Estimated Creatinine Clearance 82.18 ml/min; Glucose 143 mg/dL (74-106); Potassium 4.1 mmol/L (3.5-5.1); Sodium Level 136 mmol/L (136-145)
[2024-04-01] MEDS: Potassium Chloride Oral Tablet 20 MEQ PO (08:47)
[2024-04-01] MEDS: Aspirin 81 MG TAB.CHEW PO (08:47)
[2024-04-01] MEDS: Timolol 0.5% 5ML OPTH.BTL 1 DRP EACH EYE ×2 (08:48→21:26)
[2024-04-01] MEDS: Enoxaparin 40 MG/0.4 ML Syringe SC (08:48)
[2024-04-01] MEDS: Cholecalciferol (VIT D3) 25 MCG TABLET (1,000 UNITS) PO (08:48)
[2024-04-01] MEDS: QUEtiapine 25 MG Tablet 37.5 MG PO (08:49)
[2024-04-01] MEDS: Metoprolol Tartrate 25 MG Tablet PO ×2 (08:52→21:25)
[2024-04-01] MEDS: Insulin Lispro 100 UNIT/ML INSULN.PEN SC ×2 (10:32→15:21)
[2024-04-01 12:39] LABS: Bedside Glucose 197 mg/dL (74-106)
--- NOTE | 2024-04-01 13:48 | PN_ITS ---
Subjective Subjective Patient seen and examined. He had no complaints. Review of systems otherwise negative. He is awaiting placement. Objective Data Objective Data Vital Signs: Vital Signs Temp Pulse Resp BP Pulse Ox O2 Del Method 97.6 F L 80 18 138/70 H 93 Room Air 04/01/24 09:02 04/01/24 10:21 04/01/24 09:02 04/01/24 09:02 04/01/24 09:02 04/01/24 09:02 Oxygen Delivery Method Room Air Weight: 177 lb 12.8 oz Body Mass Index (BMI) 24.0 Intake & Output: Intake and Output for Last 24 Hours 03/30/24 03/31/24 04/01/24 23:59 23:59 23:59 Intake Total 640 / 640 Output Total 1500 / 1950 800 / 1350 1200 / 1200 Balance -1500 / -1800 -160 / -710 -1200 / -1200 Lab / Micro Data 04/01/24 06:50 04/01/24 06:50 Labs: Laboratory Results - last 24 hr 03/31/24 18:09: POC Glucose 133 H 03/31/24 21:10: POC Glucose 154 H 04/01/24 06:24: POC Glucose 131 H 04/01/24 06:50: WBC 7.0, RBC 3.76 L, Hgb 11.1 L, Hct 34.0 L, MCV 90.4, MCH 29.5, MCHC 32.6, RDW Std Deviation 43.4, RDW Coeff of Jed 13.2, Plt Count 235, MPV 9.6, Immature Gran % (Auto) 1.600 H, Neut % (Auto) 77.0 H, Lymph % (Auto) 8.1 L, [place] % (Auto) 13.0 H, Eos % (Auto) 0.0, Baso % (Auto) 0.3, Absolute Neuts (auto) 5.4, Absolute Lymphs (auto) 0.57 L, Nucleated RBC % 0, Sodium 136, Potassium 4.1, Chloride 105, Carbon Dioxide 26.0, Anion Gap 5, BUN 18, Creatinine 0.68 L, Estim Creat Clear Calc 82.18, Est GFR (MDRD) Af Amer 144, Est GFR (MDRD) Non-Af 119, BUN/Creatinine Ratio 26.3 H, Glucose 143 H, Calcium 8.9 04/01/24 10:32: POC Glucose 197 H Micro: Microbiology 03/26/24 20:10 Mucosa - Nose SARS-CoV-2, Influenza & RSV (PCR) - Final SARS-CoV-2 (COVID 19) Physical Exam Const alert, oriented x3, no apparent distress, average body habitus and well nourished; Negative for healthy appearing General Appearance: cooperative and comfortable Orientation / Consciousness: confused HEENT normocephalic, head/scalp atraumatic, hearing grossly normal bilaterally, nasal mucous membranes and turbinates normal and moist oral mucous membranes Eyes PERRL, EOMs intact bilaterally and conjunctivae normal Eyes Narrative: No scleral icterus Neck full ROM, no lymphadenopathy and supple Neck Narrative: Trachea midline, no thyroid enlargement noted Lymph Lymphatic: no lymphadenopathy noted Chest inspection of chest normal Resp normal respiratory effort, normal air movement, no retractions, no use of accessory muscles and clear to auscultation bilaterally Resp Narrative: On room air. Cardio regular rate, regular rhythm, S1 normal heart sound, S2 normal heart sound, no murmurs, no clicks and peripheral pulses 2+ throughout GI normal to inspection, nondistended, normoactive bowel sounds, soft to palpation, non-tender and non-distended GI Narrative: Ostomy in right lower quadrant Back/Spine normal ROM Extremity normal to inspection, normal capillary refill, no clubbing, cyanosis or edema, no calf tenderness and no pedal edema Extremity Narrative: Trace bilateral lower extremity edema, pedal pulses are 2+, radial pulses are 2+ General Extremity: no tenderness to palpation of joints or extremities Skin no rashes or lesions noted, skin turgor normal, no jaundice, no petechiae and no mottling General Skin Exam: no breakdown Neuro oriented x3, CN's II-XII intact bilaterally, moves all extremities, no focal motor deficits and no sensory deficits noted Neuro Narrative: generalised weakness, flat affect due to Parkinson's disease. confused Speech: Negative for speech normal Motor Exam: general weakness Psych Psych Narrative: confused Assessment & Plan Assessment/Plan (1) Generalized weakness: (2) COVID-19: PLAN: Plan #debility and weakness in the setting of Parkinson's disease with dementia * PT/OT on board. Fall precautions. * Awaiting placement. * #COVID-19 infection: On room air. No need for steroids or remdesivir as he has been on room air. #Type 2 diabetes mellitus: Metformin on hold. Insulin sliding scale. Accu- Cheks ACHS #History of toxic megacolon and bowel perforation * S/p right upper quadrant colostomy. * Stable * #History of CAD s/p CABG: on aspirin and statin. On metoprolol. #Hypertension: On Lopressor which was held due to patient's blood pressure being low due to decreased intake #Hyperlipidemia: On statin #Glaucoma: on eye drops DVT prophylaxis: lovenox Disposition: awaiting placement. Charges/Coding Visit Charges Inpatient E&M: 53896 Subs Hosp L2
[2024-04-01 16:08] LABS: Bedside Glucose 178 mg/dL (74-106)
[2024-04-01] MEDS: Atorvastatin Calcium 20 MG Tablet PO (21:25)
[2024-04-01] MEDS: QUEtiapine 25 MG Tablet PO (21:25)
[2024-04-01 21:50] LABS: Bedside Glucose 156 mg/dL (74-106)
[2024-04-02 03:00] VITALS: BP 136/64; PULSE 88; RESP 18; TEMP 36.6; O2SAT 94
[2024-04-02] MEDS: Menthol/Lanolin/Calamine/Znox 113 GM Tube 1 APPLIC TOPICAL ×3 (03:01→22:43)
[2024-04-02 05:15] VITALS: BMI 23.8
[2024-04-02] MEDS: Carbidopa/Levodopa 25/100 Tablet PO ×3 (05:21→22:42)
[2024-04-02 05:46] LABS: Bedside Glucose 129 mg/dL (74-106)
[2024-04-02 08:11] LABS: Absolute Lymphocyte Count 0.58 X10^3/uL (0.83-4.51); Basophil# 0.02 X10^3/uL; Basophil% 0.3 % (0-1); Hematocrit 33.9 % (40-54); Hemoglobin 10.7 g/dL (13.0-16.5); Lymphocyte # 0.58 X10^3/ul (0.83-4.51); Lymphocyte % 7.8 % (19-41); Mean Corp Hgb Conc 31.6 g/dL (32-36); Mean Corpuscular Hgb 28.8 pg (27.0-32.0); Mean Corpuscular Volume 91.1 fL (80-94); Mean Platelet Vol. 9.9 fl (6.2-12.0); Monocyte# 0.73 X10^3/uL; Monocyte% 9.8 % (0-10); NRBC Flagged by Analyzer 0 % (0-5); Neutrophil % 80.9 % (47-70); POSITIVE DIFFERENTIAL YES; Platelet Count 276 K/mm3 (150-450); RBC Distribution Width CV 13.1 % (11.6-14.6); RBC Distribution Width SD 43.5 fl (35.1-43.9); Red Blood Count 3.72 M/mm3 (4.6-6.2); White Blood Count 7.4 K/mm3 (4.4-11.0)
[2024-04-02 08:43] LABS: Anion Gap 5 (5-15); BUN 18 mg/dL (7-18); BUN/Creat Ratio 25.2 RATIO (10-20); Calcium,Total 9.1 mg/dL (8.5-10.1); Chloride 104 mmol/L (98-107); Creatinine, Serum 0.71 mg/dL (0.70-1.30); EST Glomerular Filtration Rate 113 mL/min (>60); Est Glom Filt Rate - Afr Amer 137 mL/min (>60); Estimated Creatinine Clearance 82.18 ml/min; Glucose 136 mg/dL (74-106); Potassium 4.1 mmol/L (3.5-5.1); Sodium Level 137 mmol/L (136-145)
[2024-04-02 09:18] VITALS: BP 136/76; PULSE 75; RESP 16; TEMP 36.6; O2SAT 92
[2024-04-02] MEDS: QUEtiapine 25 MG Tablet 37.5 MG PO (09:29)
[2024-04-02] MEDS: Enoxaparin 40 MG/0.4 ML Syringe SC (09:29)
[2024-04-02 09:30] VITALS: PULSE 75
[2024-04-02] MEDS: Metoprolol Tartrate 25 MG Tablet PO ×2 (09:30→22:41)
[2024-04-02] MEDS: Cholecalciferol (VIT D3) 25 MCG TABLET (1,000 UNITS) PO (09:30)
[2024-04-02] MEDS: Aspirin 81 MG TAB.CHEW PO (09:31)
[2024-04-02] MEDS: Potassium Chloride Oral Tablet 20 MEQ PO (09:31)
[2024-04-02] MEDS: Timolol 0.5% 5ML OPTH.BTL 1 DRP EACH EYE ×2 (09:37→22:44)
--- NOTE | 2024-04-02 10:07 | CASEMGMT ---
Addendum entered by Lucy Enamorado 04/02/24 13:52: Obtained [employer] Ipad from ICU, unable to get this to connect but attempting. TC to pt dtr to make aware that as of yet, there has not been success to get the ipad to facetime for pt. She states to disregard and she will ask her friend who works in pharmacy to come up with her personal phone. She denies further needs at this time. Original Note: Received notification that pt dtr would like to speak to MARTA NATARAJAN. TC to dtr Mariaelena, she had questions regarding pt facility she is going to be admitted to and when he may dc to there. She had questions regarding the process of insurance approving the stay and what the goals are. Answered all questions. Pt dtr requesting that pt facetime his today. MARTA NATARAJAN to discuss with pt nurse.
--- NOTE | 2024-04-02 11:11 | PN_ITS ---
Subjective Subjective Patient seen and examined. He had no active complaints. He is awaiting placement. He has remained hemodynamically stable. Objective Data Objective Data Vital Signs: Vital Signs Temp Pulse Resp BP Pulse Ox O2 Del Method 97.8 F 75 16 136/76 H 92 Room Air 04/02/24 09:18 04/02/24 09:30 04/02/24 09:18 04/02/24 09:18 04/02/24 09:18 04/02/24 09:18 Oxygen Delivery Method Room Air Weight: 175 lb 14.862 oz Body Mass Index (BMI) 23.8 Intake & Output: Intake and Output for Last 24 Hours 03/31/24 04/01/24 04/02/24 23:59 23:59 23:59 Intake Total 640 / 640 Output Total 800 / 1350 1500 / 1825 625 / 625 Balance -160 / -710 -1500 / -1825 -625 / -625 Lab / Micro Data 04/02/24 07:21 04/02/24 07:21 Labs: Laboratory Results - last 24 hr 04/01/24 10:32: POC Glucose 197 H 04/01/24 15:21: POC Glucose 178 H 04/01/24 21:24: POC Glucose 156 H 04/02/24 05:24: POC Glucose 129 H 04/02/24 07:21: WBC 7.4, RBC 3.72 L, Hgb 10.7 L, Hct 33.9 L, MCV 91.1, MCH 28.8, MCHC 31.6 L, RDW Std Deviation 43.5, RDW Coeff of Jed 13.1, Plt Count 276, MPV 9.9, Immature Gran % (Auto) 1.200 H, Neut % (Auto) 80.9 H, Lymph % (Auto) 7.8 L, [place] % (Auto) 9.8, Eos % (Auto) 0.0, Baso % (Auto) 0.3, Absolute Neuts (auto) 6.0, Absolute Lymphs (auto) 0.58 L, Nucleated RBC % 0, Sodium 137, Potassium 4.1, Chloride 104, Carbon Dioxide 28.0, Anion Gap 5, BUN 18, Creatinine 0.71, Estim Creat Clear Calc 82.18, Est GFR (MDRD) Af Amer 137, Est GFR (MDRD) Non-Af 113, BUN/Creatinine Ratio 25.2 H, Glucose 136 H, Calcium 9.1 Micro: Microbiology 03/26/24 20:10 Mucosa - Nose SARS-CoV-2, Influenza & RSV (PCR) - Final SARS-CoV-2 (COVID 19) Physical Exam Const alert, oriented x3, no apparent distress, average body habitus and well nourished; Negative for healthy appearing General Appearance: cooperative and comfortable Orientation / Consciousness: confused HEENT normocephalic, head/scalp atraumatic, hearing grossly normal bilaterally, nasal mucous membranes and turbinates normal and moist oral mucous membranes Eyes PERRL, EOMs intact bilaterally and conjunctivae normal Neck full ROM, no lymphadenopathy and supple Lymph Lymphatic: no lymphadenopathy noted Chest inspection of chest normal Resp normal respiratory effort, normal air movement, no retractions, no use of accessory muscles and clear to auscultation bilaterally Resp Narrative: On room air. Auscultation: Negative for rales, rhonchi or wheezes Cardio regular rate, regular rhythm, S1 normal heart sound, S2 normal heart sound, no murmurs, no rub, no gallops, no clicks and peripheral pulses 2+ throughout GI normal to inspection, nondistended, normoactive bowel sounds, soft to palpation, non-tender and non-distended GI Narrative: Ostomy in right lower quadrant Back/Spine normal ROM Extremity normal to inspection, normal capillary refill, no clubbing, cyanosis or edema, no calf tenderness and no pedal edema General Extremity: no tenderness to palpation of joints or extremities Skin no rashes or lesions noted, skin turgor normal, no jaundice, no petechiae and no mottling General Skin Exam: no breakdown Neuro oriented x3, CN's II-XII intact bilaterally, moves all extremities, no focal motor deficits and no sensory deficits noted Neuro Narrative: generalised weakness, flat affect due to Parkinson's disease. 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 Fall precautions. * Awaiting placement. * #COVID-19 infection: * On room air. * No need for steroids or remdesivir as he has been on room air. #Type 2 diabetes mellitus: Metformin on hold. Insulin sliding scale. Accu- Cheks ACHS #History of toxic megacolon and bowel perforation * S/p right upper quadrant colostomy. * Stable * #History of CAD s/p CABG: on aspirin and statin. On metoprolol. #Hypertension: Lopressor resumed. IV hydralazine prn #Hyperlipidemia: On statin #Glaucoma: on eye drops DVT prophylaxis: lovenox Disposition: still awaiting placement. Charges/Coding Visit Charges Inpatient E&M: 25246 Subs Hosp L2
[2024-04-02 12:33] LABS: Bedside Glucose 117 mg/dL (74-106)
[2024-04-02 14:48] VITALS: BP 126/71; PULSE 87; RESP 18; TEMP 36.4; O2SAT 95
[2024-04-02 17:49] LABS: Bedside Glucose 111 mg/dL (74-106)
[2024-04-02 22:39] VITALS: BP 129/61; PULSE 93; RESP 15; TEMP 36.6; O2SAT 95
[2024-04-02 22:41] VITALS: BP 129/61; PULSE 93
[2024-04-02] MEDS: Atorvastatin Calcium 20 MG Tablet PO (22:41)
[2024-04-02] MEDS: QUEtiapine 25 MG Tablet PO (22:43)
[2024-04-02 23:19] LABS: Bedside Glucose 102 mg/dL (74-106)
[2024-04-03 03:00] VITALS: BP 125/62; PULSE 74; RESP 15; TEMP 37.2; O2SAT 98
[2024-04-03] MEDS: Carbidopa/Levodopa 25/100 Tablet PO ×3 (06:27→22:21)
[2024-04-03 06:58] LABS: Bedside Glucose 101 mg/dL (74-106)
[2024-04-03 07:35] VITALS: BP 97/68; PULSE 70; RESP 16; TEMP 36.8; O2SAT 100
[2024-04-03 07:36] LABS: Absolute Lymphocyte Count 0.47 X10^3/uL (0.83-4.51); Absolute Neutrophil Count 6.1 X10^3/uL (2.0-7.7); Basophil# 0.02 X10^3/uL; Basophil% 0.3 % (0-1); Eosinophil# 0.03 X10^3/uL; Eosinophils% 0.4 % (0-5); Hemoglobin 10.9 g/dL (13.0-16.5); Lymphocyte # 0.47 X10^3/ul (0.83-4.51); Lymphocyte % 6.4 % (19-41); Mean Corp Hgb Conc 31.1 g/dL (32-36); Mean Corpuscular Hgb 28.1 pg (27.0-32.0); Mean Corpuscular Volume 90.2 fL (80-94); Monocyte% 9.5 % (0-10); NRBC Flagged by Analyzer 0 % (0-5); Neutrophil # 6.06 X10^3/uL (2.7-7.7); Neutrophil % 82.2 % (47-70); POSITIVE DIFFERENTIAL YES; Platelet Count 314 K/mm3 (150-450); RBC Distribution Width CV 13.2 % (11.6-14.6); RBC Distribution Width SD 43.3 fl (35.1-43.9); Red Blood Count 3.88 M/mm3 (4.6-6.2); White Blood Count 7.4 K/mm3 (4.4-11.0)
[2024-04-03 07:38] VITALS: BMI 24.5
--- NOTE | 2024-04-03 07:55 | WOUNDNOTE ---
In to assess the ostomy appliance to the right lower abdomen. appliance appears to have been leaking and some tape had been applied to the lateral flange. removed the appliance. there is some mild redness noted to the peristomal skin. cleansed skin with warm water. pat dry. lightly dusted the skin with stoma powder. applied a new 2 piece Quentin appliance with a small amount of stoma paste. pt tolerated well. will monitor.
[2024-04-03] MEDS: Aspirin 81 MG TAB.CHEW PO (07:56)
[2024-04-03] MEDS: Acetaminophen 325 MG Tablet 650 MG PO ×2 (07:56→14:06)
[2024-04-03] MEDS: Potassium Chloride Oral Tablet 20 MEQ PO (07:56)
[2024-04-03] MEDS: Cholecalciferol (VIT D3) 25 MCG TABLET (1,000 UNITS) PO (07:56)
[2024-04-03 08:28] LABS: Anion Gap 9 (5-15); BUN 20 mg/dL (7-18); BUN/Creat Ratio 29.3 RATIO (10-20); Calcium,Total 8.9 mg/dL (8.5-10.1); Chloride 105 mmol/L (98-107); Creatinine, Serum 0.68 mg/dL (0.70-1.30); EST Glomerular Filtration Rate 119 mL/min (>60); Est Glom Filt Rate - Afr Amer 144 mL/min (>60); Estimated Creatinine Clearance 82.18 ml/min; Glucose 131 mg/dL (74-106); Potassium 4.4 mmol/L (3.5-5.1); Sodium Level 135 mmol/L (136-145)
[2024-04-03] MEDS: Enoxaparin 40 MG/0.4 ML Syringe SC (09:59)
[2024-04-03] MEDS: QUEtiapine 25 MG Tablet 37.5 MG PO (09:59)
[2024-04-03] MEDS: Menthol/Lanolin/Calamine/Znox 113 GM Tube 1 APPLIC TOPICAL (10:00)
[2024-04-03 10:02] VITALS: BP 136/59; PULSE 72
[2024-04-03] MEDS: Metoprolol Tartrate 25 MG Tablet PO ×2 (10:02→22:22)
[2024-04-03] MEDS: Timolol 0.5% 5ML OPTH.BTL 1 DRP EACH EYE ×2 (10:04→22:21)
--- NOTE | 2024-04-03 11:05 | RAD_ITS ---
STUDY: X-RAY - RIGHT HAND REASON FOR EXAM: Male, 78 years old. Right wrist swelling and pain. TECHNIQUE: 3 views of the right hand. COMPARISON: None. FINDINGS: Normal radiocarpal articulation. Normal distal radioulnar joint. Normal visualized carpal bones. Normal carpal articulations. There is minimal degenerative arthrosis at the first CMC joint, first MCP joint, and interphalangeal joint of the thumb. Normal second through fifth carpometacarpal joints. Normal metacarpi. Normal proximal and distal phalanges of the thumb. Normal metacarpophalangeal joints of the second through fifth fingers. Normal proximal and distal interphalangeal joints of the second through fifth fingers. Normal phalanges of the second through fifth fingers. There are atherosclerotic calcifications. RAD/Hand Min 3 Views IMPRESSION: Minimal degenerative arthrosis at the first CMC joint, first MCP joint, and interphalangeal joint of the thumb. Electronically Signed: Joaquín Phillip MD at 12:00 EST ,
--- NOTE | 2024-04-03 11:23 | PN_ITS ---
Subjective Subjective Patient seen and examined. He is still quite confused but he seems to be having some pain and swelling in his right wrist. Per nurse has not been any trauma to the right wrist. Unable to do review of systems as patient is quite confused. Objective Data Objective Data Vital Signs: Vital Signs Temp Pulse Resp BP Pulse Ox O2 Del Method 98.2 F 72 16 136/59 H 100 Room Air 04/03/24 07:35 04/03/24 10:02 04/03/24 07:35 04/03/24 10:02 04/03/24 07:35 04/03/24 07:39 Oxygen Delivery Method Room Air Weight: 181 lb 10.574 oz Body Mass Index (BMI) 24.5 Intake & Output: Intake and Output for Last 24 Hours 04/01/24 04/02/24 04/03/24 23:59 23:59 23:59 Intake Total 150 / 150 Output Total 1500 / 1825 625 / 925 300 / 300 Balance -1500 / -1825 -625 / -775 -150 / -150 Medical Nutrition Assessment Dietitian: Malnutrition Criteria Met Start: 04/02/24 13:07 Freq: Status: Active Protocol: Document 04/02/24 13:07 SLA (Rec: 04/02/24 13:07 SLA [id number]) Nutrition Malnutrition Evidence of Malnutrition Exists Yes Malnutrition (severe): Acute Illness/Injury Evidenced By Suboptimal Energy Intake ( Severe),Weight Loss (Severe) Intake Problem None at this time Status Inactive Problem Clinical Problem Acute Disease or Injury Related Malnutrition Etiology related to covid/ acute illness and inadequate energy intake Signs/Symptoms as evidenced by 3.4% unintended wt loss and meeting <50% po intake of meals x 6 days Status Active Problem Recommendation Dietitian Recommendations/Changes Adjust to liberal regular diet d/t signs and symptoms of malnutrition. Will continue 120ml glucerna shakes TID with meals. Rec appetite stimulant to help encourage po intake. Lab / Micro Data 04/03/24 07:04 04/03/24 07:04 Labs: Laboratory Results - last 24 hr 04/02/24 12:14: POC Glucose 117 H 04/02/24 16:55: POC Glucose 111 H 04/02/24 22:47: POC Glucose 102 04/03/24 06:38: POC Glucose 101 04/03/24 07:04: WBC 7.4, RBC 3.88 L, Hgb 10.9 L, Hct 35.0 L, MCV 90.2, MCH 28.1, MCHC 31.1 L, RDW Std Deviation 43.3, RDW Coeff of Jed 13.2, Plt Count 314, MPV 10.0, Immature Gran % (Auto) 1.200 H, Neut % (Auto) 82.2 H, Lymph % (Auto) 6.4 L , [place] % (Auto) 9.5, Eos % (Auto) 0.4, Baso % (Auto) 0.3, Absolute Neuts (auto) 6.1, Absolute Lymphs (auto) 0.47 L, Nucleated RBC % 0, Sodium 135 L, Potassium 4.4, Chloride 105, Carbon Dioxide 21.0, Anion Gap 9, BUN 20 H, Creatinine 0.68 L , Estim Creat Clear Calc 82.18, Est GFR (MDRD) Af Amer 144, Est GFR (MDRD) Non- Af 119, BUN/Creatinine Ratio 29.3 H, Glucose 131 H, Calcium 8.9 Micro: Microbiology 03/26/24 20:10 Mucosa - Nose SARS-CoV-2, Influenza & RSV (PCR) - Final SARS-CoV-2 (COVID 19) Physical Exam Const alert, no apparent distress, average body habitus and well nourished; Negative for healthy appearing General Appearance: cooperative and comfortable Orientation / Consciousness: confused HEENT normocephalic, head/scalp atraumatic, hearing grossly normal bilaterally, nasal mucous membranes and turbinates normal and moist oral mucous membranes Eyes PERRL, EOMs intact bilaterally and conjunctivae normal Eyes Narrative: No scleral icterus Neck full ROM, no lymphadenopathy and supple Lymph Lymphatic: no lymphadenopathy noted Chest inspection of chest normal Resp normal respiratory effort, normal air movement, no retractions, no use of accessory muscles and clear to auscultation bilaterally Resp Narrative: On room air. Cardio regular rate, regular rhythm, S1 normal heart sound, S2 normal heart sound, no murmurs, no rub, no gallops, no clicks and peripheral pulses 2+ throughout GI normal to inspection, nondistended, normoactive bowel sounds, soft to palpation, non-tender and non-distended GI Narrative: Ostomy in right lower quadrant Back/Spine normal ROM Extremity Extremity Narrative: Trace bilateral lower extremity edema, pedal pulses are 2+, radial pulses are 2+. Right wrist slightly swollen, erythematous and tender to touch. Unable to flex right wrist fully. General Extremity: no tenderness to palpation of joints or extremities Skin no rashes or lesions noted, skin turgor normal, no jaundice, no petechiae and no mottling Skin Narrative: Few scattered excoriations with no signs of infection, skin is mildly pale General Skin Exam: no breakdown Neuro Neuro Narrative: generalised weakness, flat affect due to Parkinson's disease. confused Speech: Negative for speech normal Motor Exam: general weakness Psych Psych Narrative: confused Assessment & Plan Assessment/Plan (1) Generalized weakness: (2) COVID-19: PLAN: Plan #debility and weakness in the setting of Parkinson's disease with dementia * PT/OT on board. Fall precautions. * Awaiting placement. * #COVID-19 infection: * On room air. * No need for steroids or remdesivir as he has been on room air. #Right wrist swelling and pain * right wrist is swollen and tender. Unable to fully flex the right wrist, and he also has some erythema over the right wrist * I am wondering if his IV possibly infiltrated, causing some cellulitis * will get xray of the right wrist and also check uric acid levels. * PT/OT on board. PO tylenol, PO oxycodone and IV morphine prn for pain. #Type 2 diabetes mellitus: Metformin on hold. Insulin sliding scale. Accu- Cheks ACHS #History of toxic megacolon and bowel perforation * S/p right upper quadrant colostomy. * Stable * #History of CAD s/p CABG: on aspirin and statin. On metoprolol. #Hypertension: on lopressor #Hyperlipidemia: On statin #Glaucoma: on eye drops DVT prophylaxis: lovenox Disposition: still awaiting placement. Charges/Coding Visit Charges Inpatient E&M: 27024 Subs Hosp L2
[2024-04-03 11:55] LABS: Bedside Glucose 122 mg/dL (74-106)
[2024-04-03 14:17] VITALS: BP 111/54; PULSE 75; RESP 18; TEMP 36.6; O2SAT 95
[2024-04-03 14:21] LABS: Uric Acid 4.9 mg/dL (3.5-7.2)
[2024-04-03 22:16] VITALS: BP 145/76; PULSE 66; RESP 16; TEMP 36.4; O2SAT 97
[2024-04-03] MEDS: Atorvastatin Calcium 20 MG Tablet PO (22:21)
[2024-04-03 22:22] VITALS: BP 145/76; PULSE 66
[2024-04-03] MEDS: QUEtiapine 25 MG Tablet PO (22:22)
[2024-04-04] MEDS: Menthol/Lanolin/Calamine/Znox 113 GM Tube 1 APPLIC TOPICAL ×2 (02:32→10:03)
[2024-04-04 02:33] VITALS: BP 120/69; PULSE 76; RESP 16; TEMP 36.9; O2SAT 96
[2024-04-04 03:06] LABS: Bedside Glucose 112 mg/dL (74-106)
[2024-04-04 05:30] VITALS: BMI 24.7
[2024-04-04] MEDS: Carbidopa/Levodopa 25/100 Tablet PO ×2 (05:46→14:35)
[2024-04-04 07:22] LABS: Absolute Lymphocyte Count 0.42 X10^3/uL (0.83-4.51); Absolute Neutrophil Count 6.5 X10^3/uL (2.0-7.7); Basophil# 0.02 X10^3/uL; Basophil% 0.3 % (0-1); Eosinophil# 0.02 X10^3/uL; Eosinophils% 0.3 % (0-5); Hematocrit 34.9 % (40-54); Hemoglobin 11.5 g/dL (13.0-16.5); Lymphocyte # 0.42 X10^3/ul (0.83-4.51); Lymphocyte % 5.5 % (19-41); Mean Corpuscular Hgb 29.1 pg (27.0-32.0); Mean Corpuscular Volume 88.4 fL (80-94); Mean Platelet Vol. 9.7 fl (6.2-12.0); Monocyte# 0.62 X10^3/uL; Monocyte% 8.2 % (0-10); NRBC Flagged by Analyzer 0 % (0-5); Neutrophil # 6.45 X10^3/uL (2.7-7.7); Neutrophil % 84.9 % (47-70); POSITIVE DIFFERENTIAL YES; Platelet Count 354 K/mm3 (150-450); RBC Distribution Width CV 12.9 % (11.6-14.6); RBC Distribution Width SD 42.2 fl (35.1-43.9); Red Blood Count 3.95 M/mm3 (4.6-6.2); White Blood Count 7.6 K/mm3 (4.4-11.0)
--- NOTE | 2024-04-04 07:36 | WOUNDNOTE ---
In to reassess the ostomy appliance to the right abdomen. appliance emptied for approx 50 cc's unformed brown stool. appliance remains intact. no sign of leak noted. appliance was changed on 04/05/24 by this nurse. Pt should be discharged to [facility] today. will monitor as needed.
[2024-04-04 07:55] LABS: Anion Gap 5 (5-15); BUN 20 mg/dL (7-18); Calcium,Total 8.8 mg/dL (8.5-10.1); Chloride 104 mmol/L (98-107); Creatinine, Serum 0.65 mg/dL (0.70-1.30); EST Glomerular Filtration Rate 127 mL/min (>60); Est Glom Filt Rate - Afr Amer 153 mL/min (>60); Estimated Creatinine Clearance 82.18 ml/min; Glucose 132 mg/dL (74-106); Sodium Level 139 mmol/L (136-145)
[2024-04-04 09:50] VITALS: BP 134/80; PULSE 93; RESP 18; TEMP 37.3; O2SAT 93
[2024-04-04] MEDS: Cholecalciferol (VIT D3) 25 MCG TABLET (1,000 UNITS) PO (10:02)
[2024-04-04] MEDS: Potassium Chloride Oral Tablet 20 MEQ PO (10:02)
[2024-04-04 10:03] VITALS: PULSE 101
[2024-04-04] MEDS: Metoprolol Tartrate 25 MG Tablet PO (10:03)
[2024-04-04] MEDS: Aspirin 81 MG TAB.CHEW PO (10:03)
[2024-04-04] MEDS: Enoxaparin 40 MG/0.4 ML Syringe SC (10:03)
[2024-04-04] MEDS: QUEtiapine 25 MG Tablet 37.5 MG PO (10:03)
[2024-04-04] MEDS: Timolol 0.5% 5ML OPTH.BTL 1 DRP EACH EYE (10:04)
--- NOTE | 2024-04-04 11:39 | WOUNDNOTE ---
Pt had pulled his ostomy appliance off and there was stool all over gown and attends. patient cleaned and new appliance was placed. pt tolerated well. new gown applied. Pt tolerated well.
--- NOTE | 2024-04-04 12:17 | CASEMGMT ---
Social Work- SW met with pt who was having an emotional day d/t 's decreased cognition today. SW provided emotional support, active and empathetic listening, and provided guidance to process emotions. SW met with wind farm support specialist with pt, who offered prayer. SW remains available to follow for discharge planning needs. Plan: JESUS; pend precert MAN Mehta
--- NOTE | 2024-04-04 13:21 | CHAPLAIN ---
Type of Pastoral Visit _x__ Initial Visit ___ Follow-up Visit ___ On-call Visit ___ General Patient Visit ___ Spiritual Assessment ___ Family Conference ___ Bereavement ___ Rapid Response ___ Code Blue ___ Other (describe below) Pastoral Care Referral From ___ Patient _x__ Family _x__ Nurse ___ Physician _x__ Waste Disposal Attendant ___ Manager Laboratory ___ Other (describe below) Sacrament/Intervention _x__ Active listening ___ Anointing ___ Congregational ___ Bereavement ___ Communion ___ Leslie exploration ___ ___ Life review _x__ Prayer ___ Reconciliation ___ Sacrament of Sick _x__ Supportive presence ___ Wedding ___ Other (describe below) Pastoral Comments this patient is in isolation room; spouse of the patient is outside of the door and standing with RN and SW; spouse is visibly upset and tearful; RN asks the spouse if this greeter could offer her support at this time; all four financial underwriter hallway and listen to spouse express her concerns, fears, and emotional fragility due to decline of the patient physically and mentally and his ongoing health needs over past few years; offer of support and the presence of a calming, listening, compassionate person of leslie; spouse agrees and affirms her leslie in God and the great support of family, friends, and others; prayer is given and offer of future support
--- NOTE | 2024-04-04 13:32 | PN_ITS ---
Subjective Subjective Patient seen and examined. He had no complaints. Review of systems otherwise negative. The swelling of his right wrist has resovled. Objective Data Objective Data Vital Signs: Vital Signs Temp Pulse Resp BP Pulse Ox O2 Del Method 99.1 F 101 H 18 134/80 H 93 Room Air 04/04/24 09:50 04/04/24 10:03 04/04/24 09:50 04/04/24 09:50 04/04/24 09:50 04/04/24 10:00 Oxygen Delivery Method Room Air Weight: 182 lb 12.211 oz Body Mass Index (BMI) 24.7 Intake & Output: Intake and Output for Last 24 Hours 04/02/24 04/03/24 04/04/24 23:59 23:59 23:59 Intake Total 650 / 650 200 / 200 Output Total 625 / 925 1075 / 1075 425 / 425 Balance -625 / -775 -425 / -425 -225 / -225 Medical Nutrition Assessment Dietitian: Malnutrition Criteria Met Start: 04/02/24 13:07 Freq: Status: Active Protocol: Document 04/02/24 13:07 SLA (Rec: 04/02/24 13:07 SLA [id number]) Nutrition Malnutrition Evidence of Malnutrition Exists Yes Malnutrition (severe): Acute Illness/Injury Evidenced By Suboptimal Energy Intake ( Severe),Weight Loss (Severe) Intake Problem None at this time Status Inactive Problem Clinical Problem Acute Disease or Injury Related Malnutrition Etiology related to covid/ acute illness and inadequate energy intake Signs/Symptoms as evidenced by 3.4% unintended wt loss and meeting <50% po intake of meals x 6 days Status Active Problem Recommendation Dietitian Recommendations/Changes Adjust to liberal regular diet d/t signs and symptoms of malnutrition. Will continue 120ml glucerna shakes TID with meals. Rec appetite stimulant to help encourage po intake. Lab / Micro Data 04/04/24 06:57 04/04/24 06:57 Labs: Laboratory Results - last 24 hr 04/03/24 07:04: Uric Acid 4.9 04/04/24 02:43: POC Glucose 112 H 04/04/24 06:57: WBC 7.6, RBC 3.95 L, Hgb 11.5 L, Hct 34.9 L, MCV 88.4, MCH 29.1, MCHC 33.0 D, RDW Std Deviation 42.2, RDW Coeff of Jed 12.9, Plt Count 354, MPV 9.7, Immature Gran % (Auto) 0.800, Neut % (Auto) 84.9 H, Lymph % (Auto) 5.5 L, [place] % (Auto) 8.2, Eos % (Auto) 0.3, Baso % (Auto) 0.3, Absolute Neuts (auto) 6.5, Absolute Lymphs (auto) 0.42 L, Nucleated RBC % 0, Sodium 139, Potassium 4.0, Chloride 104, Carbon Dioxide 30.0, Anion Gap 5, BUN 20 H, Creatinine 0.65 L , Estim Creat Clear Calc 82.18, Est GFR (MDRD) Af Amer 153, Est GFR (MDRD) Non- Af 127, BUN/Creatinine Ratio 31.0 H, Glucose 132 H, Calcium 8.8 Micro: Microbiology 03/26/24 20:10 Mucosa - Nose SARS-CoV-2, Influenza & RSV (PCR) - Final SARS-CoV-2 (COVID 19) Physical Exam Const alert, no apparent distress and average body habitus Constitutional Narrative: remains confused General Appearance: cooperative and comfortable Orientation / Consciousness: confused HEENT normocephalic, head/scalp atraumatic, hearing grossly normal bilaterally, nasal mucous membranes and turbinates normal and moist oral mucous membranes Eyes PERRL, EOMs intact bilaterally and conjunctivae normal Neck full ROM, no lymphadenopathy and supple Neck Narrative: Lymph Lymphatic: no lymphadenopathy noted Chest inspection of chest normal Resp normal respiratory effort, normal air movement, no retractions, no use of accessory muscles and clear to auscultation bilaterally Resp Narrative: On room air. Cardio regular rate, regular rhythm, S1 normal heart sound, S2 normal heart sound, no murmurs, no rub, no gallops, no clicks and peripheral pulses 2+ throughout GI normal to inspection, nondistended, normoactive bowel sounds, soft to palpation, non-tender and non-distended GI Narrative: Ostomy in right lower quadrant Back/Spine normal ROM Extremity normal to inspection, normal capillary refill, no clubbing, cyanosis or edema, no calf tenderness and no pedal edema Extremity Narrative: swelling of right wrist has resolved. General Extremity: no tenderness to palpation of joints or extremities Skin no rashes or lesions noted, skin turgor normal, no jaundice, no petechiae and no mottling General Skin Exam: no breakdown Neuro oriented x3, CN's II-XII intact bilaterally, moves all extremities, no focal motor deficits and no sensory deficits noted Neuro Narrative: generalised weakness, flat affect due to Parkinson's disease. 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 Fall precautions. * Awaiting placement. * #COVID-19 infection: * On room air. * No need for steroids or remdesivir as he has been on room air. #Right wrist swelling and pain * this has resolved. * Right wrist xray showed minimal degenerative arthrosis at the first carpometacarpal joint, first MCP joint nad interphalangeal joint of the thumb. * uric acid was also not elevated * PT/OT on board. PO tylenol, PO oxycodone and IV morphine prn for pain. #Type 2 diabetes mellitus: Metformin on hold. Insulin sliding scale. Accu- Cheks ACHS #History of toxic megacolon and bowel perforation * S/p right upper quadrant colostomy. * Stable * #History of CAD s/p CABG: on aspirin and statin. On metoprolol. #Hypertension: on lopressor #Hyperlipidemia: On statin #Glaucoma: on eye drops DVT prophylaxis: lovenox Disposition: still awaiting placement. Charges/Coding Visit Charges Inpatient E&M: 43267 Subs Hosp L2
[2024-04-04 14:30] VITALS: BP 119/59; PULSE 91; RESP 18; TEMP 36.4; O2SAT 93
--- NOTE | 2024-04-04 15:05 | CASEMGMT ---
[facility] has obtained auth to admit. SW and physician updated. Farnaz Contreras DC Planning Asst.
--- NOTE | 2024-04-04 16:00 | TREXTCAR_ITS ---
Diet Diet Order/Speech Therapy: 04/02/24 13:07 Diet: Regular - General Type of Dietary Supplement:: Glucerna Shake Diet Comments: 120mL Glucerna w/meals Routine Orders/Code Status Enema Type: Fleetz Enema Frequency: Daily PRN Suppository Type: Dulcolax 10mg Suppository Frequency: Daily PRN DC O2, CPAP, BIPAP needs Home O2 Discharge instructions: No Therapies Weight Bearing: Weight bearing as tolerated Physical Therapy: Eval and Treat Occupational Therapy: Eval and Treat Problem/Diagnosis (1) Generalized weakness: Status: Acute Code(s): R53.1 - Weakness (2) COVID-19: Status: Acute Code(s): U07.1 - COVID-19 Plan #debility and weakness in the setting of Parkinson's disease with dementia * PT/OT on board. Fall precautions. * Awaiting placement. * #COVID-19 infection: * On room air. * No need for steroids or remdesivir as he has been on room air. #Right wrist swelling and pain * this has resolved. * Right wrist xray showed minimal degenerative arthrosis at the first carpometacarpal joint, first MCP joint nad interphalangeal joint of the thumb. * uric acid was also not elevated * PT/OT on board. PO tylenol, PO oxycodone and IV morphine prn for pain. #Type 2 diabetes mellitus: Metformin on hold. Insulin sliding scale. Accu- Cheks ACHS #History of toxic megacolon and bowel perforation * S/p right upper quadrant colostomy. * Stable * #History of CAD s/p CABG: on aspirin and statin. On metoprolol. #Hypertension: on lopressor #Hyperlipidemia: On statin #Glaucoma: on eye drops DVT prophylaxis: lovenox Disposition: still awaiting placement. Allergies/Procedures Done in Hospital Allergies No Known Allergies Allergy (Verified 03/26/24 18:32) Procedures: None Type of Care/Length of Stay Estimated LOS: Convalescent Care Less Than 30 days Type of Care Needed: Skilled Rehab Potential: Fair Prognosis: Fair Additional Orders/Day of Discharge Day of Discharge: 04/04/24 Dietary and Speech Recommendations Dietitian Recommendations/Changes: Adjust to liberal regular diet d/t signs and symptoms of malnutrition. Will continue 120ml glucerna shakes TID with meals. Rec appetite stimulant to help encourage po intake. Discharge Plan Admission Admit Date/Time: 03/26/24 22:48 Primary Reason for Your Visit: Debility and failure to thrive. Attending Provider: Zaira Juarez Primary Care Provider: Dustin Thacker Consulting Providers: Jade Phillip; Neftali Arrington Instructions Patient Instructions: Coronavirus Disease 2019 (COVID-19): Caring for Yourself or Others, ED Weakness (Uncertain Cause) Discharge Orders/Prescriptions Prescriptions: New metoprolol tartrate 25 mg Tablet 25 mg PO BID Qty: 60 2RF Continued nitroglycerin 0.4 MG tablet 0.4 mg sublingual Q5M PRN (Reason: Chest Pain) Patient Comments: CHEST PAIN furosemide 40 MG tablet 40 mg PO DAILY atorvastatin 20 MG tablet 20 mg PO QHS metformin 500 mg tablet 500 mg PO BID Patient Comments: Take 1 tablet by mouth 2 times a Day quetiapine 25 mg Tablet See Rx Instructions PO QHS Rx Instructions: 1 and 1/2 tablet in the morning and 1 tablet in the evening orally at bedtime; carbidopa-levodopa 25-100 mg Tablet 2 tab PO TID aspirin 81 mg Capsule 81 mg PO DAILY potassium chloride 20 mEq/15 mL liquid 20 meq PO DAILY Discontinued metoprolol tartrate 50 mg Tablet 50 mg PO BID Referrals / Follow Up: Dustin Thacker MD [Primary Care Provider] - Within 1 Week Disposition Disposition (needs filled in before D/C Order can be placed): Detention Facility
--- NOTE | 2024-04-04 16:01 | DS.PCM_ITS ---
Providers Date of Admission: 03/26/24 Date of Discharge: 04/04/24 Primary Care Physician: Dr. Dustin Thacker MD Consultations 03/26/24 23:39 Consult: Onc/Wound/director new product Routine Comment: Reason for Consult:: ostomy Reason For Visit: GENERALIZED WEAKNESS Diagnosis Discharge Diagnosis (1) Generalized weakness: Status: Acute Code(s): R53.1 - Weakness (2) COVID-19: Status: Acute Code(s): U07.1 - COVID-19 Plan #debility and weakness in the setting of Parkinson's disease with dementia * PT/OT on board. Fall precautions. * Awaiting placement. * #COVID-19 infection: * On room air. * No need for steroids or remdesivir as he has been on room air. #Right wrist swelling and pain * this has resolved. * Right wrist xray showed minimal degenerative arthrosis at the first carpometacarpal joint, first MCP joint nad interphalangeal joint of the thumb. * uric acid was also not elevated * PT/OT on board. PO tylenol, PO oxycodone and IV morphine prn for pain. #Type 2 diabetes mellitus: Metformin on hold. Insulin sliding scale. Accu- Cheks ACHS #History of toxic megacolon and bowel perforation * S/p right upper quadrant colostomy. * Stable * #History of CAD s/p CABG: on aspirin and statin. On metoprolol. #Hypertension: on lopressor #Hyperlipidemia: On statin #Glaucoma: on eye drops DVT prophylaxis: lovenox Disposition: still awaiting placement. Medications at Discharge Home Medications nitroglycerin 0.4 mg sublingual tablet 0.4 mg sublingual Q5M PRN Chest Pain 06/25/14 atorvastatin 20 mg tablet 20 mg PO QHS cholesterol 12/11/18 furosemide 40 mg tablet 40 mg PO DAILY fluid 12/11/18 metformin 500 mg tablet 500 mg PO BID 11/22/20 aspirin 81 mg capsule 81 mg PO DAILY 08/17/21 carbidopa 25 mg-levodopa 100 mg tablet 2 tab PO TID 08/17/21 quetiapine 25 mg tablet See Rx Instructions PO QHS 08/17/21 potassium chloride 20 mEq/15 mL oral liquid 20 meq PO DAILY 03/26/24 metoprolol tartrate 25 mg tablet 25 mg PO BID #60 tabs 04/04/24 Hospital Course Operations None Procedures None Summary of Care Provided Minutes Spent on Discharge: 45 Hospital Course: Patient is a 78-year-old male with a past medical history as outlined was admitted through the ED on 03/26/2024 with a complaint of generalized weakness. Patient have Parkinson's at baseline and usually ambulated with a walker. His was his primary caregiver at home said over the last 2 days prior to admission he had gradually gotten weaker to the point where she could not help him carry out his activities of daily living. He also started having some chills and fever. He denied any shortness of breath or cough, any nausea vomiting or diarrhea. Review of systems otherwise negative. He had had some nasal drainage. Labs were significant for an for mild hyponatremia. Chest x- ray showed mild increased interstitial thickening in the left lower lobe. COVID test was positive. He was admitted and managed for debility and weakness likely due to COVID-19 infection in the setting of Parkinson's disease. PT OT was consulted. Patient remained stable and was discharged to the detention facility on 04/04/2024. Hospital course was complicated by mild right wrist swelling. Xray of the right wrist was negative for any evidence of fracture and showed minimal degenerative arthrosis at the first carpometacarpal joint, first MCP joint nad interphalangeal joint of the thumb. Uric acid was not elevataed. The swelling resolved. He remained stable and he was discharged to SNF on 04/04/2024. He is follow-up with his primary care doctor within 1 to 2 weeks. Patient seen and examined prior to discharge. He had no active complaints. He remained confused. Unable to do comprehensive review of systems due to confusion. Labs and vitals reviewed. Home medication reviewed and reconciled. Physical Exam Const alert, no apparent distress, average body habitus and well nourished Constitutional Narrative: remains confused General Appearance: cooperative and comfortable Orientation / Consciousness: confused HEENT normocephalic, head/scalp atraumatic, hearing grossly normal bilaterally, nasal mucous membranes and turbinates normal and moist oral mucous membranes Mouth: oral and palatal mucosa normal Eyes PERRL, EOMs intact bilaterally and conjunctivae normal Eyes Narrative: No scleral icterus Neck full ROM, no lymphadenopathy and supple Neck Narrative: Lymph Lymphatic: no lymphadenopathy noted Chest inspection of chest normal Resp normal respiratory effort, normal air movement, no retractions, no use of accessory muscles and clear to auscultation bilaterally Resp Narrative: On room air. Cardio regular rate, regular rhythm, S1 normal heart sound, S2 normal heart sound, no murmurs, no rub, no gallops, no clicks and peripheral pulses 2+ throughout GI normal to inspection, nondistended, normoactive bowel sounds, soft to palpation, non-tender and non-distended GI Narrative: Ostomy in right lower quadrant Back/Spine normal ROM Extremity normal to inspection, normal capillary refill, no clubbing, cyanosis or edema, no calf tenderness and no pedal edema Extremity Narrative: swelling of right wrist has resolved. General Extremity: no tenderness to palpation of joints or extremities Skin no rashes or lesions noted, skin turgor normal, no jaundice, no petechiae and no mottling General Skin Exam: no breakdown Neuro CN's II-XII intact bilaterally, moves all extremities, no focal motor deficits and no sensory deficits noted Neuro Narrative: generalised weakness, flat affect due to Parkinson's disease. confused Speech: speech normal Motor Exam: general weakness Psych Psych Narrative: confused Medical Records Data Medical Nutrition Assessment Dietitian: Malnutrition Criteria Met Start: 04/02/24 13:07 Freq: Status: Active Protocol: Document 04/02/24 13:07 SLA (Rec: 04/02/24 13:07 SLA [email or web address]) Nutrition Malnutrition Evidence of Malnutrition Exists Yes Malnutrition (severe): Acute Illness/Injury Evidenced By Suboptimal Energy Intake ( Severe),Weight Loss (Severe) Intake Problem None at this time Status Inactive Problem Clinical Problem Acute Disease or Injury Related Malnutrition Etiology related to covid/ acute illness and inadequate energy intake Signs/Symptoms as evidenced by 3.4% unintended wt loss and meeting <50% po intake of meals x 6 days Status Active Problem Recommendation Dietitian Recommendations/Changes Adjust to liberal regular diet d/t signs and symptoms of malnutrition. Will continue 120ml glucerna shakes TID with meals. Rec appetite stimulant to help encourage po intake. Weight / BMI Weight Weight: 182 lb 12.211 oz Body Mass Index (BMI) 24.7 ABG / Lab / Microbiology Data 04/04/24 06:57 04/04/24 06:57 Laboratory: Laboratory Results - last 24 hr 04/04/24 02:43: POC Glucose 112 H 04/04/24 06:57: WBC 7.6, RBC 3.95 L, Hgb 11.5 L, Hct 34.9 L, MCV 88.4, MCH 29.1, MCHC 33.0 D, RDW Std Deviation 42.2, RDW Coeff of Jed 12.9, Plt Count 354, MPV 9.7, Immature Gran % (Auto) 0.800, Neut % (Auto) 84.9 H, Lymph % (Auto) 5.5 L, [place] % (Auto) 8.2, Eos % (Auto) 0.3, Baso % (Auto) 0.3, Absolute Neuts (auto) 6.5, Absolute Lymphs (auto) 0.42 L, Nucleated RBC % 0, Sodium 139, Potassium 4.0, Chloride 104, Carbon Dioxide 30.0, Anion Gap 5, BUN 20 H, Creatinine 0.65 L , Estim Creat Clear Calc 82.18, Est GFR (MDRD) Af Amer 153, Est GFR (MDRD) Non- Af 127, BUN/Creatinine Ratio 31.0 H, Glucose 132 H, Calcium 8.8 Microbiology: Microbiology 03/26/24 20:10 Mucosa - Nose SARS-CoV-2, Influenza & RSV (PCR) - Final SARS-CoV-2 (COVID 19) D/C Instructions Discharge Diet: Low fat / Low cholesterol Discharge Activity: Return to Normal Activity Weight Bearing Status: Weight bearing as tolerated Call your doctor if you observe: Fever of 101 or Higher, Shortness of breath, Dizziness, Swelling in the ankles and Chest pain DC O2, CPAP, BIPAP Needs Home O2 Discharge instructions: No DC home with Oxygen: No Meaningful Use Info Meaningful Use Meaningful Use Diagnoses (Choose all that apply): None applicable Ischemic Stroke Statin Dosing Therapy Reference: STATIN DOSE THERAPY REFERENCE: * Patients > 75 years receive moderate or high dose statin therapy. * Patients 75 years or YOUNGER should receive HIGH intensity statin dose unless contraindicated. You will be required to document reason for non-treatment if statin daily dose does not meet guidelines. HIGH DOSE STATIN THERAPY DAILY Atorvastatin > than or = to 40 mg Rosuvastatin > than or = to 20 mg Amlodipine + Atorvastatin > than or = to 2.5/40 mg Ezetimibe + Simvastatin 10/80 mg Simvastatin 80mg Discharge Plan Admission Admit Date/Time: 03/26/24 22:48 Primary Reason for Your Visit: Debility and failure to thrive. Attending Provider: Zaira Juarez Primary Care Provider: Dustin Thacker Consulting Providers: Jade Phillip; Neftali Arrington Instructions Patient Instructions: Coronavirus Disease 2019 (COVID-19): Caring for Yourself or Others, ED Weakness (Uncertain Cause) Discharge Orders/Prescriptions Prescriptions: New metoprolol tartrate 25 mg Tablet 25 mg PO BID Qty: 60 2RF Continued nitroglycerin 0.4 MG tablet 0.4 mg sublingual Q5M PRN (Reason: Chest Pain) Patient Comments: CHEST PAIN furosemide 40 MG tablet 40 mg PO DAILY atorvastatin 20 MG tablet 20 mg PO QHS metformin 500 mg tablet 500 mg PO BID Patient Comments: Take 1 tablet by mouth 2 times a Day quetiapine 25 mg Tablet See Rx Instructions PO QHS Rx Instructions: 1 and 1/2 tablet in the morning and 1 tablet in the evening orally at bedtime; carbidopa-levodopa 25-100 mg Tablet 2 tab PO TID aspirin 81 mg Capsule 81 mg PO DAILY potassium chloride 20 mEq/15 mL liquid 20 meq PO DAILY Discontinued metoprolol tartrate 50 mg Tablet 50 mg PO BID Referrals / Follow Up: Dustin Thacker MD [Primary Care Provider] - Within 1 Week Disposition Disposition (needs filled in before D/C Order can be placed): [facility] Charges/Coding Visit Charges Inpatient E&M: 78717 Disch Hosp >30min
--- NOTE | 2024-04-04 16:01 | CASEMGMT ---
Social Work- SW received notice that facility obtained precert. Physician notified and plans to discharge. Pt advised of precert status and plans for discharge. HENS completed and placed on chart with transport and green sheet. Pt to be called when transport is arranged. Plan: [facility]; skilled level of care MAN Mehta
--- NOTE | 2024-04-04 16:55 | CASEMGMT ---
Discharge Planning Discharge orders, signed med list, and transport time sent to [facility]. Physicians will transport patient by cot at 7:30p. Nursing, SW, and pts updated. Farnaz Contreras DC Planning Asst.
[2024-04-04 21:35] VITALS: BP 136/74; PULSE 96; RESP 18; TEMP 36.6; O2SAT 97
== END 2024-04-04 21:35 | disposition skilled nursing facility (03) ==
LOC: ED 22:52 → MS3 23:26
PROVIDERS: Hospitalist; Admitting Provider Internal Medicine; Emergency Provider Emergency Medicine; PCP Family Medicine; Visit Provider Student in an Organized Health Care Education/Training Program
DX: U07.1 COVID-19 (principal); G20.A1 Parkinson's disease without dyskinesia, without mention of fluctuations; F02.80 Dementia in other diseases classified elsewhere, unspecified severity, without behavioral disturbance, psychotic disturbance, mood disturbance, and anxiety; E11.39 Type 2 diabetes mellitus with other diabetic ophthalmic complication; I25.10 Atherosclerotic heart disease of native coronary artery without angina pectoris; R53.81 Other malaise; I10 Essential (primary) hypertension; Z79.84 Long term (current) use of oral hypoglycemic drugs; H40.9 Unspecified glaucoma; E87.1 Hypo-osmolality and hyponatremia; E78.5 Hyperlipidemia, unspecified; Z95.1 Presence of aortocoronary bypass graft; Z79.82 Long term (current) use of aspirin; Z79.899 Other long term (current) drug therapy; F32.A Depression, unspecified; R13.10 Dysphagia, unspecified; M79.89 Other specified soft tissue disorders; E43 Unspecified severe protein-calorie malnutrition; Z68.24 Body mass index [BMI] 24.0-24.9, adult

== ENCOUNTER 2024-04-15 14:26 | Inpatient (IN) | payer MEDICARE, SELFPAY ==
[2024-04-15] VITALS (7 sets, daily range): BP systolic 107–127; BP diastolic 64–96; PULSE 84–104; RESP 17–20; TEMP 35.7–36.6; O2SAT 94–100; BMI 22.6; BMI 21.4
[2024-04-15 15:03] LABS: Absolute Lymphocyte Count 0.67 X10^3/uL (0.83-4.51); Absolute Neutrophil Count 15.6 X10^3/uL (2.0-7.7); Basophil# 0.09 X10^3/uL; Basophil% 0.5 % (0-1); Eosinophil# 0.12 X10^3/uL; Eosinophils% 0.7 % (0-5); Hematocrit 48.3 % (40-54); Hemoglobin 14.9 g/dL (13.0-16.5); Lymphocyte # 0.67 X10^3/ul (0.83-4.51); Lymphocyte % 3.8 % (19-41); Mean Corp Hgb Conc 30.8 g/dL (32-36); Mean Corpuscular Hgb 28.1 pg (27.0-32.0); Mean Platelet Vol. 10.1 fl (6.2-12.0); Monocyte% 5.1 % (0-10); NRBC Flagged by Analyzer 0 % (0-5); Neutrophil # 15.64 X10^3/uL (2.7-7.7); Neutrophil % 89.2 % (47-70); Platelet Count 551 K/mm3 (150-450); RBC Distribution Width CV 13.3 % (11.6-14.6); RBC Distribution Width SD 44.9 fl (35.1-43.9); Red Blood Count 5.31 M/mm3 (4.6-6.2); White Blood Count 17.6 K/mm3 (4.4-11.0)
--- NOTE | 2024-04-15 15:15 | RAD_ITS ---
STUDY: XR Chest 2 Views 04/15/2024 3:20 PM REASON FOR EXAM: Male, 78 years old. cough COMPARISON: 1230.24 TECHNIQUE: XR Chest 2 Views FINDINGS: There is no demonstrated pleural abnormality. There are multiple median sternotomy wires. Normal heart size. Normal mediastinum. Normal del. Prominent appearing increased interstitial lung markings. Normal visualized pulmonary arteries. There is atherosclerotic calcification of the aortic arch with tortuosity. There are diffuse degenerative changes of the visualized thoracic spine. There is degenerative osteoarthritis of the bilateral shoulders. There are no acute findings of the upper abdomen. RAD/Chest PA and Lateral IMPRESSION: There are no acute findings. Electronically Signed: Jg Talbot MD at 15:41 EST ,
[2024-04-15] MEDS: 0.9% Normal Saline (1000mL) 1,000 ML 999 ML IV (15:17)
--- NOTE | 2024-04-15 15:24 | EKG12_ITS ---
Test Reason : Blood Pressure : */* mmHG Vent. Rate : 99 BPM Atrial Rate : 99 BPM P-R Int : 162 ms QRS Dur : 130 ms QT Int : 404 ms P-R-T Axes : 26 84 71 degrees QTcB Int : 518 ms Sinus rhythm with Premature atrial complexes Right bundle branch block Abnormal ECG Confirmed by NITZA VALENTINE, ANDREWS ([id number]), editor magazine OZZY NEVAREZ ([id number]) on 04/16/2024 10:58:04 A M Referred By: Confirmed By: ANDREWS GODDARD MD
--- NOTE | 2024-04-15 15:26 | EDS_ITS ---
HPI <CHIARA Ron - Last Filed: 04/15/24 19:11> History of Present Illness Chief Complaint: General Illness Narrative Narrative: Patient presenting today due to low generalized weakness and decreased oral intake that started today. He is here with his who reports that yesterday he seemed to be eating normally. He is currently residing in a SNF for rehab after having COVID which caused him to feel weaker than usual earlier this month. reports that he does not communicate much at baseline but will converse a little bit, today he seems to be conversing less than usual. The intermediate felt that he was less responsive today than usual. He has a PMH of Parkinson's disease, HTN, ileostomy, T2DM, and HLD. 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 Coronary atherosclerosis Depression Hypertension Type 2 diabetes mellitus Parkinsons Home Medications ?Medication ?Instructions ?Recorded ?Last Taken ?Type atorvastatin 20 mg tablet 20 mg PO DAILY 04/15/24 Unknown History carbidopa 25 mg-levodopa 100 mg 2 tab PO TID 04/15/24 Unknown History tablet furosemide 40 mg tablet 40 mg PO DAILY 04/15/24 Unknown History metformin 500 mg tablet 500 mg PO BID 04/15/24 Unknown History metoprolol tartrate 50 mg tablet 50 mg PO BID 04/15/24 Unknown History potassium chloride 20 mEq 20 meq PO DAILY 04/15/24 Unknown History tablet,extended release(part/cryst) quetiapine 25 mg tablet 25 mg PO 1XD 04/15/24 Unknown History Allergy/AdvReac Type Severity Reaction Status Date / Time No Known Allergies Allergy Verified 04/15/24 14:34 Family History (Updated 04/15/24 @ 18:[address] Jade Phillip DO) Other Diabetes Heart disease Hypertension Surgical History (Updated 04/15/24 @ 18:[address] Jade Phillip DO) Hx of CABG History of colectomy Social History (Updated 04/15/24 @ 18:[address] Jade Phillip DO) housing: intermediate current occupational status: retired Smoking Status: Never smoker alcohol intake: never substance use type: does not use ROS <CHIARA Ron - Last Filed: 04/15/24 19:11> ROS ED Constitutional Constitutional ED: Denies chills or fever(s) Cardiovascular Cardiovascular: Denies chest pain Respiratory/Chest Respiratory/Chest: Denies dyspnea Gastrointestinal Gastrointestinal: Denies abdominal pain, nausea or vomiting Musculoskeletal Musculoskeletal: Denies arthralgias or myalgias Integumentary Denies rash Neurologic Neurologic: Reports weakness; Denies confusion EXAM <CHIARA Ron - Last Filed: 04/15/24 19:11> Physical Exam Const Vital Signs: 04/15/24 14:28 04/15/24 14:34 04/15/24 16:15 Temperature 96.3 F L Temperature Source Axillary Pulse Rate 104 H 84 Respiratory Rate 18 17 Respiratory Effort Normal Non-Labored Respiratory Pattern Normal Blood Pressure 114/71 120/64 Blood Pressure Mean 85 82 Pulse Ox 94 99 Oxygen Delivery Method Nasal Cannula Oxygen Flow Rate (L/min) 2 Positive well nourished, well developed and no apparent distress General Appearance ED: well developed HEENT Reports normocephalic, head/scalp atraumatic and dry mucous membranes Mouth ED: Yes dry mucous membranes Mouth: dry mucous membranes Eyes PERRL and EOMs intact bilaterally Neck full ROM and supple Chest Wall inspection of chest normal Resp normal respiratory effort and clear to auscultation bilaterally Cardio regular rate and regular rhythm GI soft to palpation, non-tender, non-distended and no masses GI Narrative: Ileostomy site without any surrounding erythema or purulent discharge. Back/Spine normal ROM and normal to inspection Extremity normal to inspection and full ROM Neuro oriented x3, CN's II-XII intact bilaterally, moves all extremities, no focal motor deficits and no sensory deficits noted Sensorium / Orientation: awake and alert Psych mental status grossly normal and thought process normal Skin no rashes or lesions noted and no wounds <Dr. Grey Small MD - Last Filed: 04/15/24 23:48> Physical Exam Const Vital Signs: 04/15/24 14:28 04/15/24 14:34 04/15/24 16:15 Temperature 96.3 F L Temperature Source Axillary Pulse Rate 104 H 84 Respiratory Rate 18 17 Respiratory Effort Normal Non-Labored Respiratory Pattern Normal Blood Pressure 114/71 120/64 Blood Pressure Mean 85 82 Pulse Ox 94 99 Oxygen Delivery Method Nasal Cannula Oxygen Flow Rate (L/min) 2 MDM <CHIARA Ron - Last Filed: 04/15/24 19:11> [facility] Narrative Medical decision making narrative: Patient presenting today with his due to generalized weakness and decreased oral intake that started today. half-way felt that he was less responsive than usual. He is able to tell me where he is at and denies being in any discomfort, he does appear weak. Labs were obtained, he has a WBC of 17.6, BUN 81, creatinine 2.12, lactic acid of 2.8, UA is negative for UTI. Blood cultures obtained. He was here at [facility] in the past, I am able to review these records on clinisync, he was discharged on 04/04/2024 after being admitted for weakness and COVID-19. He was discharged to [facility] for rehab. His BUN and creatinine were 20 and 0.65 on 04/04/2024. He does have an FOX due to his dehydration which is also causing his lactic acidosis. At this time there are no signs of infection. I did call the on-call physician, Dr. Henson, she is not familiar with the patient and does not round at [facility], she is not comfortable with him being discharged back to the facility and is unsure if they are capable of giving him IV fluids there. We did call the facility back, they confirmed that she is who is on-call for their facility. At this point, I will contact the hospitalist for admission. He will be admitted in stable condition. Lab Data Attestation: I reviewed the patient's lab results. Labs: Laboratory Results - last 24 hr 04/15/24 04/15/24 04/15/24 14:44 14:47 15:40 WBC 17.6 H RBC 5.31 Hgb 14.9 Hct 48.3 MCV 91.0 MCH 28.1 MCHC 30.8 L RDW Std Deviation 44.9 H RDW Coeff of Jed 13.3 Plt Count 551 H MPV 10.1 Immature Gran % (Auto) 0.700 Neut % (Auto) 89.2 H Lymph % (Auto) 3.8 L Bell % (Auto) 5.1 Eos % (Auto) 0.7 Baso % (Auto) 0.5 Absolute Neuts (auto) 15.6 H Absolute Lymphs (auto) 0.67 L Nucleated RBC % 0 Sodium 144 Potassium 4.4 Chloride 104 Carbon Dioxide 32.0 Anion Gap 8 BUN 81 H Creatinine 2.12 H Estim Creat Clear Calc 30.25 Est GFR (MDRD) Af Amer 39 L Est GFR (MDRD) Non-Af 32 L BUN/Creatinine Ratio 38.2 H Glucose 169 H Lactic Acid 2.8 H* Calcium 10.7 H Urine Color Yellow Urine Clarity Clear Urine pH 5.0 Ur Specific [place] 1.025 Urine Protein 30 H Urine Glucose (UA) Normal Urine Ketones 5 H Urine Occult Blood 10 H Urine Nitrite Negative Urine Bilirubin 1 H Urine Urobilinogen Normal Ur Leukocyte Esterase 25 H Urine RBC 0-5 SEEN Urine WBC 5-10 SEEN Ur Squamous Epith Cells 0-5 SEEN Urine Bacteria 1+ Hyaline Casts 0-5 SEEN Urine Mucus 0 SEEN Radiography X-Ray: Read by ED Physician Diagnostic Testing: Clinical Impression(s) from Imaging Studies Chest X-Ray 04/15/24 15:15 IMPRESSION: There are no acute findings. Electronically Signed: Jg Talbot MD at 15:41 EST Reading Location ID and State: [facility] / [place] , Service support , <Dr. Grey Small MD - Last Filed: 04/15/24 23:48> [facility] Lab Data Labs: Laboratory Results - last 24 hr 04/15/24 04/15/24 04/15/24 14:44 14:47 15:40 WBC 17.6 H RBC 5.31 Hgb 14.9 Hct 48.3 MCV 91.0 MCH 28.1 MCHC 30.8 L RDW Std Deviation 44.9 H RDW Coeff of Jed 13.3 Plt Count 551 H MPV 10.1 Immature Gran % (Auto) 0.700 Neut % (Auto) 89.2 H Lymph % (Auto) 3.8 L Bell % (Auto) 5.1 Eos % (Auto) 0.7 Baso % (Auto) 0.5 Absolute Neuts (auto) 15.6 H Absolute Lymphs (auto) 0.67 L Nucleated RBC % 0 Sodium 144 Potassium 4.4 Chloride 104 Carbon Dioxide 32.0 Anion Gap 8 BUN 81 H Creatinine 2.12 H Estim Creat Clear Calc 30.25 Est GFR (MDRD) Af Amer 39 L Est GFR (MDRD) Non-Af 32 L BUN/Creatinine Ratio 38.2 H Glucose 169 H Lactic Acid 2.8 H* Calcium 10.7 H Urine Color Yellow Urine Clarity Clear Urine pH 5.0 Ur Specific [place] 1.025 Urine Protein 30 H Urine Glucose (UA) Normal Urine Ketones 5 H Urine Occult Blood 10 H Urine Nitrite Negative Urine Bilirubin 1 H Urine Urobilinogen Normal Ur Leukocyte Esterase 25 H Urine RBC 0-5 SEEN Urine WBC 5-10 SEEN Ur Squamous Epith Cells 0-5 SEEN Urine Bacteria 1+ Hyaline Casts 0-5 SEEN Urine Mucus 0 SEEN Radiography Diagnostic Testing: Clinical Impression(s) from Imaging Studies Chest X-Ray 04/15/24 15:15 IMPRESSION: There are no acute findings. Electronically Signed: Jg Talbot MD at 15:41 EST Reading Location ID and State: [facility] / [place] , Service support , Rhythm Strip Rhythm Strip: Sinus Rhythm Rate: 100 Ectopy: PAC(s) EKG Initial EKG: Attestation: I personally reviewed and interpreted this EKG as follows: Interpretation: Sinus Rhythm, No Acute Injury Pattern and RBBB Prior EKG tracings: not available for review Prior: No Prior Treatment and Re-Evaluation Comments:: I have personally performed a face to face assessment of the patient and have reviewed the KIMBERLY Note. I performed a substantive portion of the visit including all aspects of the following. My momin findings include: History is increasing malaise and lethargy over the last couple days. Very poor p.o. intake. In short-term rehab SNF after having COVID and being very weak. Advanced Parkinson's prior. Patient denies any pain right now. notes that she was told there is a wound on his sacrum but she has not seen it yet. Exam is alert, not able to answer questions but follows commands moves all 4 extremities equally, generally weak. Abdomen soft nontender nondistended, right-sided ostomy appears benign. Lungs clear documentation no respiratory distress or energy attorney muscle use, heart is regular with mild/borderline tachycardia. Very dry oral mucous membranes. Sacral decubitus wound appears to be a stage I pressure ulcer no signs of obvious infection, there is a pressure dressing on but it is malplaced and not over the wound, I repositioned it. Medical Decison Making patient appears to be dehydrated. Running labs, he does have significant prerenal azotemia, his creatinine is just over 2 but we do not have an old one available. Chest x-ray 2 views on my interpretation negative for pneumonia radiology in agreement, his EKG shows a right bundle branch block no acute injury pattern, no old available for comparison. Reviewed labs. Given leukocytosis, lactic acidosis, and no obvious sign of infection clinically or on ancillaries, sent blood cultures. Other additions or changes: [None] Discharge Plan Dx/Rx/DC Orders Clinical Impression: Lactic acidosis, FOX (acute kidney injury), Dehydration, Leukocytosis, Weakness Disposition Disposition: Acute Care Hospital [facility] Discharge Date/Time: 04/15/24 18:49
[2024-04-15 15:44] LABS: Mucous, Urine 0 SEEN /hpf (<or=2+)
[2024-04-15 15:48] LABS: Anion Gap 8 (5-15); BUN 81 mg/dL (7-18); BUN/Creat Ratio 38.2 RATIO (10-20); Calcium,Total 10.7 mg/dL (8.5-10.1); Chloride 104 mmol/L (98-107); Creatinine, Serum 2.12 mg/dL (0.70-1.30); EST Glomerular Filtration Rate 32 mL/min (>60); Est Glom Filt Rate - Afr Amer 39 mL/min (>60); Estimated Creatinine Clearance 30.25 ml/min; Glucose 169 mg/dL (74-106); Potassium 4.4 mmol/L (3.5-5.1); Sodium Level 144 mmol/L (136-145)
[2024-04-15 15:49] LABS: Color, Urine Yellow (Yellow); Glucose, Dipstick Normal (Normal); Ketone-Dipstick 5 mg/dl (Negative); Leukocyte Esterase-Dipstick 25 /ul (Negative); Nitrite-Dipstick Negative (Negative); Occult Blood-Urine 10 /ul (Negative); Protein-Dipstick 30 mg/dl (Negative); Specific Gravity, Urine 1.025 (1.002-1.030); Urine Clarity Clear (Clear); Urine Urobilinogen Normal (Normal)
[2024-04-15 16:02] LABS: Lactic Acid 2.8 mmol/L (0.4-1.9)
[2024-04-15 16:06] LABS: Urine Bilirubin Dipstick 1 mg/dL (Negative)
[2024-04-15 16:20] LABS: Hyaline Cast 0-5 SEEN /lpf (0-5); Squamous Epithelial Cells - UA 0-5 SEEN /hpf (0-5); White Blood Cells 5-10 SEEN /hpf (0-5)
[2024-04-15 16:22] LABS: Red Blood Cells-Urine 0-5 SEEN /hpf (0-5)
[2024-04-15 16:24] LABS: Bacteria 1+ /hpf (None Seen)
--- NOTE | 2024-04-15 17:45 | HP.PCM.HOS_ITS ---
HPI - General General Date of Admission: 04/15/24 Date of Service: 04/15/24 Chief Complaint: Generalized weakness/decreased p.o. intake HPI Narrative TOSHIA SCOTT, is a 78 M who presented to the emergency department at [facility] on 04/15/2024 due to generalized weakness and decreased p.o. intake. Patient had a recent admission here at which time he was diagnosed with COVID. He has underlying Parkinson's disease and his feels that he has underlying Parkinson's related dementia that is slowly worsening with time. He recovered to the point where he needed placement at local nursing facility and was discharged from here on 04/04/2024 for further rehab. His states he has been there since that point in time and has been doing okay. P.o. intake overall has not been as good as it typically is at home but over the last 48 hours his p.o. intake decreased. He has had no nausea or vomiting. He has a ostomy but has good output at this time. His states his output is a little bit less than typical but consistency appears normal for him and she expects it to be decreased with the amount of p.o. reduction he has had. He is complained of no pain of which she is aware and has had no other symptoms other than worsening generalized weakness and decreased oral intake. He is fairly nonverbal at baseline. His supplied all of his history. Vital signs on presentation showed a temperature of 96.3, heart rate 104, respiratory rate 18, blood pressure was 114/71 with pulse ox of 99% on room air. CBC shows a leukocytosis white count of 17.6, thrombocytosis with a platelet count of 551,000 and a left shift with an 89.2% neutrophilia. His chemistry panel is consistent with severe dehydration. His electrolytes were normal but his bicarb was 32. BUN was 81 with a serum creatinine of 2.12 and a baseline serum creatinine on 04/04/2024 was 0.65. His lactic acid was elevated at 2.8 and his calcium was 10.7. His UA is not consistent with infection however it does demonstrate severe dehydration with a specific gravity of 0.25 and ketones were present. Chest x-ray is without any acute findings. [facility] Medical History (Updated 04/15/24 @ 18:[address] Jade Phillip DO) Cognitive impairment Toxic megacolon due to Clostridioides difficile Coronary atherosclerosis Depression Hypertension Type 2 diabetes mellitus Parkinsons Home Medications ?Medication ?Instructions ?Recorded ?Last Taken ?Type atorvastatin 20 mg tablet 20 mg PO DAILY 04/15/24 Unknown History carbidopa 25 mg-levodopa 100 mg 2 tab PO TID 04/15/24 Unknown History tablet furosemide 40 mg tablet 40 mg PO DAILY 04/15/24 Unknown History metformin 500 mg tablet 500 mg PO BID 04/15/24 Unknown History metoprolol tartrate 50 mg tablet 50 mg PO BID 04/15/24 Unknown History potassium chloride 20 mEq 20 meq PO DAILY 04/15/24 Unknown History tablet,extended release(part/cryst) quetiapine 25 mg tablet 25 mg PO 1XD 04/15/24 Unknown History Allergy/AdvReac Type Severity Reaction Status Date / Time No Known Allergies Allergy Verified 04/15/24 14:34 Family History (Updated 04/15/24 @ 18:[address] Jade Phillip DO) Other Diabetes Heart disease Hypertension Surgical History (Updated 04/15/24 @ 18:[address] Jade Phillip DO) Hx of CABG History of colectomy Social History (Updated 04/15/24 @ 18:[address] Jade Phillip DO) housing: [facility] current occupational status: retired Smoking Status: Never smoker alcohol intake: never substance use type: does not use ROS Review of Systems ROS Unobtainable: due to mental status Vital Signs Vital Signs Vital Signs: 04/15/24 14:28 04/15/24 14:34 04/15/24 16:15 Temperature 96.3 F L Temperature Source Axillary Pulse Rate 104 H 84 Respiratory Rate 18 17 Respiratory Effort Normal Non-Labored Respiratory Pattern Normal Blood Pressure 114/71 120/64 Blood Pressure Mean 85 82 Pulse Ox 94 99 Oxygen Delivery Method Nasal Cannula Oxygen Flow Rate (L/min) 2 Weight Weight: 75.7 kg Body Mass Index (BMI) 22.6 Physical Exam Const alert and no apparent distress; Negative for oriented x3, average body habitus, healthy appearing or well nourished Constitutional Narrative: Sleepy but alert, elderly, thin, white male, appears older than stated age, lying in bed, and niece at bedside, appears comfortable at this time, does not look toxic, intermittently follows commands HEENT normocephalic and head/scalp atraumatic; Negative for moist oral mucous membranes HEENT Narrative: Mucous membranes are extremely dry, dentition is poor Eyes conjunctivae normal Eyes Narrative: No scleral icterus Neck supple Neck Narrative: Trachea midline Resp normal respiratory effort, no retractions, no use of accessory muscles and clear to auscultation bilaterally Auscultation: Negative for rales, rhonchi or wheezes Cardio regular rate, regular rhythm, S1 normal heart sound, S2 normal heart sound, no murmurs, no rub, no gallops and no clicks GI normal to inspection, nondistended, normoactive bowel sounds, soft to palpation and non-tender GI Narrative: Ostomy in right lower quadrant with normal appearing output of lesser volume per Extremity no clubbing, cyanosis or edema Extremity Narrative: Decreased lean muscle mass, pedal and radial pulses are 2+ bilaterally Skin No skin turgor normal, no jaundice, no petechiae and no mottling Skin Narrative: Skin tenting with turgor exam Neuro Neuro Narrative: Spontaneously moves all extremities however appears to be extremely weak, bradykinesia present, masked facies Sensorium / Orientation: awake and alert Speech: Negative for speech normal Psych Psych Narrative: Affect is flat and mood is difficult to assess as patient is known verbal at this time Results Lab / Micro Data 04/15/24 14:47 04/15/24 14:47 Labs: Laboratory Results - last 24 hr 04/15/24 14:44: Lactic Acid 2.8 H* 04/15/24 14:47: WBC 17.6 H, RBC 5.31, Hgb 14.9, Hct 48.3, MCV 91.0, MCH 28.1, M CHC 30.8 L, RDW Std Deviation 44.9 H, RDW Coeff of Jed 13.3, Plt Count 551 H, MPV 10.1, Immature Gran % (Auto) 0.700, Neut % (Auto) 89.2 H, Lymph % (Auto) 3.8 L, [place] % (Auto) 5.1, Eos % (Auto) 0.7, Baso % (Auto) 0.5, Absolute Neuts (auto) 15.6 H, Absolute Lymphs (auto) 0.67 L, Nucleated RBC % 0, Sodium 144, Potassium 4.4, Chloride 104, Carbon Dioxide 32.0, Anion Gap 8, BUN 81 H, Creatinine 2.12 H , Estim Creat Clear Calc 30.25, Est GFR (MDRD) Af Amer 39 L, Est GFR (MDRD) Non- Af 32 L, BUN/Creatinine Ratio 38.2 H, Glucose 169 H, Calcium 10.7 H 04/15/24 15:40: Urine Color Yellow, Urine Clarity Clear, Urine pH 5.0, Ur Specific [place] 1.025, Urine Protein 30 H, Urine Glucose (UA) Normal, Urine Ketones 5 H, Urine Occult Blood 10 H, Urine Nitrite Negative, Urine Bilirubin 1 H, Urine Urobilinogen Normal, Ur Leukocyte Esterase 25 H, Urine RBC 0-5 SEEN, Urine WBC 5-10 SEEN, Ur Squamous Epith Cells 0-5 SEEN, Urine Bacteria 1+, Hyaline Casts 0-5 SEEN, Urine Mucus 0 SEEN Rhythm Strip Rhythm Strip: Sinus Rhythm Rate: 100 Ectopy: PAC(s) Imaging Radiology Impression Chest X-Ray 04/15/24 15:15 IMPRESSION: There are no acute findings. Electronically Signed: Jg Talbot MD at 15:41 EST Reading Location ID and State: [facility] / [place] , Service support , Assessment & Plan Assessment/Plan (1) FOX (acute kidney injury): (2) Dehydration: (3) Toxic metabolic encephalopathy: (4) Leukocytosis: (5) Lactic acidosis: (6) Hypercalcemia: PLAN: Plan FOX secondary to dehydration -Patient with significant decreased oral intake both for fluids and food -Was given 2 L in the emergency department and will continue to give 2 more liters on the medical floor -Repeat chemistry panel in a.m. to reassess renal function -Anticipate downtrend however if not will need further workup -No need for renal replacement therapy at this time -Will adjust home medications accordingly Lactic acidosis -Suspect secondary to the above -Repeat per protocol but anticipate reduction with IV fluids being given Leukocytosis -No signs of acute infection other than white count -Suspect this is hemoconcentration -Blood cultures were sent and we will trend however will hold on empiric antibiotics for now -Reevaluate with CBC in a.m. Thrombocytosis -Suspect related to hemoconcentration -Repeat CBC in a.m. Hypercalcemia -Suspect related to hemoconcentration -Repeat lab in a.m. Toxic/metabolic encephalopathy -Secondary to the above -Hopefully mental status will perk up -Per not far off baseline at this time DM-2 -Hold home metformin -Most recent hemoglobin A1c was good at 6.0 in December -SSI with Accu-Cheks as ordered -Carb controlled diet History of dysphagia -Had PEG previously after CABG -Low threshold for speech therapy consult if any abnormalities noted with eating History of toxic megacolon and bowel perforation -Status post ostomy right upper quadrant -Output is appropriate -Monitor -Consult wound/ostomy nurse CAD/essential HTN/HPL -Patient with previous CABG x 6 in 2003 -Continue home aspirin -Continue home atorvastatin -Hold home Lasix for now with dehydration -Continue metoprolol Parkinson's disease -Continue home Sinemet Suspected cognitive impairment -Likely related to Parkinson's Glaucoma -Continue home eyedrops History of depression -Continue home Seroquel DVT prophylaxis -Subcu heparin 3 times daily CODE STATUS -DNR CCA without intubation per discussion with on admission Charges/Coding Visit Charges Inpatient E&M: 43716 Init Hosp L2
--- NOTE | 2024-04-15 18:40 | CASEMGMT ---
Care Management Face to Face with patient for initial transition planning/care coordination assessment in the ED.? This screen writer introduced self and role at [facility]. Patient was resting/half asleep during visit and was not verbally engaged at the time of the visit. Patient?s answered for patient.? Also present was patient?s son Diogenes and Diogenes?s female cousin. ?Patient unable to participate in assessment and was not able to answer questions at the time of the assessment. ?Care providers, pharmacy, and demographics verified. Admitting Diagnosis: Acute Kidney infection due to dehydration. Other diagnosis history: Parkinsons, HTN, T2DM, HLD and Ileostomy PCP: Dr. Dustin Thacker Specialists: Signals Intelligence Analyst: Dr. Shane, Neurologist through [facility]. Preferred Pharmacy: [facility] Insurance: [employer] Prescription Benefit:?Yes, through [employer] Living Will/HPOA: Yes, on file with hospital; patient?s is HPOA and also patient?s son Diogenes Thompson of [place]. LNOK: Patient?s , Adele, patient?s son Diogenes ([place], [place]) and patient?s daughter Isa, who resides in [place]. Living Arrangements: Patient and his reside alone in a split-level house. Patient?s bedroom is on the upper floor and there are 2 stair cases patient has to climb to get to bedroom which are roughly 15 steps. There are roughly 4-5 stairs leading into the house. Prior to patient getting sick with COVID, patient?s stated patient was able to go up and down the stairs without difficulty and would ambulate with his standard cane for added assistance. Transportation: Patient?s provides all transportation. DME: Standard cane, rollator, grab bars and toilet seat rails. HHC: None currently.? Patient had HHC 6-8 years ago, did not have a good experience and has not wanted any since that time. SNF/Rehab: Patient came to the ED on this date from [facility] however prior to that, patient?s denied any previous SNF or rehab admissions. Community Resources: [facility] History: Denied Patient goals: Patient?s expressed a goal/desire for patient to be discharged back to [facility] when medically ready. Patient's stated she has done all she can do for her . Disposition Plan: admission to acute; RN CM/SW to follow for discharge planning needs that may arise. Kait Busch, STABILIZER OPERATOR, FACULTY I ON CALL MEDICAL ASSISTANT
[2024-04-15 19:38] LABS: Reflex Lactate? Y
[2024-04-15 20:45] LABS: Lactic Acid 1.7 mmol/L (0.4-1.9)
[2024-04-15] MEDS: Lactated Ringers 1,000 ML 100 ML IV (20:57)
[2024-04-15] MEDS: Heparin Injection (Vial) 5,000 UNIT/ML VIAL 5000 UNIT SC (23:00)
[2024-04-15] MEDS: QUEtiapine 25 MG Tablet PO (23:01)
[2024-04-15] MEDS: Metoprolol Tartrate 50 MG Tablet PO (23:01)
[2024-04-15] MEDS: Carbidopa/Levodopa 25/100 Tablet PO (23:02)
[2024-04-15 23:37] LABS: Bedside Glucose 131 mg/dL (74-106)
[2024-04-16] VITALS (12 sets, daily range): BP systolic 117–153; BP diastolic 66–95; PULSE 88–102; RESP 16–30; TEMP 36.9–37.9; O2SAT 83–97; BMI 21.6
[2024-04-16] MEDS: Heparin Injection (Vial) 5,000 UNIT/ML VIAL 5000 UNIT SC ×3 (06:21→23:11)
[2024-04-16] MEDS: Carbidopa/Levodopa 25/100 Tablet PO ×3 (06:21→23:14)
[2024-04-16] MEDS: Lactated Ringers 1,000 ML 100 ML IV (06:29)
[2024-04-16 06:47] LABS: Absolute Lymphocyte Count 0.57 X10^3/uL (0.83-4.51); Absolute Neutrophil Count 13.1 X10^3/uL (2.0-7.7); Basophil# 0.05 X10^3/uL; Basophil% 0.3 % (0-1); Hematocrit 41.4 % (40-54); Hemoglobin 12.7 g/dL (13.0-16.5); Lymphocyte # 0.57 X10^3/ul (0.83-4.51); Lymphocyte % 3.9 % (19-41); Mean Corp Hgb Conc 30.7 g/dL (32-36); Mean Corpuscular Hgb 28.4 pg (27.0-32.0); Mean Corpuscular Volume 92.6 fL (80-94); Mean Platelet Vol. 10.5 fl (6.2-12.0); Monocyte# 0.71 X10^3/uL; Monocyte% 4.9 % (0-10); NRBC Flagged by Analyzer 0 % (0-5); Neutrophil # 13.06 X10^3/uL (2.7-7.7); POSITIVE DIFFERENTIAL YES; Platelet Count 415 K/mm3 (150-450); RBC Distribution Width CV 13.4 % (11.6-14.6); RBC Distribution Width SD 45.5 fl (35.1-43.9); Red Blood Count 4.47 M/mm3 (4.6-6.2); White Blood Count 14.5 K/mm3 (4.4-11.0)
[2024-04-16 07:14] LABS: Bedside Glucose 142 mg/dL (74-106)
[2024-04-16 07:40] LABS: ALB/GLOB Ratio 0.5 RATIO (0.9-2.4); AST(SGOT) 26 U/L (15-37); Alanine Aminotransfer ALT/SGPT < 6 U/L (16-61); Albumin, Serum 2.3 g/dL (3.2-5.0); Alkaline Phosphatase 118 U/L (45-117); Anion Gap 5 (5-15); BUN 69 mg/dL (7-18); Calcium,Total 9.4 mg/dL (8.5-10.1); Chloride 114 mmol/L (98-107); Creatinine, Serum 1.21 mg/dL (0.70-1.30); EST Glomerular Filtration Rate 61 mL/min (>60); Est Glom Filt Rate - Afr Amer 74 mL/min (>60); Estimated Creatinine Clearance 50.76 ml/min; Globulin 5.1 g/dL (2.2-4.2); Glucose 138 mg/dL (74-106); Magnesium 2.3 mg/dL (1.6-2.6); Phosphorus 2.9 mg/dL (2.5-4.9); Potassium 4.1 mmol/L (3.5-5.1); Protein, Total 7.4 g/dL (6.4-8.2); Sodium Level 146 mmol/L (136-145); Thyroid Stim Hormone (TSH) 0.666 uIU/mL (0.358-3.740)
--- NOTE | 2024-04-16 07:46 | PN.HOSP_ITS ---
Reason for Visit Reason for Visit: Diagnoses Elevated white blood cell count, unspecified (04/15/24) Hypercalcemia (04/15/24) Dehydration (04/15/24) Acidosis, unspecified (04/15/24) Other toxic encephalopathy (04/15/24) Acute kidney failure, unspecified (04/15/24) Subjective Subjective Very weak. Tachypneic. Objective Data Objective Data Vital Signs: Vital Signs Temp Pulse Resp BP Pulse Ox O2 Del Method O2 Flow Rate 37.0 C 89 16 134/66 H 93 Nasal Cannula 2 04/16/24 02:20 04/16/24 02:20 04/16/24 02:20 04/16/24 02:20 04/16/24 02:20 04/16/24 02:25 04/16/24 02:25 Oxygen Flow Rate (L/min) 2 Oxygen Delivery Method Nasal Cannula Weight: 72.5 kg Body Mass Index (BMI) 21.6 Intake & Output: Intake and Output for Last 24 Hours 04/14/24 04/15/24 04/16/24 23:59 23:59 23:59 Intake Total 1000 / 1000 953.33 / 953.33 Output Total 550 / 550 Balance 1000 / 800 403.33 / 403.33 Lab / Micro Data 04/16/24 05:53 04/16/24 05:53 Labs: Laboratory Results - last 24 hr 04/15/24 14:44: Lactic Acid 2.8 H* 04/15/24 14:47: WBC 17.6 H, RBC 5.31, Hgb 14.9, Hct 48.3, MCV 91.0, MCH 28.1, M CHC 30.8 L, RDW Std Deviation 44.9 H, RDW Coeff of Jed 13.3, Plt Count 551 H, MPV 10.1, Immature Gran % (Auto) 0.700, Neut % (Auto) 89.2 H, Lymph % (Auto) 3.8 L, [place] % (Auto) 5.1, Eos % (Auto) 0.7, Baso % (Auto) 0.5, Absolute Neuts (auto) 15.6 H, Absolute Lymphs (auto) 0.67 L, Nucleated RBC % 0, Sodium 144, Potassium 4.4, Chloride 104, Carbon Dioxide 32.0, Anion Gap 8, BUN 81 H, Creatinine 2.12 H , Estim Creat Clear Calc 30.25, Est GFR (MDRD) Af Amer 39 L, Est GFR (MDRD) Non- Af 32 L, BUN/Creatinine Ratio 38.2 H, Glucose 169 H, Calcium 10.7 H 04/15/24 15:40: Urine Color Yellow, Urine Clarity Clear, Urine pH 5.0, Ur Specific [place] 1.025, Urine Protein 30 H, Urine Glucose (UA) Normal, Urine Ketones 5 H, Urine Occult Blood 10 H, Urine Nitrite Negative, Urine Bilirubin 1 H, Urine Urobilinogen Normal, Ur Leukocyte Esterase 25 H, Urine RBC 0-5 SEEN, Urine WBC 5-10 SEEN, Ur Squamous Epith Cells 0-5 SEEN, Urine Bacteria 1+, Hyaline Casts 0-5 SEEN, Urine Mucus 0 SEEN 04/15/24 19:50: Lactic Acid 1.7 04/15/24 22:59: POC Glucose 131 H 04/16/24 05:53: WBC 14.5 H, RBC 4.47 L, Hgb 12.7 L, Hct 41.4, MCV 92.6, MCH 28.4, MCHC 30.7 L, RDW Std Deviation 45.5 H, RDW Coeff of Jed 13.4, Plt Count 415, MPV 10.5, Immature Gran % (Auto) 0.900, Neut % (Auto) 90.0 H, Lymph % (Auto) 3.9 L, [place] % (Auto) 4.9, Eos % (Auto) 0.0, Baso % (Auto) 0.3, Absolute Neuts (auto) 13.1 H, Absolute Lymphs (auto) 0.57 L, Nucleated RBC % 0, Sodium 146 H, Potassium 4.1, Chloride 114 H, Carbon Dioxide 27.0, Anion Gap 5, BUN 69 H , Creatinine 1.21, Estim Creat Clear Calc 50.76, Est GFR (MDRD) Af Amer 74, Est GFR (MDRD) Non-Af 61, BUN/Creatinine Ratio 57.0 H, Glucose 138 H, Calcium 9.4, Phosphorus 2.9, Magnesium 2.3, Total Bilirubin 0.60, AST 26, ALT < 6 L, Alkaline Phosphatase 118 H, Total Protein 7.4, Albumin 2.3 L, Globulin 5.1 H, A lbumin/Globulin Ratio 0.5 L, TSH 0.666 04/16/24 06:26: POC Glucose 142 H Radiography Diagnostic Testing: Radiology Impression Chest X-Ray 04/15/24 15:15 IMPRESSION: There are no acute findings. Electronically Signed: Jg Talbot MD at 15:41 EST Reading Location ID and State: [facility] / [place] , Service support , Rhythm Strip Rhythm Strip: Sinus Rhythm Rate: 100 Ectopy: PAC(s) Physical Exam Const alert and no apparent distress HEENT head/scalp atraumatic and moist oral mucous membranes Resp normal respiratory effort, no retractions, no use of accessory muscles and clear to auscultation bilaterally Cardio regular rate, regular rhythm, S1 normal heart sound and S2 normal heart sound GI normal to inspection, nondistended, normoactive bowel sounds, soft to palpation, non-tender and non-distended Extremity normal to inspection and full ROM Neuro Sensorium / Orientation: awake and alert Assessment & Plan Assessment/Plan (1) FOX (acute kidney injury): PLAN: Plan FOX * Likely prerenal given dehydration. Improved with IVF. No additional work up needed. Lactic acidosis * resolved. 2/2 dehydration and metformin * no additional work up Leukocytosis * No signs of acute infection other than white count * BCx pending. UA negative. No pneumonia on CXR. Metabolic encephalopathy * 2/2 PD plus dehydration. Ongoing. Hold potentiating medications. 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
[2024-04-16] MEDS: Atorvastatin Calcium 20 MG Tablet PO (08:35)
[2024-04-16] MEDS: Menthol/Lanolin/Calamine/Znox 113 GM Tube 1 APPLIC TOPICAL ×3 (08:35→23:10)
[2024-04-16] MEDS: Metoprolol Tartrate 50 MG Tablet PO (08:35)
--- NOTE | 2024-04-16 09:09 | NURSING ---
Addendum entered by Lelo Calix 04/16/24 09:14: This RN also attempted to have pt use his I.S and pep valve but pt took weak and unable to use. Original Note: this RN noticed that when pt was getting pills that where crushed in applsauce that he was okay but when I gave him Ensure, pt kept coughing. Made him NPO and speech therapy to see him. respirations 30min. 02 was only 83% on 2L NC. This RN increased it by 1L until he was above 90. pt o2 is currently on 5L NC with spo2 92%. Dr. Villagran in to see pt at this time and made aware of all this.
--- NOTE | 2024-04-16 10:31 | CASEMGMT ---
Addendum entered by Farnaz Contreras 04/16/24 12:14: Pt will need a new precert. Updates sent via [employer] and requested that they submit for precert. Farnaz Contreras DC Planning Asst. Original Note: Updates sent to [facility] via [employer]. Note asking if new precert is needed. Awaiting response. Farnaz Contreras DC Planning Asst.
[2024-04-16] MEDS: Insulin Lispro 100 UNIT/ML INSULN.PEN SC (11:54)
[2024-04-16 12:15] LABS: Bedside Glucose 181 mg/dL (74-106)
--- NOTE | 2024-04-16 16:02 | NURSING ---
Speech therapy saw pt and wants to keep NPO, only critical meds crushed with applesauce. Dr. Villagran is aware. This RN took blankets off pt and put cool wash clothes on his neck and head d/t temp of 100.3 and pt sweating and hot.
[2024-04-16 16:34] LABS: Bedside Glucose 135 mg/dL (74-106)
[2024-04-16] MEDS: 0.9% Normal Saline (1000mL) 1,000 ML 100 ML IV (16:41)
[2024-04-16] MEDS: QUEtiapine 25 MG Tablet PO (23:15)
[2024-04-17] VITALS (10 sets, daily range): BP systolic 128–149; BP diastolic 65–89; PULSE 88–116; RESP 18–33; TEMP 36.7–37.9; O2SAT 92–98; BMI 22.3
[2024-04-17 00:33] LABS: Bedside Glucose 133 mg/dL (74-106)
[2024-04-17] MEDS: 0.9% Normal Saline (1000mL) 1,000 ML 100 ML IV (02:44)
[2024-04-17] MEDS: Heparin Injection (Vial) 5,000 UNIT/ML VIAL 5000 UNIT SC ×3 (06:48→23:27)
[2024-04-17 07:17] LABS: Bedside Glucose 117 mg/dL (74-106)
--- NOTE | 2024-04-17 07:18 | PN.HOSP_ITS ---
Reason for Visit Reason for Visit: Diagnoses Elevated white blood cell count, unspecified (04/15/24) Hypercalcemia (04/15/24) Dehydration (04/15/24) Acidosis, unspecified (04/15/24) Other toxic encephalopathy (04/15/24) Acute kidney failure, unspecified (04/15/24) Subjective Subjective Still lethargic. Objective Data Objective Data Vital Signs: Vital Signs Temp Pulse Resp BP Pulse Ox O2 Del Method O2 Flow Rate 37.2 C 88 18 128/89 H 96 Nasal Cannula 2 04/17/24 04:47 04/17/24 04:47 04/17/24 04:47 04/17/24 04:47 04/17/24 04:47 04/17/24 04:47 04/17/24 04:47 Oxygen Flow Rate (L/min) 2 Oxygen Delivery Method Nasal Cannula Weight: 74.7 kg Body Mass Index (BMI) 22.3 Intake & Output: Intake and Output for Last 24 Hours 04/15/24 04/16/24 04/17/24 23:59 23:59 23:59 Intake Total 1000 / 1000 2073.33 / 2073.33 1000 / 1000 Output Total 1550 / 2000 825 / 825 Balance 1000 / 800 523.33 / 73.33 175 / 175 Medical Nutrition Assessment Dietitian: Malnutrition Criteria Met Start: 04/16/24 11:20 Freq: Status: Active Protocol: Document 04/16/24 11:20 SLA (Rec: 04/16/24 11:21 SLA [email or web address]) Nutrition Malnutrition Evidence of Malnutrition Exists Yes Malnutrition (severe): Acute Illness/Injury Evidenced By Suboptimal Energy Intake ( Severe),Weight Loss (Severe) Clinical Problem Acute Disease or Injury Related Malnutrition Etiology related to acute illness and dementia Signs/Symptoms as evidenced by po intake meeting <75% of est nutritional needs and ~ 13% unintended wt loss recently Status Active Problem Recommendation Dietitian Recommendations/Changes Rec consider appetite stimulant to help encourage increased po intake When po diet resumes rec liberal diet of Regular w/ glucerna shake tid w/ meals - consistency per STEEL ENGRAVER - d/t signs and symptoms of malnutrition. Will d/c ONS at [facility] and give w/ meals instead. Lab / Micro Data 04/16/24 05:53 04/16/24 05:53 Labs: Laboratory Results - last 24 hr 04/16/24 05:53: Sodium 146 H, Potassium 4.1, Chloride 114 H, Carbon Dioxide 27.0, Anion Gap 5, BUN 69 H, Creatinine 1.21, Estim Creat Clear Calc 50.76, Est GFR (MDRD) Af Amer 74, Est GFR (MDRD) Non-Af 61, BUN/Creatinine Ratio 57.0 H, G lucose 138 H, Calcium 9.4, Phosphorus 2.9, Magnesium 2.3, Total Bilirubin 0.60, AST 26, ALT < 6 L, Alkaline Phosphatase 118 H, Total Protein 7.4, Albumin 2.3 L, Globulin 5.1 H, Albumin/Globulin Ratio 0.5 L, TSH 0.666 04/16/24 11:49: POC Glucose 181 H 04/16/24 16:09: POC Glucose 135 H 04/17/24 00:03: POC Glucose 133 H 04/17/24 06:52: POC Glucose 117 H Rhythm Strip Rhythm Strip: Sinus Rhythm Rate: 100 Ectopy: PAC(s) Physical Exam Const alert and no apparent distress HEENT head/scalp atraumatic and moist oral mucous membranes Resp Resp Narrative: short shallow breaths. coarse BS bilaterally. Cardio regular rate, regular rhythm, S1 normal heart sound and S2 normal heart sound GI normal to inspection, nondistended, normoactive bowel sounds, soft to palpation, non-tender and non-distended Extremity normal to inspection, full ROM and no clubbing, cyanosis or edema Neuro Sensorium / Orientation: awake and alert Assessment & Plan Assessment/Plan (1) FOX (acute kidney injury): PLAN: Plan FOX * Likely prerenal given dehydration. Improved with IVF. No additional work up needed. Lactic acidosis * resolved. 2/2 dehydration and metformin * no additional work up Leukocytosis * No signs of acute infection other than white count * BCx pending. UA negative. No pneumonia on CXR. Metabolic encephalopathy * 2/2 PD plus dehydration. Ongoing. Hold potentiating medications. 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-Output is [id number]-[id number] wound/ostomy nurse * CAD/essential HTN/HPL-Patient with previous CABG x 6 in 2003-Continue home aspirin-Continue home atorvastatin-Hold home Lasix for now with dehydration- Continue metoprolol * Parkinson's disease-Continue home Sinemet * Suspected cognitive impairment-Likely related to Parkinson's * Glaucoma-Continue home eyedrops * History of depression-Continue home Seroquel DVT prophylaxis -Subcu heparin 3 times daily CODE STATUS -DNR CCA without intubation per discussion with on admission Advance care planning: Spent additional 20 minutes were spoke with the patient's and updated her on his condition. Explained to her that he is profoundly lethargic and unable to take any oral at this time. He is to have a modified barium swallow study to evaluate his swallowing but given his profound lethargy, I anticipate that he is going to fail and if so speech therapy will recommend a feeding tube. Spoke with her and told her that my recommendation is if he were recommended to have a feeding tube, I would recommend against it because it would be a permanent fixture. I did recommend speaking with hospice and seeing if that would be something that she and her family may be interested in. She expressed openness to speak with hospice and I will place a consult to hospice and hopefully they will be able to evaluate the patient soon but I did tell her that they may not see him until the . Charges/Coding Visit Charges Inpatient E&M: 12486 Subs Hosp L2 Procedures Hospitalists Procedures: 98101 Advncd Care Plan 30 Min
[2024-04-17] MEDS: Carbidopa/Levodopa 25/100 Tablet PO (07:59)
[2024-04-17] MEDS: Menthol/Lanolin/Calamine/Znox 113 GM Tube 1 APPLIC TOPICAL ×4 (11:53→23:27)
--- NOTE | 2024-04-17 11:54 | NURSING ---
This RN pulled metoprolol and atorvastatin from [facility] and crused, speech therapy does not recommend oral intake at this time, medications wasted in med waste bin in med room.
[2024-04-17 12:40] LABS: Bedside Glucose 139 mg/dL (74-106)
--- NOTE | 2024-04-17 13:31 | CASEMGMT ---
Social Work- SW received notice that pt is interested in hospice consult per physician. Pt expressed agreement to SW completing referral. Referral faxed to [facility]. SW remains available to follow. MAN Mehta
--- NOTE | 2024-04-17 13:49 | CASEMGMT ---
[facility] has obtained auth to admit. SW updated. Farnaz Contreras DC Planning Asst.
--- NOTE | 2024-04-17 14:55 | CHAPLAIN ---
Type of Pastoral Visit _x__ Initial Visit ___ Follow-up Visit ___ On-call Visit ___ General Patient Visit ___ Spiritual Assessment ___ Family Conference ___ Bereavement ___ Rapid Response ___ Code Blue ___ Other (describe below) Pastoral Care Referral From ___ Patient _x__ Family ___ Nurse ___ Physician ___ Dental Internship ___ Vehicle Cost Engineer ___ Other (describe below) Sacrament/Intervention _x__ Active listening ___ Anointing ___ Mu-Ism ___ Bereavement ___ Communion _x__ Leslie exploration ___ _x__ Life review _x__ Prayer ___ Reconciliation ___ Sacrament of Sick _x__ Supportive presence ___ Wedding ___ Other (describe below) Pastoral Comments patient and spouse are in the room; pt appears to be awake but lethargic and confused; pt is addressed and given information on the support of spiritual care; pt does mumble some words and when asked questions at times he gives a response, some audible and other times unintelligible; spouse is talkative and expressive; pt's family members are coming in this week to see him and per spouse we will be making some big decisions; pt is offered prayer; spouse is given time to eexpress her thoughts and feelings
[2024-04-17] MEDS: Acetaminophen 650 MG Suppository RC (15:54)
--- NOTE | 2024-04-17 16:42 | CASEMGMT ---
Social Work- Jeannine, [facility], called to notify that hospice will eval at 1:30PM tomorrow 04/18. Jeannine call back is [phone]. MAN Mehta
[2024-04-17 17:40] LABS: Bedside Glucose 121 mg/dL (74-106)
[2024-04-18 00:03] LABS: Bedside Glucose 124 mg/dL (74-106)
[2024-04-18] MEDS: Acetaminophen 650 MG Suppository RC (02:10)
[2024-04-18 02:20] VITALS: BP 132/66; PULSE 111; RESP 26; TEMP 38.3; O2SAT 93
[2024-04-18 04:31] VITALS: PULSE 114; RESP 30; TEMP 37.7; O2SAT 94
[2024-04-18 05:00] VITALS: PULSE 111
[2024-04-18 05:39] VITALS: BMI 21.9
[2024-04-18] MEDS: Heparin Injection (Vial) 5,000 UNIT/ML VIAL 5000 UNIT SC ×2 (06:25→15:15)
[2024-04-18 07:01] VITALS: O2SAT 92
[2024-04-18 07:22] LABS: Bedside Glucose 124 mg/dL (74-106)
--- NOTE | 2024-04-18 07:32 | PN.HOSP_ITS ---
Reason for Visit Reason for Visit: Diagnoses Elevated white blood cell count, unspecified (04/15/24) Hypercalcemia (04/15/24) Dehydration (04/15/24) Acidosis, unspecified (04/15/24) Other toxic encephalopathy (04/15/24) Acute kidney failure, unspecified (04/15/24) Subjective Subjective Still with difficulty speaking. Objective Data Objective Data Vital Signs: Vital Signs Temp Pulse Resp BP Pulse Ox O2 Del Method O2 Flow Rate 37.7 C H 111 H 30 H 132/66 H 94 Nasal Cannula 3 04/18/24 04:31 04/18/24 05:00 04/18/24 04:31 04/18/24 02:20 04/18/24 04:31 04/18/24 05:00 04/18/24 04:31 Oxygen Flow Rate (L/min) 3 Oxygen Delivery Method Nasal Cannula Weight: 73.6 kg Body Mass Index (BMI) 21.9 Intake & Output: Intake and Output for Last 24 Hours 04/16/24 04/17/24 04/18/24 23:59 23:59 23:59 Intake Total 2073.33 / 2073.33 1999 Output Total 1549 1325 / 1575 250 / 250 Balance 523.33 / 73.33 675 / 425 -250 / -250 Medical Nutrition Assessment Dietitian: Malnutrition Criteria Met Start: 04/16/24 11:20 Freq: Status: Active Protocol: Document 04/16/24 11:20 SLA (Rec: 04/16/24 11:21 SLA [email or web address]) Nutrition Malnutrition Evidence of Malnutrition Exists Yes Malnutrition (severe): Acute Illness/Injury Evidenced By Suboptimal Energy Intake ( Severe),Weight Loss (Severe) Clinical Problem Acute Disease or Injury Related Malnutrition Etiology related to acute illness and dementia Signs/Symptoms as evidenced by po intake meeting <75% of est nutritional needs and ~ 13% unintended wt loss recently Status Active Problem Recommendation Dietitian Recommendations/Changes Rec consider appetite stimulant to help encourage increased po intake When po diet resumes rec liberal diet of Regular w/ glucerna shake tid w/ meals - consistency per STRANDING MACHINE OPERATOR HELPER - d/t signs and symptoms of malnutrition. Will d/c ONS at [facility] and give w/ meals instead. Lab / Micro Data 04/16/24 05:53 01/20/25 05:53 Labs: Laboratory Results - last 24 hr 04/17/24 12:20: POC Glucose 139 H 04/17/24 17:20: POC Glucose 121 H 04/17/24 23:26: POC Glucose 124 H Rhythm Strip Rhythm Strip: Sinus Rhythm Rate: 100 Ectopy: PAC(s) Physical Exam Const Constitutional Narrative: lethargic. afebrile. Resp normal respiratory effort, no retractions, no use of accessory muscles and clear to auscultation bilaterally Cardio regular rate, regular rhythm, S1 normal heart sound and S2 normal heart sound GI normal to inspection, nondistended, normoactive bowel sounds, soft to palpation, non-tender and non-distended Extremity normal to inspection and full ROM Neuro Sensorium / Orientation: awake and alert Assessment & Plan Assessment/Plan (1) FOX (acute kidney injury): PLAN: Plan FOX * Likely prerenal given dehydration. Improved with IVF. No additional work up needed. Lactic acidosis * resolved. 2/2 dehydration and metformin * no additional work up Leukocytosis * No signs of acute infection other than white count * BCx pending. UA negative. No pneumonia on CXR. Metabolic encephalopathy * 2/2 PD plus dehydration. Ongoing. Hold potentiating medications. 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-Output is [id number]-[id number] wound/ostomy nurse * CAD/essential HTN/HPL-Patient with previous CABG x 6 in 2003-Continue home aspirin-Continue home atorvastatin-Hold home Lasix for now with dehydration- Continue metoprolol * Parkinson's disease-Continue home Sinemet * Suspected cognitive impairment-Likely related to Parkinson's * Glaucoma-Continue home eyedrops * History of depression-Continue home Seroquel DVT prophylaxis -Subcu heparin 3 times daily CODE STATUS -DNR CCA without intubation per discussion with on admission 04/17: I spoke with the patient's and updated her on his condition. Explained to her that he is profoundly lethargic and unable to take any oral at this time. He is to have a modified barium swallow study to evaluate his swallowing but given his profound lethargy, I anticipate that he is going to fail and if so speech therapy will recommend a feeding tube. Spoke with her and told her that my recommendation is if he were recommended to have a feeding tube, I would recommend against it because it would be a permanent fixture. I did recommend speaking with hospice and seeing if that would be something that she and her family may be interested in. She expressed openness to speak with hospice and I will place a consult to hospice and hopefully they will be able to evaluate the patient soon but I did tell her that they may not see him until the . Charges/Coding Visit Charges Inpatient E&M: 98089 Subs Hosp L2
[2024-04-18 08:24] VITALS: BP 125/62; PULSE 98; RESP 24; TEMP 36.8; O2SAT 95
[2024-04-18] MEDS: Menthol/Lanolin/Calamine/Znox 113 GM Tube 1 APPLIC TOPICAL ×2 (09:20→15:19)
--- NOTE | 2024-04-18 13:30 | NURSING ---
Hospice Nurse in to speak with family
[2024-04-18 13:34] VITALS: BP 129/61; PULSE 122; RESP 28; TEMP 37.1; O2SAT 93
--- NOTE | 2024-04-18 15:01 | CASEMGMT ---
[facility] notified that pt will transfer to [facility]. Farnaz Contreras DC Planning Asst.
--- NOTE | 2024-04-18 15:47 | CASEMGMT ---
Social Work- JAYDE met with hospice nurse, Savanna, to discuss hospice assessment. Pt elected to have pt discharged with hospice to [facility]. Pt has been accepted. Physician notified. DCA notified to rescind [facility] referral. SW remains availabale to follow. Plan: [facility] MAN Mehta
--- NOTE | 2024-04-18 16:39 | DS.PCM_ITS ---
Providers Date of Admission: 04/15/24 Primary Care Physician: Dr. Dustin Thacker MD Consultations 04/17/24 13:12 Consult: Hospice / Palliative Care Routine Consulting Provider: [facility] Reason for Consult: end of life care EMERGENT Consult: No MD Notified: Yes Date Notified: 04/17/24 Time Notified: 13:38 Method of Notification: Answering Service Comments:: completed by [place] social service technician Reason For Visit: DEHYDRDATION/FOX Diagnosis Discharge Diagnosis (1) FOX (acute kidney injury): Status: Acute Code(s): N17.9 - Acute kidney failure, unspecified Plan FOX * Likely prerenal given dehydration. Improved with IVF. No additional work up needed. Lactic acidosis * resolved. 2/2 dehydration and metformin * no additional work up Leukocytosis * No signs of acute infection other than white count * BCx pending. UA negative. No pneumonia on CXR. Metabolic encephalopathy * 2/2 PD plus dehydration. Ongoing. Hold potentiating medications. 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-Output is [id number]-[id number] wound/ostomy nurse * CAD/essential HTN/HPL-Patient with previous CABG x 6 in 2003-Continue home aspirin-Continue home atorvastatin-Hold home Lasix for now with dehydration- Continue metoprolol * Parkinson's disease-Continue home Sinemet * Suspected cognitive impairment-Likely related to Parkinson's * Glaucoma-Continue home eyedrops * History of depression-Continue home Seroquel DVT prophylaxis -Subcu heparin 3 times daily CODE STATUS -DNR CCA without intubation per discussion with on admission 04/17: I spoke with the patient's and updated her on his condition. Explained to her that he is profoundly lethargic and unable to take any oral at this time. He is to have a modified barium swallow study to evaluate his swallowing but given his profound lethargy, I anticipate that he is going to fail and if so speech therapy will recommend a feeding tube. Spoke with her and told her that my recommendation is if he were recommended to have a feeding tube, I would recommend against it because it would be a permanent fixture. I did recommend speaking with hospice and seeing if that would be something that she and her family may be interested in. She expressed openness to speak with hospice and I will place a consult to hospice and hopefully they will be able to evaluate the patient soon but I did tell her that they may not see him until the . Medications at Discharge Home Medications carbidopa 25 mg-levodopa 100 mg tablet 2 tab PO TID 04/15/24 quetiapine 25 mg tablet 25 mg PO 1XD 04/15/24 acetaminophen 650 mg rectal suppository 650 mg VT Q6H PRN PRN Fever #0 ea 04/18/24 albuterol sulfate 2.5 mg/3 mL (0.083 %) solution for nebulization 2.5 mg (3 mL) inhalation Q2H PRN PRN SOB &/OR WHEEZING #0 mL 04/18/24 Hospital Course Operations None Procedures None Summary of Care Provided Hospital Course: Patient presents with weakness and decreased oral intake. He is found to have FOX likely due to dehydration, lactic acidosis, leukocytosis. Patient has a known history of Parkinson's and was profoundly listless and would be awake but could have unintelligible speech. Patient did receive IV fluids and his kidney function improved. Lactic acidosis likely due to dehydration also being on concomitantly on metformin. Did have leukocytosis but no sign of any infection was identified. The concern for his encephalopathy was likely due to his advanced Parkinson's plus his other medical conditions. Patient really had not progressed and on the I reached out to his . I long discussion with her and mentioned hospice with her. I told her that we are waiting on speech therapy to see him to have a modified barium swallow. I told her that he is likely going to fail and their recommendation would be PEG tube. With that I told her I would actually recommend against a PEG tube as it would not provide quality of life. She was in agreement. Then with that I mentioned hospice to which she was open to speaking with hospice and the family met with hospice today. They agreed with hospice services and the patient will be discharged to the inpatient hospice unit today. Medical Records Data Medical Nutrition Assessment Dietitian: Malnutrition Criteria Met Start: 04/16/24 11:20 Freq: Status: Active Protocol: Document 04/16/24 11:20 SLA (Rec: 04/16/24 11:21 SLA [email or web address]) Nutrition Malnutrition Evidence of Malnutrition Exists Yes Malnutrition (severe): Acute Illness/Injury Evidenced By Suboptimal Energy Intake ( Severe),Weight Loss (Severe) Clinical Problem Acute Disease or Injury Related Malnutrition Etiology related to acute illness and dementia Signs/Symptoms as evidenced by po intake meeting <75% of est nutritional needs and ~ 13% unintended wt loss recently Status Active Problem Recommendation Dietitian Recommendations/Changes Rec consider appetite stimulant to help encourage increased po intake When po diet resumes rec liberal diet of Regular w/ glucerna shake tid w/ meals - consistency per SUPERVISORY GEOGRAPHER - d/t signs and symptoms of malnutrition. Will d/c ONS at [facility] and give w/ meals instead. Weight / BMI Weight Weight: 73.6 kg Body Mass Index (BMI) 21.9 ABG / Lab / Microbiology Data 04/16/24 05:53 04/16/24 05:53 Laboratory: Laboratory Results - last 24 hr 04/17/24 17:20: POC Glucose 121 H 04/17/24 23:26: POC Glucose 124 H 04/18/24 06:22: POC Glucose 124 H Microbiology: Microbiology 04/15/24 16:48 Blood Culture (Wb) - Left Hand Blood Culture - Preliminary No growth in 48 hours. 04/15/24 14:44 Blood Culture (Wb) - Right Forearm Blood Culture - Preliminary No growth in 48 hours. D/C Instructions DC O2, CPAP, BIPAP Needs Home O2 Discharge instructions: No Meaningful Use Info Meaningful Use Meaningful Use Diagnoses (Choose all that apply): None applicable Ischemic Stroke Statin Dosing Therapy Reference: STATIN DOSE THERAPY REFERENCE: * Patients > 75 years receive moderate or high dose statin therapy. * Patients 75 years or YOUNGER should receive HIGH intensity statin dose unless contraindicated. You will be required to document reason for non-treatment if statin daily dose does not meet guidelines. HIGH DOSE STATIN THERAPY DAILY Atorvastatin > than or = to 40 mg Rosuvastatin > than or = to 20 mg Amlodipine + Atorvastatin > than or = to 2.5/40 mg Ezetimibe + Simvastatin 10/80 mg Simvastatin 80mg Discharge Plan Admission Admit Date/Time: 04/15/24 17:40 Primary Reason for Your Visit: FOX Attending Provider: Trent Villagran Primary Care Provider: Dustin Thacker Consulting Providers: Jade Phillip; Josué Church; Nancy Elliott; Kait Barger; Kathleen Pichardo; Peggy Taylor MANAGER INTERVENTIONAL; Columba Valerio Discharge Orders/Prescriptions Prescriptions: New acetaminophen 650 mg Suppository 650 mg VT Q6H PRN PRN (Reason: Fever) Qty: 0 0RF albuterol sulfate 2.5 mg /3 mL (0.083 %) Solution For Nebulization 2.5 mg inhalation Q2H PRN PRN (Reason: SOB &/OR WHEEZING) Qty: 0 0RF Continued quetiapine 25 mg tablet 25 mg PO 1XD Patient Comments: TAKE 2 TABLETS BY MOUTH EVERY MORNING and ONE TABLET AT BEDTIME carbidopa-levodopa 25-100 mg tablet 2 tab PO TID Discontinued furosemide 40 mg tablet 40 mg PO DAILY metformin 500 mg tablet 500 mg PO BID atorvastatin 20 mg tablet 20 mg PO DAILY potassium chloride 20 mEq tablet,ER particles/crystals 20 meq PO DAILY metoprolol tartrate 50 mg tablet 50 mg PO BID Referrals / Follow Up: Dustin Thacker MD [Primary Care Provider] - Disposition Disposition (needs filled in before D/C Order can be placed): Hospice in Medical Facility Charges/Coding Visit Charges Inpatient E&M: 09985 Disch Hosp
== END 2024-04-18 19:05 | disposition hospice, inpatient (51) | DRG 640 ==
LOC: ED 15:20 → MS3 18:00
PROVIDERS: Physician Assistant; Admitting Provider Internal Medicine; Emergency Provider Emergency Medicine; PCP Family Medicine
DX: E86.0 Dehydration (principal); G93.41 Metabolic encephalopathy; E43 Unspecified severe protein-calorie malnutrition; N17.9 Acute kidney failure, unspecified; L89.151 Pressure ulcer of sacral region, stage 1; E87.20 Acidosis, unspecified; R13.10 Dysphagia, unspecified; Z66 Do not resuscitate; G20.A1 Parkinson's disease without dyskinesia, without mention of fluctuations; E11.628 Type 2 diabetes mellitus with other skin complications; I10 Essential (primary) hypertension; F32.A Depression, unspecified; Z93.2 Ileostomy status; D72.829 Elevated white blood cell count, unspecified; D75.839 Thrombocytosis, unspecified; E78.5 Hyperlipidemia, unspecified; E83.52 Hypercalcemia; I25.10 Atherosclerotic heart disease of native coronary artery without angina pectoris; I45.10 Unspecified right bundle-branch block; I49.1 Atrial premature depolarization; T38.3X5A Adverse effect of insulin and oral hypoglycemic [antidiabetic] drugs, initial encounter; H40.9 Unspecified glaucoma; Z79.84 Long term (current) use of oral hypoglycemic drugs; Z79.899 Other long term (current) drug therapy; Z90.49 Acquired absence of other specified parts of digestive tract; Z87.19 Personal history of other diseases of the digestive system; Z95.1 Presence of aortocoronary bypass graft; Z68.21 Body mass index [BMI] 21.0-21.9, adult
CPT/HCPCS: 36415; 71046; 80048; 80053; 81001; 82962; 83605; 83735; 84100; 84443; 85025; 87040; 92526; 92610; 93005; 97110; 97162; 97166; 97530; 97802; 99285